=== PATIENT | female | born 1955 | race African-American/Black ===

== ENCOUNTER 2023-12-16 10:34 | Outpatient (AMB) | payer OTHER, MEDICAID, SELFPAY ==
--- NOTE | 2023-12-16 10:38 | MHC.OFFWIV ---
Intake Vital Signs 12/16/23 10:43 Height 5 ft 7 in Weight 237 lb BMI 37.1 BP 142/78 H Blood Pressure Location Rt brachial Position Sitting Pulse 82 Pulse Source Pulse Oximeter Pulse Oximetry (%) 98 Oxygen Delivery Method Room Air Intake Visit Reasons: [employer] BP is high, headaches, dizziness Intake Note: Patient here for fluctuating BP, headaches and dizziness that started Tuesday. Patient Tobacco Use Status: Never used Tobacco Allergies acetaminophen [From Vicodin] Adverse Reaction (Intermediate, Verified 12/16/23 10:42) Rash amoxicillin [From Augmentin] Adverse Reaction (Intermediate, Verified 12/16/23 10:42) Hallucinations clavulanic acid [From Augmentin] Adverse Reaction (Intermediate, Verified 12/16/23 10:42) Hallucinations cyclobenzaprine Adverse Reaction (Intermediate, Verified 12/16/23 10:42) Hallucinations hydrocodone [From Vicodin] Adverse Reaction (Intermediate, Verified 12/16/23 10:42) Rash metronidazole Adverse Reaction (Intermediate, Verified 12/16/23 10:42) hallucinations NSAIDS (Non-Steroidal Anti-Inflamma Adverse Reaction (Intermediate, Verified 12/16/23 10:42) rash vancomycin Adverse Reaction (Intermediate, Verified 12/16/23 10:42) Hallucinations spironolactone Adverse Reaction (Mild, Verified 12/16/23 10:42) headaches Do you need a note to return to daycare/school/sports/work: No HPI HPI Comments History of Present Illness Details Patient is a 68-year-old female complaining of headaches and dizziness and elevated blood pressures. She has with her a log today of her blood pressures, they are as follows; 12/13 169/95 HR85 12/14 154/92 HR83 12/14 166/85 HR73 12/15 165/88 HR74 She denies any nausea, vomiting, changes in her vision, heart palpitations, chest pain, shortness of breath or leg swelling. She tells me she sees a primary therapist at [facility] by the name of Dr. Maza and she called his office but she has not able to be seen by him until January. She called [facility] where she has a new patient appointment but it is not until February 19. She tells me she drinks lots of water and does not add salt to her diet. She does not know what her ejection fraction is but she knows she takes 40 mg of furosemide daily and 100 mg of losartan daily. [facility] Social History Patient Tobacco Use Status: Never used Tobacco Review of Systems Const All systems reviewed & are unremarkable except as noted in HPI and below Physical Exam Vital Signs: Last Vital Signs Pulse 82 12/16/23 10:43 BP 142/78 H 12/16/23 10:43 Pulse Ox 98 12/16/23 10:43 Oxygen Delivery Method Room Air 12/16/23 10:43 BMI result Body Mass Index 37.1 Const General: cooperative, healthy appearing, comfortable, no acute distress and well developed Orientation/consciousness: patient oriented x3 Limitations: no limitations HEENT Head: Yes normal to inspection Ears: hearing grossly normal bilaterally General nose exam: Normal external nose present Face and sinus: Yes normal facial exam Eyes General: appearance normal, both eyes and all related structures Neck Neck: Yes normal visual inspection and Yes full ROM Resp Effort & Inspection: normal respiratory effort and able to speak in complete sentences Auscultation: clear to auscultation bilaterally Cardio Rate: regular rate Rhythm: regular rhythm Heart sounds: normal S1 and S2 Skin General skin exam: no rashes or lesions noted Neuro General: patient oriented x3 Extrem Other: Patient has a walking boot on her right foot General: Yes full ROM and Yes edema (Trace nonpitting edema of bilateral lower extremities) Assessment & Plan Assessment & Plan (1) Elevated blood pressure reading with diagnosis of hypertension: Code(s): I10 - Essential (primary) hypertension Plan: Vital signs are stable, BP 142/78, patient well-appearing she has clear lung sounds and trace edema on her bilateral lower extremities. I question whether she is taking too much fluid in, I did discuss this with the patient. Recommended patient increase her furosemide to 60 mg daily for the next 2-3 days and monitor her blood pressures, recommended she limit her fluid intake as she does not know what her ejection fraction is. Recommended a low-salt diet. Educated patient that if her blood pressures do not stay below 140 systolic and she still has headaches and dizziness, she should go to the emergency room. Educated patient that she is at risk for a stroke with continued elevated blood pressures. Plan see above Coding Level of Care Code New Pt Level 4 (65297) Diagnoses Elevated blood pressure reading with diagnosis of hypertension I10
[2023-12-16 10:43] VITALS: BP 142/78; PULSE 82; O2SAT 98; BMI 37.1
== END 2023-12-16 11:44 | disposition home or self-care (01) ==
PROVIDERS: Visit Provider Physician Assistant
DX: I10 Essential (primary) hypertension (principal)

== ENCOUNTER → 2023-12-16 10:34 | Outpatient (BNVA) | payer OTHER, MEDICAID, SELFPAY | PROVIDERS: Visit Provider Physician Assistant | DX: I10 Essential (primary) hypertension (principal) | CPT/HCPCS: 99202 ==

== ENCOUNTER 2023-12-17 08:58 | Emergency (ER) | payer OTHER, MEDICAID, SELFPAY ==
--- NOTE | ~2023-12-17 | CT_ITS ---
EXAMINATION: CT HEAD WITHOUT CONTRAST CLINICAL INFORMATION: Frontal headache COMPARISON: None available. TECHNIQUE: Contiguous axial imaging was performed from the skull base to vertex without intravenous administration of contrast. This CT examination was performed using dose optimization techniques as appropriate, variously including the following: *Automated exposure control *Adjustment of mA and/or kV according to patient size (this includes techniques or standardized protocols for targeted exams where dose is matched to indication/reason for exam; i.e. extremities or head) *Use of iterative reconstruction technique DLP: 739 mGy-cm FINDINGS: There is no evidence of acute intracranial hemorrhage or territorial infarction. No abnormal mass effect or midline shift is appreciated. Hussein-white differentiation is well preserved. No extra-axial fluid collections. The ventricular system and cortical sulci are prominent, consistent with age-appropriate volume loss. There are areas of low density in the periventricular and subcortical white matter, most consistent with sequelae of microvascular ischemic change. Soft tissues and osseous structures are unremarkable. The visualized paranasal sinuses and mastoid air cells are well aerated. CT/CT head/brain wo IV con IMPRESSION: Chronic microvascular ischemic changes with no CT evidence of acute intracranial abnormality. Electronically signed by: Renny Barreto MD 12/17/2023 12:30 PM EDT
[2023-12-17 09:03] VITALS: BP 170/92; PULSE 80; RESP 16; TEMP 36.7; O2SAT 99; BMI 36.0
--- NOTE | 2023-12-17 09:08 | ECG_ITS ---
Test Reason : DIZZINESS Blood Pressure : / mmHG Vent. Rate : 080 BPM Atrial Rate : 080 BPM P-R Int : 160 ms QRS Dur : 088 ms QT Int : 380 ms P-R-T Axes : 006 -29 079 degrees QTc Int : 438 ms Normal sinus rhythm Moderate voltage criteria for LVH, may be normal variant ( R in aVL , Kuldeep product ) Septal infarct , age undetermined Abnormal ECG No previous ECGs available Referred By: Generic ED Physician Electronically Signed By:Desean Canas
--- NOTE | 2023-12-17 09:15 | ED_ITS ---
HPI - General Adult General Chief complaint: General Medical Stated complaint: high bp Time Seen by Provider: 12/17/23 09:15 Source: patient Mode of arrival: ambulatory Limitations: no limitations History of Present Illness ED Provider: Dr. Luke Ellison HPI narrative: 68-year-old female with a history of hypertension, atrial fibrillation status post ablation, who presents emergency department for evaluation of 3 days of headache and labile hypertension times months. Patient states over the past 3 days she has been having a constant, headache located in the temporal and frontal area of her head. She states the pain is a pressure pain which is 8/10 at its worst. She was associated dizziness. She has no visual change, nausea, vomiting numbness or weakness associated with her headache. Patient states it is unusual for her to have a headache that lasts this long and she rarely gets headaches. Patient states she gets occasional palpitations. The patient states that she was on metoprolol secondary to her paroxysmal atrial fibrillation but this was discontinued after she had her ablation. She states that since stopping the metoprolol she has been having labile blood pressure with mainly high readings. Patient denied fever, chills, rhinorrhea, chest pain, shortness of breath, dyspnea on exertion, nausea, vomiting or diarrhea. Patient was seen in the urgent care clinic yesterday and was felt to be fluid overloaded. She was advised to increase her Lasix from 40 mg to 60 mg for 3 days. Related Data Home Medications ?Medication ?Instructions ?Recorded ?Confirmed duloxetine 60 mg capsule,delayed 60 mg PO DAILY 12/16/23 release furosemide 40 mg tablet 40 mg PO DAILY 12/16/23 hydroxychloroquine 200 mg tablet 200 mg PO BID 12/16/23 losartan 100 mg tablet 100 mg PO DAILY 12/16/23 Previous Rx's ?Medication ?Instructions ?Recorded metoprolol succinate 25 mg 25 mg PO DAILY 90 days #90 tabs 12/17/23 tablet,extended release 24 hr Allergies Allergy/AdvReac Type Severity Reaction Status Date / Time acetaminophen [From Vicodin] AdvReac Intermediate Rash Verified 12/17/23 09:07 amoxicillin [From Augmentin] AdvReac Intermediate Hallucinati Verified 12/17/23 09:07 ons clavulanic acid AdvReac Intermediate Hallucinati Verified 12/17/23 09:07 [From Augmentin] ons cyclobenzaprine AdvReac Intermediate Hallucinati Verified 12/17/23 09:07 ons hydrocodone [From Vicodin] AdvReac Intermediate Rash Verified 12/17/23 09:07 metronidazole AdvReac Intermediate hallucinati Verified 12/17/23 09:07 ons NSAIDS (Non-Steroidal AdvReac Intermediate rash Verified 12/17/23 09:07 Anti-Inflamma vancomycin AdvReac Intermediate Hallucinati Verified 12/17/23 09:07 ons spironolactone AdvReac Mild headaches Verified 12/17/23 09:07 [facility] Past Medical History [facility] Narrative: Social history: She denies tobacco, alcohol and drug use. Social History Social History Patient Tobacco Use Status: Never used Tobacco Advance Directives: No Advance Directives Information Provided: Yes Physical Exam ED Vital Signs: Vital Signs - 24 hr 12/17/23 09:03 12/17/23 10:55 12/17/23 11:30 Temperature 98.1 F 97.5 F Pulse Rate 80 70 71 Respiratory Rate 16 16 16 Blood Pressure 170/92 H 156/81 H 172/90 H Pulse Oximetry 99 100 100 Oxygen Delivery Method Room Air Room Air Room Air BMI result Body Mass Index 36.0 Vital signs revealed an elevated blood pressure of 170/92 Exam: General: Awake, alert in no distress Head: Normocephalic, atraumatic, patient was tenderness palpation over her frontal area of her scalp as well as over her temporal artery regions bilaterally EENT: PERRL, Lids normal, sclera normal, conjunctiva normal, nose normal , ears normal, throat without erythema or exudates Neck: Supple, no adenopathy Lung: breath sounds symmetric, no wheezing, rales or rhonchi Chest: symmetric movement, nontender Heart: regular rate and rhythm, normal S1, S2 no murmurs or rubs Abdomen: soft, non-tender, nondistended, normal bowel sounds Back: no vertebral tenderness, no CVAT Extremities: no deformities, moves all extremities symmetrically Neuro: Awake, alert, oriented, normal speech, cranial nerves intact, moves all extremities symmetrically Psych: Pleasant, cooperative Medications Administered Discontinued Medications Generic Name Dose Route Start Last Admin Trade Name Freq PRN Reason Stop Dose Admin Acetaminophen 975 mg 12/17/23 11:06 12/17/23 11:31 Acetaminophen 325 Mg Tablet PO 12/17/23 11:07 975 mg ONCE ONE Administration Metoprolol Succinate 25 mg 12/17/23 11:06 12/17/23 11:30 Metoprolol Succinate Er 25 Mg Tab.Er.24h PO 12/17/23 11:07 25 mg ONCE ONE Administration Protocol Medical Decision Making Medical Decision Making [facility] Narrative: 68-year-old female with a history of hypertension, atrial fibrillation status post ablation, who presents emergency department for evaluation of 3 days of headache and labile hypertension times months. Patient's headache is located in the frontal and temporal areas of her scalp, has been constant for 3 days, 09/30 at its worse-unusual headache for this patient. Patient's blood pressure has been intermittently high over the last several months and she stopped her metoprolol. Review of systems was unremarkable. Physical examination did reveal elevated blood pressure. She also tenderness palpation over her frontal and temporal regions of her scalp. Differential diagnosis: ?Includes but is not limited to headache, migraine headache, temporal arteritis, tumor with mass effect, essential hypertension, renal failure, liver failure, electrolyte abnormalities, anemia, myocardial infarction, myocardial ischemia. Course: 11:20 My independent interpretation patient's laboratory evaluation: CBC was normal. CMP was normal. High sensitive troponin I was detectable but not elevated at 4.9. CRP and ESR pending. Twelve EKG was unremark[address]. CT scan of the brain pending. Patient was treated with Tylenol 975 mg orally. Patient states that her blood pressure was in better control while she was on metoprolol therefore she was restarted on metoprolol ER 25 mg daily. She was given her 1st dose here in the emergency department. 13:[address] scan of the head did not reveal any acute abnormalities, she does have chronic microvascular ischemic changes but I do not think this is the cause her headaches. Patient's ESR was 20 in her CRP was 0.78 but not high enough to support the diagnosis of giant cell arteritis. The patient will be started back on her metoprolol ER 25 mg q.day and advised to continue taking Tylenol for headaches. She was she was given printed and verbal instructions and discharged home. Admission/Observation Consideration of admission/observation: Escalation of care including admission/observation considered (Yes) Lab Data [facility] Lab Attestation statement: I reviewed the patient's lab results. 12/17/23 09:20 12/17/23 09:20 Labs: Lab Results 12/17/23 Range/Units 09:20 WBC 6.7 (4.8-10.8) X10*3/uL RBC 4.45 (4.20-5.50) X10*6/uL Hgb 11.3 L (12.0-16.0) g/dl Hct 36.0 L (37.0-47.0) % MCV 80.9 (80.0-98.0) fL MCH 25.4 L (27.0-33.0) pg MCHC 31.4 (31.0-35.0) g/dl RDW 16.8 H (11.0-16.0) % Plt Count 230 (160-400) X10*3/uL MPV 9.4 (9.4-12.3) fL Immature Gran % (Auto) 0.1 (0.0-0.4) % Neut % (Auto) 65.1 (45-73) % Lymph % (Auto) 27.6 (20-40) % [place] % (Auto) 6.1 (2-11) % Eos % (Auto) 0.7 (0-4) % Baso % (Auto) 0.4 (0-2) % Lymph # (Auto) 1.8 (1.2-4.9) X10*3/uL [place] # (Auto) 0.4 (0.1-1.2) X10*3/uL Eos # (Auto) 0.1 (0.0-0.4) X10*3/uL Baso # (Auto) 0.0 (0.0-0.2) X10*3/uL Abs Immat Gran (auto) 0.01 (0.00-0.03) X10*3/uL Absolute Neuts (auto) 4.3 (2.0-8.3) x10*3/uL Absolute Nucleated RBC 0.000 (0.0-0.012) X10*3/uL Nucleated RBC % (auto) 0.0 (0.0-0.2) /100WBC ESR 20 (0-20) MM/HR Sodium 142 (135-145) mmol/L Potassium 3.7 (3.3-5.1) mmol/L Chloride 107 (96-108) mmol/L Carbon Dioxide 27 (22-29) mmol/L Anion Gap 12 (12-20) BUN 12 (9-16) mg/dL Creatinine 0.86 (0.5-1.4) mg/dL Estim Creat Clear Calc 78.9 Estimated GFR > 60 Random Glucose 107 (60-115) mg/dL Calcium 9.4 (8.4-10.2) mg/dL Total Bilirubin 0.5 (0.0-1.0) mg/dL AST 24 (5-31) U/L ALT 13 (0-31) U/L Alkaline Phosphatase 76 (39-117) U/L Troponin I High Sens 4.9 (<3.5-17.0) ng/L C-Reactive Protein 0.78 H (< or = 0.50) mg/dL Total Protein 7.3 (6.5-8.0) g/dL Albumin 3.9 (3.5-5.0) g/dL Independent Interpretation I performed an independent interpretation of an: EKG Interpretation: My independent interpretation of the patient's 12 EKG done at 09:06 hours is as follows: Normal sinus rhythm with a rate of 80, normal VT interval, QRS duration QTC interval, no ST segment elevation, no ST segment depression, Q- waves in V1 and V2 2, no significant T-wave abnormalities Radiology Impression Discussion of test interpretation with radiology: I have reviewed the radiologist's reading. External Record Review External record reviewed: Office record (Urgent care note 12/16/2023) Discharge Plan Discharge Clinical Impression: Hypertension, Headache Patient Disposition: Home, Self-Care Additional Instructions: Your blood work was unremarkable which is reassuring. The CT scan of your brain did not reveal any abnormalities to explain your headaches. The changes seen on your brain are consistent with your age. Your headaches being be related to your elevated blood pressure therefore I am restarting your metoprolol ER 25 mg daily. Continue to take extra-strength Tylenol 500 mg pills, 2 pills every 6 hours as needed for headache. Follow-up with your doctor in 2 days. Please return to the emergency department if your symptoms get worse or if you develop any symptoms that are concerning to you. Prescriptions: New metoprolol succinate 25 mg tablet extended release 24 hr 25 mg PO DAILY 90 Days Qty: 90 0RF No Action furosemide 40 mg tablet 40 mg PO DAILY duloxetine 60 mg capsule,delayed release(DR/EC) 60 mg PO DAILY losartan 100 mg tablet 100 mg PO DAILY hydroxychloroquine 200 mg tablet 200 mg PO BID Print Language: Estonian
[2023-12-17 09:26] LABS: MANUAL DIFF FLAG NO
[2023-12-17 09:28] LABS: Basophils Percent Auto 0.4 % (0-2); Eosinophils Absolute Auto 0.1 X10*3/uL (0.0-0.4); Eosinophils Percent Auto 0.7 % (0-4); Hemoglobin 11.3 g/dl (12.0-16.0); Imm Gran Abs Auto 0.01 X10*3/uL (0.00-0.03); Imm Gran Pct Auto 0.1 % (0.0-0.4); Lymphocytes Absolute Auto 1.8 X10*3/uL (1.2-4.9); Lymphocytes Percent Auto 27.6 % (20-40); Mean Corpuscular HGB Conc 31.4 g/dl (31.0-35.0); Mean Corpuscular Hemoglobin 25.4 pg (27.0-33.0); Mean Corpuscular Volume 80.9 fL (80.0-98.0); Mean Platelet Volume 9.4 fL (9.4-12.3); Monocytes Absolute Auto 0.4 X10*3/uL (0.1-1.2); Monocytes Percent Auto 6.1 % (2-11); Neutrophils Absolute Auto 4.3 x10*3/uL (2.0-8.3); Neutrophils Percent Auto 65.1 % (45-73); Platelet Count 230 X10*3/uL (160-400); Red Blood Count 4.45 X10*6/uL (4.20-5.50); Red Cell Distribution Width 16.8 % (11.0-16.0); White Blood Count 6.7 X10*3/uL (4.8-10.8)
--- OUTSIDE RECORDS SUMMARY | 2023-12-17 09:31 | XMS_ITS | Continuity of Care Document ---
Author Organization [facility] ter Address [address] [place] [id number]- Care Team Providers Care Textile Knitter Name Role Phone Tarsha Saenz MD Primary Care Physician [phone] Encounter [facility] Date(s): 09/15/22 - 09/15/[address] [address] Discharge Disposition: A-D/C Home Attending Physician: Pavan Cintron MD Admitting Physician: Pavan Cintron MD Referring Physician: Pavan Cintron MD Allergies, Adverse Reactions, Alerts Substance Reaction Severity Status clarithromycin rash Active vancomycin itching UNKNOWN Mild Active nortriptyline rash Mild Active cyclobenzaprine tongue swelling,constipation Severe Active medtronidazole containing compounds rash Mild Active Augmentin diarrhea Mild Active Vicodin delusion rash Mild Active Darvocet A500 RASH Mild Active NSAIDs C/O: itching Rash Persistent Moderate Active Immunizations Given and Recorded Vaccine Date Status Refusal Reason pneumococcal 23-valent vaccine 05/04/21 Recorded pneumococcal 23-valent vaccine 1 09/01/10 Given SARS-CoV-2 (COVID-19) mRNA-1273 vaccine 12/19/20 R ecorded SARS-CoV-2 (COVID-19) mRNA-1273 vaccine 11/21/20 R ecorded SARS-CoV-2 (COVID-19) mRNA-1273 vaccine 06/10/20 R ecorded SARS-CoV-2 (COVID-19) mRNA-1273 vaccine 05/13/20 R ecorded influenza virus vaccine, inactivated 12/04/20 Saud rded influenza virus vaccine, inactivated 2 12/16/17 Gi martir influenza virus vaccine, inactivated 12/10/17 Saud rded influenza virus vaccine, inactivated 3 11/29/16 Gi martir influenza virus vaccine, inactivated 11/25/16 Saud rded influenza virus vaccine, inactivated 4 11/25/15 Gi martir influenza virus vaccine, inactivated 11/26/14 Saud rded influenza virus vaccine, inactivated 11/12/13 Saud rded influenza virus vaccine, inactivated 11/02/13 Saud rded influenza virus vaccine, inactivated 5 11/30/12 Gi martir influenza virus vaccine, inactivated 11/10/11 Saud rded influenza virus vaccine, inactivated 6 11/09/11 Gi martir influenza virus vaccine, inactivated 7 11/03/10 Gi martir influenza virus vaccine, inactivated 10/31/09 Give n influenza virus vaccine, inactivated 8 12/22/08 Gi martri Influenza Virus Vaccine (oldterm) 9 11/23/19 Recor ded Influenza Virus Vaccine (oldterm) 11/14/18 Recorde d tetanus/diphtheria/pertussis, acel(Tdap) 10 12/15/18 Given tetanus/diphtheria/pertussis, acel(Tdap) 06/24/09 Given zoster vaccine, inactivated 02/01/18 Recorded zoster vaccine, inactivated 01/31/18 Recorded zoster vaccine, inactivated 11/25/17 Recorded zoster vaccine, inactivated 11 11/25/17 Recorded influ virus vac, H1N1, inactive(oldterm) 12 12/22/08 Given Hepatitis A Vaccine (oldterm) 13 02/06/08 Given Hepatitis A Vaccine (oldterm) 14 08/02/07 Given 1Admin Note: info sheet given given w/o incident 2Result Comment: [12/16/2017] [facility] [id number] 3Result Comment: [11/29/2016] [facility] [phone] 4Result Comment: [11/25/2015] pt. tolerated inj. without complications...CO 5Result Comment: [11/30/2012] given w/o incident...AA 6Admin Note: FLULAVAL 7Admin Note: done @ work 8Admin Note: per pt 9Result Comment: Done at [facility] 10Result Comment: [id number] 11Result Comment: [12/16/2017] #1 12Admin Note: per pt 13Admin Note: hep A #2 14Admin Note: hep A #1 Medications Aerochamber See Instructions, # 1 pack/packet, Maintenance, 1 units, 01/06/22 10:43:00 EST, to use with MDI, Supply, 170, cm, 01/06/22 10:31:00 EST, Height, 101.5, kg, 06/11/21 12:07:00 EDT, Dry Weight Start Date: 01/06/22 Status: Ordered BiPAP Machine See Instructions, # 1 each, Maintenance, AutoBIPAP min EPAP 11 max IPAP 22 PS 6, use daily while sleeping, 04/05/22 19:49:00 EST, Supply Start Date: 04/05/22 Status: Ordered Centrum Silver By Mouth, Daily, 0 Refills, Maintenance, 01/13/21 11:03:00 EST, Partial fill upon patient request if the prescription is for a schedule II opioid drug. Start Date: 01/13/21 Status: Ordered CPAP Machine CPAP 12, Maintenance, 01/07/17 14:22:53 EST, Compound Start Date: 01/07/17 Status: Ordered duloxetine 60 mg oral enteric coated capsule 1 capsule, By Mouth, Daily, # 90 capsule, 3 Refills, Maintenance, 09/08/21 10:47:00 EDT, [facility]/pharmacy #[id number], 170, cm, 09/08/21 10:10:00 EDT, Height, 101.5, kg, 06/11/21 12:07:00 EDT, Dry Weight Start Date: 09/08/21 Status: Ordered Fish Oil By Mouth, 0 Refills, Maintenance, 01/13/21 11:03:00 EST, Partial fill upon patient request if the prescription is for a schedule II opioid drug. Start Date: 01/13/21 Status: Ordered Flax Seed Oil 0 Refills, Maintenance, 01/13/21 11:04:00 EST, Partial fill upon patient request if the prescription is for a schedule II opioid drug. Start Date: 01/13/21 Status: Ordered Knee High Compression Stockings 20-30mmHg Knee High Compression Stockings 20-30mmHg, See Instructions, # 1 pair, Refills 0, Tot. Refills 0, Maintenance, Dx: Volume overload icd 10 E 87.7, Peripheral edema R60.0, 09/02/17 14:25:07 EDT, Compound Start Date: 09/02/17 Status: Ordered Lasix 40 mg oral tablet 40 mg, 1, tablet, By Mouth, Daily, # 90 tablet, Refills 3, Tot. Refills 3, Maintenance, 03/30/22 13:32:00 EST, Route to Pharmacy Electronically, [id number], Partial fill upon patient request if the prescription is for a schedule II opioid drug... Start Date: 03/30/22 Status: Ordered lidocaine 5% topical film See Instructions, PRN Pain , Mild, apply patche Topically to painful area once a day, as needed . Leave on for up to 12h, then remove and leave off for 12h, # 30 patch, 0 Refills, Maintenance, 08/25/22 9:48:00 EDT, Film, [id number], Partial fi... Start Date: 08/25/22 Status: Ordered losartan 100 mg oral tablet 1 tablet = 100 mg, By Mouth, Daily, # 90 tablet, 3 Refills, Maintenance, 06/01/22 11:02:00 EDT, Tablet, [id number], Partial fill upon patient request if the prescription is for a schedule II opioid drug., 170, cm, 05/14/22 9:21:00 EDT, Height,... Start Date: 06/01/22 Stop Date: 05/27/23 Status: Ordered metoprolol 100 mg oral tablet, extended release 100 mg, 1, tablet, By Mouth, Daily, # 90 tablet, Refills 3, Tot. Refills 3, Maintenance, 05/18/22 12:35:00 EDT, Route to Pharmacy Electronically, [id number], Partial fill upon patient requestif the prescription is for a schedule II opioid antwon... Start Date: 05/18/22 Stop Date: 05/13/23 Status: Ordered Splint See Instructions, # 1 each, Maintenance, elbow counterforce brace for medial epicondylitis. Apply just distal to elbow daily prn pain, 08/25/22 9:52:00 EDT, Supply, 170.18, cm, 08/25/22 9:12:00 EDT, Height, 105.36, kg, 08/17/22 11:00:00 EDT, Dry Weight Start Date: 08/25/22 Status: Ordered Problem List Condition Confirmation Course Effective Dates Status H ealth Status Informant Lumbar facet arthropathy Confirmed Active Fibromyalgia Confirmed Active GERD - Gastro-esophageal reflux disease Confirmed Active Hypertension Confirmed Active Left ventricular diastolic dysfunction Confirmed Active Mastodynia, bilateral Confirmed 12/02/10 Active Mitral valve prolapse Confirmed Active Obesity Confirmed Active Obstructive sleep apnea Confirmed 09/20/12 Active OA (osteoarthritis) of knee Confirmed Active Positive PPD Confirmed Active RA - Rheumatoid arthritis Confirmed Active Severe obesity (BMI 35.0-39.9) with comorbidity Confirmed Active Comorbid sleep-related hypoventilation Confirmed Active Vital Signs Most recent to oldest [Reference Range]: 1 2 3 Height 170.18 cm (09/15/22 9:49 AM) 170.18 cm (09/13/22 3:28 PM) 170.18 cm (08/17/22 11:00 AM) Weight 110.6 kg (09/15/22 9:49 AM) 105.36 kg (08/17/22 11:00 AM) Oxygen Saturation [94-100 %] 100 % (09/15/22 11:15 AM) 99 % (09/15/22 11:00 AM) 97 % (09/15/22 10:45 AM) Pulse Rate [55-90 bpm] 114 bpm *H* (09/15/22 9:49 AM) Body Mass Index [18.5-24.99 kg/m2] 38.19 kg/m2 *>HHI* (09/15/22 9:49 AM) 36.38 kg/m2 *>HHI* (08/17/22 11:00 AM) Blood Pressure [90-138/55-84 mm Hg] 167/84mm Hg *H* (09/15/22 11:15 AM) 149/87mm Hg *H* (09/15/22 11:00 AM) 155/88mm Hg *H* (09/15/22 10:45 AM) Respiratory Rate [16-30 br/min] 16 br/min (09/15/22 11:15 AM) 15 br/min *L* (09/15/22 11:00 AM) 17 br/min (09/15/22 10:45 AM) Temperature [96.8-100.4 DegF] 97.5 DegF (09/15/22 10:45 AM) 97.8 DegF (09/15/22 9:49 AM) Liters per Minute 6 L/min (09/15/22 11:00 AM) 6 L/min (09/15/22 10:45 AM) Mode of Delivery (Oxygen) Room air (09/15/22 11:15 AM) Simple face mask (09/15/22 11:00 AM) Simple face mask (09/15/22 10:45 AM) Blood pressure sites Arm, left (09/15/22 10:45 AM) Arm, left (09/15/22 9:49 AM) Temperature Route Temporal (09/15/22 10:45 AM) Temporal (09/15/22 9:49 AM) Dry Weight 110.6 kg (09/15/22 9:49 AM) 106.4 kg (09/13/22 3:28 PM) 105.36 kg (08/17/22 11:00 AM) Weight Obtained Via Patient/family state d (08/17/22 11:00 AM) Dry Weight Obtained Via Patient/family s tated (09/13/22 3:28 PM) Patient/family stated (08/17/22 11:00 AM) Social History Social History Type Response Smoking Status Never smoker; Tobacc o user in household: No entered on: 01/07/14 Sex History and physical note * Event Display: History and Physical Hospital Authored Date: [id number] Note * Tuyet Vences RN: PERFORM Event Display: Discharge/Transfer Note Hospital Authored Date: [id number] Nursing Discharge Note Entered On: 09/15/2022 12:07 EDT Performed On: 09/15/2022 12:07 EDT by Tuyet Vences RN Nursing Discharge Note 2 Discharge Time : 09/15/2022 12:06 EDT Discharge Level of Care at Discharge : Home/Long Term/Foster Care Patient Left Unit Via : Wheelchair Patient Accompanied Off Unit with : Responsible adult DC Instructions Provided & Signed by Pt : Yes Patient Understands D/C Instructions : Yes Patient Instructions Discharge Signed : Yes Did Pt have Specialty Bed or Wound Vac : No Tuyet Vences RN - 09/15/2022 12:07 EDT * Tuyet Vences RN: PERFORM Event Display: Patient Education/Instruction Authored Date: [id number] Surgery [place] [address] Name: THO CHO : 1955?? Visit: 09/15/2022 08:37?? Current Date: 09/15/2022 11:41 ?? Account: [id number]?? Surgery Discharge Instructions We would like to thank you for allowing us to assist you with your healthcare needs. The following includes patient education materials and information regarding your injury/illness. Our entire staffstrives to provide an excellent experience for our patients and their families. PLEASE ENSURE YOU FOLLOW-UP PER THE INSTRUCTIONS BELOW! ?? YOUR OPINION IS IMPORTANT TO US! Please complete the survey you may receive by mail or email. Your feedback will be used to make improvements to the healthcare experiences of our patients and their families. Surveys are administered by [employer]. ?? If further treatment with your primary care physician or another doctor is recommended, it is important for you to keep the appointment. Call your primary care physician or return to the Emergency Department immediately if your condition worsens, fails to improve, or new symptoms develop. If you need to find a doctor, you can call [facility] for a referral at [phone] or toll free at [phone]) or log in to [email or web address].. ?? You can view and manage your care through the patient portal or by using a health care hannah of your choosing. [employer] is a website that allows you to securely view your medical information including your hospital discharge summary, office visit summaries, medications and follow-up visits. You can also request appointments, renew medications, and request access to your medical information using a health care hannah of your choosing, or just ask a question. You are entitled to know the individuals who participated in your treatment. This information is available within your medical record and will be provided upon your request. You can enroll at [email or web address] or register d uring your next office visit. You have been discharged from [facility], Patient Care Unit: [facility]??. If you have any questions regarding these instructions after you leave, please call us and we will be happy to assist you. [facility] Your Care Team Attending Physician Pavan Cintron MD?? Discharging Providers Pavan Cintron MD Reason for Admission URGENCY OF URINATION CYSTOSCOPY DS CS Primary Care Provider Dany CADET, Tarsha Parks? Advance Directive Health Care Proxy on File Yes - Health Care Proxy What to do next Instructions From Your Doctor ?? Orders? 09/15/22 10:43:00 EDT?? Instructions from your Care Team FOLLOW POSTOP INSTRUCTIONS Scheduled Follow-Up Appointments Tuesday 10:00 AM EDT ?? Where: [facility] Radiology [facility] [address], [address] [place] [address]- Status: Pending Tuesday 8:45 AM EDT ?? With: Susan MACARIO, Jania Torres Where: [facility] [address] [place] [address]- Status: Pending You Need to Schedule the Following Appointments Follow Up with??Pavan Cintron When:??Within 1 to 2 weeks Where: [address] [facility] [place] [address]- Business (1) Follow Up with??Tarsha Saenz When:??In 0 days Where: [address] [place] [address]- Business (1) Discharge Medications THO CHO :1955 Visit Date:09/15/2022 Medications: Please continue your medications until treatment is completed or stopped by your provider. You may resume your daily prescription medications. Discuss any questions related to medications with your provider. What How Much When Instructions Next Dose Unchanged Duloxetine (duloxetine 60 mg oral enteric coated capsule) 1 capsule Oral Daily Unchanged Durable Medical Equipment (Aerochamber) See instructions 1 units ?? Unchanged Durable Medical Equipment (BiPAP Machine) See instructions AutoBIPAP min EPAP 11 max IPAP 22 PS 6, use daily while sleeping ?? Unchanged Durable Medical Equipment (CPAP Machine) CPAP 12 Unchanged Durable Medical Equipment (Knee High Compression Stockings 20-30mmHg) See instructions Dx: Volume overload icd 10 E 87.7, Peripheral edema R60.0 ?? Unchanged Durable Medical Equipment (Splint) See instructions elbow counterforce brace for medial epicondylitis. Apply just distal to elbow daily prn pain ?? Unchanged Flax (Flax Seed Oil) Unchanged Furosemide (Lasix 40 mg oral tablet) 1 tab(s) Oral Daily Unchanged Lidocaine Topical (lidocaine 5% topical film) See instructions apply patche Topically to painful area once a day, as needed . Leave on for up to 12h, then remove and leave off for 12h, As needed for Pain , Mild ?? Unchanged Losartan (losartan 100 mg oral tablet) 1 tab(s) Oral Daily Duration: 90 Days Unchanged Metoprolol (metoprolol 100 mg oral tablet, extended release) 1 tab(s) Oral Daily Duration: 90 Days Unchanged Multivitamin With Minerals (Centrum Silver) Oral Daily Unchanged [place]-3 Polyunsaturated Fatty Acids (Fish Oil) Oral Allergies (NKA means No Known Allergies) cyclobenzaprine??(tongue swelling,constipation) Augmentin??(diarrhea) Darvocet A500??(RASH) Vicodin??(delusion, rash) medtronidazole containing compounds??(rash) nortriptyline??(rash) vancomycin??(itching, UNKNOWN) NSAIDs??(C/O: itching, Rash) clarithromycin??(rash) Education Materials Below is the list of Educational Leaflet Providered with your Discharge Instructions. Surgery Medical Daystay Surgical Overnight Discharge Instructions?? Valuables and Belongings I fully understand and agree that [facility] accepts no responsibility for all my personal property including clothing, toilet articles, radios, jewelry, dentures, hearing aids, rings, money, or any other property that is in my possession or is brought to me after admission. I understand certain valuables may be placed in a hospital safe for a short period of time. I understand that the hospital is not liable for loss or damage due to accident, fire, or other natural occurrence while said property is in the safe. I accept full responsibility for any personal property that I keep with me, and will not hold the hospital responsible in case of loss or disappearance. I acknowledge that i have been encouraged to send valuables and belongings home. ?? Review of Valuable and Belonging List: With patient Disposition of Belongings: Other: with patient under stretcher Date for Pt to Sign Valuables/Belongings: 09/15/22 09:49:00 ?? Valuables & Belongings ?? Clothes Electronic devices Jewelry Monetary Items Personal devices Miscellaneous Medications (Valuables) Valuables at Bedside Pants, Shirt, Shoes, Undergarments Cell phone ?? Purse, Wallet Dentures, partial plate, Glasses ? Valuables Sent Home ? Valuables Sent to Security ? Other Discharge Information ? Pulmonary Rehab Status?? Pulmonary Rehab Discharge Status?? Respiratory Rate: 16 br/min ? Common Emergency Awareness Tips IS IT A STROKE? Act FAST and Check for these signs: FACE Does the face look uneven? ARM Does one arm drift down? SPEECH Does their speech sound strange? TIME Call at any sign of stroke ?? Heart Attack Signs Chest discomfort: Most heart attacks involve discomfort in the center of the chest and lasts more than a few minutes, or goes away and comes back. It can feel like uncomfortable pressure, squeezing, fullness or pain. Discomfort in upper body: Symptoms can include pain or discomfort in one or both arms, back, neck, jaw or stomach. Shortness of breath: With or without discomfort. Other signs: Breaking out in a cold sweat, nausea, or lightheaded. Remember, MINUTES DO MATTER. If you experience any of these heart attack warning signs, call to get immediate medical attention! ?? Smoking can increase your chances of developing chronic health problems and can cause harmful effects to other family members in your house. If you smoke, you are strongly encouraged to quit. Please call [facility] [employer] Link at [phone] or [phone] ([phone]) or log in to [email or web address] for referrals to smoking cessation programs. ?? The National Suicide Prevention Hotline is available 13/09 if you or someone you know needs to find a reason to keep living. By calling 5-044-702-Syncbak (0827) you'll be connected to a skilled, trained counselor at a crisis center in your area. SURGERY DISCHARGE INSTRUCTIONS SIGNATURE THO FLORES Location:[facility] Registration Date and Time:09/15/2022 08:37 EDT Primary Care Physician: Dany CADET, Tarsha Parks, Attending Physician: Pavan Cintron MD, THO TANG, have received the above patient education materials/instructions and have verbalized understanding. If ambulance or transport services are being used I further acknowledge being given a choice of service. ?? If you need to contact me, please call me at this number: . Patient/Forex Trader Name: Patient/Forex Trader Signature: Relationship to Patient: Witness Name/Signature: Date: * Tuyet Vences RN: PERFORM, SIGN, VERIFY Event Display: Patient Education Handout Authored Date: [id number] * Tuyet Vences RN: PERFORM Event Display: Patient Education Leaflets Authored Date: [id number] Surgery Medical Daystay Surgical Overnight Discharge Instructions ?? 295 Medical Daystay/Surgical Overnight Discharge Instructions ? Since your coordination and judgment may be altered by medication and/or anesthesia, a responsible adult must drive you home from the hospital. ? If you have received medication for pain or sedation while under our care, you should not drive, operate machinery, drink alcohol, or sign any legal documents for 24 hours.?? You should have someone with you at home tonight. ? Remain at home the day of discharge.?? You may be up and about unless otherwise instructed by your physician. ? You may resume your daily prescription medication schedule.?? Any depressant medication should be avoided for 24 hours unless otherwise instructed by your surgeon or anesthesiologist. ? Call your physician for a follow-up appointment.? If you experience unusual or severe pain not relied by your pain medication, excessive bleedingor drainage, persistent nausea and vomiting, excessive swelling or redness, foul odor from incisionsite or fever over 100.6F, you need to call your physician. ? A follow-up phone call by a nurse will be made the day after your procedure.?? If you have stayed with us over night, you will not be receiving a follow-up phone call. ? Nausea and vomiting are a common side effect of prescription pain medication.?? We recommend that pills are not taken on an empty stomach.?? While taking any prescription pain medication you should not drive or drink alcohol. ? Patient Care team information Care Team Personnel Name: Niurka Mendosa RN Position: [facility] RN Member Role: Primary Care Nurse Name: Oswaldo Valadez RN Position: [facility] RN Member Role: Primary Care Nurse Name: Alva Gibbons RN Position: [facility] RN Member Role: Primary Care Nurse Name: Milka Mendosa RN Position: [facility] RN Member Role: Primary Care Nurse Name: Joseph CADET, Jl Best Position: [facility] Physician (General Medicine) Member Role: [employer] Consulting Physician Address: Address: [address] [place] [address] [address] [place] [address]- [place] Name: Dany CADET, Tarsha Parks Position: Reference Physician Member Role: PCP Address: Address: [address] [place] [address]- Care Team Related Persons Name: MARGARETTE LOPEZ Name: TAWNYA LOPEZ Address: [address] [address]
--- OUTSIDE RECORDS SUMMARY | 2023-12-17 09:31 | XMS_ITS | Continuity of Care Document ---
Author Organization [facility] Address [address] [place] [address]- Care Team Providers Care Fire Engine Pump Operator Name Role Phone Keyla Mata MD Primary Care Physician [phone] Encounter [facility] Date(s): 06/05/20 - 06/12/20 [facility] [address] [place] [address]- Encounter Diagnosis Fibromyalgia(Discharge Diagnosis) - 06/06/20 Left ventricular diastolic dysfunction(Discharge Diagnosis) - 06/06/20 OA (osteoarthritis) of knee(Discharge Diagnosis) - 06/06/20 Obstructive sleep apnea(Discharge Diagnosis) - 06/06/20 Depressive disorder(Discharge Diagnosis) - 06/06/20 Attending Physician: Keyla Mata MD Allergies, Adverse Reactions, Alerts Substance Reaction Severity Status clarithromycin Active vancomycin UNKNOWN Active nortriptyline Active cyclobenzaprine tongue swelling,constipation Active medtronidazole containing compounds Active Augmentin diarrhea Active Vicodin delusion rash Active Darvocet A500 RASH Active NSAIDs C/O: itching Rash Persistent Moderate Active Immunizations Given and Recorded Vaccine Date Status Refusal Reason Influenza Virus Vaccine (oldterm) 1 11/23/19 Recor ded Influenza Virus Vaccine (oldterm) 11/14/18 Recorde d tetanus/diphtheria/pertussis, acel(Tdap) 2 12/15/18 Given tetanus/diphtheria/pertussis, acel(Tdap) 06/24/09 Given zoster vaccine, inactivated 02/01/18 Recorded zoster vaccine, inactivated 11/25/17 Recorded zoster vaccine, inactivated 3 11/25/17 Recorded influenza virus vaccine, inactivated 4 12/16/17 Gi martir influenza virus vaccine, inactivated 5 11/29/16 Gi martir influenza virus vaccine, inactivated 6 11/25/15 Gi martir influenza virus vaccine, inactivated 11/26/14 Saud rded influenza virus vaccine, inactivated 11/12/13 Saud rded influenza virus vaccine, inactivated 7 11/30/12 Gi martir influenza virus vaccine, inactivated 8 11/09/11 Gi martir influenza virus vaccine, inactivated 9 11/03/10 Gi martir influenza virus vaccine, inactivated 10/31/09 Give n influenza virus vaccine, inactivated 10 12/22/08 G iven pneumococcal 23-valent vaccine 11 09/01/10 Given influ virus vac, H1N1, inactive(oldterm) 12 12/22/08 Given Hepatitis A Vaccine (oldterm) 13 02/06/08 Given Hepatitis A Vaccine (oldterm) 14 08/02/07 Given 1Result Comment: Done at [facility] 2Result Comment: [id number] 3Result Comment: [12/16/2017] #1 4Result Comment: [12/16/2017] [facility] [id number] 5Result Comment: [11/29/2016] [facility] [phone] 6Result Comment: [11/25/2015] pt. tolerated inj. without complications...CO 7Result Comment: [11/30/2012] given w/o incident...AA 8Admin Note: FLULAVAL 9Admin Note: done @ work 10Admin Note: per pt 11Admin Note: info sheet given given w/o incident 12Admin Note: per pt 13Admin Note: hep A #2 14Admin Note: hep A #1 Medications CPAP Machine CPAP 12, Maintenance, 01/07/17 14:22:53 EST, Compound Start Date: 01/07/17 Status: Ordered duloxetine 60 mg oral enteric coated capsule 1 capsule = 60 mg, By Mouth, Daily, # 90 capsule, 1 Refills, Maintenance, 03/24/20 10:21:00 EST, ECCapsule, [facility]/pharmacy #[id number], 171, cm, 02/04/20 7:16:00 EST, Height, 106, kg, 01/31/20 8:57:00 EST, Dry Weight Start Date: 03/24/20 Status: Ordered folic acid 1 mg oral tablet Refills 0, Maintenance, 04/03/20 14:49:00 EST, Partial fill upon patient request if the prescription is for a schedule II opioid drug. Start Date: 04/03/20 Status: Ordered ipratropium nasal 42 mcg/inh spray See Instructions, USE 2 SPRAYS IN EACH NOSTRIL 3 TIMES A DAY FOR 7 DAYS, # 15 sprays, 0 Refills, Acute, [facility] STORE [id number], 30, USE 2 SPRAYS IN EACH NOSTRIL 3 TIMES A DAY FOR 7 DAYS, 170, cm, 04/10/19 14:00:00 EST, Height, 104.5, kg, 09/15/18 9:05:00 EDT... Start Date: 05/04/19 Status: Ordered Knee High Compression Stockings 20-30mmHg Knee High Compression Stockings 20-30mmHg, See Instructions, # 1 pair, Refills 0, Tot. Refills 0, Maintenance, Dx: Volume overload icd 10 E 87.7, Peripheral edema R60.0, 09/02/17 14:25:07 EDT, Compound Start Date: 09/02/17 Status: Ordered Lasix 20 mg oral tablet 20 mg, 1, tablet, By Mouth, Daily, Refills 0, Maintenance, 05/19/18 10:29:08 EDT Start Date: 05/19/18 Status: Ordered losartan 100 mg oral tablet 1 tablet = 100 mg, By Mouth, Daily, # 30 tablet, 0 Refills, Maintenance, 08/08/17 13:56:20 EDT, Tablet Start Date: 08/08/17 Status: Ordered methotrexate 2.5 mg oral tablet 3 tablets, By Mouth, Every week, wednesdays, # 4 tablet, 0 Refills, Maintenance, 08/08/17 13:56:30 EDT, Tablet Start Date: 08/08/17 Status: Ordered metoprolol 25 mg oral tablet, extended release 25 mg, 1, tablet, By Mouth, Daily, in addition to 50 mg dose--> total of 75 mg daily, # 90 tablet, Refills 0, Tot. Refills 0, Maintenance, 04/14/20 15:22:00 EST, Route to Pharmacy Electronically, [facility]/pharmacy #[id number], Partial fill upon patient request,... Start Date: 04/14/20 Stop Date: 07/13/20 Status: Ordered Metoprolol Succinate ER 50 mg oral tablet, extended release 0 Refills, Maintenance, 04/03/20 14:48:00 EST, Partial fill upon patient request if the prescription is for a schedule II opioid drug. Start Date: 04/03/20 Status: Ordered Problem List Condition Effective Dates Status Health Status Inform ant Lumbar facet arthropathy(Confirmed) Active Fibromyalgia(Confirmed) Active GERD - Gastro-esophageal ref lux disease(Confirmed) Active Hypertension(Confirmed) Active Left ventricular diastolic dysfunction(Confirmed) Active Mastodynia, bilateral(Confirmed) 12/02/10 Active Mitral valve prolapse(Confirmed) Active Obesity(Confirmed) Active Obstructive sleep apnea(Confirmed) 09/20/12 Active OA (osteoarthritis) of knee(Confirmed) Active Positive PPD(Confirmed) Active RA - Rheumatoid arthritis(Confirmed) Active Diagnosis Diagnosis Type Effective Dates Health Status Clinical Service Informant Fibromyalgia Discharge Diagnosis 06/06/20 Left ventricular diastolic dysfunction Discharge Diagnosis 06/06/20 OA (osteoarthritis) of knee Discharge Diagnosis 06/06/20 Obstructive sleep apnea Discharge Diagnosis 06/06/20 Depressive disorder Discharge Diagnosis 06/06/20 Social History Social History Type Response Smoking Status Never smoker; Tobacc o user in household: No entered on: 01/07/14 Sex
--- OUTSIDE RECORDS SUMMARY | 2023-12-17 09:31 | XMS_ITS | Continuity of Care Document ---
Author Organization [facility] Address [address] [place] [address]- Care Team Providers Care Residential Sales Associate Name Role Phone Keyla Mata MD Primary Care Physician Encounter [facility] Date(s): 11/06/20 - 12/06/20 [facility] [address] [place], [place] [address] Allergies, Adverse Reactions, Alerts Substance Reaction Severity Status clarithromycin Active vancomycin UNKNOWN Active nortriptyline Active cyclobenzaprine tongue swelling,constipation Active medtronidazole containing compounds Active Augmentin diarrhea Active Vicodin delusion rash Active Darvocet A500 RASH Active NSAIDs C/O: itching Rash Persistent Moderate Active Immunizations Given and Recorded Vaccine Date Status Refusal Reason SARS-CoV-2 (COVID-19) mRNA-1273 vaccine 06/10/20 R ecorded SARS-CoV-2 (COVID-19) mRNA-1273 vaccine 05/13/20 R ecorded Influenza Virus Vaccine (oldterm) 1 11/23/19 Recor [...] 14 08/02/07 Given 1Result Comment: Done at [facility] 2Result Comment: [id number] 3Result Comment: [12/16/2017] #1 4Result Comment: [12/16/2017] [facility] [id number] 5Result Comment: [11/29/2016] [facility] [phone] 6Result Comment: [11/25/2015] pt. tolerated inj. without complications...[place] 7Result Comment: [11/30/2012] given w/o incident...AA 8Admin Note: FLULAVAL 9Admin Note: done @ work 10Admin Note: per pt 11Admin Note: info sheet given given w/o incident 12Admin Note: per pt 13Admin Note: hep A #2 14Admin Note: hep A #1 Medications aspirin 81 mg oral delayed release tablet 81 mg, 1, tablet, By Mouth, Daily, # 30 tablet, Refills 0, Maintenance, 11/10/20 16:07:00 EDT, Partial fill upon patient request if the prescription is for a schedule II opioid drug. Start Date: 11/10/20 Status: Ordered atorvastatin 20 mg oral tablet 0 Refills, Maintenance, 11/10/20 16:06:00 EDT, Partial fill upon patient request if the prescription is for a schedule II opioid drug. Start Date: 11/10/20 Status: Ordered CPAP Machine CPAP 12, Maintenance, 01/07/17 14:22:53 EST, Compound Start Date: 01/07/17 Status: Ordered duloxetine 60 mg oral enteric coated capsule 1 capsule, By Mouth, Daily, # 90 capsule, 1 Refills, Maintenance, 09/15/20 10:55:00 EDT, [facility]/pharmacy #[id number], 171, cm, 09/12/20 9:46:00 EDT, Height, 106, kg, 01/31/20 8:57:00 EST, Dry Weight Start Date: 09/15/20 Status: Ordered folic acid 1 mg oral tablet Refills 0, Maintenance, 04/03/20 14:49:00 EST, Partial fill upon patient request if the prescription is for a schedule II opioid drug. Start Date: 04/03/20 Status: Ordered ipratropium nasal 42 mcg/inh spray See Instructions, USE 2 SPRAYS IN EACH NOSTRIL 3 TIMES A DAY FOR 7 DAYS, # 15 sprays, 0 Refills, Acute, [id number], 30, USE 2 SPRAYS IN EACH NOSTRIL 3 TIMES A DAY FOR 7 DAYS, 170, cm, 04/10/19 14:00:00 EST, Height, 104.5, kg, 09/15/18 9:05:00 EDT... Start Date: 05/04/19 Status: Ordered ipratropium nasal 42 mcg/inh spray 2 sprays, Nares, Both, 3 times a day, # 1 each, 0 Refills, Maintenance, 07/02/20 16:11:00 EDT, [facility]/pharmacy #[id number], 2 sprays Nares, Both 3 times a day,x7 days, 171, cm, 04/03/20 13:54:00 EST, Height, 106, kg, 01/31/20 8:57:00 EST, Dry Weight Start Date: 07/02/20 Stop Date: 07/09/20 Status: Ordered Knee High Compression Stockings 20-30mmHg [...] 10:29:08 EDT Start Date: 05/19/18 Status: Ordered lidocaine 5% topical cream 1 application, Topically, 2 times a day, for 14 days, clean affected area before application, # 30 Gm, 0 Refills, Acute 12/17/20 12:35:00 EDT, 12/03/20 12:35:00 EDT, Cream, [facility]/pharmacy #[id number], Partial fill upon patient request if the prescription is f... Start Date: 12/03/20 Stop Date: 12/17/20 Status: Ordered losartan 100 mg oral tablet [...] 04/14/20 15:22:00 EST, Route to Pharmacy Electronically, [facility]/pharmacy #[id number], Partial fill upon patient request,... Start Date: [...] PPD(Confirmed) Active RA - Rheumatoid arthritis(Confirmed) Active Social History Social History Type Response Smoking Status Never smoker; Tobacc o user in household: No entered on: 01/07/14 Sex
--- OUTSIDE RECORDS SUMMARY | 2023-12-17 09:31 | XMS_ITS | Continuity of Care Document ---
Author Organization [facility] Address [address] [place] [address]- Care Team Providers Care Design Painter Name Role Phone Tarsha Saenz MD Primary Care Physician [place] [facility] [place] 09/24/22 - 10/24/22 [facility] [address] [place] [address] [place] Allergies, Adverse Reactions, Alerts Substance Reaction Severity Status clarithromycin rash Active vancomycin itching UNKNOWN Mild Active cyclobenzaprine tongue swelling,constipation Severe Active nortriptyline rash Mild Active medtronidazole containing compounds rash Mild Active [...] influenza virus vaccine, inactivated 8 12/22/08 Gi martir Influenza Virus Vaccine (oldterm) 9 11/23/19 Recor [...] given given w/o incident 2Result Comment: [12/16/2017] [facility] [id number] 3Result Comment: [11/29/2016] [facility] [phone] 4Result Comment: [11/25/2015] pt. tolerated inj. without complications...CO 5Result Comment: [11/30/2012] given w/o incident...AA 6Admin Note: FLULAVAL 7Admin Note: done @ work 8Admin Note: per pt 9Result Comment: Done at [facility] 10Result Comment: [id number] 11Result Comment: [12/16/2017] #1 12Admin Note: per [...] capsule, 3 Refills, Maintenance, 09/08/21 10:47:00 EDT, [facility]/pharmacy #[id number], 170, cm, 09/08/21 10:10:00 EDT, Height, [...] 03/30/22 13:32:00 EST, Route to Pharmacy Electronically, [facility]/pharmacy #[id number], Partial fill upon patient request if [...] 0 Refills, Maintenance, 08/25/22 9:48:00 EDT, Film, [facility]/pharmacy #[id number], Partial fi... Start Date: 08/25/22 Status: Ordered losartan 100 mg oral tablet 1 tablet = 100 mg, By Mouth, Daily, # 90 tablet, 3 Refills, Maintenance, 06/01/22 11:02:00 EDT, Tablet, [facility]/pharmacy #[id number], Partial fill upon patient request if the prescription is for a schedule II opioid drug., 170, cm, 05/14/22 9:21:00 EDT, Height,... Start Date: 06/01/22 Stop Date: 05/27/23 Status: Ordered metoprolol 100 mg oral tablet, extended release 100 mg, 1, tablet, By Mouth, Daily, # 90 tablet, Refills 3, Tot. Refills 3, Maintenance, 05/18/22 12:35:00 EDT, Route to Pharmacy Electronically, [facility]/pharmacy #[id number], Partial fill upon patient requestif the [...] Confirmed Active Comorbid sleep-related hypoventilation Confirmed Active Social History Social History Type Response Smoking Status Never smoker; Tobacc o user in household: No entered on: 01/07/14 Sex Patient Care team information Care Team Personnel Name: Niurka Mendosa RN Position: [facility] RN Member Role: Primary Care Nurse Name: Oswaldo Valadez RN Position: [facility] RN Member Role: Primary Care Nurse Name: Alva Gibbons RN Position: [facility] RN Member Role: Primary Care Nurse Name: Milka Mendosa RN Position: [facility] RN Member Role: Primary Care Nurse Name: Joseph CADET, Jl Best Position: [facility] Physician (General Medicine) Member Role: Lifetime Consulting Physician Address: Address: [address] [place] [address]- [place] Name: Dany CADET, Tarsha Parks Position: Reference Physician Member Role: PCP Address: Address: [address] [place] [address]- Care Team Related Persons Name: MARGARETTE LOPEZ Name: TAWNYA LOPEZ Address: [address] [address]
--- OUTSIDE RECORDS SUMMARY | 2023-12-17 09:31 | XMS_ITS | Continuity of Care Document ---
Author Organization [facility] Address [address] [place] [address]- Care Team Providers Care Qa Manager Name Role Phone Keyla Mata MD Primary Care Physician [place] [facility] Date(s): 08/27/19 - 09/03/19 [facility] [address] [place] [address]- [facility] Attending Physician: Kumar Price MD Referring Physician: Keyla Mata MD Allergies, Adverse Reactions, Alerts Substance Reaction Severity Status clarithromycin Active vancomycin UNKNOWN Active nortriptyline Active cyclobenzaprine tongue swelling,constipation Active medtronidazole containing compounds Active Augmentin diarrhea Active Vicodin delusion rash Active Darvocet A500 RASH Active NSAIDs C/O: itching Rash Persistent Moderate Active oxyCODONE nausea, dizziness, weakness, palpitations Active Immunizations Given and Recorded Vaccine Date Status Refusal Reason tetanus/diphtheria/pertussis, acel(Tdap) 1 12/15/18 Given tetanus/diphtheria/pertussis, acel(Tdap) 06/24/09 Given Influenza Virus Vaccine (oldterm) 11/14/18 Recorde d zoster vaccine, inactivated 02/01/18 Recorded zoster vaccine, inactivated 11/25/17 Recorded zoster vaccine, inactivated 2 11/25/17 Recorded influenza virus vaccine, inactivated 3 12/16/17 Gi martir influenza virus vaccine, inactivated 4 11/29/16 Gi martir influenza virus vaccine, inactivated 5 11/25/15 Gi martir influenza virus vaccine, inactivated 11/26/14 Saud rded influenza virus vaccine, inactivated 11/12/13 Saud rded influenza virus vaccine, inactivated 6 11/30/12 Gi martir influenza virus vaccine, inactivated 7 11/09/11 Gi martir influenza virus vaccine, inactivated 8 11/03/10 Gi martir influenza virus vaccine, inactivated 10/31/09 Give n influenza virus vaccine, inactivated 9 12/22/08 Gi martir pneumococcal 23-valent vaccine 10 09/01/10 Given influ virus vac, H1N1, inactive(oldterm) 11 12/22/08 Given Hepatitis A Vaccine (oldterm) 12 02/06/08 Given Hepatitis A Vaccine (oldterm) 13 08/02/07 Given 1Result Comment: [id number] 2Result Comment: [12/16/2017] #1 3Result Comment: [12/16/2017] [facility] [id number] 4Result Comment: [11/29/2016] [facility] [id number] 5Result Comment: [11/25/2015] pt. tolerated inj. without complications...CO 6Result Comment: [11/30/2012] given w/o incident...AA 7Admin Note: FLULAVAL 8Admin Note: done @ work 9Admin Note: per pt 10Admin Note: info sheet given given w/o incident 11Admin Note: per pt 12Admin Note: hep A #2 13Admin Note: hep A #1 Medications CPAP Machine AutoCPAP 10-14, Maintenance, 01/07/17 14:22:53, Compound Start Date: 01/07/17 Status: Ordered DULoxetine 40 mg oral delayed release capsule 1 capsule = 40 mg, By Mouth, Daily, do not crush or chew, # 30 capsule, 0 Refills, Maintenance, 03/09/19 11:17:00 EST, CR Capsule Start Date: 03/09/19 Status: Ordered Folic Acid Daily, 0 Refills, Maintenance, 10/05/16 13:05:44 Start Date: 10/05/16 Status: Ordered ipratropium nasal 42 mcg/inh spray See Instructions, USE 2 SPRAYS IN EACH NOSTRIL 3 TIMES A DAY FOR 7 DAYS, # 15 sprays, 0 Refills, Acute, [id number], 30, USE 2 SPRAYS IN EACH NOSTRIL [...] EDT, Tablet Start Date: 08/08/17 Status: Ordered magnesium oxide 400 mg oral tablet 1 tablet = 400 mg, By Mouth, Daily, for 30 days, # 30 tablet, 8 Refills, Acute 12/04/19 11:36:00 EDT, 03/09/19 11:36:00 EST, Tablet, [facility]/pharmacy #[id number], 170, cm, 03/09/19 11:14:00 EST, Height, 104.5,kg, 09/15/18 9:05:00 EDT, Dry Weight Start Date: 03/09/19 Stop Date: 12/04/19 Status: Ordered methotrexate 2.5 mg oral tablet 3 tablets, By Mouth, Every week, wednesdays, # 4 tablet, 0 Refills, Maintenance, 08/08/17 13:56:30 EDT, Tablet Start Date: 08/08/17 Status: Ordered metoprolol 50 mg oral tablet, extended release 50 mg, 1, tablet, By Mouth, Daily, Refills 0, Maintenance, 05/19/18 10:29:03 EDT Start Date: 05/19/18 Status: Ordered pantoprazole 20 mg oral delayed release tablet 1 tablet = 20 mg, By Mouth, Daily, # 30 tablet, 3 Refills, Maintenance, 12/19/18 16:24:41 EDT Start Date: 12/19/18 Stop Date: 04/18/19 Status: Ordered sertraline 100 mg oral tablet 1 tablet = 100 mg, By Mouth, Daily, 0 Refills, Maintenance, 12/15/18 9:25:18 EDT Start Date: 12/15/18 Status: Ordered topiramate 25 mg oral capsule 1 capsule = 25 mg, By Mouth, Daily at bedtime, # 30 capsule, 5 Refills, Maintenance, 06/04/19 14:15:00 EDT, [facility]/pharmacy #[id number], 170, cm, 04/10/19 14:00:00 EST, Height, 104.5, kg, 09/15/18 9:05:00 EDT, Dry Weight Start Date: 06/04/19 Stop Date: 12/01/19 Status: Ordered traZODone 100 mg oral tablet 0.5-1 tablet, By Mouth, 3 times a day, Refills 0, Maintenance, 12/15/18 9:25:12 EDT Start Date: 12/15/18 Status: Ordered Walker See Instructions, # 1 units, Maintenance, use as directed, 08/08/17 11:13:34 EDT, Compound Start Date: 08/08/17 Status: Ordered Problem List Condition Effective Dates Status Health Status Inform ant Lumbar facet arthropathy(Confirmed) Active Fibromyalgia(Confirmed) Active GERD - Gastro-esophageal ref lux disease(Confirmed) Active Hypertension(Confirmed) Active Left ventricular diastolic dysfunction(Confirmed) Active Mastodynia, bilateral(Confirmed) 12/02/10 Active Mitral valve prolapse(Confirmed) Active Obesity(Confirmed) Active Obstructive sleep apnea(Confirmed) 09/20/12 Active OA (osteoarthritis) of knee(Confirmed) Active Positive PPD(Confirmed) Active RA - Rheumatoid arthritis(Confirmed) Active Vital Signs Most recent to oldest [Reference Range]: 1 Height 170 cm (08/27/19 11:55 AM) Weight 106.8 kg (08/27/19 11:55 AM) Oxygen Saturation [94-100 %] 100 % (08/27/19 11:55 AM) Pulse Rate [55-90 bpm] 75 bpm (08/27/19 11:55 AM) Body Mass Index [18.5-24.99] 36.96 *>HHI* (08/27/19 11:55 AM) Blood Pressure [90-138/55-84 mm Hg] 137/ 84mm Hg (08/27/19 11:55 AM) Respiratory Rate [16-30 br/min] 18 br/mi n (08/27/19 11:55 AM) Temperature [96.8-100.4 DegF] 96.6 DegF *L* (08/27/19 11:55 AM) Mode of Delivery (Oxygen) Room air (08/27/19 11:55 AM) Blood pressure sites Arm, right (08/27/19 11:55 AM) Temperature Route Temporal (08/27/19 11:55 AM) Dry Weight 106.8 kg (08/27/19 11:55 AM) Weight Obtained Via Standing scale (08/27/19 11:55 AM) Dry Weight Obtained Via Standing scale (08/27/19 11:55 AM) Social History Social History Type Response Smoking Status Never smoker; Tobacc o user in household: No entered on: 01/07/14 Sex
--- OUTSIDE RECORDS SUMMARY | 2023-12-17 09:31 | XMS_ITS | Continuity of Care Document ---
Author Organization [facility] Address [address] [place] [address]- Care Team Providers Care Driver/Sales Workers Name Role Phone Dany CADET, Tarsha S Primary Care Physician Encounter [facility] Date(s): 04/01/23 - 05/01/23 [facility] [address] [place] [address]- Allergies, Adverse Reactions, Alerts Substance Reaction Severity Status cyclobenzaprine tongue swelling,constipation Severe Active clarithromycin rash Active vancomycin itching UNKNOWN Mild Active nortriptyline rash Mild Active medtronidazole containing compounds rash Mild Active Darvocet A500 RASH Mild Active Augmentin diarrhea Mild Active Vicodin delusion rash Mild Active NSAIDs C/O: itching Rash Persistent [...] 11/29/16 Gi martir influenza virus vaccine, inactivated 10/5/17 Saud rded influenza virus vaccine, inactivated 4 [...] given given w/o incident 2Result Comment: [12/16/2017] [facility] [id number] 3Result Comment: [11/29/2016] [facility] [id number] 4Result Comment: [11/25/2015] pt. tolerated inj. without complications...CO 5Result Comment: [11/30/2012] given w/o incident...AA 6Admin Note: FLULAVAL 7Admin Note: done @ work 8Admin Note: per pt 9Result Comment: [facility] at [facility] 10Result Comment: [id number] 11Result Comment: [12/16/2017] #1 12Admin Note: per pt 13Admin Note: hep A #2 14Admin Note: hep A #1 Medications Blood Pressure Monitor See Instructions, # 1 each, Maintenance, blood pressure cuff, 12/06/22 10:59:00 EDT, Supply, 170, cm, 11/28/22 12:16:00 EDT, Height, 110.6, kg, 11/27/22 3:48:00 EDT, Dry Weight Start Date: 12/06/22 Status: Ordered Centrum By Mouth, Daily, 0 Refills, Maintenance, 03/03/23 14:50:00 EST, Partial fill upon patient request if the prescription is for a schedule II opioid drug. Start Date: 03/03/23 Status: Ordered CPAP Machine CPAP 12, Maintenance, 01/07/17 14:22:53 EST, Compound Start Date: 01/07/17 Status: Ordered duloxetine 60 mg oral enteric coated capsule 1 capsule, By Mouth, Daily, # 90 capsule, 3 Refills, Maintenance, 09/08/21 10:47:00 EDT, [facility]/pharmacy #[id number], 170, cm, 09/08/21 10:10:00 EDT, Height, 101.5, kg, 06/11/21 12:07:00 EDT, Dry Weight Start Date: 09/08/21 Status: Ordered Fish Oil By Mouth, 0 Refills, Maintenance, 03/03/23 14:49:00 EST, Partial fill upon patient request if the prescription is for a schedule II opioid drug. Start Date: 03/03/23 Status: Ordered Flax Seed Oil oral capsule By Mouth, Daily, 0 Refills, Maintenance, 03/03/23 14:50:00 EST, Partial fill upon patient request if the prescription is for a schedule II opioid drug. Start Date: 03/03/23 Status: Ordered hydroxychloroquine 200 mg oral tablet 200 mg, 1, tablet, By Mouth, Daily, Refills 0, Maintenance, 11/27/22 3:54:00 EDT, Partial fill uponpatient request if the prescription is for a schedule II opioid drug. Start Date: 11/27/22 Status: Ordered Iron Iron, By Mouth, Daily, 0 Refills, Maintenance, 03/03/23 14:49:00 EST Start Date: 03/03/23 Status: Ordered Lasix 40 mg oral tablet 40 mg, 1, tablet, By Mouth, Daily, # 90 tablet, Refills 3, Tot. Refills 3, Maintenance, 03/30/22 13:32:00 EST, Route to Pharmacy Electronically, [facility]/pharmacy #[id number], Partial fill upon patient request if the prescription is for a schedule II opioid drug... Start Date: 03/30/22 Status: Ordered losartan 100 mg oral tablet 1 tablet = 100 mg, By Mouth, Daily at bedtime, # 90 tablet, 3 Refills, Maintenance, 06/01/22 11:02:00 EDT, Tablet, [facility]/pharmacy #[id number], Partial fill upon patient request if the prescription is for a schedule II opioid drug., 170, cm, 05/14/22 9:21:00 E... Start Date: 06/01/22 Stop Date: 05/27/23 Status: Ordered Magnesium Magnesium, By Mouth, Daily, 0 Refills, Maintenance, 03/03/23 14:48:00 EST Start Date: 03/03/23 Status: Ordered metoprolol 25 mg oral tablet 25 mg, By Mouth, 2 times a day, # 180 tablet, Refills 3, Tot. Refills 3, Maintenance, 12/27/22 12:00:00 EST, Route to Pharmacy Electronically, [facility]/pharmacy #[id number], Partial fill upon patient request ifthe prescription is for a schedule II opioid drug.,... Start Date: 12/27/22 Stop Date: 12/22/23 Status: Ordered NuLYTELY [place] oral powder for reconstitution See Instructions, use for colonoscopy prep per instructions, # 4,000 mL, 0 Refills, Maintenance, 03/18/23 14:26:00 EST, REC Powder, [facility]/pharmacy #[id number], Partial fill upon patient request if the prescription is for a schedule II opioid drug., 170, cm, 0... Start Date: 03/18/23 Status: Ordered spironolactone 25 mg oral tablet 25 mg, 1, tablet, By Mouth, Daily, # 30 tablet, Refills 5, Tot. Refills 5, Maintenance, 04/25/23 10:38:00 EST, Route to Pharmacy Electronically, [facility]/pharmacy #[id number], Partial fill upon patient request if the prescription is for a schedule II opioid drug... Start Date: 04/25/23 Status: Ordered Problem List Condition Confirmation Course Effective Dates Status H ealth Status Informant Lumbar facet arthropathy Confirmed Active Fibromyalgia Confirmed Active GERD - Gastro-esophageal reflux disease Confirmed Active Hypertension Confirmed Active Left ventricular diastolic dysfunction Confirmed Active Mastodynia, bilateral Confirmed 10/12/11 Active Mitral valve prolapse Confirmed Active Obesity Confirmed Active JESS (AHI 28.5, min SpO2 75%, possible hypoventilation) Confirmed 09/20/12 Active OA (osteoarthritis) of knee [...] Team Personnel Name: Niurka Mendosa RN Position: [facility] RN Member Role: Primary Care Nurse Name: Oswaldo Valadez RN Position: [facility] RN Member Role: Primary Care Nurse Name: Alva Gibbons RN Position: [facility] RN Member Role: Primary Care Nurse Name: Hilary Bell RN Position: [facility] RN Member Role: Primary Care Nurse Name: Tarsha Saenz MD Position: Reference Physician Member Role: PCP Address: Address: [address] [place] [id number]- Care Team Related Persons Name: MARGARETTE LOPEZ Name: TAWNYA LOPEZ Address: home [address] [place] [id number]
--- OUTSIDE RECORDS SUMMARY | 2023-12-17 09:32 | XMS_ITS | Continuity of Care Document ---
Author Organization [facility] ter Address [address] [place] [address]- Care Team Providers Care Brake [address] [employer] Name Role Phone Dany CADET, Tarsha Parks Primary Care Physician Encounter [facility] Date(s): 03/02/23 - 03/02/[address] [id number] Discharge Disposition: A-D/C Home Attending Physician: Pavan [...] given given w/o incident 2Result Comment: [12/16/2017] [facility] [id number] 3Result Comment: [11/29/2016] [facility] [id number] 4Result Comment: [11/25/2015] pt. tolerated inj. without complications...CO 5Result Comment: [11/30/2012] given w/o incident...AA 6Admin Note: FLULAVAL 7Admin Note: done @ work 8Admin Note: per pt 9Result Comment: [facility] 10Result Comment: [id number] 11Result Comment: [12/16/2017] #1 12Admin Note: per pt 13Admin Note: hep A #2 14Admin Note: hep A #1 Medications Blood Pressure Monitor See Instructions, # 1 each, Maintenance, blood pressure cuff, 12/06/22 10:59:00 EDT, Supply, 170, cm, 11/28/22 12:16:00 EDT, Height, 110.6, kg, 11/27/22 3:48:00 EDT, Dry Weight Start Date: 12/06/22 Status: Ordered CPAP Machine CPAP 12, Maintenance, 01/07/17 14:22:53 EST, Compound Start Date: 01/07/17 Status: Ordered duloxetine 60 mg oral enteric coated capsule 1 capsule, By Mouth, Daily, # 90 capsule, 3 Refills, Maintenance, 09/08/21 10:47:00 EDT, [facility]/pharmacy #[id number], 170, cm, 09/08/21 10:10:00 EDT, Height, 101.5, kg, 06/11/21 12:07:00 EDT, Dry Weight Start Date: 09/08/21 Status: Ordered hydroxychloroquine 200 mg oral tablet 200 mg, 1, tablet, By Mouth, Daily, Refills 0, Maintenance, 11/27/22 3:54:00 EDT, Partial fill uponpatient request if the prescription is for a schedule II opioid drug. Start Date: 11/27/22 Status: Ordered Lasix 40 mg oral tablet 40 mg, 1, tablet, By Mouth, Daily, # 90 tablet, Refills 3, Tot. Refills 3, Maintenance, 03/30/22 13:32:00 EST, Route to Pharmacy Electronically, [facility]/pharmacy #[id number], Partial fill upon patient request if the prescription is for a schedule II opioid drug... Start Date: 03/30/22 Status: Ordered losartan 100 mg oral tablet 1 tablet = 100 mg, By Mouth, Daily at bedtime, # 90 tablet, 3 Refills, Maintenance, 06/01/22 11:02:00 EDT, Tablet, [facility]/pharmacy #[id number], Partial fill upon patient request if the prescription is for a schedule II opioid drug., 170, cm, 05/14/22 9:21:00 E... Start Date: 06/01/22 Stop Date: 05/27/23 Status: Ordered metoprolol 25 mg oral tablet 25 mg, By Mouth, 2 times a day, # 180 tablet, Refills 3, Tot. Refills 3, Maintenance, 12/27/22 12:00:00 EST, Route to Pharmacy Electronically, [facility]/pharmacy #[id number], Partial fill upon patient request ifthe prescription is for a schedule II opioid drug.,... Start Date: 12/27/22 Stop Date: 12/22/23 Status: Ordered spironolactone 25 mg oral tablet 25 mg, 1, tablet, By Mouth, Daily, # 30 tablet, Refills 5, Tot. Refills 5, Maintenance, 11/15/22 11:40:00 EDT, Route to Pharmacy Electronically, [facility]/pharmacy #[id number], Partial fill upon patient request if the prescription is for a schedule II opioid drug... Start Date: 11/15/22 Status: Ordered Problem List Condition Confirmation Course [...] to oldest [Reference Range]: 1 2 3 Oxygen Saturation [94-100 %] 100 % (03/02/23 12:20 PM) 100 % (03/02/23 12:00 PM) 97 % (03/02/23 11:45 AM) Pulse Rate [55-90 bpm] 62 bpm (03/02/23 8:42 AM) Blood Pressure [90-138/55-84 mm Hg] 130/84mm Hg (03/02/23 11:45 AM) 109/65mm Hg (03/02/23 11:30 AM) 118/52mm Hg (03/02/23 8:42 AM) Respiratory Rate [16-30 br/min] 15 br/min *L* (03/02/23 12:20 PM) 15 br/min *L* (03/02/23 12:00 PM) 20 br/min (03/02/23 11:45 AM) Temperature [96.8-100.4 DegF] 97.6 DegF (03/02/23 11:30 AM) 97.1 DegF (03/02/23 8:42 AM) Liters per Minute 6 L/min (03/02/23 11:30 AM) Mode of Delivery (Oxygen) Room air (03/02/23 12:20 PM) Room air (03/02/23 11:45 AM) Simple face mask (03/02/23 11:30 AM) Blood pressure sites Arm, left (03/02/23 8:42 AM) Temperature Route Temporal (03/02/23 11:30 AM) Temporal (03/02/23 8:42 AM) Dry Weight 108.7 kg (03/02/23 8:42 AM) Dry Weight Obtained Via Standing scale (03/02/23 8:42 AM) Social History Social History Type Response Smoking Status Never smoker; Tobacc o user in household: No entered on: 01/07/14 Sex History and physical note * Event Display: History and Physical Hospital Authored Date: [id number] Note * Andrew Underwood RN: PERFORM Event Display: Discharge/Transfer Note Hospital Authored Date: [id number] Nursing Discharge Note Entered On: 03/02/2023 12:13 EST Performed On: 03/02/2023 12:13 EST by Andrew Underwood RN Nursing Discharge Note 2 Discharge Time : 03/02/2023 12:47 EST Andrew Underwood RN - 03/02/2023 12:47 EST Discharge Level of Care at Discharge : Home/[facility] Care Patient Left Unit Via : Wheelchair Patient Accompanied Off Unit with : Responsible adult DC Instructions Provided & Signed by Pt : Yes Patient Understands D/C Instructions : Yes Patient Instructions Discharge Signed : Yes Did Pt have Specialty Bed or Wound Vac : No Andrew Underwood RN - 03/02/2023 12:13 EST * Andrew Underwood RN: PERFORM Event Display: Patient Education/Instruction Authored Date: [id number] Surgery Adult Discharge Instructions [address] [id number] Name: THO TAMMIE : 1955?? Visit: 03/02/2023 08:27?? Current Date: 03/02/2023 12:14 ?? Account: [id number]?? Surgery Discharge Instructions We would like to [...] and their families. Surveys are administered by [employer] ?? If further treatment with your primary care physician or another doctor is recommended, it is important for you to keep the appointment. Call your primary care physician or return to the Emergency Department immediately if your condition worsens, fails to improve, or new symptoms develop. If you need to find a doctor, you can call [facility] [employer] for a referral at [phone] or toll free at [phone] ([phone]) or log in to [email or web address].. ?? [facility], in keeping with [facility] guidance, no longer requires face masks for staff, patientsor visitors in most situations. Similiar to time spent indoors at other locations, there is the chance that you were exposed to repiratory viruses during your time with us (such as flu or COVID-19). If you develop symptoms concerning for a viral respiratory infection, please seek testing (and treatment if indicated) from your medical provider or home test kit. ?? You can view and manage your care through the patient portal or by using a health care hannah of your choosing. [employer] is a website that allows you to [...] upon your request. You can enroll at [email or web address] or register d uring your next office visit. You have been discharged from [facility], Patient Care Unit: [facility]??. If you have any questions regarding these instructions after you leave, please call us and we will be happy to assist you. [facility] Your Care Team Attending Physician Pavan Cintron MD?? Discharging Providers Pavan Cintron MD Reason for Admission OVERACTIVE BLADDERDS CS Primary Care Provider Tarsha Saenz MD? Advance Directive Health Care Proxy on File Yes - Health Care Proxy What to do next Instructions From Your Doctor ?? Orders? 03/02/23 11:23:00 EST?? Please follow Pre-printed post-operative instructions. Surgical Discharge Instructions? A responsible adult must drive you home.?? We gave you medicine for pain and??to make you sleepy.?? This may make you feel dizzy or tired. ?? You should have someone at home with you tonight.??You will need help getting up from a chair or bed as well as walking for 24 hours. ?? Do not??drive, drink alcohol, operate machinery, or sign legal papers for 24 hours. Remain at home today. Be careful when walking. Your balance may be off.?? We encourage you get up and move around today. Follow your doctor???s instructions. ?? Resume your daily medication schedule. ?? Please start with a light diet. Avoid fatty, greasy and spicy foods today. ?? Call your doctor if you have?Pain not helped by your pain pills ?A lot of blood or fluid on bandage ?A lot of swelling,??redness, or pus??where you had surgery ?Pain, swelling and/or redness of the calf ?Poor color or tingling of the fingers or toes ?Fever over 101.5??F ?Vomiting that does not stop ?? Nausea and vomiting are a common side effect of pain pills.?We suggest you do not take on an empty stomach.?Do not drive or drink alcohol when taking pain pills. ?? We will call tomorrow or Anthony to see how you are doing.? Scheduled Follow-Up Appointments 2023 2:30 PM EST ?? With: Tony CADET, Luz Parks Where: [facility] [address] [place] [address]- Status: Pending Tuesday 1:15 PM EST ?? With: Kimmy CADET, Vishal Parker Where: [facility] [address] [place] [address]- Status: Pending 2023 10:00 AM EST ?? Where: [facility] Radiology [facility] [address], [address] [place] [address]- Status: Pending Tuesday 9:30 AM EDT ?? With: Maryellen CADET, Neel Ch Where: [facility] [address] [place] [address]- Status: Pending You Need to Schedule the Following Appointments Follow Up with??Pavan Cintron When:??Within 1-2 day: call to discuss follow up visit Where: [address] [facility] [place] [place] [address]- Business (1) Discharge Medications THO CHO :1955 Visit Date:03/02/2023 Medications: Please continue your medications until treatment is completed or stopped by your provider. You may resume your daily prescription medications. Discuss any questions related to medications with your provider. What How Much When Instructions Next Dose Unchanged Duloxetine (duloxetine 60 mg oral enteric coated capsule) 1 capsule Oral Daily Unchanged Durable Medical Equipment (Blood Pressure Monitor) See instructions blood pressure cuff ?? Unchanged Durable Medical Equipment (CPAP Machine) CPAP 12 Unchanged Furosemide (Lasix 40 mg oral tablet) 1 tab(s) Oral Daily Unchanged Hydroxychloroquine (hydroxychloroquine 200 mg oral tablet) 1 tab(s) Oral Daily Unchanged Losartan (losartan 100 mg oral tablet) 1 tab(s) Oral Daily at Bedtime Duration: 90 Days Unchanged Metoprolol (metoprolol 25 mg oral tablet) 25 Milligram Oral Twice a day Duration: 90 Days Unchanged Spironolactone (spironolactone 25 mg oral tablet) 1 tab(s) Oral Daily Common Emergency Awareness Tips IS IT A [...] are strongly encouraged to quit. Please call [facility] [employer] [facility] at [phone] or [phone] ([phone]) or log in to [email or web address] for referrals to smoking cessation programs. ?? The National Suicide Prevention Hotline is available 13/09 if you or someone you know needs to find a reason to keep living. By calling 1-204-857-[employer] (0393) you'll be connected to a skilled, trained counselor at a crisis center in your area. SURGERY DISCHARGE INSTRUCTIONS SIGNATURE PAGE TAMMIEMYAIVET Location:[facility] Registration Date and Time:03/02/2023 08:27 EST Primary Care Physician: Dany CADET, Tarsha Parks, Attending Physician: Abdulaziz CADET, Pavan Manzano, THO TANG, have received the above patient education materials/instructions and have verbalized understanding. If ambulance or transport services are being used I further acknowledge being given a choice of service. ?? If you need to contact me, please call me at this number: . Patient/Space And Storage Clerk Name: Patient/Space And Storage Clerk Signature: Relationship to Patient: Witness Name/Signature: Date: * Andrew Underwood RN M: PERFORM, SIGN, VERIFY Event Display: Patient Education Handout Authored Date: Patient Care team information Care Team Personnel Name: Niurka Mendosa RN Position: [facility] RN Member Role: Primary Care Nurse Name: Oswaldo Valadez RN Position: [facility] RN Member Role: Primary Care Nurse Name: Alva Gibbons RN Position: [facility] RN Member Role: Primary Care Nurse Name: Hilary Bell RN Position: [facility] RN Member Role: Primary Care Nurse Name: Jl Ruiz MD Position: [facility] Physician (General Medicine) Member Role: Lifetime Consulting Physician Address: Address: [address] [place] [address] [address] [place], [place] [address] Name: Saskia Houser RN Position: [facility] RN Member Role: Primary Care Nurse Name: Tarsha Saenz MD Position: Reference Physician Member Role: PCP Address: Address: [address] [place] [address] Care Team Related Persons Name: MARGARETTE LOPEZ Name: TAWNYA LOPEZ Address: [address] [address]
--- OUTSIDE RECORDS SUMMARY | 2023-12-17 09:32 | XMS_ITS | Continuity of Care Document ---
Author Organization [facility] Address [address] [place] [address]- Care Team Providers Care Decision Unit Rn Name Role Phone Keyla Mata MD Primary Care Physician [facility] Date[facility]): 05/22/21 - 06/21/21 [facility] [address] [place], [place] [address] Allergies, Adverse Reactions, Alerts Substance Reaction Severity Status clarithromycin rash Active medtronidazole containing compounds rash Active vancomycin UNKNOWN Active nortriptyline rash Active cyclobenzaprine tongue swelling,constipation Active Augmentin diarrhea Active Vicodin delusion rash [...] given given w/o incident 2Result Comment: [12/16/2017] [facility] 19130-111-03 3Result Comment: [11/29/2016] [facility] [id number] 4Result Comment: [11/25/2015] pt. tolerated inj. without complications...CO 5Result Comment: [11/30/2012] given w/o incident...AA 6Admin Note: FLULAVAL 7Admin Note: done @ work 8Admin Note: per pt 9Result Comment: Done at [facility] 10Result Comment: [id number] 11Result Comment: [12/16/2017] #1 12Admin Note: per pt 13Admin Note: hep A #2 14Admin Note: hep A #1 Medications aspirin 325 mg oral tablet 325 mg, 1, tablet, By Mouth, Daily, Refills 0, Maintenance, 06/11/21 12:33:00 EDT, Partial fill upon patient request if the prescription is for a schedule II opioid drug. Start Date: 06/11/21 Stop Date: 06/25/21 Status: Ordered Centrum Silver By Mouth, Daily, 0 Refills, Maintenance, 01/13/21 11:03:00 EST, Partial fill upon patient request if the prescription is for a schedule II opioid drug. Start Date: 01/13/21 Status: Ordered Colace sodium 100 mg oral capsule 100 mg, 1, capsule, By Mouth, 2 times a day, PRN, Refills 0, Maintenance, for constipation, 06/11/21 12:33:00 EDT, Partial fill upon patient request if the prescription is for a schedule II opioid drug. Start Date: 06/11/21 Status: Ordered CPAP Machine CPAP 12, Maintenance, 01/07/17 14:22:53 EST, Compound Start Date: 01/07/17 Status: Ordered duloxetine 60 mg oral enteric coated capsule 1 capsule, By Mouth, Daily, # 90 capsule, 1 Refills, Maintenance, 02/09/21 14:43:00 EST, [facility]/pharmacy #[id number], 170, cm, 01/29/21 13:01:00 EST, Height, 104.5, kg, 01/29/21 13:01:00 EST, Dry Weight Start Date: 02/09/21 Status: Ordered Fish Oil By Mouth, 0 Refills, Maintenance, 01/13/21 11:03:00 EST, Partial fill upon patient request if the prescription is for a schedule II opioid drug. Start Date: 01/13/21 Status: Ordered Flax Seed Oil 0 Refills, Maintenance, 01/13/21 11:04:00 EST, Partial fill upon patient request if the prescription is for a schedule II opioid drug. Start Date: 01/13/21 Status: Ordered folic acid 1 mg oral tablet Refills 0, Maintenance, 04/03/20 14:49:00 EST, Partial fill upon patient request if the prescription is for a schedule II opioid drug. Start Date: 04/03/20 Status: Ordered HYDROmorphone 2 mg oral tablet 1 tablet = 2 mg, By Mouth, Every 4 hours, PRN Pain , Moderate, 0 Refills, Maintenance, 06/11/21 12:33:00 EDT, Tablet, Partial fill upon patient request if the prescription is for a schedule II opioiddrug. Start Date: 06/11/21 Status: Ordered Iron Chews See Instructions, By Mouth Daily, 0 Refills, Maintenance, 06/08/21 11:27:00 EDT, Partial fill upon patient request if the prescription is for a schedule II opioid drug. Start Date: 06/08/21 Status: Ordered Knee High Compression Stockings 20-30mmHg [...] EDT, Tablet Start Date: 08/08/17 Status: Ordered Magnesium Carbonate = 54 mg, By Mouth, Daily, 0 Refills, Maintenance, 01/13/21 11:03:00 EST, Partial fill upon patient request if the prescription is for a schedule II opioid drug. Start Date: 01/13/21 Status: Ordered methotrexate 2.5 mg oral tablet 3 tablets, By Mouth, Every week, wednesdays, # 4 tablet, 0 Refills, Maintenance, 08/08/17 13:56:30 EDT, Tablet Start Date: 08/08/17 Status: Ordered metoprolol 100 mg oral tablet, extended release 100 mg, 1, tablet, By Mouth, Daily, # 30 tablet, Refills 0, Maintenance, 01/02/21 8:41:00 EST, Partial fill upon patient request if the prescription is for a schedule II opioid drug. Start Date: 01/02/21 Status: Ordered Tylenol Extra Strength 500 mg oral tablet 2 tablet = 1,000 mg, By Mouth, Every 8 hours, PRN Pain , Mild, 0 Refills, Maintenance, 06/11/21 12:32:00 EDT, Partial fill upon patient request if the prescription is for a schedule II opioid drug. Start Date: 06/11/21 Status: Ordered Problem List Condition Effective Dates Status Health Status Inform ant Lumbar facet arthropathy(Confirmed) Active Fibromyalgia(Confirmed) Active GERD - Gastro-esophageal ref lux disease(Confirmed) Active Hypertension(Confirmed) Active Left ventricular diastolic dysfunction(Confirmed) Active Mastodynia, bilateral(Confirmed) 12/02/10 Active Mitral valve prolapse(Confirmed) Active Obese class II(Confirmed) Active Obesity(Confirmed) Active Obstructive sleep apnea(Confirmed) 09/20/12 Active OA (osteoarthritis) of knee(Confirmed) Active Positive PPD(Confirmed) Active RA - Rheumatoid arthritis(Confirmed) Active Social History Social History Type Response Smoking Status Never smoker; Tobacc o user in household: No entered on: 01/07/14 Sex
--- OUTSIDE RECORDS SUMMARY | 2023-12-17 09:32 | XMS_ITS | Continuity of Care Document ---
Author Organization [facility] Address [address] [place] [address]- Care Team Providers Care Patient Partner Name Role Phone Dany CADET, Tarsha Parks Primary Care Physician [facility] Date(s): 05/18/22 - 06/17/22 [facility] [address] [place] [address]- [place] Allergies, Adverse Reactions, Alerts Substance Reaction Severity Status clarithromycin rash Active vancomycin UNKNOWN Active nortriptyline rash Active cyclobenzaprine tongue swelling,constipation Active medtronidazole containing compounds rash Active Augmentin diarrhea Active Vicodin delusion rash [...] Saud rded influenza virus vaccine, inactivated 5 10/10/13 Gi martir influenza virus vaccine, inactivated 11/10/11 [...] given given w/o incident 2Result Comment: [12/16/2017] [facility] 29157-951-40 3Result Comment: [11/29/2016] [facility] [id number] 4Result Comment: [11/25/2015] pt. tolerated inj. without complications...CO 5Result Comment: [11/30/2012] given w/o incident...AA 6Admin Note: FLULAVAL 7Admin Note: done @ work 8Admin Note: per pt 9Result Comment: [facility] 10Result Comment: [id number] 11Result Comment: [12/16/2017] #1 12Admin Note: per [...] capsule, 3 Refills, Maintenance, 09/08/21 10:47:00 EDT, [facility]/pharmacy #[id number], 170, cm, 09/08/21 10:10:00 EDT, Height, [...] opioid drug. Start Date: 04/03/20 Status: Ordered Knee High Compression Stockings 20-30mmHg [...] Date: 06/01/22 Stop Date: 05/27/23 Status: Ordered methotrexate 2.5 mg oral tablet 3 tablets, By Mouth, Every week, wednesdays, # 4 tablet, 0 Refills, Maintenance, 08/08/17 13:56:30 EDT, Tablet Start Date: 08/08/17 Status: Ordered metoprolol 100 mg oral tablet, extended release 100 mg, 1, tablet, By Mouth, Daily, # 90 tablet, Refills 3, Tot. Refills 3, Maintenance, 05/18/22 12:35:00 EDT, Route to Pharmacy Electronically, [facility]/pharmacy #[id number], Partial fill upon patient requestif the prescription is for a schedule II opioid antwon... Start Date: 05/18/22 Stop Date: 05/13/23 Status: Ordered Problem List Condition Confirmation Course [...] Team Personnel Name: Niurka Mendosa RN Position: [facility] RN Member Role: Primary Care Nurse Name: Oswaldo Valadez RN Position: [facility] RN Member Role: Primary Care Nurse Name: Alva Gibbons RN Position: [facility] RN Member Role: Primary Care Nurse Name: Milka Mendosa RN Position: [facility] RN Member Role: Primary Care Nurse Name: Jl Ruiz MD Position: [facility] Physician (General Medicine) Member Role: Lifetime Consulting Physician Address: Address: [address] [place], [place] [id number] [place] [address]- [place] Name: Tarsha Saenz MD Position: Reference Physician Member Role: PCP Address: Address: [address] [place] [address]- Care Team Related Persons Name: MARGARETTE LOPEZ Name: TAWNYA LOPEZ Address: [address] [address]
--- OUTSIDE RECORDS SUMMARY | 2023-12-17 09:32 | XMS_ITS | Continuity of Care Document ---
Author Organization [facility] Address [address] [place] [address]- Care Team Providers Care Box Spring Upholsterer Name Role Phone Dany CADET, Tarsha Parks Primary Care Phys[id number] Date[facility]s): 08[facility]25[facility]22 - 09/01/22 [facility] [address] [place] [address]- Encounter Diagnosis Medial epicondylitis(Discharge Diagnosis) - 08/25/22 Attending Physician: Jef CADET, Radha Mart Referring Physician: Dany CADET, Tarsha Parks Allergies, Adverse Reactions, Alerts Substance Reaction Severity [...] given given w/o incident 2Result Comment: [12/16/2017] [facility] [id number] 3Result Comment: [11/29/2016] [facility] [id number] 4Result Comment: [11/25/2015] pt. tolerated inj. without complications...CO 5Result Comment: [11/30/2012] given w/o incident...AA 6Admin Note: FLULAVAL 7Admin Note: done @ work 8Admin Note: per pt 9Result Comment: [facility] 10Result Comment: [id number] 11Result Comment: [12/16/2017] #1 12Admin Note: per [...] capsule, 3 Refills, Maintenance, 09/08/21 10:47:00 EDT, [facility]/pharmacy #[id number], 170, cm, 09/08/21 10:10:00 EDT, [...] 03/30/22 13:32:00 EST, Route to Pharmacy Electronically, [facility]/pharmacy #[id number], Partial fill upon patient request [...] 0 Refills, Maintenance, 08/25/22 9:48:00 EDT, Film, [facility]/pharmacy #[id number], Partial fi... Start Date: 08/25/22 Status: Ordered losartan 100 mg oral tablet 1 tablet = 100 mg, By Mouth, Daily, # 90 tablet, 3 Refills, Maintenance, 06/01/22 11:02:00 EDT, Tablet, [facility]/pharmacy #[id number], Partial fill upon patient request if the prescription is for a schedule II opioid drug., 170, cm, 05/14/22 9:21:00 EDT, Height,... Start Date: 06/01/22 Stop Date: 05/27/23 Status: Ordered metoprolol 100 mg oral tablet, extended release 100 mg, 1, tablet, By Mouth, Daily, # 90 tablet, Refills 3, Tot. Refills 3, Maintenance, 05/18/22 12:35:00 EDT, Route to Pharmacy Electronically, [facility]/pharmacy #[id number], Partial fill upon patient requestif [...] Confirmed Active Comorbid sleep-related hypoventilation Confirmed Active Diagnosis Diagnosis Type Effective Dates Health Status Clinical Service Informant Medial epicondylitis Discharge Diagnosis 08/25/22 Vital Signs Most recent to oldest [Reference Range]: 1 Height 170.18 cm (08/25/22 9:12 AM) Oxygen Saturation [94-100 %] 98 % (08/25/22 9:12 AM) Pulse Rate [55-90 bpm] 54 bpm *L* (08/25/22 9:12 AM) Blood Pressure [90-138/55-84 mm Hg] 152/ 77mm Hg *H* (08/25/22 9:12 AM) Respiratory Rate [16-30 br/min] 20 br/mi n (08/25/22 9:12 AM) Temperature [96.8-100.4 DegF] 98.2 DegF (08/25/22 9:12 AM) Mode of Delivery (Oxygen) Room air (08/25/22 9:12 AM) Blood pressure sites Arm, left (08/25/22 9:12 AM) Temperature Route Temporal (08/25/22 9:12 AM) Social History Social History Type Response Smoking Status Never smoker; Tobacc o user in household: No entered on: 01/07/14 Sex Note * Rissa Hollingsworth: PERFORM, SIGN, VERIFY Event Display: Patient Education/Instruction Authored Date: [id number] [facility] *[facility] Clinical Summary Name THO CHO Age 67 Years 1955 PCP Dany CADET, Tarsha Parks PCP Visit Date 08/25/2022 09:07:00 Additional Instructions: Scheduled Appointments?? Future Appointments ?[facility] ?[address]??[place],??[place],??[address] ?Phone:??[phone]?Fax:??-- ?Appt. Date:??09/02/2022?10:30 AM ?Scheduled Provider:??[facility] ?[facility] ?[address]??[place],??[place],??[address] ?Phone:??[phone]?Fax:??-- ?Appt. Date:??09/15/2022?10:15 AM ?Scheduled Provider:??[facility] ?*[facility] ?[address]??[place],??[place],??[address] ?Phone:??--?Fax:??-- ?Appt. Date:??10/11/2022?8:45 AM ?Scheduled Provider:??Jania Davis NP Follow-Up Instructions ?? Diagnosis Medial epicondylitis, unspecified elbow Medications: Please continue your medications until treatment is completed or stopped by your provider. Discuss any questions related to medications with your provider. New Medications [id number], [address] [place], [place] [phone], [phone] Durable Medical Equipment (Splint) elbow counterforce brace for medial epicondylitis. Apply just distal to elbow daily prn pain. Refills: 0. Next Dose: Lidocaine Topical (lidocaine 5% topical film) apply patche Topically to painful area once a day, asneeded . Leave on for up to 12h, then remove and leave off for 12h; as needed Pain , Mild. Refills:0. Next Dose: Medications to Continue with No Changes These medications were not printed or sent to your pharmacy Duloxetine (duloxetine 60 mg oral enteric coated capsule) 1 capsule Oral Daily. Refills: 3. Next Dose: Durable Medical Equipment (Aerochamber) 1 units. Refills: 0. Next Dose: Durable Medical Equipment (BiPAP Machine) AutoBIPAP min EPAP 11 max IPAP 22 PS 6, use daily while sleeping. Refills: 0. Next Dose: Durable Medical Equipment (CPAP Machine) CPAP 12. Next Dose: Durable Medical Equipment (Knee High Compression Stockings 20-30mmHg) Dx: Volume overload icd 10 E 87.7, Peripheral edema R60.0. Refills: 0. Next Dose: Flax (Flax Seed Oil) Next Dose: Furosemide (Lasix 40 mg oral tablet) 1 tab(s) Oral Daily. Refills: 3. Next Dose: Losartan (losartan 100 mg oral tablet) 1 tab(s) Oral Daily for 90 Days. Refills: 3. Next Dose: Metoprolol (metoprolol 100 mg oral tablet, extended release) 1 tab(s) Oral Daily for 90 Days. Refills: 3. Next Dose: Multivitamin With Minerals (Centrum Silver) Oral Daily. Next Dose: [place]-3 Polyunsaturated Fatty Acids (Fish Oil) Oral. Next Dose: Allergy Info:?? NSAIDs; Darvocet A500; Vicodin; Augmentin; medtronidazole containing compounds; cyclobenzaprine; nortriptyline; vancomycin; clarithromycin Medications Given This Visit Future Orders ?No future orders Vital Signs Height 170.18 cm Weight BMI Blood Pressure 152 mm Hg/77 mm Hg Temperature 98.2 DegF Pulse Rate 54 bpm Respiratory Rate 20 br/min 02 Sat Mode of Delivery 98 %/Room air You can now view a summary of your hospital visit from the comfort of your home through a free online portal called [employer]. [employer] is a website that allows you to securely view your medical information including discharge summary, medications and follow-up visits. ??You can alsosend a secure electronic message to your doctor???s office to request appointments, renew medications or just ask a question. You can enroll at [email or web address] or register during your next office visit. Disclaimer:?? The information provided is of a general nature and is intended to be used in conjunction with the recommendations and advice of your health care practitioner. ??Every effort has been made to ensure that the information provided is accurate and complete at the time it is provided to you however, as your needs change, or, as new ??information becomes available, different or additional instructions may be required. If you have questions, please consult with your primary care provider or pharmacist, as appropriate. ??This information is not intended to serve as substitution for assessment and evaluation by a qualified health care provider. If you do not have a primary care provider, you may find a [facility] provider by calling [facility] at [phone]. For information about the plan of care including goals and instructions for your diagnosis, please see the patient education orders section of this document. Patient Education Materials?? The content of this educational material or handout may have been modified, supplemented, or adapted from its original content and format to support your individualized medical care. Patient Care team information Care Team Personnel Name: Niurka Mendosa RN Position: [facility] RN Member Role: Primary Care Nurse Name: Oswaldo Valadez RN Position: [facility] RN Member Role: Primary Care Nurse Name: Alva Gibbons RN Position: [facility] RN Member Role: Primary Care Nurse Name: Milka Mendosa RN Position: [facility] RN Member Role: Primary Care Nurse Name: Jl Ruiz MD Position: [facility] Physician (General Medicine) Member Role: Lifetime Consulting Physician Address: Address: [address] [place], [place] [id number] [place] [address]- Name: Tarsha Saenz MD Position: Reference Physician Member Role: PCP Address: Address: [address] [place] [address]- Care Team Related Persons Name: MARGARETTE LOPEZ Name: TAWNYA LOPEZ Address: [address] [address]
--- OUTSIDE RECORDS SUMMARY | 2023-12-17 09:32 | XMS_ITS | Continuity of Care Document ---
Author Organization [facility] Address [address] [place] [address]- Care Team Providers Care Roller Helper Name Role Phone Dany CADET, Tarsha Parks Primary Care Physician [place] [facility] Date(s): 04/12/23 - 05/12/[address] [address] Allergies, Adverse Reactions, Alerts Substance Reaction Severity Status cyclobenzaprine tongue swelling,constipation Severe Active medtronidazole containing compounds rash Mild Active clarithromycin rash Active vancomycin itching UNKNOWN Mild Active nortriptyline rash Mild Active Augmentin diarrhea Mild Active [...] influenza virus vaccine, inactivated 5 11/30/12 Gi maritr influenza virus vaccine, inactivated 11/10/11 Saud rded [...] given given w/o incident 2Result Comment: [12/16/2017] [facility] [id number] 3Result Comment: [11/29/2016] [facility] [id number] 4Result Comment: [11/25/2015] pt. tolerated inj. without complications...CO 5Result Comment: [11/30/2012] given w/o incident...AA 6Admin Note: FLULAVAL 7Admin Note: done @ work 8Admin Note: per pt 9Result Comment: [facility] 10Result Comment: [id number] 11Result Comment: [12/16/2017] #1 12Admin Note: per [...] 3 Refills, Maintenance, 09/08/21 10:47:00 EDT, [facility]/pharmacy #[id number], 170, cm, 09/08/21 10:10:00 EDT, Height, [...] 13:32:00 EST, Route to Pharmacy Electronically, [facility]/pharmacy #[id number], Partial fill upon patient request if the prescription is for a schedule II opioid drug... Start Date: 03/30/22 Status: Ordered losartan 100 mg oral tablet 1 tablet = 100 mg, By Mouth, Daily at bedtime, # 90 tablet, 3 Refills, Maintenance, 06/01/22 11:02:00 EDT, Tablet, [facility]/pharmacy #[id number], Partial fill upon patient request if [...] 12/27/22 12:00:00 EST, Route to Pharmacy Electronically, [facility]/pharmacy #[id number], Partial fill upon patient request ifthe prescription is for a schedule II opioid drug.,... Start Date: 12/27/22 Stop Date: 12/22/23 Status: Ordered NuLYTELY Lemon [place] oral powder for reconstitution See Instructions, use for colonoscopy prep per instructions, # 4,000 mL, 0 Refills, Maintenance, 03/18/23 14:26:00 EST, REC Powder, [facility]/pharmacy #[id number], Partial fill upon patient request if the prescription is for a schedule II opioid drug., 170, cm, 0... Start Date: 03/18/23 Status: Ordered spironolactone 25 mg oral tablet 25 mg, 1, tablet, By Mouth, Daily, # 30 tablet, Refills 5, Tot. Refills 5, Maintenance, 04/25/23 10:38:00 EST, Route to Pharmacy Electronically, [facility]/pharmacy #[id number], Partial fill upon patient request if [...] Team Personnel Name: Niurka Mendosa RN Position: [facility] RN Member Role: Primary Care Nurse Name: Oswaldo Valadez RN Position: [facility] RN Member Role: Primary Care Nurse Name: Alva Gibbons RN Position: [facility] RN Member Role: Primary Care Nurse Name: Hilary Bell RN Position: [facility] RN Member Role: Primary Care Nurse Name: Tarsha Saenz MD Position: Reference Physician Member Role: PCP Address: Address: [address] [place] [address]- Care Team Related Persons Name: MARGARETTE LOPEZ Name: TAWNYA LOPEZ Address: [address] [place] [address]
--- OUTSIDE RECORDS SUMMARY | 2023-12-17 09:32 | XMS_ITS | Continuity of Care Document ---
Author Organization [facility] Address [address] [place] [address]- Care Team Providers Care Hair Machine Operator Name Role Phone Esperanza CADET, Keyla Parks Primary Care Physician [facility] Date[facility]): 09/21/19 - 10/21/19 [facility] [address] [place] [address]- [facility] Allergies, Adverse Reactions, Alerts Substance Reaction Severity Status clarithromycin Active vancomycin UNKNOWN Active nortriptyline Active cyclobenzaprine tongue swelling,constipation Active medtronidazole containing compounds Active Vicodin delusion rash Active Darvocet A500 RASH Active NSAIDs C/O: itching Rash Persistent Moderate Active oxyCODONE nausea, dizziness, weakness, palpitations Active Augmentin diarrhea Active Immunizations Given and Recorded Vaccine Date [...] Vaccine (oldterm) 13 08/02/07 Given 1Result Comment: [id number] 2Result Comment: [12/16/2017] #1 3Result Comment: [12/16/2017] [facility] [id number] 4Result Comment: [11/29/2016] [facility] [id number] 5Result Comment: [11/25/2015] pt. tolerated inj. without [...] DAYS, # 15 sprays, 0 Refills, Acute, [facility] STORE [id number], 30, USE 2 SPRAYS IN EACH NOSTRIL [...] 12/04/19 11:36:00 EDT, 03/09/19 11:36:00 EST, Tablet, [facility]/pharmacy #[id number], 170, cm, 03/09/19 11:14:00 EST, [...] capsule, 5 Refills, Maintenance, 06/04/19 14:15:00 EDT, [facility]/pharmacy #[id number], 170, cm, 04/10/19 14:00:00 EST, [...]
--- OUTSIDE RECORDS SUMMARY | 2023-12-17 09:32 | XMS_ITS | Continuity of Care Document ---
Author Organization [facility] Address [address] [place] [address]- Care Team Providers Care Brick Yard Hand Name Role Phone Esperanza CADET, Keyla Parks Primary Care Physician Encounter [facility] Date(s): 07/02/20 - 08/01/20 [facility] [address] [place], [place] [address] Allergies, Adverse Reactions, Alerts Substance Reaction [...] 11/09/11 Gi martir influenza virus vaccine, inactivated 11/03/10 Gi martir influenza virus vaccine, inactivated 10/31/09 Give n influenza virus vaccine, inactivated 10 12/22/08 G iven pneumococcal 23-valent vaccine 11 09/01/10 Given influ virus vac, H1N1, inactive(oldterm) 12 12/22/08 Given Hepatitis A Vaccine (oldterm) 13 02/06/08 Given Hepatitis A Vaccine (oldterm) 14 08/02/07 Given 1Result Comment: Done at [facility] 2Result Comment: [id number] 3Result Comment: [12/16/2017] #1 4Result Comment: [12/16/2017] [facility] [id number] 5Result Comment: [11/29/2016] [facility] [id number] 6Result Comment: [11/25/2015] pt. tolerated inj. without [...] 1 Refills, Maintenance, 03/24/20 10:21:00 EST, ECCapsule, [facility]/pharmacy #[id number], 171, cm, 02/04/20 7:16:00 EST, [...] DAYS, # 15 sprays, 0 Refills, Acute, [facility] STORE 64561, 30, USE 2 SPRAYS IN EACH NOSTRIL 3 TIMES A DAY FOR 7 DAYS, 170, cm, 04/10/19 14:00:00 EST, Height, 104.5, kg, 09/15/18 9:05:00 EDT... Start Date: 05/04/19 Status: Ordered ipratropium nasal 42 mcg/inh spray 2 sprays, Nares, Both, 3 times a day, # 1 each, 0 Refills, Maintenance, 07/02/20 16:11:00 EDT, [facility]/pharmacy #[id number], 2 sprays Nares, Both 3 times a [...] 04/14/20 15:22:00 EST, Route to Pharmacy Electronically, [facility]/pharmacy #[id number], Partial fill upon patient request,... Start Date: [...]
--- OUTSIDE RECORDS SUMMARY | 2023-12-17 09:32 | XMS_ITS | Continuity of Care Document ---
Author Organization [facility] Address [address] [place] [address]- Care Team Providers Care Freezing Room Worker Name Role Phone Keyla Mata MD Primary Care Physician Encounter [facility] [place] [place] Date(s): 06/05/20 - 07/05/20 [facility] [address] [place], [place] [address] Attending Physician: Matthieu Kasper Admitting Physician: AdmMatthieu bailey Referring Physician: Admtr, ArGemma Allergies, Adverse Reactions, Alerts Substance Reaction Severity [...] 14 08/02/07 Given 1Result Comment: Done at [facility] 2Result Comment: [id number] 3Result Comment: [12/16/2017] #1 4Result Comment: [12/16/2017] [facility] [id number] 5Result Comment: [11/29/2016] [facility] [id number] 6Result Comment: [11/25/2015] pt. tolerated inj. without [...] 1 Refills, Maintenance, 03/24/20 10:21:00 EST, ECCapsule, [facility]/pharmacy #[id number], 171, cm, 02/04/20 7:16:00 [...] DAYS, # 15 sprays, 0 Refills, Acute, [facility] STORE 48719, 30, USE 2 SPRAYS IN EACH NOSTRIL 3 TIMES A DAY FOR 7 DAYS, 170, cm, 04/10/19 14:00:00 EST, Height, 104.5, kg, 09/15/18 9:05:00 EDT... Start Date: 05/04/19 Status: Ordered ipratropium nasal 42 mcg/inh spray 2 sprays, Nares, Both, 3 times a day, # 1 each, 0 Refills, Maintenance, 07/02/20 16:11:00 EDT, [facility]/pharmacy #[id number], 2 sprays Nares, Both 3 [...] 04/14/20 15:22:00 EST, Route to Pharmacy Electronically, [facility]/pharmacy #[id number], Partial fill upon patient request,... [...] PPD(Confirmed) Active RA - Rheumatoid arthritis(Confirmed) Active Procedures Procedure Date Related Diagnosis Body Site Status Left first MTP fusion, 3rd F DL tenotomy, 4th hammertoe correction and removal of old hardware 08/03/10 Complete d Social History Social History Type Response Smoking Status Never smoker; Tobacc o user in household: No entered on: 01/07/14 Sex
--- OUTSIDE RECORDS SUMMARY | 2023-12-17 09:32 | XMS_ITS | Continuity of Care Document ---
Author Organization [facility] Address [address] [place] [address]- Care Team Providers Care Diabetes Nurse Name Role Phone Esperanza CADET, Keyla Parks Primary Care Physician Encounter [facility] Date(s): 04/03/21 - 04/10/21 [facility] [address] [place], [place] [address] Encounter Diagnosis Headache(Discharge Diagnosis) - 04/03/21 Right ankle pain(Discharge Diagnosis) - 04/03/21 Attending Physician: Susan IRONER OR PRESSER, Windy Allergies, Adverse Reactions, Alerts Substance Reaction Severity Status clarithromycin Active vancomycin UNKNOWN Active cyclobenzaprine tongue swelling,constipation Active medtronidazole containing compounds Active Augmentin diarrhea Active Darvocet A500 RASH Active NSAIDs C/O: itching Rash Persistent Moderate Active nortriptyline Active Vicodin delusion rash Active Immunizations Given and Recorded Vaccine Date Status Refusal Reason SARS-CoV-2 (COVID-19) mRNA-1273 vaccine 12/19/20 R ecorded SARS-CoV-2 (COVID-19) mRNA-1273 vaccine 06/10/20 R ecorded SARS-CoV-2 (COVID-19) mRNA-1273 vaccine 05/13/20 R ecorded influenza virus vaccine, inactivated 12/04/20 Saud rded influenza virus vaccine, inactivated 1 12/16/17 Gi martir influenza virus vaccine, inactivated 12/10/17 Saud rded influenza virus vaccine, inactivated 2 11/29/16 Gi martir influenza virus vaccine, inactivated 11/25/16 Saud rded influenza virus vaccine, inactivated 3 11/25/15 Gi martir influenza virus vaccine, inactivated 11/26/14 Saud rded influenza virus vaccine, inactivated 11/12/13 Saud rded influenza virus vaccine, inactivated 11/02/13 Saud rded influenza virus vaccine, inactivated 4 11/30/12 Gi martir influenza virus vaccine, inactivated 11/10/11 Saud rded influenza virus vaccine, inactivated 5 11/09/11 Gi martir influenza virus vaccine, inactivated 6 11/03/10 Gi martir influenza virus vaccine, inactivated 10/31/09 Give n influenza virus vaccine, inactivated 7 12/22/08 Gi martir Influenza Virus Vaccine (oldterm) 8 11/23/19 Recor ded Influenza Virus Vaccine (oldterm) 11/14/18 Recorde d tetanus/diphtheria/pertussis, acel(Tdap) 9 12/15/18 Given tetanus/diphtheria/pertussis, acel(Tdap) 06/24/09 Given zoster vaccine, inactivated 02/01/18 Recorded zoster vaccine, inactivated 01/31/18 Recorded zoster vaccine, inactivated 11/25/17 Recorded zoster vaccine, inactivated 10 11/25/17 Recorded pneumococcal 23-valent vaccine 11 09/01/10 Given influ virus vac, H1N1, inactive(oldterm) 12 12/22/08 Given Hepatitis A Vaccine (oldterm) 13 02/06/08 Given Hepatitis A Vaccine (oldterm) 14 08/02/07 Given 1Result Comment: [12/16/2017] [facility] [id number] 2Result Comment: [11/29/2016] [facility] [id number] 3Result Comment: [11/25/2015] pt. tolerated inj. without complications...CO 4Result Comment: [11/30/2012] given w/o incident...AA 5Admin Note: FLULAVAL 6Admin Note: done @ work 7Admin Note: per pt 8Result Comment: [facility] 9Result Comment: [id number] 10Result Comment: [12/16/2017] #1 11Admin Note: info sheet given given w/o [...] opioid drug. Start Date: 11/10/20 Status: Ordered betamethasone topical dipropionate 0.05% cream 1 application, Topically, 2 times a day, # 45 Gm, 1 Refills, Maintenance, 01/02/21 8:57:00 EST, Cream, [facility]/pharmacy #[id number], Partial fill upon patient request if the prescription is for a schedule II opioid drug., 1 application Topically 2 times a day,... Start Date: 01/02/21 Status: Ordered Centrum Silver By Mouth, Daily, [...] capsule, 1 Refills, Maintenance, 02/09/21 14:43:00 EST, [facility]/pharmacy #[id number], 170, cm, 01/29/21 13:01:00 EST, Height, [...] # 15 sprays, 0 Refills, Acute, [facility] STORE 93460, 30, USE 2 SPRAYS IN EACH NOSTRIL 3 TIMES A DAY FOR 7 DAYS, 170, cm, 04/10/19 14:00:00 EST, Height, 104.5, kg, 09/15/18 9:05:00 EDT... Start Date: 05/04/19 Status: Ordered ipratropium nasal 42 mcg/inh spray 2 sprays, Nares, Both, 3 times a day, # 1 each, 0 Refills, Maintenance, 07/02/20 16:11:00 EDT, [facility]/pharmacy #[id number], 2 sprays Nares, Both 3 times [...] opioid drug. Start Date: 01/02/21 Status: Ordered metoprolol 25 mg oral tablet, extended release 25 mg, 1, tablet, By Mouth, Daily, in addition to 50 mg dose--> total of 75 mg daily, # 90 tablet, Refills 0, Tot. Refills 0, Maintenance, 04/14/20 15:22:00 EST, Route to Pharmacy Electronically, [facility]/pharmacy #[id number], Partial fill upon patient request,... Start Date: 04/14/20 Stop Date: 07/13/20 Status: Ordered Metoprolol Succinate ER 50 mg oral tablet, extended release 0 Refills, Maintenance, 04/03/20 14:48:00 EST, Partial fill upon patient request if the prescription is for a schedule II opioid drug. Start Date: 04/03/20 Status: Ordered Myrbetriq By Mouth, Daily, 0 Refills, Maintenance, 01/13/21 11:02:00 EST, Partial fill upon patient request if the prescription is for a schedule II opioid drug. Start Date: 01/13/21 Status: Ordered NuLYTELY with Flavor Packs oral powder for reconstitution See Instructions, 4 liters By Mouth Once, # 4,000 mL, 0 Refills, Maintenance, 12/23/20 13:10:00 EDT, [facility]/pharmacy #[id number], Partial fill upon patient request if the prescription is for a schedule II opioid drug., 4 liters By Mouth Once, 171, cm, 12/23/20... Start Date: 12/23/20 Status: Ordered Readi-Cat 2 oral suspension 450 mL = 9 Gm, By Mouth, 2 times a day, Please dispense two 450 mL bottles for a total dose that equals 900 mLs. Drink first bottle [address] and then drink second bottle [address] scan,# 2 each, 0 Refills, Maintenance, 04/10/21 15:12:00... Start Date: 04/10/21 Status: Ordered tiZANidine 4 mg oral tablet 4 mg, 1, tablet, By Mouth, Every 8 hours, PRN, # 42 tablet, Refills 0, Tot. Refills 0, Maintenance,Spasm, 01/26/21 12:30:00 EST, Route to Pharmacy Electronically, [facility]/pharmacy #[id number], Partial fill upon patient request if the prescription is for a sche... Start Date: 01/26/21 Stop Date: 02/09/21 Status: Ordered Problem List Condition Effective Dates [...] Diagnosis Diagnosis Type Effective Dates Health Status Cl inical Service Informant Headache Discharge Diagnosis 04/03/21 Right ankle pain Discharge Diagnosis 04/03/21 Vital Signs Most recent to oldest [Reference Range]: 1 Height 170 cm (04/03/21 9:17 AM) Weight 102.7 kg (04/03/21 9:17 AM) Oxygen Saturation [94-100 %] 99 % (04/03/21 9:17 AM) Pulse Rate [55-90 bpm] 74 bpm (04/03/21 9:17 AM) Body Mass Index [18.5-24.99] 35.54 *>HHI* (04/03/21 9:17 AM) Blood Pressure [90-138/55-84 mm Hg] 134/ 82mm Hg (04/03/21 9:17 AM) Temperature [96.8-100.4 DegF] 97.5 DegF (04/03/21 9:17 AM) Mode of Delivery (Oxygen) Room air (04/03/21 9:17 AM) Blood pressure sites Arm, left (04/03/21 9:17 AM) Temperature Route Temporal (04/03/21 9:17 AM) Weight Obtained Via Standing scale (04/03/21 9:17 AM) Social History Social History Type Response Smoking Status Never smoker; Tobacc o user in household: No entered on: 01/07/14 Sex
--- OUTSIDE RECORDS SUMMARY | 2023-12-17 09:32 | XMS_ITS | Continuity of Care Document ---
Author Organization [facility] Address [address] [facility], [address], [address] [place] [address]- Care Team Providers Care Men'S Swim Coach Name Role Phone Esperanza CADET, Keyla Parks Primary Care Physician Encounter [facility] [place] Date(s): 07/24/19 - 08/23/19 [facility] [address], [address], [address] [place] [address]- [facility] Attending Physician: Matthieu Kasper Admitting Physician: AdmtrMatthieu Referring Physician: Admtr, Ar8 Allergies, Adverse Reactions, Alerts Substance Reaction Severity [...] Vaccine (oldterm) 13 08/02/07 Given 1Result Comment: [id number] 2Result Comment: [12/16/2017] #1 3Result Comment: [12/16/2017] [facility] [id number] 4Result Comment: [11/29/2016] [facility] [id number] 5Result Comment: [11/25/2015] pt. tolerated inj. without complications...CO 6Result Comment: [11/30/2012] given w/o incident...AA 7Admin Note: FLULAVAL 8Admin Note: done @ work 9Admin Note: per pt 10Admin Note: info sheet given given w/o incident 11Admin Note: per pt 12Admin Note: hep A #2 13Admin Note: hep A #1 Medications CPAP Machine AutoCPAP 12-04, Maintenance, 01/07/17 14:22:53, Compound Start Date: 01/07/17 [...] 15 sprays, 0 Refills, Acute, [facility], 30, USE 2 SPRAYS IN EACH NOSTRIL [...] 12/04/19 11:36:00 EDT, 03/09/19 11:36:00 EST, Tablet, [facility]/pharmacy #[id number], 170, cm, 03/09/19 11:14:00 EST, Height, [...] capsule, 5 Refills, Maintenance, 06/04/19 14:15:00 EDT, [facility]/pharmacy #[id number], 170, cm, 04/10/19 14:00:00 EST, Height, [...]
--- OUTSIDE RECORDS SUMMARY | 2023-12-17 09:32 | XMS_ITS | Continuity of Care Document ---
Author Organization [facility] Address [address] [place] [address]- Care Team Providers Care Inspector Receiving Name Role Phone Keyla Mata MD Primary Care Phys[id number] Date[facility] 05/11/19 - 05/18/19 [facility] [address] [place] [address]- [facility] Encounter Diagnosis Fibromyalgia(Discharge Diagnosis) - 05/11/19 GERD - Gastro-esophageal reflux disease(Discharge Diagnosis) - 05/11/19 Hypertension(Discharge Diagnosis) - 05/11/19 Obesity(Discharge Diagnosis) - 05/11/19 Migraine(Discharge Diagnosis) - 05/11/19 OA (osteoarthritis) of knee(Discharge Diagnosis) - 05/11/19 Neck pain(Discharge Diagnosis) - 05/13/19 Attending Physician: Keyla Mata MD Allergies, Adverse [...] Vaccine (oldterm) 13 08/02/07 Given 1Result Comment: [id number] 2Result Comment: [12/16/2017] #1 3Result Comment: [12/16/2017] [facility] [id number] 4Result Comment: [11/29/2016] [facility] [id number] 5Result Comment: [11/25/2015] pt. tolerated inj. without complications...CO 6Result Comment: [11/30/2012] given w/o incident...AA 7Admin Note: FLULAVAL 8Admin Note: done @ work 9Admin Note: per pt 10Admin Note: info sheet given given w/o incident 11Admin Note: per pt 12Admin Note: hep A #2 13Admin Note: hep A #1 Medications CPAP Machine AutoCPAP -, Maintenance, 01/07/17 14:22:53, Compound Start Date: 01/07/17 [...] DAYS, # 15 sprays, 0 Refills, Acute, [facility] STORE 79577, 30, USE 2 SPRAYS IN EACH NOSTRIL [...] 12/04/19 11:36:00 EDT, 03/09/19 11:36:00 EST, Tablet, [facility]/pharmacy #4471, 170, cm, 03/09/19 11:14:00 EST, [...] Mouth, Daily at bedtime, # 30 capsule, 0 Refills, Maintenance, 05/11/19 10:05:00 EDT, [facility]/pharmacy #[id number], 170, cm, 04/10/19 14:00:00 EST, Height, 104.5, kg, 09/15/18 9:05:00 EDT, Dry Weight Start Date: 05/11/19 Stop Date: 06/10/19 Status: Ordered traZODone 100 mg oral tablet [...] Status Clinical Service Informant Fibromyalgia Discharge Diagnosis 05/11/19 GERD - Gastro-esophageal reflux disease Discharge Diagnosis 05/11/19 Hypertension Discharge Diagnosis 05/11/19 Obesity Discharge Diagnosis 05/11/19 Migraine Discharge Diagnosis 05/11/19 OA (osteoarthritis) of knee Discharge Diagnosis 05/11/19 Neck pain Discharge Diagnosis 05/13/19 Social History Social History Type Response Smoking Status Never smoker; Tobacc o user in household: No entered on: 01/07/14 Sex
--- OUTSIDE RECORDS SUMMARY | 2023-12-17 09:32 | XMS_ITS | Continuity of Care Document ---
Author Organization [facility] Address [address] [place] [address]- Care Team Providers Care Food Assembler Commissary Kitchen Name Role Phone Dany CADET, Tarsha Parks Primary Care Physician Encounter [facility] [place] Date(s): 10/07/22 - 11/06/22 [facility] [address] [place] [address]- Attending Physician: Matthieu Kasper Admitting Physician: Matthieu Kasper Referring Physician: Admtr ArGemma Allergies, Adverse Reactions, Alerts Substance Reaction [...] Gi martir influenza virus vaccine, inactivated 11/26/14 Suad rded influenza virus vaccine, inactivated 11/12/13 Saud [...] given w/o incident 2Result Comment: [12/16/2017] [facility] [id number] 3Result Comment: [11/29/2016] [facility] [id number] 4Result Comment: [11/25/2015] pt. tolerated inj. without complications...CO 5Result Comment: [11/30/2012] given w/o incident...AA 6Admin Note: FLULAVAL 7Admin Note: done @ work 8Admin Note: per pt 9Result Comment: [facility] 10Result Comment: [id number] 11Result Comment: [12/16/2017] #1 12Admin Note: per [...] capsule, 3 Refills, Maintenance, 09/08/21 10:47:00 EDT, [facility]/pharmacy #[id number], 170, cm, 09/08/21 10:10:00 EDT, Height, [...] 05/18/22 12:35:00 EDT, Route to Pharmacy Electronically, [facility]/pharmacy #[id number], Partial fill upon patient requestif the [...] Team Personnel Name: Niurka Mendosa RN Position: [facility] RN Member Role: Primary Care Nurse Name: Oswaldo Valadez RN Position: [facility] RN Member Role: Primary Care Nurse Name: Alva Gibbons RN Position: [facility] RN Member Role: Primary Care Nurse Name: Milka Mendosa RN Position: [facility] RN Member Role: Primary Care Nurse Name: Jl Ruiz MD Position: [facility] Physician (General Medicine) Member Role: Lifetime Consulting Physician Address: Address: [address] [place] [address] [address] [place] [address]- Name: Tarsha Saenz MD Position: Reference Physician Member Role: PCP Address: Address: [address] [place] [address]- Care Team Related Persons Name: MARGARETTE LOPEZ Name: TAWNYA LOPEZ Address: home [address] [place] [address]
--- OUTSIDE RECORDS SUMMARY | 2023-12-17 09:32 | XMS_ITS | Continuity of Care Document ---
Author Organization [facility] Address [address] [place] [address]- Care Team Providers Care Mushroom Sorter Grader Name Role Phone Dany CADET, Tarsha Parks Primary Care Physician [phone] Encounter [facility] Date(s): 05/28/22 - 09/25/22 [facility] [address] [place] [address]- Attending Physician: Dora Allen NP Admitting Physician: Alejandro MACARIO, Dora Referring Physician: Not on Staff, Referring MD Allergies, Adverse Reactions, Alerts Substance Reaction Severity Status vancomycin itching UNKNOWN Mild Active nortriptyline rash Mild Active medtronidazole containing compounds rash Mild Active clarithromycin rash Active cyclobenzaprine tongue swelling,constipation Severe Active Darvocet A500 RASH Mild Active Augmentin [...] given given w/o incident 2Result Comment: [12/16/2017] [facility] [id number] 3Result Comment: [11/29/2016] [facility] 30429-415-20 4Result Comment: [11/25/2015] pt. tolerated inj. without complications...CO 5Result Comment: [11/30/2012] given w/o incident...AA 6Admin Note: FLULAVAL 7Admin Note: done @ work 8Admin Note: per pt 9Result Comment: [facility] 10Result Comment: [id number] 11Result Comment: [12/16/2017] #1 12Admin Note: per [...] capsule, 3 Refills, Maintenance, 09/08/21 10:47:00 EDT, [facility]/pharmacy #[id number], 170, cm, 09/08/21 10:10:00 [...] 03/30/22 13:32:00 EST, Route to Pharmacy Electronically, [facility]/pharmacy #[id number], Partial fill upon patient [...] 3 Refills, Maintenance, 06/01/22 11:02:00 EDT, Tablet, [facility]/pharmacy #[id number], Partial fill upon patient request if the prescription is for a schedule II opioid drug., 170, cm, 05/14/22 9:21:00 EDT, Height,... Start Date: 06/01/22 Stop Date: 05/27/23 Status: Ordered metoprolol 100 mg oral tablet, extended release 100 mg, 1, tablet, By Mouth, Daily, # 90 tablet, Refills 3, Tot. Refills 3, Maintenance, 05/18/22 12:35:00 EDT, Route to Pharmacy Electronically, [facility]/pharmacy #[id number], Partial fill upon patient [...] Team Personnel Name: Niurka Mendosa RN Position: [facility] RN Member Role: Primary Care Nurse Name: Oswaldo Valadez RN Position: [facility] RN Member Role: Primary Care Nurse Name: Alva Gibbons RN Position: [facility] RN Member Role: Primary Care Nurse Name: Milka Mendosa RN Position: [facility] RN Member Role: Primary Care Nurse Name: Jl Ruiz MD Position: [facility] Physician (General Medicine) Member Role: Lifetime Consulting Physician Address: Address: [address] [place] [address] [address] [place] [address]- Name: Tarsha Saenz MD Position: Reference Physician Member Role: PCP Address: Address: [address] [place] [address]- Care Team Related Persons Name: MARGARETTE LOPEZ Name: TAWNYA LOPEZ Address: [address] [place] [address]
--- OUTSIDE RECORDS SUMMARY | 2023-12-17 09:32 | XMS_ITS | Continuity of Care Document ---
Author Organization [facility] Address [address] [place] [address]- Care Team Providers Care Python Consultant Name Role Phone Keyla Mata MD Primary Care Physician Encounter 02/05/20 - 02/18/20 [facility] [address] [place] [address]- Discharge Disposition: CLIENT NO LONGER REQUIRES SKILLED CARE Allergies, Adverse Reactions, Alerts Substance Reaction Severity Status medtronidazole containing compounds Active Darvocet A500 RASH Active clarithromycin Active vancomycin UNKNOWN Active nortriptyline Active cyclobenzaprine tongue swelling,constipation Active Augmentin diarrhea Active Vicodin delusion rash Active NSAIDs C/O: itching Rash Persistent Moderate [...] 14 08/02/07 Given 1Result Comment: Done at [facility] 2Result Comment: [id number] 3Result Comment: [12/16/2017] #1 4Result Comment: [12/16/2017] [facility] [id number] 5Result Comment: [11/29/2016] [facility] 74803-546-11 6Result Comment: [11/25/2015] pt. tolerated inj. without complications...CO 7Result Comment: [11/30/2012] given w/o incident...AA 8Admin Note: FLULAVAL 9Admin Note: done @ work 10Admin Note: per pt 11Admin Note: info sheet given given w/o incident 12Admin Note: per pt 13Admin Note: hep A #2 14Admin Note: hep A #1 Medications acetaminophen 325 mg oral tablet 650 mg, By Mouth, Every 6 hours, May take OTC, not to exceed 4000 mg/day, Refills 0, Maintenance, 02/01/20 10:09:00 EST, Partial fill upon patient request if the prescription is for a schedule II opioid drug. Start Date: 02/01/20 Status: Ordered Aspirin Tablet 325 mg, By Mouth, 2 times a day, Refills 0, Maintenance, 02/01/20 10:09:00 EST, Partial fill upon patient request if the prescription is for a schedule II opioid drug. Start Date: 02/01/20 Status: Ordered baclofen 10 mg oral tablet 10 mg, 1, tablet, By Mouth, 3 times a day, # 42 tablet, Refills 0, Tot. Refills 0, Maintenance, 02/02/20 12:17:00 EST, Route to Pharmacy Electronically, [facility], Partial fill upon patient request if the prescription is for a schedule... Start Date: 02/02/20 Stop Date: 02/16/20 Status: Ordered Colace Capsule 100 mg, 1, capsule, By Mouth, 2 times a day, Hold for loose stools, Refills 0, Maintenance, 02/01/20 10:09:00 EST, Partial fill upon patient request if the prescription is for a schedule II opioid drug. Start Date: 02/01/20 Status: Ordered CPAP Machine CPAP 12, Maintenance, 01/07/17 14:22:53 EST, Compound Start Date: 01/07/17 Status: Ordered duloxetine 60 mg oral enteric coated capsule 1 capsule = 60 mg, By Mouth, Daily, # 90 capsule, 0 Refills, Maintenance, 12/31/19 10:42:00 EST, ECCapsule, [facility]/pharmacy #[id number], 170, cm, 12/31/19 9:54:00 EST, Height, 106.8, kg, 08/27/19 11:58:00 EDT, Dry Weight Start Date: 12/31/19 Status: Ordered gabapentin 100 mg oral capsule 100 mg, 1, capsule, By Mouth, 3 times a day, # 42 capsule, Refills 0, Tot. Refills 0, Maintenance, 02/02/20 12:17:00 EST, Route to Pharmacy Electronically, [facility], Partial fill uponpatient request if the prescription is for a schedu... Start Date: 02/02/20 Stop Date: 02/16/20 Status: Ordered ipratropium nasal 42 mcg/inh spray See Instructions, USE 2 SPRAYS IN EACH NOSTRIL 3 TIMES A DAY FOR 7 DAYS, # 15 sprays, 0 Refills, Acute, [id number], 30, USE 2 SPRAYS IN EACH NOSTRIL [...] EDT, Tablet Start Date: 08/08/17 Status: Ordered Maalox Plus Liquid 30 mL, By Mouth, Every 4 hours, PRN Other, Heartburn, 0 Refills, Maintenance, 02/04/20 8:28:00 EST,Suspension, Partial fill upon patient request if the prescription is for a schedule II opioid drug. Start Date: 02/04/20 Status: Ordered methotrexate 2.5 mg oral tablet 3 tablets, By Mouth, Every week, wednesdays, # 4 tablet, 0 Refills, Maintenance, 08/08/17 13:56:30 EDT, Tablet Start Date: 08/08/17 Status: Ordered metoprolol 25 mg oral tablet, extended release 25 mg, 1, tablet, By Mouth, Daily, in addition to 50 mg dose--> total of 75 mg daily, # 90 tablet, Refills 0, Tot. Refills 0, Maintenance, 01/15/20 15:22:00 EST, Route to Pharmacy Electronically, [facility]/pharmacy #[id number], Partial fill upon patient request,... Start Date: 01/15/20 Stop Date: 04/14/20 Status: Ordered Milk of Magnesia Liquid 30 mL, By Mouth, Daily, PRN Constipation, 0 Refills, Maintenance, 02/04/20 8:28:00 EST, Suspension,Partial fill upon patient request if the prescription is for a schedule II opioid drug. Start Date: 02/04/20 Status: Ordered MiraLax Powder 1 pack/packet = 17 Gm, By Mouth, Daily, May take OTC, hold for loose stools., 0 Refills, Maintenance, 02/01/20 10:10:00 EST, Powder, Partial fill upon patient request if the prescription is for a schedule II opioid drug. Start Date: 02/01/20 Status: Ordered pantoprazole 40 mg oral delayed release tablet = 40 mg, By Mouth, Daily in AM, 0 Refills, Maintenance, 02/01/20 10:10:00 EST, EC Tablet Start Date: 02/01/20 Status: Ordered senna 187 mg oral tablet 1 tablet = 8.6 mg, By Mouth, Daily at bedtime, May take OTC, hold for loose stools, 0 Refills, Maintenance, 02/01/20 10:10:00 EST, Tablet, Partial fill upon patient request if the prescription is fora schedule II opioid drug. Start Date: 02/01/20 Status: Ordered Walker See Instructions, # 1 [...]
--- OUTSIDE RECORDS SUMMARY | 2023-12-17 09:32 | XMS_ITS | Continuity of Care Document ---
Author Organization [facility] Address [address] [place] [address]- Care Team Providers Care Contour Grinder Name Role Phone Esperanza CADET, Keyla Parks Primary Care Physician Encounter [facility] Date(s): 02/08/21 - 03/10/21 [facility] [address] [place], [place] [address] Allergies, Adverse Reactions, Alerts Substance Reaction Severity Status clarithromycin Active vancomycin UNKNOWN Active nortriptyline Active cyclobenzaprine tongue swelling,constipation Active medtronidazole containing compounds Active Augmentin diarrhea Active Vicodin delusion rash Active Darvocet A500 RASH Active NSAIDs C/O: itching Rash Persistent Moderate Active Immunizations Given and Recorded Vaccine Date Status Refusal Reason influenza virus vaccine, inactivated 12/04/20 Saud rded influenza virus vaccine, inactivated 1 12/16/17 Gi martir influenza virus vaccine, inactivated 2 11/29/16 Gi martir influenza virus vaccine, inactivated 3 11/25/15 Gi martir influenza virus vaccine, inactivated 11/26/14 Saud rded influenza virus vaccine, inactivated 11/12/13 Saud rded influenza virus vaccine, inactivated 4 11/30/12 Gi martir influenza virus vaccine, inactivated 5 11/09/11 Gi martir influenza virus vaccine, inactivated 6 11/03/10 Gi martir influenza virus vaccine, inactivated 10/31/09 Give n influenza virus vaccine, inactivated 7 12/22/08 Gi martir SARS-CoV-2 (COVID-19) mRNA-1273 vaccine 06/10/20 R ecorded SARS-CoV-2 (COVID-19) mRNA-1273 vaccine 05/13/20 R ecorded Influenza Virus Vaccine (oldterm) 8 11/23/19 Recor [...] (oldterm) 14 08/02/07 Given 1Result Comment: [12/16/2017] [facility] [id number] 2Result Comment: [11/29/2016] [facility] [id number] 3Result Comment: [11/25/2015] pt. tolerated inj. without complications...CO 4Result Comment: [11/30/2012] given w/o incident...AA 5Admin Note: FLULAVAL 6Admin Note: done @ work 7Admin Note: per pt 8Result Comment: Done at [facility] 9Result Comment: [id number] 10Result Comment: [12/16/2017] #1 11Admin Note: info [...] 1 Refills, Maintenance, 01/02/21 8:57:00 EST, Cream, [facility]/pharmacy #[id number], Partial fill upon patient request if the [...] capsule, 1 Refills, Maintenance, 02/09/21 14:43:00 EST, [facility]/pharm[facility] #[id number], 170, cm, 01/29/21 13:01:00 EST, Height, [...] DAYS, # 15 sprays, 0 Refills, Acute, [facility], 30, USE 2 SPRAYS IN EACH NOSTRIL 3 TIMES A DAY FOR 7 DAYS, 170, cm, 04/10/19 14:00:00 EST, Height, 104.5, kg, 09/15/18 9:05:00 EDT... Start Date: 05/04/19 Status: Ordered ipratropium nasal 42 mcg/inh spray 2 sprays, Nares, Both, 3 times a day, # 1 each, 0 Refills, Maintenance, 07/02/20 16:11:00 EDT, [facility]/pharmacy #[id number], 2 sprays Nares, Both 3 times [...] 04/14/20 15:22:00 EST, Route to Pharmacy Electronically, [facility]/pharmacy #[id number], Partial fill upon patient request,... Start [...] mL, 0 Refills, Maintenance, 12/23/20 13:10:00 EDT, [facility]/pharmacy #[id number], Partial fill upon patient request if the prescription is for a schedule II opioid drug., 4 liters By Mouth Once, 171, cm, 12/23/20... Start Date: 12/23/20 Status: Ordered tiZANidine 4 mg oral tablet 4 mg, 1, tablet, By Mouth, Every 8 hours, PRN, # 42 tablet, Refills 0, Tot. Refills 0, Maintenance,Spasm, 01/26/21 12:30:00 EST, Route to Pharmacy Electronically, [facility]/pharmacy #[id number], Partial fill upon patient request if [...]
--- OUTSIDE RECORDS SUMMARY | 2023-12-17 09:32 | XMS_ITS | Continuity of Care Document ---
Author Organization [facility] Address [address] [place] [address]- Care Team Providers Care Final Inspector Motorcyles Name Role Phone Keyla Mata MD Primary Care Physician [phone] Encounter [facility] Date(s): 04/21/21 - 05/21/21 [facility] [address] [place] [address]- Attending Physician: Matthieu Kasper Admitting Physician: AdmMatthieu bailey Referring Physician: AdmtrMatthieu Allergies, Adverse Reactions, Alerts Substance Reaction Severity [...] given given w/o incident 2Result Comment: [12/16/2017] [facility] [id number] 3Result Comment: [11/29/2016] [facility] [id number] 4Result Comment: [11/25/2015] pt. tolerated inj. without complications...CO 5Result Comment: [11/30/2012] given w/o incident...AA 6Admin Note: FLULAVAL 7Admin Note: done @ work 8Admin Note: per pt 9Result Comment: Done at [facility] 10Result Comment: [id number] 11Result Comment: [12/16/2017] #1 12Admin Note: per [...] 1 Refills, Maintenance, 01/02/21 8:57:00 EST, Cream, [facility]/pharmacy #[id number], Partial fill upon patient request if [...] capsule, 1 Refills, Maintenance, 02/09/21 14:43:00 EST, [facility]/pharmacy #[id number], 170, cm, 01/29/21 13:01:00 EST, Height, [...] DAYS, # 15 sprays, 0 Refills, Acute, [id number], 30, USE 2 SPRAYS IN EACH NOSTRIL 3 TIMES A DAY FOR 7 DAYS, 170, cm, 04/10/19 14:00:00 EST, Height, 104.5, kg, 09/15/18 9:05:00 EDT... Start Date: 05/04/19 Status: Ordered ipratropium nasal 42 mcg/inh spray 2 sprays, Nares, Both, 3 times a day, # 1 each, 0 Refills, Maintenance, 07/02/20 16:11:00 EDT, [facility]/pharmacy #[id number], 2 sprays Nares, Both 3 times [...] 04/14/20 15:22:00 EST, Route to Pharmacy Electronically, [facility]/pharmacy #[id number], Partial fill upon patient request,... Start [...] mL, 0 Refills, Maintenance, 12/23/20 13:10:00 EDT, [facility]/pharmacy #[id number], Partial fill upon patient request if [...] 01/26/21 12:30:00 EST, Route to Pharmacy Electronically, [facility]/pharmacy #[id number], Partial fill upon patient request if the [...]
--- OUTSIDE RECORDS SUMMARY | 2023-12-17 09:33 | XMS_ITS | Continuity of Care Document ---
Author Organization [facility] ter Address [address] [place] [id number] Care Team Providers Care Housing Court Judge Name Role Phone Tarsha Saenz MD Primary Care Physician Encounter [facility] Date(s): 08/24/23 - 08/29/[address] [address] Discharge Disposition: A-Transfer SNF Attending Physician: Dora Garcia MD Admitting Physician: Dora Garcia MD Referring Physician: Dora Garcia MD Allergies, Adverse Reactions, Alerts Substance Reaction Severity Status clarithromycin rash Active vancomycin itching UNKNOWN Mild Active nortriptyline rash Mild Active spironolactone headache Active cyclobenzaprine tongue swelling,constipation Severe Active medtronidazole [...] given given w/o incident 2Result Comment: [12/16/2017] [facility] [id number] 3Result Comment: [11/29/2016] [facility] [id number] 4Result Comment: [11/25/2015] pt. tolerated inj. without complications...CO 5Result Comment: [11/30/2012] given w/o incident...AA 6Admin Note: FLULAVAL 7Admin Note: done @ work 8Admin Note: per pt 9Result Comment: Done at [facility] 10Result Comment: [id number] 11Result Comment: [12/16/2017] #1 12Admin Note: per pt 13Admin Note: hep A #2 14Admin Note: hep A #1 Medications acetaminophen 500 mg oral tablet 2 tablet = 1,000 mg, By Mouth, Every 8 hours, PRN for pain, for 15 days, # 90 tablet, 0 Refills, Acute 09/08/23 7:11:00 EDT, 08/24/23 7:11:00 EDT, Tablet, [facility]/pharmacy #[id number], Partial fill upon patient request if the prescription is for a schedule II o... Start Date: 08/24/23 Stop Date: 09/08/23 Status: Ordered bisacodyl 5 mg oral delayed release tablet = 10 mg, By Mouth, Daily, PRN Constipation, 0 Refills, Maintenance, 08/29/23 7:14:00 EDT, EC Tablet, Partial fill upon patient request if the prescription is for a schedule II opioid drug. Start Date: 08/29/23 Status: Ordered Docusate Sodium Capsule 100 mg, 1, capsule, By Mouth, 2 times a day, Refills 0, Maintenance, 08/29/23 7:14:00 EDT, Partial fill upon patient request if the prescription is for a schedule II opioid drug. Start Date: 08/29/23 Status: Ordered duloxetine 60 mg oral enteric coated capsule 1 capsule, By Mouth, Daily, # 90 capsule, 3 Refills, Maintenance, 09/08/21 10:47:00 EDT, [facility]/pharmacy #[id number], 170, cm, 09/08/21 10:10:00 EDT, Height, 101.5, kg, 06/11/21 12:07:00 EDT, Dry Weight Start Date: 09/08/21 Status: Ordered furosemide 40 mg oral tablet 1, tablet, By Mouth, Daily, # 90 tablet, Refills 0, Maintenance, 07/04/23 8:47:00 EDT, Route to Pharmacy Electronically, [facility] STORE [id number], 170, cm, 06/14/23 11:44:00 EDT, Height, 108.7, kg, 03/02/23 8:55:00 EST, Dry Weight Start Date: 07/04/23 Status: Ordered hydroxychloroquine 200 mg oral tablet 200 mg, 1, tablet, By Mouth, Daily in AM, Refills 0, Maintenance, 11/27/22 3:54:00 EDT, Partial fill upon patient request if the prescription is for a schedule II opioid drug. Start Date: 11/27/22 Status: Ordered losartan 100 mg oral tablet 1 tablet, By Mouth, Daily, # 90 tablet, 3 Refills, Maintenance, 05/19/23 8:02:00 EDT, [id number], 170, cm, 03/29/23 10:03:00 EST, Height, 108.7, kg, 03/02/23 8:55:00 EST, Dry Weight Start Date: 05/19/23 Status: Ordered ondansetron 4 mg oral tablet 1 tablet = 4 mg, By Mouth, Every 8 hours, PRN as needed for nausea/vomiting, for 7 days, # 21 tablet, 0 Refills, Acute 08/31/23 7:11:00 EDT, 08/24/23 7:11:00 EDT, Tablet, [facility]/pharmacy #[id number], Partial fill upon patient request if the prescription is for... Start Date: 08/24/23 Stop Date: 08/31/23 Status: Ordered oxyCODONE 5 mg oral tablet See Instructions, PRN, 1-2 tablets By Mouth Every 4 hours, # 84 tablet, Refills 0, Tot. Refills 0, Acute 09/05/23 7:13:00 EDT, Pain , Severe, 08/29/23 7:13:00 EDT, Instructions Replace Required Details, Print Requisition, Partial fill upon patient re... Start Date: 08/29/23 Stop Date: 09/05/23 Status: Ordered OxyCODONE IR Tablet 5 mg, Tablet, By Mouth, Every 4 hours, PRN for Pain , Mild, Routine, 08/24/23 11:49:00 EDT Start Date: 08/24/23 Stop Date: 08/29/23 Status: Discontinued senna 187 mg oral tablet 2 tablet = 17.2 mg, By Mouth, Daily at bedtime, 0 Refills, Maintenance, 08/29/23 7:14:00 EDT, Tablet, Partial fill upon patient request if the prescription is for a schedule II opioid drug. Start Date: 08/29/23 Status: Ordered spironolactone 25 mg oral tablet 25 mg, 1, tablet, By Mouth, Daily, # 30 tablet, Refills 5, Tot. Refills 5, Maintenance, 04/25/23 10:38:00 EST, Route to Pharmacy Electronically, [facility]/pharmacy #[id number], Partial fill upon patient request if the prescription is for a schedule II opioid drug... Start Date: 04/25/23 Status: Ordered Xarelto 10 mg oral tablet 1 tablet = 10 mg, By Mouth, Daily, # 30 tablet, 0 Refills, Maintenance, 08/24/23 7:12:00 EDT, Tablet, [facility]/pharmacy #[id number], Partial fill upon patient request if the prescription is for a schedule II opioid drug., 170, cm, 08/24/23 6:40:00 EDT, Height, 1... Start Date: 08/24/23 Stop Date: 09/23/23 Status: Ordered Problem List Condition Confirmation Course [...] oldest [Reference Range]: 1 2 3 Height 170 cm (08/29/23 9:28 AM) 170 cm (08/29/23 7:00 AM) 170 cm (08/29/23 4:16 AM) Weight 112.3 kg (08/24/23 2:43 PM) 112.3 kg (08/24/23 6:40 AM) 109 kg (08/17/23 4:05 PM) Oxygen Saturation [94-100 %] 100 % (08/29/23 9:28 AM) 100 % (08/29/23 7:00 AM) 97 % (08/29/23 4:16 AM) Pulse Rate [55-90 bpm] 71 bpm (08/29/23 9:28 AM) 77 bpm (08/29/23 7:00 AM) 86 bpm (08/29/23 4:16 AM) Body Mass Index [18.5-24.99 kg/m2] 38.86 kg/m2 *>HHI* (08/24/23 2:43 PM) 38.86 kg/m2 *>HHI* (08/24/23 6:40 AM) 37.72 kg/m2 *>HHI* (08/17/23 4:05 PM) Blood Pressure [90-138/55-84 mm Hg] 124/72mm Hg (08/29/23 9:28 AM) 121/54mm Hg (08/29/23 7:00 AM) 143/64mm Hg *H* (08/29/23 4:16 AM) Respiratory Rate [16-30 br/min] 20 br/min (08/29/23 11:39 AM) 18 br/min (08/29/23 9:28 AM) 18 br/min (08/29/23 8:09 AM) Temperature [96.8-100.4 DegF] 98.4 DegF (08/29/23 9:28 AM) 98.7 DegF (08/29/23 7:00 AM) 98.8 DegF (08/29/23 4:16 AM) Liters per Minute 6 L/min (08/24/23 11:35 AM) 6 L/min (08/24/23 11:20 AM) 4 L/min (08/24/23 7:15 AM) Mode of Delivery (Oxygen) Room air (08/29/23 9:28 AM) Room air (08/29/23 7:00 AM) Room air (08/29/23 4:16 AM) Blood pressure sites Arm, right (08/29/23 9:28 AM) Arm, left (08/29/23 7:00 AM) Arm, left (08/29/23 4:16 AM) Temperature Route Oral (08/29/23 9:28 AM) Oral (08/29/23 7:00 AM) Oral (08/29/23 4:16 AM) Dry Weight 112.3 kg (08/24/23 2:43 PM) 112.3 kg (08/24/23 6:40 AM) 109 kg (08/17/23 4:05 PM) Weight Obtained Via Standing scale (08/24/23 6:40 AM) Patient/family stated (08/17/23 4:05 PM) Dry Weight Obtained Via Standing scale (08/24/23 6:40 AM) Patient/family stated (08/17/23 4:05 PM) Social History Social History Type Response Smoking Status Never smoker; Tobacc o user in household: No entered on: 01/07/14 Sex Implantable Device List Procedure Provider Procedure Date Device Type Site Fusion Tarsometatarsal Dora Garcia MD 08/24/23 Unkn own Ankle Right Device Identifier Serial Number Lot or Batch Number Manufacturing Date Expiration Date Distinct Identification Code MRI Safety Implantable Status Assigning Authority Unknown [id number] Unknown Unknown 05/10/25 Unknown Unknown Active Unknown Procedure Provider Procedure Date Device Type Site Fusion Tarsometatarsal Dora Garcia MD 08/24/23 Unkn own Foot Right Device Identifier Serial Number Lot or Batch Number Manufacturing Date Expiration Date Distinct Identification Code MRI Safety Implantable Status Assigning Authority Unknown [id number] Unknown Unknown 12/02/24 Unknown Unknown Active Unknown History and physical note * Event Display: History and Physical Hospital Authored Date: * Event Display: History and Physical Hospital Authored Date: * Event Display: History and Physical Hospital Authored Date: Cardiology * Event Display: Cardiac Rhythm Strips Authored Date: Hospital Progress note * Jazz Parsons RN: PERFORM, SIGN, VERIFY, MODIFY, SIGN Event Display: Progress Note Hospital Authored Date: Patient: THO CHO Age: 68 years Sex: Female : 1955 Associated Diagnoses: None Author: Jazz Parsons RN Findings Problem Related to Alteration in Musculoskeletal : Alteration in Musculoskeletal Func/new 08/29/2023 6:39 EDT Alteration in Musculoskeletal Related to Orthopedic Procedure, Other: Right triple arthrodesis, tendo-Achilles lengthening, medial cuneiform Cotton osteotomy, surgeon-guided fluoroscopy and application of posterior splint 08/23 with [place] Goals & Outcomes, Musculoskeletal Affected extremity will maintain color/motion/sensation, Pt able to perform ADL's to best of ability, Pt demonstrates precautions/exercise/ transfers per protocol, Pt will ambulate safely with assistive device, Pt will be free from complications of immobility, Pt will demonstrate ability to participate in ADL's, Pt will report acceptable level of comfort/painrelief Interventions, Musculoskeletal Monitor patients ambulation status, monitor Color/Motion/Sensation, Assist with repositioning, Encourage deep breathing & coughing exercises, Notify MD immediately if tissue perfusion deteriorates, Obtain assistive devices as needed, Teach & Encourage use of Incentive spirometer, Teach Pt/caregiver on ADL's & adaptive equipment, Teach Pt/caregiver on exercises, Teach pt/caregiver on use of pain scale, Teach Pt/caregiver complications of immobility, Teach Pt/caregiver techniques to increase mobility, Teach Pt/caregiver on safety precautions, Incision care as ordered BH Goals/Interventions, Musculoskeletal Yes Musculoskeletal, Problem Start 08/24/2023 16:00 Reviewed Plan with, Musculoskeletal Patient Patient Progression, Musculoskeletal Pt progressing according to plan . Nursing Data Cardiac Data. : Cardiac Data. 08/29/2023 7:00 EDT Skin Temperature Upper Extremities Warm Skin Temperature Lower Extremities Warm Capillary Refill < 3 seconds nuclear monitoring technician No Cardiovascular WNL except . Gastrointestinal Data. : Gastrointestinal Data. 08/29/2023 7:00 EDT Abdomen Soft, Non-tender Bowel Sounds LUQ Present Bowel Sounds RUQ Present Bowel Sounds LLQ Present Bowel Sounds RLQ Present Last Bowel Movement 08/26/2023 GI WNL except . Integumentary Data. : Integumentary Data. 08/29/2023 7:00 EDT Skin Color Normal for ethnicity Skin Integrity Not intact Sensory Perception No impairment Activity Walks occasionally Mobility Slightly limited Integumentary WNL except 08/29/2023 6:51 EDT Skin Color Normal for ethnicity Skin Integrity Not intact Integumentary WNL except Ankle Right Skin Abnormality Type: Surgical incision Wound Assessment Activity: Reassessment Surgical Incision Detailed Assessment: Yes Incision Surgical Detail: Unable to visualize Wound Dressing: Elastic bandage wrap Wound Dressing Assessment: Clean, Dry, Intact Wound Dressing Activity: Intact Immobilization Device: Splint Capillary Refill Distal Incision, Wnd: Less than 2 seconds Sensation Distal to Injury Incision Wnd: Intact . Musculoskeletal Data. : Musculoskeletal Data. 08/29/2023 7:00 EDT Musculoskeletal Symptoms Joint tenderness Special Orthopedic Devices Splint(s) Musculoskeletal Comment NWB to RLE. 1 assist with walker Musculoskeletal WNL except . Neurological Data. : Neurological Data. 08/29/2023 7:00 EDT Level of Consciousness Full Consciousness Orientated to person, place, time Person, Place, Time, Event Facial Symmetry Intact Characteristics of Speech Clear and normal Swallowing Difficulty None Response Eye Opening Spontaneously Motor Response-Adult Obeys commands Verbal Response-Adult Oriented and converses Warren Coma Score 15 1 - 10 Pain Scale Score 3 Pain Interventions Cold, PRN medication, Repositioning, Rest Neuro WNL except Memory Intact Swallow - Neuro Normal . Respiratory/Pulmonary Data. : Respiratory/Pulmonary Data. 08/29/2023 7:00 EDT Respiratory Symptoms None Respiratory effort Unlabored Chest expansion Symmetrical Accessory Muscles use No Respiratory Assessment Comment CPAP at night Cough No cough Respiratory pattern Regular Left Upper Lobe Breath Sounds Clear Right Upper Lobe Breath Sounds Clear Right Middle Lobe Breath Sounds Clear Left Lower Lobe Breath Sounds Clear Right Lower Lobe Breath Sounds Clear Respiratory distress None Respiratory Treatment(s) Cough and deep breathe, Incentive spirometry Respiratory WNL except . Evaluation P: alteration in musculoskeletal/comfort I: interventions as listed in careplan E: R triple athrodesis endo-achilles lengthening, medial cuneform cotton osteotomy, surgeon guided fluoroscopy and application of posterior splint 08/23 with Radha. Pain rated 6/10, given 975 tylenol and 5mg oxycodone prn.. RLE in splint and kristina wrap CDI. toes are warm and perfused. RLE elevated on pillows. instructed on fall prevention protocol and call scott use. Pt getting OOB without assistance,reinforcing fall prevention protocol and call scott usage. VSS sats wnl on room air. uses CPAP at night, room air while awake. Voiding spontaneously, ambulates well to restroom.. LBM 7/5. tolerating PO intake. Scheduled docusate given this morning. denies nausea. abd snt +BSX4. NWB to RLE, ambulatessteady standby with walker. Lovenox given for DVT pphx. Bed in lowest locked position. [facility].. Discharge Information Case Management Discharge Plan : Case Management Discharge Plan Data 08/29/2023 6:33 EDT Discharge Level of Care at Discharge Not Done: not discharged (Not Done) 08/28/2023 8:45 EDT Discharge Level of Care at Discharge [facility] facility Discharge Nursing Homes/Rehab Facilities [facility] Name of Agency #1 [facility] Off Track Betting Manager #[phone] Service Comments #1 You are discharging to [facility] today for short term rehabilitation. Your daughter Tawnya will bring you around 3:00pm. Pulmonary Rehab Discharge : Pulmonary Rehab Discharge Status 08/28/2023 22:43 EDT CPAP/BiPAP Mask Type Full CPAP/BiPAP Mask Size Medium 08/28/2023 1:07 EDT CPAP/BiPAP Mask Type Full CPAP/BiPAP Mask Size Medium 08/27/2023 21:27 EDT CPAP/BiPAP Mask Type Full CPAP/BiPAP Mask Size Medium 08/27/2023 3:30 EDT CPAP/BiPAP Mask Type Full CPAP/BiPAP Mask Size Medium 08/27/2023 0:54 EDT CPAP/BiPAP Mask Type Full CPAP/BiPAP Mask Size Medium 08/26/2023 23:28 EDT CPAP/BiPAP Mask Type Full CPAP/BiPAP Mask Size Medium 08/26/2023 3:47 EDT CPAP/BiPAP Mask Type Full CPAP/BiPAP Mask Size Medium 08/26/2023 0:36 EDT CPAP/BiPAP Mask Type Full CPAP/BiPAP Mask Size Large 08/25/2023 23:12 EDT CPAP/BiPAP Mask Type Full CPAP/BiPAP Mask Size Medium Rehabilitation Discharge : Rehab Discharge Index 08/27/2023 12:40 EDT Walker: distance 20-50 08/27/2023 8:23 EDT Walker: distance 10-20 08/26/2023 8:36 EDT Walker: distance < 10 08/25/2023 8:07 EDT Comments on treatment indicated 68 F s/p right triple arthrodesis to R ankle. NWBRLE. PT for strength, endurance, ambulation, transfers, balance. Rec rehab Distance pt will ambulate 30 ft Full chart review completed Yes Hospital course see comment Other findings see comment Plan of care PT Gait training, Transfer training, Therapeutic exercise, Functional Activities, Balance training * Bobby Kaba NP: PERFORM, SIGN, VERIFY Event Display: Progress Note Hospital Authored Date: [id number] Patient: THO CHO Age: 68 years Sex: Female : 1955 Associated Diagnoses: None Author: Bobby Kaba NP Ortho POD 5 s/p s/p right triple arthrodesis, tendo-Achilles lengthening, medial cuneiform Cotton osteotomy, surgeon-guided fluoroscopy and application of posterior splint. S: Patient comfortable this morning. Denies any chest pain, shortness of breath, nausea or vomiting. Voiding well. Tolerating Oxycodone without issues. Pain is 5 out of 10 this morning. Patient was able to ambulate 20 feet with minimal assist x 1. PT is recommending rehab. Patient is cleared to go to rehab today. O: Vitals Temperature 98.8 (04:16) Systolic Blood Pressure 143 (04:16) Diastolic Blood Pressure 64 (04:16) Pulse 86 (04:16) SpO2 97 (04:16) Respiratory Rate 18 (04:16) No qualifying data available. General: alert, lucid, in NAD Heart: RRR, normal S1S2 Lungs: CTAb Abdomen: obese, soft NT Neurovascular: calves soft NT, Normal sensation to right toes. Able to wiggle toes. Dressing: RLE: splint clean/dry/intact, normal sensation exposed forefoot, now able to flex/extend toes, foot warm/well-perfused with brisk capillary refill, no pain with passive stretch of toes A/P: 68 year old female s/p right triple arthrodesis, tendo-Achilles lengthening, medial cuneiform Cotton osteotomy, surgeon-guided fluoroscopy and application of posterior splint. POD#5 s/p right triple arthrodesis 1) PT/OOB 2) NWB/elevate right foot 3) Lovenox for DVT prophylaxis while in-house, Xarelto 10mg daily x 30 days on discharge (prescription appears to have been sent to [facility]) 4) continue with oxycodone. 5) D/c plan -to rehab today. Case discussed with Dr. Garcia * Katie Govea RN: PERFORM, SIGN, VERIFY Event Display: Progress Note Hospital Authored Date: Patient: THO CHO Age: 68 years Sex: Female : 1955 Associated Diagnoses: None Author: Katie Govea RN Findings Problem Related to Alteration in Musculoskeletal : Alteration in Musculoskeletal Func/new 08/28/2023 21:00 EDT Alteration in Musculoskeletal Related to Orthopedic Procedure, Other: Right triple arthrodesis, tendo-Achilles lengthening, medial cuneiform Cotton osteotomy, surgeon-guided fluoroscopy and application of posterior splint 08/23 with Radha Goals & Outcomes, Musculoskeletal Affected extremity will maintain color/motion/sensation, Pt able to perform ADL's to best of ability, Pt demonstrates precautions/exercise/ transfers per protocol, Pt will ambulate safely with assistive device, Pt will be free from complications of immobility, Pt will demonstrate ability to participate in ADL's, Pt will report acceptable level of comfort/painrelief Interventions, Musculoskeletal Monitor patients ambulation status, monitor Color/Motion/Sensation, Assist with repositioning, Encourage deep breathing & coughing exercises, Teach & Encourage use of Incentive spirometer, Teach pt/caregiver on use of pain scale Goals/Interventions, Musculoskeletal Yes Musculoskeletal, Problem Start 08/24/2023 16:00 Reviewed Plan with, Musculoskeletal Patient Patient Progression, Musculoskeletal Pt progressing according to plan . Narrative/Incidental Pt is A&Ox4. Pt has had c/o RLE pain rating 6-7/10 that has had a + effect with scheduled/PRN medication rest and repositioning. Pt is not on Tele has denied c/o CP, palpitations, dizziness. LS clear all lobes bilat on RA no cough or SOB noted, uses CPAP HS. BS present x4 abdomen is soft round and non tender, good PO intake denies c/o N/V, last BM 08/25. Pt has been ambulating into the BR and ur inating w/o complications, please refer to Interactive Flowhsheets for accurate I&O measurements. Pt is sleeping in bed comfortably callbell is within reach and bed is in the lowest locked position for safety. Will report any changes PRN. . Evaluation P: Alteration in Musculoskeletal I: As stated above in POC E: s/p R triple arthodesis w/MD Garcia 08/23 POD 5. Pt is NWB to RLE is a 1A w/walker with a steady gait. RLE is splinted with a cast that is CDI +wiggle of toes +CMS good cap refill <3 secs, denies c/o numbness, burning, tingling. Pt is elevating RLE above heart level. Pt is on Lovenox for DVT Prophylaxis and has Pneumoboot to LLE. . Discharge Information Case Management Discharge Plan : Case Management Discharge Plan Data 08/28/2023 8:45 EDT Discharge Level of Care at Discharge [facility] facility Discharge Nursing Homes/Rehab Facilities [facility] Name of Agency #1 [facility] Agency Off Track Betting Manager #2 [phone] Service Comments #1 You are discharging to [facility] today for short term rehabilitation. Your daughter Tawnya will bring you around 3:00pm. Pulmonary Rehab Discharge : Pulmonary Rehab Discharge Status 08/28/2023 22:43 EDT CPAP/BiPAP Mask Type Full CPAP/BiPAP Mask Size Medium 08/28/2023 1:07 EDT CPAP/BiPAP Mask Type Full CPAP/BiPAP Mask Size Medium 08/27/2023 21:27 EDT CPAP/BiPAP Mask Type Full CPAP/BiPAP Mask Size Medium 08/27/2023 3:30 EDT CPAP/BiPAP Mask Type Full CPAP/BiPAP Mask Size Medium 08/27/2023 0:54 EDT CPAP/BiPAP Mask Type Full CPAP/BiPAP Mask Size Medium 08/26/2023 23:28 EDT CPAP/BiPAP Mask Type Full CPAP/BiPAP Mask Size Medium 08/26/2023 3:47 EDT CPAP/BiPAP Mask Type Full CPAP/BiPAP Mask Size Medium 08/26/2023 0:36 EDT CPAP/BiPAP Mask Type Full CPAP/BiPAP Mask Size Large 08/25/2023 23:12 EDT CPAP/BiPAP Mask Type Full CPAP/BiPAP Mask Size Medium Rehabilitation Discharge : Rehab Discharge Index 08/27/2023 12:40 EDT Walker: distance 20-50 08/27/2023 8:23 EDT Walker: distance 10-20 08/26/2023 8:36 EDT Walker: distance < 10 08/25/2023 8:07 EDT Comments on treatment indicated 68 F s/p right triple arthrodesis to R ankle. NWBRLE. PT for strength, endurance, ambulation, transfers, balance. Rec rehab Distance pt will ambulate 30 ft Full chart review completed Yes Hospital course see comment Other findings see comment Plan of care PT Gait training, Transfer training, Therapeutic exercise, Functional Activities, Balance training Note * Jay RN, Rachel Bermudez: PERFORM Event Display: Discharge/Transfer Note Hospital Authored Date: [id number] Nursing Discharge Note Entered On: 08/29/2023 11:01 EDT Performed On: 08/29/2023 10:59 EDT by Rachel Thompson RN Nursing Discharge Note 2 Discharge Time : 08/29/2023 11:49 EDT Rachel Thompson RN - 08/29/2023 12:39 EDT Discharge Level of Care at Discharge : [facility] facility Discharge Nursing Homes/Rehab Facilities : [facility] Patient Left Unit Via : Wheelchair Patient Accompanied Off Unit with : Responsible adult DC Instructions Provided & Signed by Pt : Yes Patient Understands D/C Instructions : Yes Verbalized Understanding of D/C Plan By : Patient Patient Instructions Discharge Signed : No Instructions for Discharge Comments : not required for rehab plaacement, patient aware of plan and agrees Discharge Comments : [facility] [facility] transported patient to rehab, all D/C paperwork in envelope with patient to give to rehab staff Did Pt have Specialty Bed or Wound Vac : No Rachel Thompson RN - 08/29/2023 10:59 EDT * Andie Monzon RN: VERIFY, PERFORM, SIGN Event Display: Case Management Discharge Plan Authored Date: [id number] Patient: THO CHO Age: 68 years Sex: Female : 1955 Associated Diagnoses: None Author: Andie Monzon RN Discharge Plan Case Management Discharge Plan : Case Management Discharge Plan Data 08/28/2023 8:45 EDT Discharge Level of Care at Discharge [facility] facility Discharge Nursing Homes/Rehab Facilities [facility] Name of Agency #1 [facility] Agency [employer] Track Betting Manager #1 [phone] Service Comments #1 You are discharging to [facility] today for short term rehabilitation. Your daughter Tawnya will bring you around 3:00pm. * Ruel TSANG, Bertha: PERFORM Rachel Thompson RN: MODIFY Event Display: Patient Education/Instruction Authored Date: [id number] Inpatient Adult Discharge Instructions. [address] [address] [phone] Name: THO CHO : 1955?? Visit: 08/24/2023 06:07?? Current Date: 08/28/2023 14:19 ?? Account: [id number]?? Inpatient Adult Discharge Instructions We would like to thank [...] and their families. Surveys are administered by [employer]. ?? If further treatment with your primary care physician or another doctor is recommended, it is important for you to keep the appointment. Call your primary care physician or return to the Emergency Department immediately if your condition worsens, fails to improve, or new symptoms develop. If you need to find a doctor, you can call [facility] Link for a referral at [phone] or toll free at [phone]) or log in to [email or web address].. ?? [facility], in keeping with [facility] guidance, no longer requires face masks [...] a health care hannah of your choosing. [employer] is a website that allows you to securely view your medical information including your hospital discharge summary, office visit summaries, medications and follow-up visits. You can also request appointments, renew medications, and request access to your medical information using a health care hannah of your choosing, or just ask a question. You can enroll at [email or web address] or register during your next office visit. You have been discharged from [facility], Patient Care Unit: SW7??. If you have any questions regarding these instructions, including results of studies pending, afteryou leave, please call us and we will be happy to assist you 13/09. [facility] Your Care Team Attending Physician Radha CADET, Dora Saunders?? Consulting Providers Dora Garcia MD?? Discharging Providers Dell CADET, Eduardo Bermudez Tests Performed Below is a partial list of the tests performed during your hospitalization. You may have had other tests and procedures not included in this list. Please discuss all test results with your provider. Potassium Level CBC?? Primary Care Provider Tarsha Saenz MD? Advance Directive Health Care Proxy on File Yes - Health Care Proxy Discharge Vitals Temperature: 98.6 DegF Height: 170 cm Pulse Rate: 81 bpm Weight: 112.3 kg Respiratory Rate: 18 br/min Body Mass Index:??38.86 kg/m2??Critical Systolic Blood Pressure: 129 mm Hg Body surface area: 2.3 Diastolic Blood Pressure:??51 mm Hg??Low ?? Oxygen Saturation: 100 % ?? Studies Pending All studies ordered during this hospital stay have been completed unless listed below. Please discuss all pending results with your provider listed above in these instructions. ?? CBC?? What to do next Instructions From Your Doctor ?? Orders?? Unit Discharge Criteria Met, ??08/29/23 7:16:00 EDT?? Prescriptions??, ??08/29/23 7:16:00 EDT?? Scheduled Follow-Up Appointments Tuesday 8:30 AM EDT ?? With: Maryellen CADET, Neel Ch Where: [facility] [address] [address]- Status: Pending You Need to Schedule the Following Appointments Follow Up with??[facility] When:??Within Within two weeks Discharge Medications THO CHO :1955 Visit Date:08/24/2023 Medications: Please continue your medications until treatment is completed or stopped by your provider. Medications not listed below should be discontinued. Discuss any questions related to medications with your provider. What How Much When Instructions Next Dose New Bisacodyl (bisacodyl 5 mg oral delayed release tablet) 10 Milligram Oral Daily as needed for Constipation as directed New Docusate (Docusate Sodium Capsule) 100 Milligram Oral Twice a day due 08/28 at?? 9pm New Senna (senna 187 mg oral tablet) 2 tab(s) Oral Daily at Bedtime due 08/28 at 9pm Changed Oxycodone (oxyCODONE 5 mg oral tablet) See instructions 1-2 tablets ??By Mouth Every 4 hours, As needed for Pain , Severe ?? Printed Prescription as directed, last dose 08/28 at 8am Unchanged Acetaminophen (acetaminophen 500 mg oral tablet) 2 tab(s) Oral Every 8 hours as needed for for pain Duration: 15 Days Pickup at [facility]/pharmacy #[id number] as directed Unchanged Duloxetine (duloxetine 60 mg oral enteric coated capsule) 1 capsule Oral Daily due 08/29 at?? 9am Unchanged Furosemide (furosemide 40 mg oral tablet) 1 tab(s) Oral Daily due 08/29 at 9am Unchanged Hydroxychloroquine (hydroxychloroquine 200 mg oral tablet) 1 tab(s) Oral Daily in the morning due 08/29 at 9am Unchanged Losartan (losartan 100 mg oral tablet) 1 tab(s) Oral Daily due 08/29 at 9am Unchanged Ondansetron (ondansetron 4 mg oral tablet) 1 tab(s) Oral Every 8 hours as needed for as needed for nausea/vomiting Duration: 7 Days Pickup at [facility]/pharmacy #[id number] as directed Unchanged rivaroxaban (Xarelto 10 mg oral tablet) 1 tab(s) Oral Daily Duration: 30 Days Pickup at [facility]/pharmacy #[id number] due 08/29 at 9am Unchanged Spironolactone (spironolactone 25 mg oral tablet) 1 tab(s) Oral Daily due 08/29 at 9am Pharmacy Information [facility]/pharmacy #[id number]: [address] [place] [phone] ?? What How Much When Comments Stop Taking Flax (Flax Seed Oil oral capsule) Oral Daily Stop Taking Miscellaneous Rx (Iron) Oral Daily Stop Taking Miscellaneous Rx (Magnesium) Oral Daily Stop Taking Multivitamin With Minerals (Centrum) 1 tab(s) Oral Daily Stop Taking [place]-3 Polyunsaturated Fatty Acids (Fish Oil) Oral Prescription Given During Visit Acetaminophen (acetaminophen 500 mg oral tablet) - 2 tablet = 1,000 mg, By Mouth, Every 8 hours, # 90 tablet, 0 Refills, [facility]/pharmacy #[id number], [address] [place] [phone]?? Ondansetron (ondansetron 4 mg oral tablet) - 1 tablet = 4 mg, By Mouth, Every 8 hours, # 21 tablet,0 Refills, [facility]/pharmacy #[id number], [address] [place] [phone]?? Oxycodone (oxyCODONE 5 mg oral tablet) - , # 84 tablet, 0 Refills, 1-2 tablets ??By Mouth Every 4 hours?? rivaroxaban (Xarelto 10 mg oral tablet) - 1 tablet = 10 mg, By Mouth, Daily, # 30 tablet, 0 Refills, [facility]/pharmacy #[id number], [address] [place] [phone]?? Laboratory Results Below is a partial list of the most recent Laboratory test results done prior to this discharge. You may have had other tests and procedures not included in this list. Please discuss all test resultswith your provider. Potassium Level (08/25/2023) ???Potassium - 3.8 mmol/L Allergies (NKA means No Known Allergies) cyclobenzaprine??(tongue swelling,constipation) Augmentin??(diarrhea) Darvocet A500??(RASH) Vicodin??(delusion, rash) medtronidazole containing compounds??(rash) nortriptyline??(rash) vancomycin??(itching, UNKNOWN) NSAIDs??(C/O: itching, Rash) clarithromycin??(rash) spironolactone??(headache) Problems Active Problems??(14) Comorbid sleep-related hypoventilation?? Fibromyalgia?? GERD - Gastro-esophageal reflux disease?? Hypertension?? Left ventricular diastolic dysfunction?? Lumbar facet arthropathy?? Mastodynia, bilateral?? Mitral valve prolapse?? OA (osteoarthritis) of knee?? Obesity?? JESS (AHI 28.5, min SpO2 75%, possible hypoventilation)?? Positive PPD?? RA - Rheumatoid arthritis?? Severe obesity (BMI 35.0-39.9) with comorbidity?? Education Materials Below is the list of Educational Leaflet Providered with your Discharge Instructions. Valuables and Belongings I fully understand and agree that [facility] accepts no responsibility for all my [...] of Valuable and Belonging List: With patient Date for Pt to Sign Valuables/Belongings: 08/24/23 14:42:00 ?? Other Discharge Information ? Case Management Discharge Plan?? Discharge Plan?? Discharge Agency Information?? Discharge Level of Care at Discharge: [facility] facility Name of Agency #1: [facility] Discharge Nursing Homes/Rehab Facilities: [facility] Agency Off Track Betting Manager #1: [phone] ?? Service Comments #1: You are discharging to [facility] today for short term rehabilitation. Yourdaughter Tawnya will bring you around 3:00pm. ?? Pulmonary Rehab Status?? Pulmonary Rehab Discharge Status?? CPAP/BiPAP Mask Type: Full CPAP/BiPAP Mask Size: Medium Respiratory Rate: 18 br/min ? Common Emergency Awareness Tips IS [...] are strongly encouraged to quit. Please call [facility] [employer] [facility] Link at [phone] or [phone] ([phone]) or log in to [email or web address] for referrals to smoking cessation programs. ?? 687 Suicide & Crisis Lifeline is available 13/09 if you or someone you know needs to find a reason to keep living. By calling 754 you'll be connected to a skilled, trained counselor at a crisis center in your area. INPATIENT DISCHARGE INSTRUCTIONS SIGNATURE KYLE MARIA L CHOBrittny Location:[facility] Registration Date and Time:08/24/2023 06:07 EDT Primary Care Physician: Dany CADET, Tarsha Parks, Attending Physician: Dora Garcia MD, I THO CHO, have received the above patient education materials/instructions and have verbalized understanding. If ambulance or transport services are being used I further acknowledge being given a choice of service. ?? If you need to contact me, please call me at this number: . Patient/Commercial Pest Control Representative Name: Patient/Commercial Pest Control Representative Signature: Relationship to Patient: Witness Name/Signature: Date: * Sesar SECURITY COORDINATOR, Zulfiya: MODIFY Sesar SECURITY COORDINATOR, Zulfiya: MODIFY, SIGN Sesar SECURITY COORDINATOR, Zulfiya: SIGN, MODIFY [place] SECURITY COORDINATOR, Zulfiya: MODIFY, SIGN [place] SECURITY COORDINATOR, Pawanulfiya: SIGN Heather MACARIO, Kody Best: VERIFY, PERFORM Heather MACARIO, Kody Best: PERFORM, SIGN Heather SECURITY COORDINATOR, Kody Best: SIGN Event Display: Discharge/Transfer Note Hospital Authored Date: [id number] Patient: THO CHO Age: 68 years Sex: Female : 1955 Associated Diagnoses: None Author: Kody Romero NP Discharge Summary Admission Date: 08/24/2023 Discharge Date: 08/29/2023 Admitting Diagnosis: 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 Procedure: Right triple arthrodesis, tendo-Achilles lengthening, medial cuneiform Cotton osteotomy,surgeon-guided fluoroscopy and application of posterior splint. Surgeon: Dr. Dora Garcia Past Medical History: Comorbid sleep-related hypoventilation, Fibromyalgia, GERD, Hypertension, Left ventricular diastolic dysfunction, Lumbar facet arthropathy, Mastodynia, bilateral Mitral valve prolapse, OA (osteoarthritis) of knee, Obesity, JESS, Positive PPD, RA - Rheumatoid arthritis, Severe obesity (BMI 35.0-39.9)with comorbidity. Orthopedics: The patient is status post right triple arthrodesis, tendo-Achilles lengthening, medial cuneiform Cotton osteotomy, surgeon-guided fluoroscopy and application of posterior splint. It is anticipated that she will be discharged to rehab today pending PT, OT clearance. The patient is doing well from a surgical standpoint. Neurovascular status is intact. Calves are supple and nontender. Moving toes with normal sensation after block wore off. Making good progress with Physical Therapy and Occupational therapy. Pain is well controlled on his current regimen, Acetaminophen 650 mg every 6 hours and Oxycodone 5-10 mg every 4 hours as needed. Patient is tolerating this well. She will be sent home with a prescription for this medication. Prescription: Oxycodone IR 5mg tablet. Take 1-2 tablets every 4 hours as needed for pain x 7 days. # 84 tablet (printed for rehab) Hospital course: Relatively uneventful medically. No nausea or vomiting. Pain is controlled now. Patient is voiding spontaneously. + bowel sounds. No other issues. No calf tenderness. Current Medication List: Acetaminophen (acetaminophen 500 mg oral tablet) 2 tab(s) 1,000 Milligram By Mouth Every 8 hours asneeded for pain for 15 Days Bisacodyl (bisacodyl 5 mg oral delayed release tablet) 10 Milligram By Mouth Daily as needed Constipation Docusate (Docusate Sodium Capsule) 100 Milligram 1 capsule By Mouth 2 times a day Duloxetine (duloxetine 60 mg oral enteric coated capsule) 1 capsule By Mouth Daily Furosemide (furosemide 40 mg oral tablet) 1 tablet By Mouth Daily Hydroxychloroquine (hydroxychloroquine 200 mg oral tablet) 200 Milligram 1 tablet By Mouth Daily Mayur Losartan (losartan 100 mg oral tablet) 1 tab(s) By Mouth Daily Ondansetron (ondansetron 4 mg oral tablet) 1 tab(s) 4 Milligram By Mouth Every 8 hours as needed asneeded for nausea/vomiting for 7 Days Oxycodone (oxyCODONE 5 mg oral tablet) See Instructions as needed 1-2 tablets By Mouth Every 4 hours Pain , Severe rivaroxaban (Xarelto 10 mg oral tablet) 1 tab(s) 10 Milligram By Mouth Daily for 30 Days Senna (senna 187 mg oral tablet) 2 tab(s) 17.2 Milligram By Mouth Daily at bedtime Spironolactone (spironolactone 25 mg oral tablet) 25 Milligram 1 tablet By Mouth Daily Allergies (Active and Proposed Allergies Only) spironolactone (Severity: Unknown severity, Onset: Unknown) Reactions: headache Vicodin (Severity: Mild, Onset: Unknown) Reactions: rash, delusion vancomycin (Severity: Mild, Onset: Unknown) Reactions: UNKNOWN, itching nortriptyline (Severity: Mild, Onset: Unknown) Reactions: rash medtronidazole containing compounds (Severity: Mild, Onset: Unknown) Reactions: rash Darvocet A500 (Severity: Mild, Onset: Unknown) Reactions: RASH cyclobenzaprine (Severity: Severe, Onset: Unknown) Reactions: tongue swelling,constipation clarithromycin (Severity: Unknown severity, Onset: Unknown) Reactions: rash Augmentin (Severity: Mild, Onset: Unknown) Reactions: diarrhea NSAIDs (Severity: Persistent Moderate, Onset: Unknown) Reactions: Rash, C/O: itching DVT prophylaxis Xarelto 10mg daily x 30 days on discharge (prescription appears to have been sent to [facility]) Disposition: Anticipates being discharged today to rehab. Follow up at [facility] as scheduled. ABSOLUTELY NO WEIGHT BEARING. Keep operative side elevated as much as possible for the first two tothree days. DO NOT REMOVE SPLINT. ABSOLUTELY DO NOT GET THE DRESSING WET! Once patient is comfortable and mobile, she may bathe. She may use a protective waterproof cover available at several pharmacies, or wrap a towel around your leg above the dressing securing with tape. Apply a new plastic bag over the dressing and tape it to the towel sealing off any opening in the bag. CALL THE OFFICE IF YOU DO ACCIDENTLY GET THE DRESSING WET. Stay at rehab is anticipated to be less than 30 days. Discharge Information Admission Date: 08/24/2023 Principal Discharge Diagnosis * Debbie Bruner: PERFORM Event Display: Patient Education/Instruction Authored Date: [id number] Dora Garcia M.D. POST OPERATIVE INSTRUCTIONS FOLLOWING FOOT AND ANKLE SURGERY ACTIVITY: 1. Weightbearing on operative side: __X___ ABSOLUTELY NO WEIGHT BEARING Minimal weight bearing (touch down only) on heel for transferring or to maintain balance while using a mobility assistive device (crutches, walker, etc.) You may bear weight as tolerated 2. Walk and stand using crutches, walker, Roll-A-Bout, etc. as needed for support and pain relief. 3. When elevating keep operative side above the level of your heart. This requires reclining rather than sitting straight up. DRESSING / SPLINT / SURGICAL SHOE OR BOOT: Do not remove the dressing for any reason unless you have specifically been instructed to do so! __X___ You have been placed in a splint ??? DO NOT REMOVE Use shoe or boot whenever out of bed ??? may remove for sleeping and bathing Keep shoe or boot on 24 hours a day ??? DO NOT REMOVE You may remove the dressing in two days and cover the sutures with a Band-Aid DO NOT REMOVE YOUR DRESSING. ABSOLUTELY DO NOT GET THE DRESSING WET! Once you are comfortable and mobile, you may bathe. You mayuse a protective waterproof cover available at several pharmacies, or you can wrap a towel around your leg above the dressing securing with tape. Apply a new plastic bag over the dressing and tape itto the towel sealing off any opening in the bag. CALL THE OFFICE IF YOU DO ACCIDENTLY GET THE DRESSING WET. MEDICATIONS: 1. Read all medication labels and take according to instructions. 2. Do not take pain medications on an empty stomach (taking with food decreases nausea) and never take any medication with alcohol. Do not drive while taking pain medication. 3. Pain medication may cause constipation. If needed, please use any laxative of choice such as milk of magnesia or magnesium citrate. These are available over the counter at you pharmacy. 4. Zofran (ondansetron) is prescribed for nausea, but it will also enhance the effect of pain medicine and should help you sleep. SPECIAL INSTRUCTIONS: 1. Keep operative side elevated as much as possible for the first two to three days. Beyond that elevate as needed for swelling or soreness. 2. Notify the office for fever greater than 101.5?? F, excessive redness or swelling in your foot, calf pain that feels like a muscle cramp, or if your pain medication is not effective. POST-OP APPOINTMENT: as scheduled @ [facility] Patient Care team information Care Team Personnel Name: Navya TSANG, Niurka Position: [facility] RN Member Role: Primary Care Nurse Name: Oswaldo Valadez RN Position: [facility] RN Member Role: Primary Care Nurse Name: Yoselyn Peters RN Position: [facility] RN Member Role: Primary Care Nurse Name: Alva Gibbons RN Position: [facility] RN Member Role: Primary Care Nurse Name: Hilary Bell RN Position: [facility] RN Member Role: Primary Care Nurse Name: Katie Govea RN Position: [facility] RN Member Role: Primary Care Nurse Name: Tarsha Saenz MD Position: Reference Physician Member Role: PCP Address: Address: [address] [place] [address]- Care Team Related Persons Name: MARGARETTE LOPEZ Name: TAWNYA LOPEZ Address: [address] [address]
--- OUTSIDE RECORDS SUMMARY | 2023-12-17 09:33 | XMS_ITS | Continuity of Care Document ---
Author Organization [facility] Address [address] [place] [address]- Care Team Providers Care Energy Efficiency Specialist Name Role Phone Keyla Mata MD Primary Care Physician Encounter [facility] Date(s): 10/28/20 - 11/27/20 [facility] [address] [place], [place] [address] Allergies, Adverse Reactions, Alerts Substance [...] 14 08/02/07 Given 1Result Comment: Done at [facility] 2Result Comment: [id number] 3Result Comment: [12/16/2017] #1 4Result Comment: [12/16/2017] [facility] [place] [id number] 5Result Comment: [11/29/2016] [facility] [place] [phone] 6Result Comment: [11/25/2015] pt. tolerated inj. without [...] capsule, 1 Refills, Maintenance, 09/15/20 10:55:00 EDT, [facility]/pharmacy #[id number], 171, cm, 09/12/20 9:46:00 EDT, Height, [...] DAYS, # 15 sprays, 0 Refills, Acute, [id number], 30, USE 2 SPRAYS IN EACH NOSTRIL 3 TIMES A DAY FOR 7 DAYS, 170, cm, 04/10/19 14:00:00 EST, Height, 104.5, kg, 09/15/18 9:05:00 EDT... Start Date: 05/04/19 Status: Ordered ipratropium nasal 42 mcg/inh spray 2 sprays, Nares, Both, 3 times a day, # 1 each, 0 Refills, Maintenance, 07/02/20 16:11:00 EDT, [facility]/pharmacy #[id number], 2 sprays Nares, Both 3 [...] 04/14/20 15:22:00 EST, Route to Pharmacy Electronically, [facility]/pharmacy #[id number], Partial fill upon patient request,... Start Date: [...]
--- OUTSIDE RECORDS SUMMARY | 2023-12-17 09:33 | XMS_ITS | Continuity of Care Document ---
Author Organization [facility] Address [address] [place] [address]- Care Team Providers Care Toll Lineman Name Role Phone Esperanza CADET, Keyla Parks Primary Care Physician [phone] Encounter [facility] Date(s): 04/10/19 - 04/20/19 [facility] [address] [place] [address]- [facility] Attending Physician: Matthieu Kasper Admitting Physician: Matthieu Kasper Referring Physician: AdmtrMatthieu Allergies, Adverse Reactions, Alerts [...] Vaccine (oldterm) 13 08/02/07 Given 1Result Comment: [id number] 2Result Comment: [12/16/2017] #1 3Result Comment: [12/16/2017] [facility] [id number] 4Result Comment: [11/29/2016] [facility] [phone] 5Result Comment: [11/25/2015] pt. tolerated inj. without [...] 10/05/16 13:05:44 Start Date: 10/05/16 Status: Ordered Knee High Compression Stockings 20-30mmHg [...] 11:36:00 EDT, 03/09/19 11:36:00 EST, Tablet, [facility]/pharmacy #[id number], 170, cm, 03/09/19 11:14:00 EST, Height, 104.5,kg, 09/15/18 9:05:00 EDT, Dry Weight Start Date: 03/09/19 Stop Date: 12/04/19 Status: Ordered Medrol Dosepak 4 mg oral tablet 1 pack/packet, By Mouth, Once, as directed on package labeling, # 21 tablet, 0 Refills, Soft Stop, 04/16/19 12:55:00 EST, Tablet, [facility]/pharmacy #[id number], 170, cm, 04/10/19 14:00:00 EST, Height, 104.5, kg, 09/15/18 9:05:00 EDT, Dry Weight Start Date: 04/16/19 Status: Ordered methotrexate 2.5 mg oral tablet [...] 9:25:18 EDT Start Date: 12/15/18 Status: Ordered tiZANidine 4 mg oral tablet 4 mg, 1, tablet, By Mouth, Every 8 hours, # 42 tablet, Refills 0, Tot. Refills 0, Maintenance, 04/10/19 15:00:00 EST, Route to Pharmacy Electronically, [facility]/pharmacy #[id number], 170, cm, 04/10/19 14:00:00 EST, Height, 104.5, kg, 09/15/18 9:05:00 EDT, Dry We... Start Date: 04/10/19 Stop Date: 04/24/19 Status: Ordered traZODone 100 mg oral tablet [...]
--- OUTSIDE RECORDS SUMMARY | 2023-12-17 09:33 | XMS_ITS | Continuity of Care Document ---
Author Organization [facility] Address [address] [place] [address]- Care Team Providers Care Monologist Name Role Phone Tarsha Saenz MD Primary Care Physician Encounter [facility] Date(s): 01/25/22 - 02/24/22 [facility] [address] [place] [address] Attending Physician: Matthieu Kasper Admitting Physician: AdmtrMatthieu [...] given given w/o incident 2Result Comment: [12/16/2017] [facility] [id number] 3Result Comment: [11/29/2016] [facility] [id number] 4Result Comment: [11/25/2015] pt. tolerated inj. without complications...CO 5Result Comment: [11/30/2012] given w/o incident...AA 6Admin Note: FLULAVAL 7Admin Note: done @ work 8Admin Note: per pt 9Result Comment: [facility] 10Result Comment: [id number] 11Result Comment: [12/16/2017] #1 12Admin Note: per pt 13Admin Note: hep A #2 14Admin Note: hep A #1 Medications Aerochamber See Instructions, # 1 pack/packet, Maintenance, 1 units, 01/06/22 10:43:00 EST, to use with MDI, Supply, 170, cm, 01/06/22 10:31:00 EST, Height, 101.5, kg, 06/11/21 12:07:00 EDT, Dry Weight Start Date: 01/06/22 Status: Ordered Albuterol (Eqv-ProAir HFA) 90 mcg/inh inhalation aerosol See Instructions, 2 puffs Inhalation Every 6 hours, # 18 Gm, 0 Refills, Maintenance, 01/06/22 10:43:00 EST, [facility]/pharmacy #[id number], Partial fill upon patient request if the prescription is for a scheduleII opioid drug., 2 puffs Inhalation Every 6 hours,... Start Date: 01/06/22 Status: Ordered Centrum Silver By Mouth, Daily, [...] capsule, 3 Refills, Maintenance, 09/08/21 10:47:00 EDT, [id number], 170, cm, 09/08/21 10:10:00 EDT, Height, [...] opioid drug. Start Date: 04/03/20 Status: Ordered Iron Chews See Instructions, By [...] Status: Ordered losartan 100 mg oral tablet 0 Refills, Maintenance, 09/08/21 10:46:00 EDT, Partial fill upon patient request if the prescription is for a schedule II opioid drug. Start Date: 09/08/21 Status: Ordered Magnesium Carbonate = 54 mg, [...] opioid drug. Start Date: 01/02/21 Status: Ordered Problem List Condition Confirmation Course Effective Dates Status Health St atus Informant Lumbar facet arthropathy Confirmed Active Fibromyalgia Confirmed Active GERD - Gastro-esophageal reflux disease Confirmed Active Hypertension Confirmed Active Left ventricular diastolic dysfunction Confirmed Active Mastodynia, bilateral Confirmed 12/02/10 Active Mitral valve prolapse Confirmed Active Obese class II Confirmed Active Obesity Confirmed Active Obstructive sleep apnea Confirmed 09/20/12 Active OA (osteoarthritis) of knee Confirmed Active Positive PPD Confirmed Active RA - Rheumatoid arthritis Confirmed Active Social History Social History Type Response Smoking Status Never smoker; Tobacc o user in household: No entered on: 01/07/14 Sex Patient Care team information Care Team Personnel Name: Niurka Mendosa RN Position: [facility] RN Member Role: Primary Care Nurse Name: Oswaldo Valadez RN Position: [facility] RN Member Role: Primary Care Nurse Name: Alva Gibbons RN Position: [facility] RN Member Role: Primary Care Nurse Name: Milka Mendosa RN Position: [facility] RN Member Role: Primary Care Nurse Name: Joseph CADET, Jl Best Position: [facility] Physician (General Medicine) Member Role: Lifetime Consulting Physician Address: Address: [address] [place] [address] [address] [place] [address]- Name: Dany CADET, Tarsha Parks Position: Reference Physician Member Role: PCP Address: Address: [address] [place] [address]- Care Team Related Persons Name: MARGARETTE LOPEZ Name: TAWNYA LOPEZ Address: [address] [address]
--- OUTSIDE RECORDS SUMMARY | 2023-12-17 09:33 | XMS_ITS | Continuity of Care Document ---
Author Organization [facility] Address [address] [place] [address]- Care Team Providers Care Pipe Manufacture Supervisor Name Role Phone Keyla Mata MD Primary Care Physician Encounter [facility] Date(s): 09/08/21 - 09/15/21 [facility] [address] [place], [place] [address] Attending Physician: Keyla Mata MD Allergies, Adverse [...] given w/o incident 2Result Comment: [12/16/2017] [facility] [id number] 3Result Comment: [11/29/2016] [facility] [id number] 4Result Comment: [11/25/2015] pt. tolerated inj. without complications...CO 5Result Comment: [11/30/2012] given w/o incident...AA 6Admin Note: FLULAVAL 7Admin Note: done @ work 8Admin Note: per pt 9Result Comment: Done at [facility] 10Result Comment: [id number] 11Result Comment: [12/16/2017] #1 12Admin Note: per pt 13Admin Note: hep A #2 14Admin Note: hep A #1 Medications Centrum Silver By Mouth, Daily, 0 Refills, [...] capsule, 3 Refills, Maintenance, 09/08/21 10:47:00 EDT, [facility]/pharmacy #[id number], 170, cm, 09/08/21 10:10:00 EDT, [...] Date: 01/02/21 Status: Ordered Problem List Condition Effective Dates [...] Procedure Date Related Diagnosis Body Site Status 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 Vital Signs Most recent to oldest [Reference Range]: 1 2 Height 170 cm (09/08/21 10:10 AM) 170 cm (09/08/21 10:04 AM) Weight 103.3 kg (09/08/21 10:04 AM) Oxygen Saturation [94-100 %] 98 % (09/08/21 10:04 AM) Pulse Rate [55-90 bpm] 73 bpm (09/08/21 10:04 AM) Body Mass Index [18.5-24.99] 35.74 *>HHI* (09/08/21 10:04 AM) Blood Pressure [90-138/55-84 mm Hg] 150/ 80mm Hg *H* (09/08/21 10:10 AM) 158/80mm Hg *H* (09/08/21 10:04 AM) Mode of Delivery (Oxygen) Room air (09/08/21 10:04 AM) Blood pressure sites Arm, left (09/08/21 10:10 AM) Arm, left (09/08/21 10:04 AM) Weight Obtained Via Standing scale (09/08/21 10:04 AM) Social History Social History Type Response Smoking Status Never smoker; Tobacc o user in household: No entered on: 01/07/14 Sex
--- OUTSIDE RECORDS SUMMARY | 2023-12-17 09:33 | XMS_ITS | Continuity of Care Document ---
Author Organization [facility] Address [address] [place] [address]- Care Team Providers Care Manager Site Name Role Phone Tarsha Saenz MD Primary Care Physician [phone] Encounter [facility] [place] Date(s): 12/06/22 - 01/05/23 [facility] [address] [place] [address]- [place] Allergies, Adverse Reactions, Alerts Substance Reaction [...] given given w/o incident 2Result Comment: [12/16/2017] [facility] [id number] 3Result Comment: [11/29/2016] [facility] [phone] 4Result Comment: [11/25/2015] pt. tolerated inj. without complications...CO 5Result Comment: [11/30/2012] given w/o incident...AA 6Admin Note: FLULAVAL 7Admin Note: done @ work 8Admin Note: per pt 9Result Comment: [facility] 10Result Comment: [id number] 11Result Comment: [12/16/2017] #1 12Admin Note: per [...] capsule, 3 Refills, Maintenance, 09/08/21 10:47:00 EDT, [facility]/pharmacy #[id number], 170, cm, 09/08/21 10:10:00 EDT, Height, [...] 03/30/22 13:32:00 EST, Route to Pharmacy Electronically, [facility]/pharmacy #[id number], Partial fill upon patient request if [...] 12/27/22 12:00:00 EST, Route to Pharmacy Electronically, [facility]/pharmacy #[id number], Partial fill upon patient request ifthe prescription is for a schedule II opioid drug.,... Start Date: 12/27/22 Stop Date: 12/22/23 Status: Ordered spironolactone 25 mg oral tablet 25 mg, 1, tablet, By Mouth, Daily, # 30 tablet, Refills 5, Tot. Refills 5, Maintenance, 11/15/22 11:40:00 EDT, Route to Pharmacy Electronically, [facility]/pharmacy #[id number], Partial fill upon patient request if the [...] Team Personnel Name: Niurka Mendosa RN Position: [facility] RN Member Role: Primary Care Nurse Name: Oswaldo Valadez RN Position: [facility] RN Member Role: Primary Care Nurse Name: Alva Gibbons RN Position: [facility] RN Member Role: Primary Care Nurse Name: Milka Mendosa RN Position: [facility] RN Member Role: Primary Care Nurse Name: Hilary Bell RN Position: [facility] RN Member Role: Primary Care Nurse Name: Jl Ruiz MD Position: [facility] Physician (General Medicine) Member Role: Lifetime Consulting Physician Address: Address: [address] [place] [address] [address] [place] [address]- Name: Saskia Houser RN Position: [facility] RN Member Role: Primary Care Nurse Name: Tarsha Saenz MD Position: Reference Physician Member Role: PCP Address: Address: [address] [place] [address]- Care Team Related Persons Name: LOPEZMARGARETTE TYSON Name: TAWNYA LOPEZ Address: [address] [address]
--- OUTSIDE RECORDS SUMMARY | 2023-12-17 09:33 | XMS_ITS | Continuity of Care Document ---
Author Organization [facility] Address [address] [place] [address]- Care Team Providers Care Show Girl Name Role Phone Keyla Mata MD Primary Care Physician Encounter [facility] [place] Date(s): 01/17/21 - 05/13/21 [facility] [address] [place] [address]- Attending Physician: Shane Dumont MD Admitting Physician: Shane Dumont MD Allergies, Adverse Reactions, Alerts Substance Reaction [...] (oldterm) 14 08/02/07 Given 1Result Comment: [12/16/2017] [facility] 60972-941-04 2Result Comment: [11/29/2016] [facility] 36480-470-24 3Result Comment: [11/25/2015] pt. tolerated inj. without complications...CO 4Result Comment: [11/30/2012] given w/o incident...AA 5Admin Note: FLULAVAL 6Admin Note: done @ work 7Admin Note: per pt 8Result Comment: Done at [facility] 9Result Comment: [id number] 10Result Comment: [12/16/2017] #1 11Admin Note: info [...] 1 Refills, Maintenance, 01/02/21 8:57:00 EST, Cream, [facility]/pharmacy #[id number], Partial fill upon patient request [...] capsule, 1 Refills, Maintenance, 02/09/21 14:43:00 EST, [facility]/pharmacy #[id number], 170, cm, 01/29/21 13:01:00 EST, [...] DAYS, # 15 sprays, 0 Refills, Acute, [facility] ST[facility] 87398, 30, USE 2 SPRAYS IN EACH NOSTRIL 3 TIMES A DAY FOR 7 DAYS, 170, cm, 04/10/19 14:00:00 EST, Height, 104.5, kg, 09/15/18 9:05:00 EDT... Start Date: 05/04/19 Status: Ordered ipratropium nasal 42 mcg/inh spray 2 sprays, Nares, Both, 3 times a day, # 1 each, 0 Refills, Maintenance, 07/02/20 16:11:00 EDT, [facility]/pharmacy #[id number], 2 sprays Nares, Both 3 [...] 04/14/20 15:22:00 EST, Route to Pharmacy Electronically, [facility]/pharmacy #[id number], Partial fill upon patient request,... [...] mL, 0 Refills, Maintenance, 12/23/20 13:10:00 EDT, [facility]/pharmacy #[id number], Partial fill upon patient request [...] 01/26/21 12:30:00 EST, Route to Pharmacy Electronically, [facility]/pharmacy #[id number], Partial fill upon patient request if the [...]
--- OUTSIDE RECORDS SUMMARY | 2023-12-17 09:33 | XMS_ITS | Continuity of Care Document ---
Author Organization [facility] Address [address] [place] [address]- Care Team Providers Care Lead Cargoman Name Role Phone Dany CADET, Tarhsa Parks Primary Care Physician Encounter [facility] Date(s): 10/22/22 - 11/21/[address] [address]- Allergies, Adverse Reactions, Alerts Substance Reaction Severity [...] Saud rded influenza virus vaccine, inactivated 4 10/4/16 Gi mratir influenza virus vaccine, inactivated 11/26/14 Saud rded [...] given w/o incident 2Result Comment: [12/16/2017] [facility] [id number] 3Result Comment: [11/29/2016] [facility] 75107-009-01 4Result Comment: [11/25/2015] pt. tolerated inj. without complications...CO 5Result Comment: [11/30/2012] given w/o incident...AA 6Admin Note: FLULAVAL 7Admin Note: done @ work 8Admin Note: per pt 9Result Comment: [facility] 10Result Comment: [id number] 11Result Comment: [12/16/2017] #1 12Admin Note: per [...] capsule, 3 Refills, Maintenance, 09/08/21 10:47:00 EDT, [facility]/pharmacy #[id number], 170, cm, 09/08/21 10:10:00 EDT, Height, [...] 03/30/22 13:32:00 EST, Route to Pharmacy Electronically, [facility]/pharmacy #[id number], Partial fill upon patient request if [...] 0 Refills, Maintenance, 08/25/22 9:48:00 EDT, Film, [facility]/pharmacy #[id number], Partial fi... Start Date: 08/25/22 Status: Ordered losartan 100 mg oral tablet 1 tablet = 100 mg, By Mouth, Daily, # 90 tablet, 3 Refills, Maintenance, 06/01/22 11:02:00 EDT, Tablet, [facility]/pharmacy #[id number], Partial fill upon patient request if the prescription is for a schedule II opioid drug., 170, cm, 05/14/22 9:21:00 EDT, Height,... Start Date: 06/01/22 Stop Date: 05/27/23 Status: Ordered metoprolol 25 mg oral tablet, extended release 25 mg, 1, tablet, By Mouth, Daily, # 30 tablet, Refills 5, Tot. Refills 5, Maintenance, 11/15/22 11:40:00 EDT, Route to Pharmacy Electronically, [facility]/pharmacy #[id number], Partial fill upon patient request if the prescription is for a schedule II opioid drug... Start Date: 11/15/22 Status: Ordered spironolactone 25 mg oral tablet 25 mg, 1, tablet, By Mouth, Daily, # 30 tablet, Refills 5, Tot. Refills 5, Maintenance, 11/15/22 11:40:00 EDT, [facility], [id number], Partial fill upon patient request if the prescription is for a schedule II opioid drug... Start Date: 11/15/22 Status: Ordered Splint See Instructions, # 1 [...] Team Personnel Name: Niurka Mendosa RN Position: [facility] RN Member Role: Primary Care Nurse Name: Oswaldo Valadez RN Position: [facility] RN Member Role: Primary Care Nurse Name: Alva Gibbons RN Position: [facility] RN Member Role: Primary Care Nurse Name: Milka Mendosa RN Position: [facility] RN Member Role: Primary Care Nurse Name: Jl Ruiz MD Position: [facility] Physician (General Medicine) Member Role: Lifetime Consulting Physician Address: Address: [address] [place] [address]- Name: Tarsha Saenz MD Position: Reference Physician Member Role: PCP Address: Address: [address] [place] [address]- Care Team Related Persons Name: MARGARETTE LOPEZ Name: TAWNYA LOPEZ Address: [address] [address]
--- OUTSIDE RECORDS SUMMARY | 2023-12-17 09:33 | XMS_ITS | Continuity of Care Document ---
Author Organization [facility] Address [address] [place] [address]- Care Team Providers Care Esol Teacher Assistant Name Role Phone Esperanza CADET, Keyla Parks Primary Care Physician Encounter [facility] Date(s): 12/25/20 - 01/01/21 [facility] [address] [place], [place] [address] Attending Physician: Keyla Mata MD Allergies, Adverse Reactions, Alerts Substance Reaction Severity Status cyclobenzaprine tongue swelling,constipation Active Darvocet A500 RASH Active clarithromycin Active vancomycin UNKNOWN Active nortriptyline Active medtronidazole containing compounds Active Augmentin diarrhea [...] (oldterm) 14 08/02/07 Given 1Result Comment: [12/16/2017] [facility] 47240-095-27 2Result Comment: [11/29/2016] [facility] 32260-274-25 3Result Comment: [11/25/2015] pt. tolerated inj. without complications...CO 4Result Comment: [11/30/2012] given w/o incident...AA 5Admin Note: FLULAVAL 6Admin Note: done @ work 7Admin Note: per pt 8Result Comment: Done at [facility] 9Result Comment: [id number] 10Result Comment: [12/16/2017] #1 11Admin Note: info [...] capsule, 1 Refills, Maintenance, 09/15/20 10:55:00 EDT, [facility]/pharmacy #[id number], 171, cm, 09/12/20 9:46:00 EDT, Height, [...] # 15 sprays, 0 Refills, Acute, [facility] 96[facility], 30, USE 2 SPRAYS IN EACH NOSTRIL 3 TIMES A DAY FOR 7 DAYS, 170, cm, 04/10/19 14:00:00 EST, Height, 104.5, kg, 09/15/18 9:05:00 EDT... Start Date: 05/04/19 Status: Ordered ipratropium nasal 42 mcg/inh spray 2 sprays, Nares, Both, 3 times a day, # 1 each, 0 Refills, Maintenance, 07/02/20 16:11:00 EDT, [facility]/pharmacy #[id number], 2 sprays Nares, Both 3 times [...] 15:22:00 EST, Route to Pharmacy Electronically, [facility]/pharmacy #[id number], Partial fill upon patient request,... Start Date: 04/14/20 Stop Date: 07/13/20 Status: Ordered Metoprolol Succinate ER 50 mg oral tablet, extended release 0 Refills, Maintenance, 04/03/20 14:48:00 EST, Partial fill upon patient request if the prescription is for a schedule II opioid drug. Start Date: 04/03/20 Status: Ordered NuLYTELY with Flavor Packs oral powder for reconstitution See Instructions, 4 liters By Mouth Once, # 4,000 mL, 0 Refills, Maintenance, 12/23/20 13:10:00 EDT, [facility]/pharmacy #[id number], Partial fill upon patient request if the prescription is for a schedule II opioid drug., 4 liters By Mouth Once, 171, cm, 12/23/20... Start Date: 12/23/20 Status: Ordered Problem List Condition Effective Dates [...] recent to oldest [Reference Range]: 1 Height 171 cm (12/25/20 9:09 AM) Weight 103.8 kg (12/25/20 9:09 AM) Oxygen Saturation [94-100 %] 98 % (12/25/20 9:09 AM) Pulse Rate [55-90 bpm] 67 bpm (12/25/20 9:09 AM) Body Mass Index [18.5-24.99] 35.5 *>HHI* (12/25/20 9:09 AM) Blood Pressure [90-138/55-84 mm Hg] 126/ 74mm Hg (12/25/20 9:09 AM) Temperature [96.8-100.4 DegF] 97.5 DegF (12/25/20 9:09 AM) Blood pressure sites Arm, left (12/25/20 9:09 AM) Temperature Route Temporal (12/25/20 9:09 AM) Weight Obtained Via Standing scale (12/25/20 9:09 AM) Social History Social History Type Response Smoking Status Never smoker; Tobacc o user in household: No entered on: 01/07/14 Sex
--- OUTSIDE RECORDS SUMMARY | 2023-12-17 09:33 | XMS_ITS | Continuity of Care Document ---
Author Organization [facility] Address [address] [place] [address]- Care Team Providers Care Commercial Real Estate Assistant Name Role Phone Keyla Mata MD Primary Care Physician [phone] Encounter [facility] Date(s): 05/23/21 - 06/22/21 [facility] [address] [place], [place] [address] Allergies, Adverse Reactions, Alerts Substance [...] given given w/o incident 2Result Comment: [12/16/2017] [facility] [id number] 3Result Comment: [11/29/2016] [facility] 69763-530-90 4Result Comment: [11/25/2015] pt. tolerated inj. without complications...CO 5Result Comment: [11/30/2012] given w/o incident...AA 6Admin Note: FLULAVAL 7Admin Note: done @ work 8Admin Note: per pt 9Result Comment: Done at [facility] 10Result Comment: [id number] 11Result Comment: [12/16/2017] #1 12Admin Note: per [...] capsule, 1 Refills, Maintenance, 02/09/21 14:43:00 EST, [facility]/pharmacy #[id number], 170, cm, 01/29/21 13:01:00 EST, Height, [...]
--- OUTSIDE RECORDS SUMMARY | 2023-12-17 09:33 | XMS_ITS | Continuity of Care Document ---
Author Organization [facility] Address [address] [place] [address]- Care Team Providers Care Manager Game Name Role Phone Keyla Mata MD Primary Care Physician Encounter [facility] [place] Date(s): 09/22/20 - 09/29/20 [facility] [address] [place], [place] [address] Attending Physician: Keyla Mata MD Allergies, Adverse Reactions, Alerts Substance Reaction Severity Status cyclobenzaprine tongue swelling,constipation Active medtronidazole containing compounds Active Darvocet A500 RASH Active clarithromycin Active vancomycin UNKNOWN Active nortriptyline Active Augmentin diarrhea Active Vicodin delusion rash [...] 08/02/07 Given 1Result Comment: Done at [facility] 2Result Comment: [id number] 3Result Comment: [12/16/2017] #1 4Result Comment: [12/16/2017] [facility] [phone] 5Result Comment: [11/29/2016] [facility] [phone] 6Result Comment: [11/25/2015] pt. tolerated inj. without [...] 1 Refills, Maintenance, 09/15/20 10:55:00 EDT, [facility]/pharmacy #[id number], 171, cm, 09/12/20 9:46:00 EDT, Height, [...] # 15 sprays, 0 Refills, Acute, [facility], 30, USE 2 SPRAYS IN EACH NOSTRIL 3 TIMES A DAY FOR 7 DAYS, 170, cm, 04/10/19 14:00:00 EST, Height, 104.5, kg, 09/15/18 9:05:00 EDT... Start Date: 05/04/19 Status: Ordered ipratropium nasal 42 mcg/inh spray 2 sprays, Nares, Both, 3 times a day, # 1 each, 0 Refills, Maintenance, 07/02/20 16:11:00 EDT, [facility]/pharmacy #[id number], 2 sprays Nares, Both 3 times [...] 15:22:00 EST, Route to Pharmacy Electronically, [facility]/pharmacy #[id number], Partial fill upon patient request,... Start Date: [...] oldest [Reference Range]: 1 Height 171 cm (09/22/20 3:44 PM) Weight 106.4 kg (09/22/20 3:44 PM) Oxygen Saturation [94-100 %] 96 % (09/22/20 3:44 PM) Pulse Rate [55-90 bpm] 68 bpm (09/22/20 3:44 PM) Body Mass Index [18.5-24.99] 36.39 *>HHI* (09/22/20 3:44 PM) Blood Pressure [90-138/55-84 mm Hg] 134/ 76mm Hg (09/22/20 3:44 PM) Temperature [96.8-100.4 DegF] 97.9 DegF (09/22/20 3:44 PM) Mode of Delivery (Oxygen) Room air (09/22/20 3:44 PM) Blood pressure sites Arm, left (09/22/20 3:44 PM) Temperature Route Temporal (09/22/20 3:44 PM) Weight Obtained Via Standing scale (09/22/20 3:44 PM) Social History Social History Type Response Smoking Status Never smoker; Tobacc o user in household: No entered on: 01/07/14 Sex
--- OUTSIDE RECORDS SUMMARY | 2023-12-17 09:33 | XMS_ITS | Continuity of Care Document ---
Author Organization [facility] Address [address] [place] [address]- Care Team Providers Care Certified Rehabilitation Counselor Name Role Phone Tarsha Saenz MD Primary Care Physician [phone] Encounter [facility] Date(s): 01/06/22 - 01/13/22 [facility] [address] [place] [address]- Encounter Diagnosis Acute bronchitis(Discharge Diagnosis) - 01/06/22 Attending Physician: Samy Horan DO Referring Physician: Not on Staff, Referring MD [...] given given w/o incident 2Result Comment: [12/16/2017] [facility] [phone] 3Result Comment: [11/29/2016] [facility] [phone] 4Result Comment: [11/25/2015] pt. tolerated inj. without complications...CO 5Result Comment: [11/30/2012] given w/o incident...AA 6Admin Note: FLULAVAL 7Admin Note: done @ work 8Admin Note: per pt 9Result Comment: [facility] 10Result Comment: [id number] 11Result Comment: [12/16/2017] #1 12Admin Note: per [...] Gm, 0 Refills, Maintenance, 01/06/22 10:43:00 EST, [facility]/pharmacy #[id number], Partial fill upon patient [...] capsule, 3 Refills, Maintenance, 09/08/21 10:47:00 EDT, [facility]/pharmacy #[id number], 170, cm, 09/08/21 10:10:00 [...] Active RA - Rheumatoid arthritis Confirmed Active Diagnosis Diagnosis Type Effective Dates Health Status Clinical Service Informant Acute bronchitis Discharge Diagnosis 01/06/22 Vital Signs Most recent to oldest [Reference Range]: 1 Height 170 cm (01/06/22 10:31 AM) Oxygen Saturation [94-100 %] 100 % (01/06/22 10:31 AM) Pulse Rate [55-90 bpm] 65 bpm (01/06/22 10:31 AM) Blood Pressure [90-138/55-84 mm Hg] 180/ 71mm Hg *H* (01/06/22 10:31 AM) Temperature [96.8-100.4 DegF] 97.6 DegF (01/06/22 10:31 AM) Mode of Delivery (Oxygen) Room air (01/06/22 10:31 AM) Blood pressure sites Arm, right (01/06/22 10:31 AM) Temperature Route Temporal (01/06/22 10:31 AM) Social History Social History Type Response Smoking Status Never smoker; Tobacc o user in household: No entered on: 01/07/14 Sex Note * Bela Garcia: PERFORM, SIGN, VERIFY Event Display: Patient Education/Instruction Authored Date: [id number] [facility] *[facility] Clinical Summary Name THO CHO Age 66 Years 1955 PCP Dany CADET, Tarsha Parks PCP Visit Date 01/06/2022 09:41:00 Additional Instructions: Scheduled Appointments?? Future Appointments ?*[facility] ?[address]??[place],??[place],??[address] ?Phone:??--?Fax:??-- ?Appt. Date:??01/11/2022?10:10 AM ?Scheduled Provider:??Esperanza CADET , Keyla S ?*[facility] ?[address] ?[place] ?[place],??[place],??[address] ?Phone:??--?Fax:??-- ?Appt. Date:??01/25/2022?2:30 PM ?Scheduled Provider:??Mariana Mora ?[facility] ?[address]??[place],??[place],??[address] ?Phone:??[phone]?Fax:??-- ?Appt. Date:??02/25/2022?10:00 AM ?[facility] Follow-Up Instructions ?? Diagnosis Acute bronchitis, unspecified Medications: Please continue your medications until treatment is completed or stopped by your provider. Discuss any questions related to medications with your provider. New Medications [id number], [id number] [place] [id number], [phone] Albuterol (Albuterol (Eqv-ProAir HFA) 90 mcg/inh inhalation aerosol) 2 puffs Inhalation Every 6 hours. Refills: 0. Next Dose: Doxycycline (doxycycline hyclate 100 mg oral tablet) 1 tab(s) Oral every 12 hours for 7 Days. Refills: 0. Next Dose: Durable Medical Equipment (Aerochamber) 1 units. Refills: 0. Next Dose: PredniSONE (predniSONE 50 mg oral tablet) 1 tab(s) Oral Daily for 5 Days. Take in the morning with a full breakfast. Refills: 0. Next Dose: Medications to Continue with No Changes These medications were not printed or sent to your pharmacy Carbonyl Iron (Iron Chews) By Mouth Daily. Next Dose: Duloxetine (duloxetine 60 mg oral enteric coated capsule) 1 capsule Oral Daily. Refills: 3. Next Dose: Durable Medical Equipment (CPAP Machine) CPAP 12. Next Dose: Durable Medical Equipment (Knee High Compression Stockings 20-30mmHg) Dx: Volume overload icd 10 E 87.7, Peripheral edema R60.0. Refills: 0. Next Dose: Flax (Flax Seed Oil) Next Dose: Folic Acid (folic acid 1 mg oral tablet) Next Dose: Furosemide (Lasix 20 mg oral tablet) 1 tab(s) Oral Daily. Next Dose: Losartan (losartan 100 mg oral tablet) Next Dose: Magnesium Carbonate 54 Milligram Oral Daily. Next Dose: Methotrexate (methotrexate 2.5 mg oral tablet) 3 tablets Oral every week. wednesdays. Next Dose: Metoprolol (metoprolol 100 mg oral tablet, extended release) 1 tab(s) Oral Daily. Next Dose: Multivitamin With Minerals (Centrum Silver) Oral Daily. Next Dose: [place]-3 Polyunsaturated Fatty Acids (Fish Oil) Oral. Next Dose: Allergy Info:?? NSAIDs; Darvocet A500; Vicodin; Augmentin; medtronidazole containing compounds; cyclobenzaprine; nortriptyline; vancomycin; clarithromycin Medications Given This Visit Future Orders ?No future orders Vital Signs Height 170 cm Weight BMI Blood Pressure 180 mm Hg/71 mm Hg Temperature 97.6 DegF Pulse Rate 65 bpm Respiratory Rate 02 Sat Mode of Delivery 100 %/Room air You can now view a summary of your hospital visit from the comfort of your home through a free online portal called [facility]. [facility] is a website that allows you to securely view your medical information including discharge summary, medications and follow-up visits. ??You can alsosend a secure electronic message to your doctor???s office to request appointments, renew medications or just ask a question. You can enroll at [email or web address] or register during your next office visit. [...] primary care provider, you may find a [facility] provider by calling [employer] at [phone]. For information about the plan of care including goals and instructions for your diagnosis, please see the patient education orders section of this document. Patient Education Materials?? The content of this educational material or handout may have been modified, supplemented, or adapted from its original content and format to support your individualized medical care. Bronchitis with Wheezing (Viral or Bacterial: Adult) Bronchitis is an infection of the air passages. It often occurs during the common cold and is usually caused by a virus. Symptoms include cough with mucus (phlegm) and low-grade fever. This illness is contagious during the first few days and is spread through the air by coughing and sneezing, or bydirect contact (touching the sick person and then touching your own eyes, nose, or mouth). If there is a lot of inflammation, air flow is restricted. The air passages may also go into spasm,especially if you have asthma. This causes wheezing and difficulty breathing even in people who do not have asthma. Bronchitis usually lasts 7 to 14 days. The wheezing should improve with treatment during the first week. An inhaler is often prescribed to relax the air passages and stop wheezing. Antibiotics will be prescribed if your doctor thinks there is also a secondary bacterial infection. Home care ??? If symptoms are severe, rest at home for the first 2 to 3 days. When you go back to your usual activities, don't let yourself get too tired. ??? Do not smoke. Also avoid being exposed to secondhand smoke. ??? You may use qkza-agi-ninkncd medicine to control fever or pain, unless another medicine was prescribed. Note: If you have chronic liver or kidney disease or have ever had a stomach ulcer or gastrointestinal bleeding, talk with your healthcare provider before using these medicines. Also talk to your provider if you are taking medicine to prevent blood clots.) Aspirin should never be given to anyone younger than 18 years of age who is ill with a viral infection or fever. It may cause severe liver or brain damage. ??? Your appetite may be poor, so a light diet is fine. Avoid dehydration by drinking 6 to 8 glasses of fluids per day (such as water, soft drinks, sports drinks, juices, tea, or soup). Extra fluids will help loosen secretions in the nose and lungs. ??? Uxnh-flb-legclnt cough, cold, and sore-throat medicines will not shorten the length of the illness, but they may be helpful to reduce symptoms. (Note: Do not use decongestants if you have high blood pressure.) ??? If you were given an inhaler, use it exactly as directed. If you need to use it more often thanprescribed, your condition may be worsening. If this happens, contact your healthcare provider. ??? If prescribed, finish all antibiotic medicine, even if you are feeling better after only a few days. Follow-up care Follow up with your healthcare provider, or as advised. If you had an X-ray or ECG (electrocardiogram), a specialist will review it. You will be notified of any new findings that may affect your care. Note: If you are age 65 or older, or if you have a chronic lung disease or condition that affects your immune system, or you smoke, talk to your healthcare provider about having a pneumococcal vaccinations and a yearly influenza vaccination (flu shot). When to seek medical advice Call your healthcare provider right away if any of these occur: ??? Fever of 100.4??F (38??C) or higher ??? Coughing up increasing amounts of colored sputum ??? Weakness, drowsiness, headache, facial pain, ear pain, or a stiff neck Call 911, or get immediate medical care Contact emergency services right away if any of these occur. ??? Coughing up blood ??? Worsening weakness, drowsiness, headache, or stiff neck ??? Increased wheezing not helped with medication, shortness of breath, or pain with breathing ?? [id number] [employer]. [address] [place] [address], [place] [address]. All rights reserved. This information is not intended as a substitute for professional medical care. Always follow your healthcare professional's instructions. * Bela Garcia: PERFORM, SIGN, VERIFY Event Display: Patient Education/Instruction Authored Date: [id number] [facility] Clinical Summary Name THO CHO Age 66 Years 1955 PCP Dany CADET, Tarsha Parks PCP Visit Date 01/06/2022 09:41:00 Additional Instructions: Scheduled Appointments?? Future Appointments ?*[facility] ?[address],??[place],??[address] ?Phone:??--?Fax:??-- ?Appt. Date:??01/11/2022?10:10 AM ?Scheduled Provider:??Esperanza CADET , Keyla Parks ?*[facility] ?[address] ?[facility] ?[place],??[place],??[address] ?Phone:??--?Fax:??-- ?Appt. Date:??01/25/2022?2:30 PM ?Scheduled Provider:??Mariana Mora ?[facility] ?[address]??[place],??[place],??[address] ?Phone:??[phone]?Fax:??-- ?Appt. Date:??02/25/2022?10:00 AM ?Scheduled Provider:??[facility] 3 Follow-Up Instructions ?? Diagnosis Acute bronchitis, unspecified Medications: Please continue your medications until treatment is completed or stopped by your provider. Discuss any questions related to medications with your provider. New Medications [facility]/pharmacy #[id number], [address] [place] [id number], [phone] Albuterol (Albuterol (Eqv-ProAir HFA) 90 mcg/inh inhalation aerosol) 2 puffs Inhalation Every 6 hours. Refills: 0. Next Dose: Doxycycline (doxycycline hyclate 100 mg oral tablet) 1 tab(s) Oral every 12 hours for 7 Days. Refills: 0. Next Dose: Durable Medical Equipment (Aerochamber) 1 units. Refills: 0. Next Dose: PredniSONE (predniSONE 50 mg oral tablet) 1 tab(s) Oral Daily for 5 Days. Take in the morning with a full breakfast. Refills: 0. Next Dose: Medications to Continue with No Changes These medications were not printed or sent to your pharmacy Carbonyl Iron (Iron Chews) By Mouth Daily. Next Dose: Duloxetine (duloxetine 60 mg oral enteric coated capsule) 1 capsule Oral Daily. Refills: 3. Next Dose: Durable Medical Equipment (CPAP Machine) CPAP 12. Next Dose: Durable Medical Equipment (Knee High Compression Stockings 20-30mmHg) Dx: Volume overload icd 10 E 87.7, Peripheral edema R60.0. Refills: 0. Next Dose: Flax (Flax Seed Oil) Next Dose: Folic Acid (folic acid 1 mg oral tablet) Next Dose: Furosemide (Lasix 20 mg oral tablet) 1 tab(s) Oral Daily. Next Dose: Losartan (losartan 100 mg oral tablet) Next Dose: Magnesium Carbonate 54 Milligram Oral Daily. Next Dose: Methotrexate (methotrexate 2.5 mg oral tablet) 3 tablets Oral every week. wednesdays. Next Dose: Metoprolol (metoprolol 100 mg oral tablet, extended release) 1 tab(s) Oral Daily. Next Dose: Multivitamin With Minerals (Centrum Silver) Oral Daily. Next Dose: [place]-3 Polyunsaturated Fatty Acids (Fish Oil) Oral. Next Dose: Allergy Info:?? NSAIDs; Darvocet A500; Vicodin; Augmentin; medtronidazole containing compounds; cyclobenzaprine; nortriptyline; vancomycin; clarithromycin Medications Given This Visit Future Orders ?No future orders Vital Signs Height 170 cm Weight BMI Blood Pressure 180 mm Hg/71 mm Hg Temperature 97.6 DegF Pulse Rate 65 bpm Respiratory Rate 02 Sat Mode of Delivery 100 %/Room air You can now view a summary of your hospital visit from the comfort of your home through a free online portal called [facility]. Samp[facility] is a website that allows you to securely view your medical information including discharge summary, medications and follow-up visits. ??You can alsosend a secure electronic message to your doctor???s office to request appointments, renew medications or just ask a question. You can enroll at [email or web address] or register during your next office [...] primary care provider, you may find a [facility] provider by calling [facility] [employer] at [phone]. For information about the plan of care including goals and instructions for your diagnosis, please see the patient education orders section of this document. Patient Education Materials?? The content of this educational material or handout may have been modified, supplemented, or adapted from its original content and format to support your individualized medical care. Bronchitis with Wheezing (Viral or Bacterial: Adult) Bronchitis is an infection of the air passages. It often occurs during the common cold and is usually caused by a virus. Symptoms include cough with mucus (phlegm) and low-grade fever. This illness is contagious during the first few days and is spread through the air by coughing and sneezing, or bydirect contact (touching the sick person and then touching your own eyes, nose, or mouth). If there is a lot of inflammation, air flow is restricted. The air passages may also go into spasm,especially if you have asthma. This causes wheezing and difficulty breathing even in people who do not have asthma. Bronchitis usually lasts 7 to 14 days. The wheezing should improve with treatment during the first week. An inhaler is often prescribed to relax the air passages and stop wheezing. Antibiotics will be prescribed if your doctor thinks there is also a secondary bacterial infection. Home care ??? If symptoms are severe, rest at home for the first 2 to 3 days. When you go back to your usual activities, don't let yourself get too tired. ??? Do not smoke. Also avoid being exposed to secondhand smoke. ??? You may use vino-mmd-jakotjy medicine to control fever or pain, unless another medicine was prescribed. Note: If you have chronic liver or kidney disease or have ever had a stomach ulcer or gastrointestinal bleeding, talk with your healthcare provider before using these medicines. Also talk to your provider if you are taking medicine to prevent blood clots.) Aspirin should never be given to anyone younger than 18 years of age who is ill with a viral infection or fever. It may cause severe liver or brain damage. ??? Your appetite may be poor, so a light diet is fine. Avoid dehydration by drinking 6 to 8 glasses of fluids per day (such as water, soft drinks, sports drinks, juices, tea, or soup). Extra fluids will help loosen secretions in the nose and lungs. ??? Vfgy-pfo-ojgsrpl cough, cold, and sore-throat medicines will not shorten the length of the illness, but they may be helpful to reduce symptoms. (Note: Do not use decongestants if you have high blood pressure.) ??? If you were given an inhaler, use it exactly as directed. If you need to use it more often thanprescribed, your condition may be worsening. If this happens, contact your healthcare provider. ??? If prescribed, finish all antibiotic medicine, even if you are feeling better after only a few days. Follow-up care Follow up with your healthcare provider, or as advised. If you had an X-ray or ECG (electrocardiogram), a specialist will review it. You will be notified of any new findings that may affect your care. Note: If you are age 65 or older, or if you have a chronic lung disease or condition that affects your immune system, or you smoke, talk to your healthcare provider about having a pneumococcal vaccinations and a yearly influenza vaccination (flu shot). When to seek medical advice Call your healthcare provider right away if any of these occur: ??? Fever of 100.4??F (38??C) or higher ??? Coughing up increasing amounts of colored sputum ??? Weakness, drowsiness, headache, facial pain, ear pain, or a stiff neck Call 911, or get immediate medical care Contact emergency services right away if any of these occur. ??? Coughing up blood ??? Worsening weakness, drowsiness, headache, or stiff neck ??? Increased wheezing not helped with medication, shortness of breath, or pain with breathing ?? [id number] [employer]. [address] [place] [address]. All rights reserved. This information is not intended as a substitute for professional medical care. Always follow your healthcare professional's instructions. * Meghana MACARIO, Nadia: PERFORM, SIGN, VERIFY Event Display: Patient Education/Instruction Authored Date: [id number] [facility] Clinical Summary Name THO CHO Age 66 Years 1955 PCP Dany CADET, Tarsha Parks PCP Visit Date 01/06/2022 09:41:00 Additional Instructions: Scheduled Appointments?? Future Appointments ?*[facility] ?[address],??[place],[address] ?Phone:??--?Fax:??-- ?Appt. Date:??01/11/2022?10:10 AM ?Scheduled Provider:??Esperanza CADET , Keyla Parks ?*[facility] ?[address] ?[place] ?[place],??[place],??[address] ?Phone:??--?Fax:??-- ?Appt. Date:??01/25/2022?2:30 PM ?Scheduled Provider:??Mariana Mora ?[facility] ?[address],??[place],??[address] ?Phone:??[phone]?Fax:??-- ?Appt. Date:??02/25/2022?10:00 AM ?Scheduled Provider:??[facility] Follow-Up Instructions ?? Diagnosis Acute bronchitis, unspecified Medications: Please continue your medications until treatment is completed or stopped by your provider. Discuss any questions related to medications with your provider. New Medications [id number], [address] [place] [id number], [phone] Albuterol (Albuterol (Eqv-ProAir HFA) 90 mcg/inh inhalation aerosol) 2 puffs Inhalation Every 6 hours. Refills: 0. Next Dose: Doxycycline (doxycycline hyclate 100 mg oral tablet) 1 tab(s) Oral every 12 hours for 7 Days. Refills: 0. Next Dose: Durable Medical Equipment (Aerochamber) 1 units. Refills: 0. Next Dose: PredniSONE (predniSONE 50 mg oral tablet) 1 tab(s) Oral Daily for 5 Days. Take in the morning with a full breakfast. Refills: 0. Next Dose: Medications to Continue with No Changes These medications were not printed or sent to your pharmacy Carbonyl Iron (Iron Chews) By Mouth Daily. Next Dose: Duloxetine (duloxetine 60 mg oral enteric coated capsule) 1 capsule Oral Daily. Refills: 3. Next Dose: Durable Medical Equipment (CPAP Machine) CPAP 12. Next Dose: Durable Medical Equipment (Knee High Compression Stockings 20-30mmHg) Dx: Volume overload icd 10 E 87.7, Peripheral edema R60.0. Refills: 0. Next Dose: Flax (Flax Seed Oil) Next Dose: Folic Acid (folic acid 1 mg oral tablet) Next Dose: Furosemide (Lasix 20 mg oral tablet) 1 tab(s) Oral Daily. Next Dose: Losartan (losartan 100 mg oral tablet) Next Dose: Magnesium Carbonate 54 Milligram Oral Daily. Next Dose: Methotrexate (methotrexate 2.5 mg oral tablet) 3 tablets Oral every week. wednesdays. Next Dose: Metoprolol (metoprolol 100 mg oral tablet, extended release) 1 tab(s) Oral Daily. Next Dose: Multivitamin With Minerals (Centrum Silver) Oral Daily. Next Dose: [place]-3 Polyunsaturated Fatty Acids (Fish Oil) Oral. Next Dose: Allergy Info:?? NSAIDs; Darvocet A500; Vicodin; Augmentin; medtronidazole containing compounds; cyclobenzaprine; nortriptyline; vancomycin; clarithromycin Medications Given This Visit Future Orders ?No future orders Vital Signs Height 170 cm Weight BMI Blood Pressure 180 mm Hg/71 mm Hg Temperature 97.6 DegF Pulse Rate 65 bpm Respiratory Rate 02 Sat Mode of Delivery 100 %/Room air You can now view a summary of your hospital visit from the comfort of your home through a free online portal called [facility]. [facility] is a website that allows you to securely view your medical information including discharge summary, medications and follow-up visits. ??You can alsosend a secure electronic message to your doctor???s office to request appointments, renew medications or just ask a question. You can enroll at [email or web address] or register during your next office [...] primary care provider, you may find a [facility] provider by calling [facility] [employer] at [phone]. For information about the plan of care including goals and instructions for your diagnosis, please see the patient education orders section of this document. Patient Education Materials?? The content of this educational material or handout may have been modified, supplemented, or adapted from its original content and format to support your individualized medical care. Bronchitis with Wheezing (Viral or Bacterial: Adult) Bronchitis is an infection of the air passages. It often occurs during the common cold and is usually caused by a virus. Symptoms include cough with mucus (phlegm) and low-grade fever. This illness is contagious during the first few days and is spread through the air by coughing and sneezing, or bydirect contact (touching the sick person and then touching your own eyes, nose, or mouth). If there is a lot of inflammation, air flow is restricted. The air passages may also go into spasm,especially if you have asthma. This causes wheezing and difficulty breathing even in people who do not have asthma. Bronchitis usually lasts 7 to 14 days. The wheezing should improve with treatment during the first week. An inhaler is often prescribed to relax the air passages and stop wheezing. Antibiotics will be prescribed if your doctor thinks there is also a secondary bacterial infection. Home care ??? If symptoms are severe, rest at home for the first 2 to 3 days. When you go back to your usual activities, don't let yourself get too tired. ??? Do not smoke. Also avoid being exposed to secondhand smoke. ??? You may use khcq-qar-blgwoqz medicine to control fever or pain, unless another medicine was prescribed. Note: If you have chronic liver or kidney disease or have ever had a stomach ulcer or gastrointestinal bleeding, talk with your healthcare provider before using these medicines. Also talk to your provider if you are taking medicine to prevent blood clots.) Aspirin should never be given to anyone younger than 18 years of age who is ill with a viral infection or fever. It may cause severe liver or brain damage. ??? Your appetite may be poor, so a light diet is fine. Avoid dehydration by drinking 6 to 8 glasses of fluids per day (such as water, soft drinks, sports drinks, juices, tea, or soup). Extra fluids will help loosen secretions in the nose and lungs. ??? Okcp-uxm-ngjkfcq cough, cold, and sore-throat medicines will not shorten the length of the illness, but they may be helpful to reduce symptoms. (Note: Do not use decongestants if you have high blood pressure.) ??? If you were given an inhaler, use it exactly as directed. If you need to use it more often thanprescribed, your condition may be worsening. If this happens, contact your healthcare provider. ??? If prescribed, finish all antibiotic medicine, even if you are feeling better after only a few days. Follow-up care Follow up with your healthcare provider, or as advised. If you had an X-ray or ECG (electrocardiogram), a specialist will review it. You will be notified of any new findings that may affect your care. Note: If you are age 65 or older, or if you have a chronic lung disease or condition that affects your immune system, or you smoke, talk to your healthcare provider about having a pneumococcal vaccinations and a yearly influenza vaccination (flu shot). When to seek medical advice Call your healthcare provider right away if any of these occur: ??? Fever of 100.4??F (38??C) or higher ??? Coughing up increasing amounts of colored sputum ??? Weakness, drowsiness, headache, facial pain, ear pain, or a stiff neck Call 911, or get immediate medical care Contact emergency services right away if any of these occur. ??? Coughing up blood ??? Worsening weakness, drowsiness, headache, or stiff neck ??? Increased wheezing not helped with medication, shortness of breath, or pain with breathing ?? [id number] [employer]. [address] [place] [address]. All rights reserved. This information is not intended as a substitute for professional medical care. Always follow your healthcare professional's instructions. Patient Care team information Care Team Personnel Name: Niurka Mendosa RN Position: [facility] RN Member Role: Primary Care Nurse Name: Oswaldo Valadez RN Position: S RN Member Role: Primary Care Nurse Name: Alva Gibbons RN Position: S RN Member Role: Primary Care Nurse Name: Milka Mendosa RN Position: S RN Member Role: Primary Care Nurse Name: Jl Ruiz MD Position: [facility] Physician (General Medicine) Member Role: Lifetime Consulting Physician Address: Address: [address] [place] [address]- [place] Name: Dany CADET, Tarsha Parks Position: Reference Physician Member Role: PCP Address: Address: [address] [place] [address]- Care Team Related Persons Name: MARGARETTE LOPEZ Name: TAWNYA LOPEZ Address: [address] [address]
--- OUTSIDE RECORDS SUMMARY | 2023-12-17 09:33 | XMS_ITS | Continuity of Care Document ---
Author Organization [facility] Address [address] [place] [address]- Care Team Providers Care Statistical Machine Mechanic Name Role Phone Esperanza CADET, Keyla Parks Primary Care Physician [place] [facility] [place] - 01/19/21 [facility] [address] [place] [address]- Attending Physician: Kumar Price MD Referring Physician: [...] (oldterm) 14 08/02/07 Given 1Result Comment: [12/16/2017] [facility] [id number] 2Result Comment: [11/29/2016] [facility] [id number] 3Result Comment: [11/25/2015] pt. tolerated inj. without complications...CO 4Result Comment: [11/30/2012] given w/o incident...AA 5Admin Note: FLULAVAL 6Admin Note: done @ work 7Admin Note: per pt 8Result Comment: Done at [facility] 9Result Comment: [id number] 10Result Comment: [12/16/2017] #1 11Admin Note: info [...] 1 Refills, Maintenance, 01/02/21 8:57:00 EST, Cream, [facility]/pharmacy #[id number], Partial fill upon patient request [...] capsule, 1 Refills, Maintenance, 09/15/20 10:55:00 EDT, [facility]/pharmacy #0693, 171, cm, 09/12/20 9:46:00 EDT, Height, 106, kg, 01/31/20 8:57:00 EST, Dry Weight Start Date: 09/15/20 Status: Ordered Fish Oil By Mouth, 0 [...] DAYS, # 15 sprays, 0 Refills, Acute, [facility] STORE 63377, 30, USE 2 SPRAYS IN EACH NOSTRIL 3 TIMES A DAY FOR 7 DAYS, 170, cm, 04/10/19 14:00:00 EST, Height, 104.5, kg, 09/15/18 9:05:00 EDT... Start Date: 05/04/19 Status: Ordered ipratropium nasal 42 mcg/inh spray 2 sprays, Nares, Both, 3 times a day, # 1 each, 0 Refills, Maintenance, 07/02/20 16:11:00 EDT, [facility]/pharmacy #0693, 2 sprays Nares, Both 3 [...] 04/14/20 15:22:00 EST, Route to Pharmacy Electronically, [facility]/pharmacy #[id number], Partial fill upon patient request,... [...] mL, 0 Refills, Maintenance, 12/23/20 13:10:00 EDT, [facility]/pharmacy #0693, Partial fill upon patient request [...] oldest [Reference Range]: 1 Height 171 cm (01/12/21 11:50 AM) Oxygen Saturation [94-100 %] 100 % (01/12/21 11:50 AM) Pulse Rate [55-90 bpm] 55 bpm (01/12/21 11:50 AM) Blood Pressure [90-138/55-84 mm Hg] 163/ 75mm Hg *H* (01/12/21 11:50 AM) Respiratory Rate [16-30 br/min] 16 br/mi n (01/12/21 11:50 AM) Temperature [96.8-100.4 DegF] 98.3 DegF (01/12/21 11:50 AM) Mode of Delivery (Oxygen) Room air (01/12/21 11:50 AM) Blood pressure sites Arm, left (01/12/21 11:50 AM) Temperature Route Temporal (01/12/21 11:50 AM) Social History Social History Type Response Smoking Status Never smoker; Tobacc o user in household: No entered on: 01/07/14 Sex
--- OUTSIDE RECORDS SUMMARY | 2023-12-17 09:33 | XMS_ITS | Continuity of Care Document ---
Author Organization [facility] ter Address [address] [place] [address]- Care Team Providers Care Machine Woodworking Sander Name Role Phone Keyla Mata MD Primary Care Physician [phone] Encounter [facility] Date(s): 01/31/20 - 03/01/[address] [address]- Attending Physician: Not on Staff, Attending MD Admitting Physician: Not on Staff, Admitting MD Referring Physician: Not on Staff, Referring MD [...] 14 08/02/07 Given 1Result Comment: Done at [facility] 2Result Comment: [id number] 3Result Comment: [12/16/2017] #1 4Result Comment: [12/16/2017] [facility] [id number] 5Result Comment: [11/29/2016] [facility] 23541-215-08 6Result Comment: [11/25/2015] pt. tolerated inj. without [...] 02/02/20 12:17:00 EST, Route to Pharmacy Electronically, [facility], Partial fill upon patient [...] 0 Refills, Maintenance, 12/31/19 10:42:00 EST, ECCapsule, [facility]/pharmacy #0693, 170, cm, 12/31/19 9:54:00 EST, Height, 106.8, kg, 08/27/19 11:58:00 EDT, Dry Weight Start Date: 12/31/19 Status: Ordered gabapentin 100 mg oral capsule 100 mg, 1, capsule, By Mouth, 3 times a day, # 42 capsule, Refills 0, Tot. Refills 0, Maintenance, 02/02/20 12:17:00 EST, Route to Pharmacy Electronically, [facility], Partial fill uponpatient request if the prescription is for a schedu... Start Date: 02/02/20 Stop Date: 02/16/20 Status: Ordered ipratropium nasal 42 mcg/inh spray See Instructions, USE 2 SPRAYS IN EACH NOSTRIL 3 TIMES A DAY FOR 7 DAYS, # 15 sprays, 0 Refills, Acute, [facility] STORE 60538, 30, USE 2 SPRAYS IN EACH NOSTRIL [...] 01/15/20 15:22:00 EST, Route to Pharmacy Electronically, [facility]/pharmacy #[id number], Partial fill upon patient request,... Start Date: [...]
--- OUTSIDE RECORDS SUMMARY | 2023-12-17 09:33 | XMS_ITS | Continuity of Care Document ---
Author Organization [facility] ter Address [address] [place] [address]- Care Team Providers Care Outside Energy Sales Representatives Name Role Phone Dany CADET, Tarsha Parks Primary Care Physician [phone] [place] [facility] [place](s): 04/05/23 - 10/05/[address] [address] Attending Physician: Dora Allen NP Admitting Physician: Dora Allen NP Referring Physician: Dora Allen NP Allergies, Adverse Reactions, Alerts Substance Reaction Severity [...] given w/o incident 2Result Comment: [12/16/2017] [facility] 24432-397-87 3Result Comment: [11/29/2016] [facility] 74226-945-61 4Result Comment: [11/25/2015] pt. tolerated inj. without complications...CO 5Result Comment: [11/30/2012] given w/o incident...AA 6Admin Note: FLULAVAL 7Admin Note: done @ work 8Admin Note: per pt 9Result Comment: [facility] 10Result Comment: [id number] 11Result Comment: [12/16/2017] #1 12Admin Note: per pt 13Admin Note: hep A #2 14Admin Note: hep A #1 Medications bisacodyl 5 mg oral delayed release tablet [...] capsule, 3 Refills, Maintenance, 09/08/21 10:47:00 EDT, [facility]/pharmacy #0693, 170, cm, 09/08/21 10:10:00 EDT, Height, 101.5, kg, 06/11/21 12:07:00 EDT, Dry Weight Start Date: 09/08/21 Status: Ordered furosemide 40 mg oral tablet 1, tablet, By Mouth, Daily, # 90 tablet, Refills 0, Maintenance, 09/19/23 7:40:00 EDT, Route to Pharmacy Electronically, [facility], 170, cm, 08/29/23 9:28:00 EDT, Height, 112.3, kg, 08/24/23 15:42:00 EDT, Dry Weight Start Date: 09/19/23 Status: Ordered hydroxychloroquine 200 mg oral tablet 200 mg, 1, tablet, By Mouth, Daily in AM, Refills 0, Maintenance, 11/27/22 3:54:00 EDT, Partial fill upon patient request if the prescription is for a schedule II opioid drug. Start Date: 11/27/22 Status: Ordered losartan 100 mg oral tablet 1 tablet, By Mouth, Daily, # 90 tablet, 3 Refills, Maintenance, 05/19/23 8:02:00 EDT, [facility], 170, cm, 03/29/23 10:03:00 EST, Height, 108.7, kg, 03/02/23 8:55:00 EST, Dry Weight Start Date: 05/19/23 Status: Ordered senna 187 mg oral tablet 2 tablet [...] 04/25/23 10:38:00 EST, Route to Pharmacy Electronically, [facility]/pharmacy #0693, Partial fill upon patient request if the prescription is for a schedule II opioid drug... Start Date: 04/25/23 Status: Ordered Xarelto 10 mg oral tablet 1 tablet = 10 mg, By Mouth, Daily, # 30 tablet, 0 Refills, Maintenance, 08/24/23 7:12:00 EDT, Tablet, [facility]/pharmacy #0693, Partial fill upon patient request [...] MRI Safety Implantable Status Assigning Authority Unknown [id number] Unknown Unknown 05/10/25 Unknown Unknown Active Unknown Procedure Provider Procedure Date Device Type Site Fusion DianaometatarsDora Vazquez MD 08/24/23 Unkn own Foot Right Device Identifier Serial Number Lot or Batch Number Manufacturing Date Expiration Date Distinct Identification Code MRI Safety Implantable Status Assigning Authority Unknown [id number] Unknown Unknown 12/02/24 Unknown Unknown Active Unknown Patient Care team information Care Team Personnel Name: Niurka Mendosa RN Position: [facility] RN Member Role: Primary Care Nurse Name: Oswaldo Valadez RN Position: [facility] RN Member Role: Primary Care Nurse Name: Yoselyn Peters RN Position: [facility] RN Member Role: Primary Care Nurse Name: Alva Gibbnos RN Position: [facility] SN RN Member Role: Primary Care Nurse Name: Hilary Bell RN Position: [facility] RN Member Role: Primary Care Nurse Name: Katie Govea RN Position: [facility] RN Member Role: Primary Care Nurse Name: Tarsha Saenz MD Position: Reference Physician Member Role: PCP Address: Address: [address] [place] [address]- Care Team Related Persons Name: MARGARETTE LOPEZ Name: TAWNYA LOPEZ Address: [address] [address]
--- OUTSIDE RECORDS SUMMARY | 2023-12-17 09:34 | XMS_ITS | Continuity of Care Document ---
Author Organization [facility] Address [address] [place] [address]- Care Team Providers Care Bell Neck Hammerer Name Role Phone Dany CADET, Tarsha Parks Primary Care Physician [phone] Encounter [facility] [place] Date(s): 07/12/23 - 08/11/23 [facility] [address] [place] [address]- Attending Physician: Matthieu Kasper Admitting Physician: AdmMatthieu bailey Referring Physician: Admtr ArGemma Allergies, Adverse Reactions, [...] given w/o incident 2Result Comment: [12/16/2017] [facility] 93925-151-86 3Result Comment: [11/29/2016] [facility] 86015-311-21 4Result Comment: [11/25/2015] pt. tolerated inj. without complications...CO 5Result Comment: [11/30/2012] given w/o incident...AA 6Admin Note: FLULAVAL 7Admin Note: done @ work 8Admin Note: per pt 9Result Comment: [facility] 10Result Comment: [id number] 11Result Comment: [12/16/2017] #1 12Admin Note: per pt 13Admin Note: hep A #2 14Admin Note: hep A #1 Medications Centrum By Mouth, Daily, 0 Refills, Maintenance, 03/03/23 14:50:00 EST, Partial fill upon patient request if the prescription is for a schedule II opioid drug. Start Date: 03/03/23 Status: Ordered duloxetine 60 mg oral enteric coated capsule 1 capsule, By Mouth, Daily, # 90 capsule, 3 Refills, Maintenance, 09/08/21 10:47:00 EDT, [facility]/pharmacy #0693, 170, cm, 09/08/21 10:10:00 EDT, [...] opioid drug. Start Date: 03/03/23 Status: Ordered furosemide 40 mg oral tablet 1, tablet, By Mouth, Daily, # 90 tablet, Refills 0, Maintenance, 07/04/23 8:47:00 EDT, Route to Pharmacy Electronically, [facility], 170, cm, 06/14/23 11:44:00 EDT, Height, 108.7, [...] 14:49:00 EST Start Date: 03/03/23 Status: Ordered losartan 100 mg oral tablet 1 tablet, By Mouth, Daily, # 90 tablet, 3 Refills, Maintenance, 05/19/23 8:02:00 EDT, [facility] STORE 48928, 170, cm, 03/29/23 10:03:00 EST, Height, 108.7, kg, 03/02/23 8:55:00 EST, Dry Weight Start Date: 05/19/23 Status: Ordered Magnesium Magnesium, By Mouth, Daily, 0 Refills, Maintenance, 03/03/23 14:48:00 EST Start Date: 03/03/23 Status: Ordered spironolactone 25 mg oral tablet 25 mg, 1, tablet, By Mouth, Daily, # 30 tablet, Refills 5, Tot. Refills 5, Maintenance, 04/25/23 10:38:00 EST, Route to Pharmacy Electronically, [facility]/pharmacy #0685, Partial fill upon patient request if the [...] in household: No entered on: 01/07/14 Sex Cardiology * Event Display: EKG Non Authored Date: * Event Display: Non Cardiovascular Results Authored Date: * Event Display: Non Cardiovascular Results Authored Date: Laboratory * Event Display: Non Lab Results Authored Date: Radiology * Event Display: [place] Nuclear Medicine, Non- Authored Date: Patient Care team information Care Team Personnel Name: Niurka Mendosa RN Position: S RN Member Role: Primary Care Nurse Name: Oswaldo Valadez RN Position: S RN Member Role: Primary Care Nurse Name: Alva Gibbons RN Position: [facility] RN Member Role: Primary Care Nurse Name: Hilary Bell RN Position: S RN Member Role: Primary Care Nurse Name: Tarsha Saenz MD Position: Reference Physician Member Role: PCP Address: Address: [address] [place] [address]- Care Team Related Persons Name: MARGARETTE LOPEZ Name: TAWNYA LOPEZ Address: [address] [address]
--- OUTSIDE RECORDS SUMMARY | 2023-12-17 09:34 | XMS_ITS | Continuity of Care Document ---
Author Organization [facility] Address [address] [place] [address]- Care Team Providers Care Plastic Manager Name Role Phone Esperanza CADET, Keyla Parks Primary Care Physician [phone] Encounter [facility] Date(s): 01/13/21 - 02/12/21 [facility] [address] [place], [place] [address] Allergies, Adverse Reactions, Alerts Substance [...] (oldterm) 14 08/02/07 Given 1Result Comment: [12/16/2017] [facility] 84664-924-22 2Result Comment: [11/29/2016] [facility] [id number] 3Result Comment: [11/25/2015] pt. tolerated inj. without complications...CO 4Result Comment: [11/30/2012] given w/o incident...AA 5Admin Note: FLULAVAL 6Admin Note: done @ work 7Admin Note: per pt 8Result Comment: Done at [facility] 9Result Comment: [id number] 10Result Comment: [12/16/2017] #1 11Admin Note: info [...] 1 Refills, Maintenance, 01/02/21 8:57:00 EST, Cream, [facility]/pharmacy #3043, Partial fill upon patient request if the [...] 1 Refills, Maintenance, 02/09/21 14:43:00 EST, [facility]/pharmacy #0693, 170, cm, 01/29/21 13:01:00 EST, [...] DAYS, # 15 sprays, 0 Refills, Acute, [facility] STORE 37743, 30, USE 2 SPRAYS IN EACH NOSTRIL 3 TIMES A DAY FOR 7 DAYS, 170, cm, 04/10/19 14:00:00 EST, Height, 104.5, kg, 09/15/18 9:05:00 EDT... Start Date: 05/04/19 Status: Ordered ipratropium nasal 42 mcg/inh spray 2 sprays, Nares, Both, 3 times a day, # 1 each, 0 Refills, Maintenance, 07/02/20 16:11:00 EDT, [facility]/pharmacy #0693, 2 sprays Nares, Both [...] 04/14/20 15:22:00 EST, Route to Pharmacy Electronically, [facility]/pharmacy #0693, Partial fill upon patient [...] mL, 0 Refills, Maintenance, 12/23/20 13:10:00 EDT, [facility]/pharmacy #0693, Partial fill upon patient request if the prescription is for a schedule II opioid drug., 4 liters By Mouth Once, 171, cm, 12/23/20... Start Date: 12/23/20 Status: Ordered tiZANidine 4 mg oral tablet 4 mg, 1, tablet, By Mouth, Every 8 hours, PRN, # 42 tablet, Refills 0, Tot. Refills 0, Maintenance,Spasm, 01/26/21 12:30:00 EST, Route to Pharmacy Electronically, [facility]/pharmacy #0693, Partial fill upon patient [...]
--- OUTSIDE RECORDS SUMMARY | 2023-12-17 09:34 | XMS_ITS | Continuity of Care Document ---
Author Organization [facility] Address [address] [address]- Care Team Providers Care Hot Mill Observer Name Role Phone Dany CADET, Tarsha Parks Primary Care Physician Encounter [facility] [place] Date(s): 08/16/23 - 09/15/23 [facility] [address] [address] Attending Physician: Matthieu Kasper Admitting Physician: Matthieu Kasper Referring Physician: Matthieu Kasper Allergies, Adverse Reactions, Alerts Substance Reaction Severity Status vancomycin itching UNKNOWN Mild Active cyclobenzaprine tongue swelling,constipation Severe Active clarithromycin rash Active nortriptyline rash Mild Active spironolactone headache Active medtronidazole containing compounds rash Mild Active [...] given given w/o incident 2Result Comment: [12/16/2017] [facility] 29385-214-75 3Result Comment: [11/29/2016] [facility] 14395-845-85 4Result Comment: [11/25/2015] pt. tolerated inj. without complications...CO 5Result Comment: [11/30/2012] given w/o incident...AA 6Admin Note: FLULAVAL 7Admin Note: done @ work 8Admin Note: per pt 9Result Comment: [facility] 10Result Comment: [id number] 11Result Comment: [12/16/2017] #1 12Admin Note: per [...] capsule, 3 Refills, Maintenance, 09/08/21 10:47:00 EDT, [facility]/pharmacy #0693, 170, cm, 09/08/21 10:10:00 EDT, Height, 101.5, kg, 06/11/21 12:07:00 EDT, Dry Weight Start Date: 09/08/21 Status: Ordered furosemide 40 mg oral tablet 1, tablet, By Mouth, Daily, # 90 tablet, Refills 0, Maintenance, 07/04/23 8:47:00 EDT, Route to Pharmacy Electronically, [facility] ST[facility] 60077, 170, cm, 06/14/23 11:44:00 EDT, Height, 108.7, [...] Refills, Maintenance, 05/19/23 8:02:00 EDT, [facility], 170, cm, 03/29/23 10:03:00 EST, Height, 108.7, [...] 04/25/23 10:38:00 EST, Route to Pharmacy Electronically, [facility]/pharmacy #0693, Partial fill upon patient request if the prescription is for a schedule II opioid drug... Start Date: 04/25/23 Status: Ordered Xarelto 10 mg oral tablet 1 tablet = 10 mg, By Mouth, Daily, # 30 tablet, 0 Refills, Maintenance, 08/24/23 7:12:00 EDT, Tablet, [facility], Partial fill upon [...] MRI Safety Implantable Status Assigning Authority Unknown [id number] Unknown Unknown 05/10/25 Unknown Unknown Active Unknown Procedure Provider Procedure Date Device Type Site Fusion Tarsometatarsal Dora Garcia MD 08/24/23 Unkn own Foot Right Device Identifier Serial Number Lot or Batch Number Manufacturing Date Expiration Date Distinct Identification Code MRI Safety Implantable Status Assigning Authority Unknown [id number] Unknown Unknown 12/02/24 Unknown Unknown Active Unknown Patient Care team information Care Team Personnel Name: Niurka Mendosa RN Position: [facility] RN Member Role: Primary Care Nurse Name: Oswaldo Valadez RN Position: [facility] RN Member Role: Primary Care Nurse Name: Yoselyn Peters RN Position: [facility] RN Member Role: Primary Care Nurse Name: Alva Gibbons RN Position: [facility] RN Member Role: Primary Care Nurse Name: Hilary Bell RN Position: [facility] RN Member Role: Primary Care Nurse Name: Katie Govea RN Position: [facility] RN Member Role: Primary Care Nurse Name: Tarsha Saenz MD Position: Reference Physician Member Role: PCP Address: Address: [address] [place] [address]- Care Team Related Persons Name: MARGARETTE LOPEZ Name: TAWNYA LOPEZ Address: [address] [place] [address]
--- OUTSIDE RECORDS SUMMARY | 2023-12-17 09:34 | XMS_ITS | Continuity of Care Document ---
Author Organization [facility] [employer] Address [address] [place] [address]- Care Team Providers Care Mechanical Inspector Name Role Phone Keyla Mata MD Primary Care Physician [place] [facility] [place] 09/11/21 [facility] [employer] [facility] [address] [place], [place] [address] Attending Physician: Admlynn, Matthieu Admitting Physician: AdmtrMatthieu Referring Physician: Admtr, Ar8 [...] given w/o incident 2Result Comment: [12/16/2017] [facility] 05840-988-52 3Result Comment: [11/29/2016] [facility] 33627-406-29 4Result Comment: [11/25/2015] pt. tolerated inj. without complications...CO 5Result Comment: [11/30/2012] given w/o incident...AA 6Admin Note: FLULAVAL 7Admin Note: done @ work 8Admin Note: per pt 9Result Comment: [facility] 10Result Comment: [id number] 11Result Comment: [12/16/2017] #1 12Admin Note: per [...] capsule, 3 Refills, Maintenance, 09/08/21 10:47:00 EDT, [facility]/pharmacy #0693, 170, cm, 09/08/21 [...]
--- OUTSIDE RECORDS SUMMARY | 2023-12-17 09:34 | XMS_ITS | Continuity of Care Document ---
Author Organization [facility] Address [address] [place] [address]- Care Team Providers Care Hair Worker Name Role Phone Tarsha Saenz MD Primary Care Physician Encounter [facility] Date(s): 12/01/22 - 12/31/22 [facility] [address] [place] [address]- Attending Physician: Matthieu Kasper Admitting Physician: AdmMatthieu bailey Referring Physician: Admtr, Ar8 Allergies, Adverse Reactions, Alerts Substance Reaction Severity Status nortriptyline rash Mild Active cyclobenzaprine tongue swelling,constipation Severe Active clarithromycin rash Active vancomycin itching UNKNOWN Mild Active medtronidazole containing compounds rash Mild Active Vicodin delusion rash Mild Active NSAIDs C/O: itching Rash Persistent Moderate Active Augmentin diarrhea Mild Active Darvocet A500 RASH Mild Active Immunizations Given and Recorded Vaccine Date [...] given w/o incident 2Result Comment: [12/16/2017] [facility] 60351-041-54 3Result Comment: [11/29/2016] [facility] [id number] 4Result Comment: [11/25/2015] pt. tolerated inj. without complications...CO 5Result Comment: [11/30/2012] given w/o incident...AA 6Admin Note: FLULAVAL 7Admin Note: done @ work 8Admin Note: per pt [facility]Result Comment[facility] 10Result Comment: [id number] 11Result Comment: [12/16/2017] #1 12Admin Note: per [...] capsule, 3 Refills, Maintenance, 09/08/21 10:47:00 EDT, [facility]/pharmacy #[id number], 170, cm, 09/08/21 10:10:00 EDT, [...] 03/30/22 13:32:00 EST, Route to Pharmacy Electronically, [facility]/pharmacy #[id number], Partial fill upon patient request if the prescription is for a schedule II opioid drug... Start Date: 03/30/22 Status: Ordered losartan 100 mg oral tablet 1 tablet = 100 mg, By Mouth, Daily at bedtime, # 90 tablet, 3 Refills, Maintenance, 06/01/22 11:02:00 EDT, Tablet, [facility]/pharmacy #[id number], Partial fill upon patient request if the prescription is for a schedule II opioid drug., 170, cm, 05/14/22 9:21:00 E... Start Date: 06/01/22 Stop Date: 05/27/23 Status: Ordered metoprolol 25 mg oral tablet 25 mg, By Mouth, 2 times a day, # 180 tablet, Refills 3, Tot. Refills 3, Maintenance, 12/27/22 12:00:00 EST, Route to Pharmacy Electronically, [facility]/pharmacy #[id number], Partial fill upon patient request ifthe prescription is for a schedule II opioid drug.,... Start Date: 12/27/22 Stop Date: 12/22/23 Status: Ordered spironolactone 25 mg oral tablet 25 mg, 1, tablet, By Mouth, Daily, # 30 tablet, Refills 5, Tot. Refills 5, Maintenance, 11/15/22 11:40:00 EDT, Route to Pharmacy Electronically, [facility]/pharmacy #[id number], Partial fill upon patient request if the [...] Team Personnel Name: Niurka Mendosa RN Position: [facility] RN Member Role: Primary Care Nurse Name: Oswaldo Valadez RN Position: [facility] RN Member Role: Primary Care Nurse Name: Alva Gibbons RN Position: [facility] RN Member Role: Primary Care Nurse Name: Milka Mendosa RN Position: [facility] RN Member Role: Primary Care Nurse Name: Hilary Bell RN Position: [facility] RN Member Role: Primary Care Nurse Name: Jl Ruiz MD Position: [facility] Physician (General Medicine) Member Role: Lifetime Consulting Physician Address: Address: [address] [place] [address] [address] [place] [address]- [place] Name: Saskia Houser RN Position: [facility] RN Member Role: Primary Care Nurse Name: Tarsha Saenz MD Position: Reference Physician Member Role: PCP Address: Address: [address] [place] [address]- Care Team Related Persons Name: MARGARETTE LOPEZ Name: TAWNYA LOPEZ Address: home [address] [place] [address]
--- OUTSIDE RECORDS SUMMARY | 2023-12-17 09:34 | XMS_ITS | Continuity of Care Document ---
Author Organization [facility] Address [address] [place] [address]- Care Team Providers Care Dynamite Cartridge Crimper Name Role Phone Tarsha Saenz MD Primary Care Physician [phone] Encounter [facility] Date(s): 01/06/22 - 02/05/22 [facility] [address] [place], [place] [address] Attending Physician: Matthieu Kasper Admitting Physician: Admtr, Matthieu Referring Physician: Admtr, Ar8 Allergies, Adverse Reactions, Alerts Substance Reaction Severity Status clarithromycin rash Active cyclobenzaprine tongue swelling,constipation Active vancomycin UNKNOWN Active nortriptyline rash Active medtronidazole containing compounds rash Active Augmentin [...] given w/o incident 2Result Comment: [12/16/2017] [facility] [id number] 3Result Comment: [11/29/2016] [facility] [id number] 4Result Comment: [11/25/2015] pt. tolerated inj. without complications...CO 5Result Comment: [11/30/2012] given w/o incident...AA 6Admin Note: FLULAVAL 7Admin Note: done @ work 8Admin Note: per pt [facility] Comment[facility] 10Result Comment: [id number] 11Result Comment: [12/16/2017] #1 12Admin Note: per [...] Gm, 0 Refills, Maintenance, 01/06/22 10:43:00 EST, [facility]/pharmacy #[id number], Partial fill upon [...] in household: No entered on: 01/07/14 Sex EKG study * Event Display: EKG Authored Date: * Event Display: EKG Authored Date: Patient Care team information Care Team Personnel Name: Niurka Mendosa RN Position: [facility] RN Member Role: Primary Care Nurse Name: Oswaldo Valadez RN Position: [facility] RN Member Role: Primary Care Nurse Name: Alva Gibbons RN Position: [facility] RN Member Role: Primary Care Nurse Name: Milka Mendosa RN Position: [facility] RN Member Role: Primary Care Nurse Name: Joseph CADET, Jl Best Position: [facility] Physician (General Medicine) Member Role: Lifetime Consulting Physician Address: Address: [address] [place], [place] [id number] [place] [address]- Name: Dany CADET, Tarsha Parks Position: Reference Physician Member Role: PCP Address: Address: [address] [place] [address]- Care Team Related Persons Name: MARGARETTE LOPEZ Name: TAWNYA LOPEZ Address: [address] [place] [address]
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
--- OUTSIDE RECORDS SUMMARY | 2023-12-17 09:34 | XMS_ITS | Continuity of Care Document ---
Author Organization [facility] Address [address] [place] [address]- Care Team Providers Care Casino Change Attendant Name Role Phone Keyla Mata MD Primary Care Physician Encounter [facility] Date(s): 06/17/20 - 10/15/20 [facility] [address] [place] [address]- Attending Physician: Cora Clifford MD Admitting Physician: Cora Clifford MD Referring Physician: Keyla Mata MD Allergies, Adverse Reactions, Alerts Substance Reaction Severity Status clarithromycin Active Augmentin diarrhea Active Darvocet A500 RASH Active vancomycin UNKNOWN Active nortriptyline Active cyclobenzaprine tongue swelling,constipation Active medtronidazole containing compounds Active Vicodin delusion rash Active NSAIDs C/O: [...] 14 08/02/07 Given 1Result Comment: Done at [facility] 2Result Comment: [id number] 3Result Comment: [12/16/2017] #1 4Result Comment: [12/16/2017] [facility] [id number] 5Result Comment: [11/29/2016] [facility] [phone] 6Result Comment: [11/25/2015] pt. tolerated inj. without [...] capsule, 1 Refills, Maintenance, 09/15/20 10:55:00 EDT, [facility]/pharmacy #[id number], 171, cm, 09/12/20 9:46:00 EDT, [...] DAYS, # 15 sprays, 0 Refills, Acute, [facility] STORE 03358, 30, USE 2 SPRAYS IN EACH NOSTRIL 3 TIMES A DAY FOR 7 DAYS, 170, cm, 04/10/19 14:00:00 EST, Height, 104.5, kg, 09/15/18 9:05:00 EDT... Start Date: 05/04/19 Status: Ordered ipratropium nasal 42 mcg/inh spray 2 sprays, Nares, Both, 3 times a day, # 1 each, 0 Refills, Maintenance, 07/02/20 16:11:00 EDT, [facility]/pharmacy #[id number], 2 sprays Nares, Both [...] 04/14/20 15:22:00 EST, Route to Pharmacy Electronically, [facility]/pharmacy #[id number], Partial fill upon patient request,... Start Date: [...]
--- OUTSIDE RECORDS SUMMARY | 2023-12-17 09:34 | XMS_ITS | Continuity of Care Document ---
Author Organization [facility] Address [address] [place] [address]- Care Team Providers Care Tungsten Tender Name Role Phone Keyla Mata MD Primary Care Physician [phone] Encounter [facility] Date(s): 04/27/21 - 05/27/21 [facility] [address] [place] [address]- [place] Allergies, Adverse Reactions, Alerts Substance Reaction [...] incident 2Result Comment: [12/16/2017] [facility] [id number] 3Result Comment: [11/29/2016] [facility] [id number] 4Result Comment: [11/25/2015] pt. tolerated inj. without complications...CO 5Result Comment: [11/30/2012] given w/o incident...AA 6Admin Note: FLULAVAL 7Admin Note: done @ work 8Admin Note: per pt 9Result Comment: Done at [facility] 10Result Comment: [id number] 11Result Comment: [12/16/2017] #1 12Admin Note: per [...] Refills, Maintenance, 01/02/21 8:57:00 EST, Cream, [facility]/pharmacy #[id number], Partial fill upon patient request if [...] 1 Refills, Maintenance, 02/09/21 14:43:00 EST, [facility]/pharmacy #[id number], 170, cm, 01/29/21 13:01:00 EST, Height, [...] 15 sprays, 0 Refills, Acute, [facility] STORE 65085, 30, USE 2 SPRAYS IN EACH NOSTRIL 3 TIMES A DAY FOR 7 DAYS, 170, cm, 04/10/19 14:00:00 EST, Height, 104.5, kg, 09/15/18 9:05:00 EDT... Start Date: 05/04/19 Status: Ordered ipratropium nasal 42 mcg/inh spray 2 sprays, Nares, Both, 3 times a day, # 1 each, 0 Refills, Maintenance, 07/02/20 16:11:00 EDT, [facility]/pharmacy #[id number], 2 sprays Nares, Both 3 times [...] EST, Route to Pharmacy Electronically, [facility]/pharmacy #[id number], Partial fill upon patient request,... Start [...] 0 Refills, Maintenance, 12/23/20 13:10:00 EDT, [facility]/pharmacy #[id number], Partial fill upon patient request if [...] 12:30:00 EST, Route to Pharmacy Electronically, [facility]/pharmacy #[id number], Partial fill upon patient request if the [...]
--- OUTSIDE RECORDS SUMMARY | 2023-12-17 09:34 | XMS_ITS | Continuity of Care Document ---
Author Organization [facility] Address [address] [place] [address]- Care Team Providers Care Community Relations Coordinator Name Role Phone Dany CADET, Tarsha Parks Primary Care Physician [phone] [id number] Date(s): 03/01/23 - 06/29/[address] [address]- Attending Physician: Maryellen CADET, Neel hC Admitting Physician: Maryellen CADET, Neel Ch Referring Physician: Tarsha Saenz MD Allergies, Adverse Reactions, Alerts Substance Reaction [...] 2Result Comment: [12/16/2017] [facility] 17703-969-15 3Result Comment: [11/29/2016] [facility] [id number] 4Result Comment: [11/25/2015] pt. tolerated inj. without complications...CO 5Result Comment: [11/30/2012] given w/o incident...AA 6Admin Note: FLULAVAL 7Admin Note: done @ work 8Admin Note: per pt 9[facility] Comment[facility] 10Result Comment: [id number] 11Result Comment: [12/16/2017] #1 12Admin Note: per [...] capsule, 3 Refills, Maintenance, 09/08/21 10:47:00 EDT, [facility]/pharmacy #[id number], 170, cm, 09/08/21 10:10:00 EDT, [...] Tot. Refills 3, Maintenance, 03/30/22 13:32:00 EST, Print Requisition, Partial fill upon patient request if the prescription is for a schedule II opioid drug., 170, cm, 03/30/22 12:31:00 EST,... Start Date: 03/30/22 Status: Ordered losartan 100 mg oral tablet 1 tablet, By Mouth, Daily, # 90 tablet, 3 Refills, Maintenance, 05/19/23 8:02:00 EDT, [facility] STORE 33057, 170, cm, 03/29/23 10:03:00 EST, Height, 108.7, kg, 03/02/23 8:55:00 EST, Dry Weight Start Date: 05/19/23 Status: Ordered Magnesium Magnesium, By Mouth, Daily, 0 Refills, Maintenance, 03/03/23 14:48:00 EST Start Date: 03/03/23 Status: Ordered spironolactone 25 mg oral tablet 25 mg, 1, tablet, By Mouth, Daily, # 30 tablet, Refills 5, Tot. Refills 5, Maintenance, 04/25/23 10:38:00 EST, [facility] Pharmacy Electronically, [facility] [...] Care Nurse Name: Alva Gibbons RN Position: [facility] RN Member Role: Primary Care Nurse Name: Hilary Bell RN Position: S RN Member Role: Primary Care Nurse Name: Tarsha Saenz MD Position: Reference Physician Member Role: PCP Address: Address: [address] [place] [address]- Care Team Related Persons Name: MARGARETTE LOPEZ Name: TAWNYA LOPEZ Address: [place] [address]
--- OUTSIDE RECORDS SUMMARY | 2023-12-17 09:34 | XMS_ITS | Continuity of Care Document ---
Author Organization [facility] Address [address] [place] [address]- Care Team Providers Care In Home Sales Representative Name Role Phone Dany CADET, Tarsha Parks Primary Care Physician [phone] Encounter [facility] Date(s): 01/17/23 - 02/16/[address] [address]- Allergies, Adverse Reactions, Alerts Substance Reaction Severity Status clarithromycin rash Active nortriptyline rash Mild Active cyclobenzaprine tongue swelling,constipation Severe Active Augmentin diarrhea Mild Active vancomycin itching UNKNOWN Mild Active medtronidazole containing compounds rash Mild Active Darvocet A500 RASH Mild Active Vicodin delusion rash Mild Active [...] influenza virus vaccine, inactivated 4 10/4/16 Gi martir influenza virus vaccine, inactivated 11/26/14 [...] given given w/o incident 2Result Comment: [12/16/2017] [facility] [id number] 3Result Comment: [11/29/2016] [facility] 98029-186-20 4Result Comment: [11/25/2015] pt. tolerated inj. without complications...CO 5Result Comment: [11/30/2012] given w/o incident...AA 6Admin Note: FLULAVAL 7Admin Note: done @ work 8Admin Note: per pt 9Result Comment[facility] 10Result Comment: [id number] 11Result Comment: [12/16/2017] #1 12Admin Note: per [...] capsule, 3 Refills, Maintenance, 09/08/21 10:47:00 EDT, [facility]/pharmacy #[id number], 170, cm, 09/08/21 10:10:00 EDT, Height, [...] 12/27/22 12:00:00 EST, Route to Pharmacy Electronically, [facility]/pharmacy #[id number], Partial fill upon patient request ifthe prescription is for a schedule II opioid drug.,... Start Date: 12/27/22 Stop Date: 12/22/23 Status: Ordered spironolactone 25 mg oral tablet 25 mg, 1, tablet, By Mouth, Daily, # 30 tablet, Refills 5, Tot. Refills 5, Maintenance, 11/15/22 11:40:00 EDT, Route to Pharmacy Electronically, [facility]/pharmacy #[id number], Partial fill upon patient request if the [...] Niurka Mendosa RN Position: [facility] RN Member Role: Primary Care Nurse Name: Oswaldo Valadez RN Position: [facility] RN Member Role: Primary Care Nurse Name: Alva Gibbons RN Position: [facility] RN Member Role: Primary Care Nurse Name: Milka Mendosa RN Position: [facility] RN Member Role: Primary Care Nurse Name: Hilary Bell RN Position: [facility] RN Member Role: Primary Care Nurse Name: Jl Ruiz MD Position: [facility] Physician (General Medicine) Member Role: Lifetime Consulting Physician Address: Address: [address] [place] [address] [address] [place] [address]- Name: Saskia Houser RN Position: [facility] RN Member Role: Primary Care Nurse Name: Tarsha Saenz MD Position: Reference Physician Member Role: PCP Address: Address: [address] [place] [address]- Care Team Related Persons Name: MARGARETTE LOPEZ Name: TAWNYA LOPEZ Address: [address] [place] [address]
--- OUTSIDE RECORDS SUMMARY | 2023-12-17 09:34 | XMS_ITS | Continuity of Care Document ---
Author Organization [facility] Address [address] [place] [address]- Care Team Providers Care Food Processing Plant Manager Name Role Phone Dany CADET, Tarsha Parks Primary Care Physician [facility] [place](s): 12/01/22 - 03/31/23 [facility] [address] [place] [address]- Attending Physician: Isai Maza MD Admitting Physician: Isai Maza MD Allergies, Adverse Reactions, Alerts Substance Reaction [...] given given w/o incident 2Result Comment: [12/16/2017] [facility] 46006-498-71 3Result Comment: [11/29/2016] [facility] 46280-981-82 4Result Comment: [11/25/2015] pt. tolerated inj. without complications...CO 5Result Comment: [11/30/2012] given w/o incident...AA 6Admin Note: FLULAVAL 7Admin Note: done @ work 8Admin Note: per pt 9Result Comment[facility] 10Result Comment: [id number] 11Result Comment: [12/16/2017] #1 12Admin Note: per [...] capsule, 3 Refills, Maintenance, 09/08/21 10:47:00 EDT, [facility]/pharmacy #[id number], 170, cm, 09/08/21 10:10:00 [...] 03/30/22 13:32:00 EST, Route to Pharmacy Electronically, [facility]/pharmacy #[id number], Partial fill upon patient request if the prescription is for a schedule II opioid drug... Start Date: 03/30/22 Status: Ordered losartan 100 mg oral tablet 1 tablet = 100 mg, By Mouth, Daily at bedtime, # 90 tablet, 3 Refills, Maintenance, 06/01/22 11:02:00 EDT, Tablet, [facility]/pharmacy #[id number], Partial fill [...] 12/27/22 12:00:00 EST, Route to Pharmacy Electronically, [facility]/pharmacy #[id number], Partial fill upon patient request ifthe prescription is for a schedule II opioid drug.,... Start Date: 12/27/22 Stop Date: 12/22/23 Status: Ordered NuLYTELY Lemon Hoopa oral powder for reconstitution See Instructions, use for colonoscopy prep per instructions, # 4,000 mL, 0 Refills, Maintenance, 03/18/23 14:26:00 EST, REC Powder, [facility]/pharmacy #[id number], Partial fill upon patient request if the prescription is for a schedule II opioid drug., 170, cm, 0... Start Date: 03/18/23 Status: Ordered spironolactone 25 mg oral tablet 25 mg, 1, tablet, By Mouth, Daily, # 30 tablet, Refills 5, Tot. Refills 5, Maintenance, 11/15/22 11:40:00 EDT, Route to Pharmacy Electronically, [facility] [...] Team Personnel Name: Niurka Mendosa RN Position: [facility] RN Member Role: Primary Care Nurse Name: Oswaldo Valadez RN Position: [facility] RN Member Role: Primary Care Nurse Name: Alva Gibbons RN Position: [facility] RN Member Role: Primary Care Nurse Name: Hilary Bell RN Position: [facility] RN Member Role: Primary Care Nurse Name: Tarsha Saenz MD Position: Reference Physician Member Role: PCP Address: Address: [address] [place] [address]- Care Team Related Persons Name: MARGARETTE LOPEZ Name: TAWNYA LOPEZ Address: [address] [place] [address]
--- OUTSIDE RECORDS SUMMARY | 2023-12-17 09:34 | XMS_ITS | Continuity of Care Document ---
Author Organization [facility] Address [address] [place] [address]- Care Team Providers Care Cold Strip Feeder Name Role Phone Esperanza CADET, Keyla Parks Primary Care Physician [facility] Date(s): 01/14/21 - 02/13/21 [facility] [address] [place], [place] [address] Allergies, Adverse Reactions, Alerts Substance Reaction Severity [...] (oldterm) 14 08/02/07 Given 1Result Comment: [12/16/2017] [facility] [id number] 2Result Comment: [11/29/2016] [facility] 62646-818-40 3Result Comment: [11/25/2015] pt. tolerated inj. without complications...CO 4Result Comment: [11/30/2012] given w/o incident...AA 5Admin Note: FLULAVAL 6Admin Note: done @ work 7Admin Note: per pt 8Result Comment: Done at [facility] 9Result Comment: [id number] 10Result Comment: [12/16/2017] #1 11Admin Note: info [...] 1 Refills, Maintenance, 01/02/21 8:57:00 EST, Cream, [facility]/pharmacy #[id number], Partial fill upon patient request if the [...] capsule, 1 Refills, Maintenance, 02/09/21 14:43:00 EST, [facility]/pharmacy #[id number], 170, cm, 01/29/21 13:01:00 EST, [...] DAYS, # 15 sprays, 0 Refills, Acute, [facility], 30, USE 2 SPRAYS IN EACH NOSTRIL 3 TIMES A DAY FOR 7 DAYS, 170, cm, 04/10/19 14:00:00 EST, Height, 104.5, kg, 09/15/18 9:05:00 EDT... Start Date: 05/04/19 Status: Ordered ipratropium nasal 42 mcg/inh spray 2 sprays, Nares, Both, 3 times a day, # 1 each, 0 Refills, Maintenance, 07/02/20 16:11:00 EDT, [facility]/pharmacy #[id number], 2 sprays Nares, Both 3 [...] 04/14/20 15:22:00 EST, Route to Pharmacy Electronically, [facility]/pharmacy #[id number], Partial fill upon patient request,... [...] mL, 0 Refills, Maintenance, 12/23/20 13:10:00 EDT, [facility]/pharmacy #[id number], Partial fill upon patient request if the prescription is for a schedule II opioid drug., 4 liters By Mouth Once, 171, cm, 12/23/20... Start Date: 12/23/20 Status: Ordered tiZANidine 4 mg oral tablet 4 mg, 1, tablet, By Mouth, Every 8 hours, PRN, # 42 tablet, Refills 0, Tot. Refills 0, Maintenance,Spasm, 01/26/21 12:30:00 EST, Route to Pharmacy Electronically, [facility]/pharmacy #[id number], Partial fill upon patient request [...]
--- OUTSIDE RECORDS SUMMARY | 2023-12-17 09:35 | XMS_ITS | Continuity of Care Document ---
Author Organization [facility] Address [address] [place] [address]- Care Team Providers Care Market Risk Manager Name Role Phone Esperanza CADET, Keyla Parks Primary Care Physician [facility] Date[facility]s): 01/26/21 - 02/25/21 [facility] [address] [place], [place] [address] Attending Physician: Matthieu Kasper Admitting Physician: Matthieu [...] (oldterm) 14 08/02/07 Given 1Result Comment: [12/16/2017] [facility] [id number] 2Result Comment: [11/29/2016] [facility] 58694-795-65 3Result Comment: [11/25/2015] pt. tolerated inj. without complications...CO 4Result Comment: [11/30/2012] given w/o incident...AA 5Admin Note: FLULAVAL 6Admin Note: done @ work 7Admin Note: per pt 8Result Comment: Done at [facility] 9Result Comment: [id number] 10Result Comment: [12/16/2017] #1 11Admin Note: info [...] 1 Refills, Maintenance, 01/02/21 8:57:00 EST, Cream, [facility]/pharmacy #[id number], Partial fill upon patient request if [...] capsule, 1 Refills, Maintenance, 02/09/21 14:43:00 EST, [facility]/pharmacy #[id number], 170, cm, 01/29/21 13:01:00 EST, Height, [...] sprays, 0 Refills, Acute, [facility]24, 30, USE 2 SPRAYS IN EACH NOSTRIL 3 TIMES A DAY FOR 7 DAYS, 170, cm, 04/10/19 14:00:00 EST, Height, 104.5, kg, 09/15/18 9:05:00 EDT... Start Date: 05/04/19 Status: Ordered ipratropium nasal 42 mcg/inh spray 2 sprays, Nares, Both, 3 times a day, # 1 each, 0 Refills, Maintenance, 07/02/20 16:11:00 EDT, [facility]/pharmacy #0693, 2 sprays Nares, Both 3 times [...] Route to Pharmacy Electronically, [facility]/pharmacy #[id number], Partial fill upon patient request,... Start [...] mL, 0 Refills, Maintenance, 12/23/20 13:10:00 EDT, [facility]/pharmacy #[id number], Partial fill upon patient request if the prescription is for a schedule II opioid drug., 4 liters By Mouth Once, 171, cm, 12/23/20... Start Date: 12/23/20 Status: Ordered tiZANidine 4 mg oral tablet 4 mg, 1, tablet, By Mouth, Every 8 hours, PRN, # 42 tablet, Refills 0, Tot. Refills 0, Maintenance,Spasm, 01/26/21 12:30:00 EST, Route to Pharmacy Electronically, [facility]/pharmacy #[id number], Partial fill upon patient request if [...]
--- OUTSIDE RECORDS SUMMARY | 2023-12-17 09:35 | XMS_ITS | Continuity of Care Document ---
Author Organization [facility] Address [address] [place] [address]- Care Team Providers Care Certified Composites Technician Name Role Phone Keyla Mata MD Primary Care Physician [phone] [facility]counter [facility] Date[facility]s): 10/30/20 - 11/29/20 [facility] [address] [place], [place] [address] Attending Physician: Matthieu Kasper Admitting Physician: AdmtrMatthieu Referring Physician: Admtr, ArGemma Allergies, Adverse Reactions, Alerts Substance Reaction Severity Status clarithromycin Active vancomycin UNKNOWN Active nortriptyline Active cyclobenzaprine tongue swelling,constipation Active medtronidazole containing compounds Active Vicodin delusion rash Active NSAIDs C/O: itching Rash Persistent Moderate Active Augmentin diarrhea Active Darvocet A500 RASH Active Immunizations Given and Recorded Vaccine Date [...] 14 08/02/07 Given 1Result Comment: Done at [facility] 2Result Comment: [id number] 3Result Comment: [12/16/2017] #1 4Result Comment: [12/16/2017] [facility] 48607-263-14 5Result Comment: [11/29/2016] [facility] 35118-159-11 6Result Comment: [11/25/2015] pt. tolerated inj. without [...] capsule, 1 Refills, Maintenance, 09/15/20 10:55:00 EDT, [facility]/pharmacy #[id number], 171, cm, 09/12/20 9:46:00 EDT, [...] DAYS, # 15 sprays, 0 Refills, Acute, [facility] 77[facility], 30, USE 2 SPRAYS IN EACH NOSTRIL 3 TIMES A DAY FOR 7 DAYS, 170, cm, 04/10/19 14:00:00 EST, Height, 104.5, kg, 09/15/18 9:05:00 EDT... Start Date: 05/04/19 Status: Ordered ipratropium nasal 42 mcg/inh spray 2 sprays, Nares, Both, 3 times a day, # 1 each, 0 Refills, Maintenance, 07/02/20 16:11:00 EDT, [facility]/pharmacy #[id number], 2 sprays Nares, Both 3 [...] 04/14/20 15:22:00 EST, Route to Pharmacy Electronically, [facility]/pharmacy #[id number], Partial fill upon patient request,... Start Date: [...]
--- OUTSIDE RECORDS SUMMARY | 2023-12-17 09:35 | XMS_ITS | Continuity of Care Document ---
Author Organization [facility] Address [address] [place] [address]- Care Team Providers Care Jewel Bearing Maker Name Role Phone Tarsha Saenz MD Primary Care Physician Encounter [facility] [place] [place] Date(s): 08/26/22 - 10/01/22 [facility] [address], [place] [address] Attending Physician: Pavan Cintron MD Admitting Physician: Pavan Cintron MD Referring Physician: Pavan Cintron MD Allergies, Adverse Reactions, Alerts Substance Reaction Severity Status nortriptyline rash Mild Active medtronidazole containing compounds rash Mild Active clarithromycin rash Active vancomycin itching UNKNOWN Mild Active cyclobenzaprine tongue swelling,constipation Severe Active Augmentin diarrhea Mild Active Vicodin delusion [...] Comment: [12/16/2017] [facility] [id number] 3Result Comment: [11/29/2016] [facility] [id number] 4Result Comment: [11/25/2015] pt. tolerated inj. without complications...CO 5Result Comment: [11/30/2012] given w/o incident...AA 6Admin Note: FLULAVAL 7Admin Note: done @ work 8Admin Note: per pt 9Result Comment: Done at [facility] 10Result Comment: [id number] 11Result Comment: [12/16/2017] #1 12Admin Note: per [...] capsule, 3 Refills, Maintenance, 09/08/21 10:47:00 EDT, [facility]/pharmacy #[id number], 170, cm, 09/08/21 10:10:00 EDT, Height, [...] 05/18/22 12:35:00 EDT, Route to Pharmacy Electronically, [facility]/pharmacy #[id number], Partial fill upon patient requestif the [...] RN Position: [facility] RN Member Role: Primary Care Nurse Name: Oswaldo Valadez RN Position: [facility] RN Member Role: Primary Care Nurse Name: Alva Gibbons RN Position: [facility] RN Member Role: Primary Care Nurse Name: Milka Mendosa RN Position: [facility] RN Member Role: Primary Care Nurse Name: Jl Ruiz MD Position: [facility] Physician (General Medicine) Member Role: Lifetime Consulting Physician Address: Address: [address] [place] [address] [address] [place] [address]- Name: Tarsha Saenz MD Position: Reference Physician Member Role: PCP Address: Address: [address] [place] [address]- Care Team Related Persons Name: MARGARETTE LOPEZ Name: TAWNYA LOPEZ Address: home [address] [place] [address]
--- OUTSIDE RECORDS SUMMARY | 2023-12-17 09:35 | XMS_ITS | Continuity of Care Document ---
Author Organization [facility] Address [address] [place] [address]- Care Team Providers Care Preparer Name Role Phone Keyla Mata MD Primary Care Physician Encounter [facility] Date(s): 12/27/20 - 06/21/21 [facility] [address] [place], [place] [address] Attending Physician: Keyla Mata MD Allergies, Adverse Reactions, Alerts Substance Reaction Severity Status clarithromycin rash Active medtronidazole containing compounds rash Active Augmentin diarrhea Active Darvocet A500 RASH Active vancomycin UNKNOWN Active nortriptyline rash Active cyclobenzaprine tongue swelling,constipation Active Vicodin delusion rash Active NSAIDs C/O: [...] Comment: [12/16/2017] [facility] 73544-591-80 3Result Comment: [11/29/2016] [facility] 94136-189-69 4Result Comment: [11/25/2015] pt. tolerated inj. without complications...CO 5Result Comment: [11/30/2012] given w/o incident...AA 6Admin Note: FLULAVAL 7Admin Note: done @ work 8Admin Note: per pt 9Result Comment: Done at [facility] 10Result Comment: [id number] 11Result Comment: [12/16/2017] #1 12Admin Note: per [...] capsule, 1 Refills, Maintenance, 02/09/21 14:43:00 EST, [facility]/pharmacy #[id number], 170, cm, 01/29/21 13:01:00 EST, [...]
--- OUTSIDE RECORDS SUMMARY | 2023-12-17 09:35 | XMS_ITS | Continuity of Care Document ---
Author Organization [facility] Address [address] [place] [address]- Care Team Providers Care Banquet Manager Name Role Phone Dany CADET, Tarsha Parks Primary Care Physician [phone] Encounter [facility] Date(s): 10/11/23 - 11/10/23 [facility] [address] [address] Attending Physician: Matthieu Kasper Admitting [...] given given w/o incident 2Result Comment: [12/16/2017] [facility] 13712-757-48 3Result Comment: [11/29/2016] [facility] [id number] 4Result Comment: [11/25/2015] pt. tolerated inj. without complications...CO 5Result Comment: [11/30/2012] given w/o incident...AA 6Admin Note: FLULAVAL 7Admin Note: done @ work 8Admin Note: per pt 9Result Comment: [facility] 10Result Comment: [id number] 11Result Comment: [12/16/2017] #1 12Admin Note: per pt 13Admin Note: hep A #2 14Admin Note: hep A #1 Medications Docusate Sodium Capsule 100 mg, 1, capsule, By Mouth, 2 times a day, Refills 0, Maintenance, 08/29/23 7:14:00 EDT, Partial fill upon patient request if the prescription is for a schedule II opioid drug. Start Date: 08/29/23 Status: Ordered duloxetine 60 mg oral enteric coated capsule 1 capsule, By Mouth, Daily, # 90 capsule, 3 Refills, Maintenance, 09/08/21 10:47:00 EDT, [facility]/pharmacy #[id number], 170, cm, 09/08/21 10:10:00 EDT, Height, 101.5, kg, 06/11/21 12:07:00 EDT, Dry Weight Start Date: 09/08/21 Status: Ordered furosemide 40 mg oral tablet 1, tablet, By Mouth, Daily, # 90 tablet, Refills 0, Maintenance, 09/19/23 7:40:00 EDT, Route to Pharmacy Electronically, [facility], 170, cm, 08/29/23 9:28:00 EDT, Height, 112.3, [...] Refills, Maintenance, 05/19/23 8:02:00 EDT, [facility], 170, cm, 03/29/23 10:03:00 EST, Height, 108.7, kg, 03/02/23 8:55:00 EST, Dry Weight Start Date: 05/19/23 Status: Ordered Xarelto 10 mg oral tablet [...] MRI Safety Implantable Status Assigning Authority Unknown [id number] Unknown Unknown 05/10/25 Unknown Unknown Active Unknown Procedure Provider Procedure Date Device Type Site Fusion Tarsometatarsal Dora Garcia MD 08/24/23 Unkn own Foot Right Device Identifier Serial Number Lot or Batch Number Manufacturing Date Expiration Date Distinct Identification Code MRI Safety Implantable Status Assigning Authority Unknown [id number] Unknown Unknown 12/02/24 Unknown Unknown Active Unknown Patient Care team information Care Team Personnel Name: Rocío Almonte RN Position: [facility] RN Member Role: Primary Care Nurse Name: Niurka Mendosa RN Position: [facility] RN Member Role: Primary Care Nurse Name: Oswaldo Valadez RN Position: [facility] RN Member Role: Primary Care Nurse Name: Yoselyn Peters RN Position: [facility] RN Member Role: Primary Care Nurse Name: Alva Gibbons RN Position: [facility] SN RN Member Role: Primary Care Nurse Name: Hilary Bell RN Position: [facility] RN Member Role: Primary Care Nurse Name: Katie Govea RN Position: S RN Member Role: Primary Care Nurse Name: Nika Toledo RN Position: S RN Member Role: Primary Care Nurse Name: Carolina Saenz MDdur S Position: Reference Physician Member Role: PCP Address: Address: [address] [place] [address]- Care Team Related Persons Name: MARGARETTE LOPEZ Name: TAWNYA LOPEZ Address: [address] [address]
--- OUTSIDE RECORDS SUMMARY | 2023-12-17 09:35 | XMS_ITS | Continuity of Care Document ---
Author Organization [facility] Address [address] [place] [address]- Care Team Providers Care Youth Career Specialist Name Role Phone Keyla Mata MD Primary Care Physician [facility]counter [facility] Date(s): 01/31/20 - 02/04/[address] [address]- Discharge Disposition: A-Transfer VNA/Home Health Attending Physician: Tiago Wiseman MD Admitting Physician: Tiago Wiseman MD Referring Physician: Tiago Wiseman MD Allergies, Adverse Reactions, Alerts Substance Reaction [...] 14 08/02/07 Given 1Result Comment: Done at [facility] 2Result Comment: [id number] 3Result Comment: [12/16/2017] #1 4Result Comment: [12/16/2017] [facility] [id number] 5Result Comment: [11/29/2016] [facility] [id number] 6Result Comment: [11/25/2015] pt. tolerated inj. without [...] opioid drug. Start Date: 02/01/20 Status: Ordered Acetaminophen Tablet 650 mg, Tablet, By Mouth, 02/04/20 4:00:00 EST Start Date: 02/04/20 Stop Date: 02/04/20 Status: Completed Aspirin Tablet 325 mg, By Mouth, 2 [...] 02/02/20 12:17:00 EST, Route to Pharmacy Electronically, [facility], Partial fill upon patient request [...] 0 Refills, Maintenance, 12/31/19 10:42:00 EST, ECCapsule, [facility]/pharmacy #[id number], 170, cm, 12/31/19 9:54:00 EST, Height, 106.8, kg, 08/27/19 11:58:00 EDT, Dry Weight Start Date: 12/31/19 Status: Ordered gabapentin 100 mg oral capsule 100 mg, 1, capsule, By Mouth, 3 times a day, # 42 capsule, Refills 0, Tot. Refills 0, Maintenance, 02/02/20 12:17:00 EST, Route to Pharmacy Electronically, [facility], Partial fill uponpatient request if the prescription is for a schedu... Start Date: 02/02/20 Stop Date: 02/16/20 Status: Ordered gabapentin 100 mg oral capsule 100 mg, Capsule, By Mouth, 02/04/20 9:00:00 EST Start Date: 02/04/20 Stop Date: 02/04/20 Status: Completed ipratropium nasal 42 mcg/inh spray See Instructions, USE 2 SPRAYS IN EACH NOSTRIL 3 TIMES A DAY FOR 7 DAYS, # 15 sprays, 0 Refills, Acute, [facility] 87[facility], 30, USE 2 SPRAYS IN EACH NOSTRIL [...] EDT, Tablet Start Date: 08/08/17 Status: Ordered losartan 50 mg oral tablet 100 mg, Tablet, By Mouth, Hold for: SBP less than 130, 02/04/20 9:00:00 EST Start Date: 02/04/20 Stop Date: 02/04/20 Status: Completed Maalox Plus Liquid 30 mL, By Mouth, Every 4 hours, PRN Other, Heartburn, 0 Refills, Maintenance, 02/04/20 8:28:00 EST,Suspension, Partial fill upon patient request if the prescription is for a schedule II opioid drug. Start Date: 02/04/20 Status: Ordered meclizine 12.5 mg oral tablet 1 tablet = 12.5 mg, By Mouth, 3 times a day, PRN Dizziness, for 7 days, # 21 tablet, 0 Refills, Acute 02/11/20 8:28:00 EST, 02/04/20 8:28:00 EST, Tablet, [facility], Partial fill upon patient request if the prescription is for a schedule... Start Date: 02/04/20 Stop Date: 02/11/20 Status: Ordered methotrexate 2.5 mg oral tablet [...] 01/15/20 15:22:00 EST, Route to Pharmacy Electronically, [facility]/pharmacy #[id number], Partial fill upon patient request,... Start Date: 01/15/20 Stop Date: 04/14/20 Status: Ordered metoprolol 50 mg oral tablet, extended release 75 mg, XL Tablet, By Mouth, 02/04/20 9:00:00 EST Start Date: 02/04/20 Stop Date: 02/04/20 Status: Completed Milk of Magnesia Liquid 30 mL, By [...] opioid drug. Start Date: 02/01/20 Status: Ordered morphine 30 mg oral tablet, immediate release See Instructions, PRN Pain , Severe, Take 0.5-1 tablet By Mouth Every 4 hours as needed for pain, #42 tablet, 0 Refills, Acute 02/09/20 12:30:00 EST, 02/02/20 12:30:00 EST, Tablet, [facility], Partial fill upon patient request if the pr... Start Date: 02/02/20 Stop Date: 02/09/20 Status: Ordered MorPHINE Immediate Release Tablet 15 mg, Tablet, By Mouth, Every 4 hours, PRN for Pain , Moderate, Routine, 02/01/20 16:53:00 EST Start Date: 02/01/20 Stop Date: 02/04/20 Status: Discontinued pantoprazole 40 mg oral delayed release tablet [...] Exam Date Time Procedure Performing Provider Status 01/31/20 9:56 PM Knee 1 or 2 Views Left Rocky Rivas; Shannon (Verified) Notes: (Knee 1 or 2 Views Left) Reason For Exam: Postop RESULT: Knee 1 or 2 Views Left Knee 1 or 2 Views Left 1 view INDICATION/CLINICAL QUESTION: Reason: Postop; Clinical Question(s): Other:; Implant Position; Special Instructions: Do today at 2200, No flexed knee in the lateral position. Keep leg straight; 2 Views COMPARISON: None. FINDINGS: Total knee arthroplasty with intact hardware and normal alignment. No fracture. IMPRESSION: No apparent complication. WSN: [id number] Ordering Physician: Tiago Wiseman Dictated By: Sarbjit Elizabeth MD Dictated Date/Time: 01/31/20 10:15 p Reviewed By: Sarbjit Elizabeth MD Signed By: Sarbjit Elizabeth MD Signed Date/Time: 01/31/20 10:15 pm Transcribed By: CHRISTA Transcribed Date/Time: 01/31/20 10:15 pm Vital Signs Most recent to oldest [Reference Range]: 1 2 3 Height 171 cm (02/04/20 7:16 AM) 171 cm (02/04/20 7:05 AM) 171 cm (02/04/20 5:09 AM) Weight 106 kg (01/31/20 1:03 PM) 106 kg (01/31/20 8:57 AM) Oxygen Saturation [94-100 %] 99 % (02/04/20 7:05 AM) 99 % (02/04/20 5:09 AM) 93 % *L* (02/03/20 11:41 PM) Pulse Rate [55-90 bpm] 72 bpm (02/04/20 7:48 AM) 72 bpm (02/04/20 7:05 AM) 86 bpm (02/04/20 5:09 AM) Body Mass Index [18.5-24.99] 36.25 *>HHI* (01/31/20 1:03 PM) 36.25 *>HHI* (01/31/20 8:57 AM) Blood Pressure [90-138/55-84 mm Hg] 142/80mm Hg *H* (02/04/20 7:48 AM) 142/80mm Hg *H* (02/04/20 7:48 AM) 142/80mm Hg *H* (02/04/20 7:05 AM) Respiratory Rate [16-30 br/min] 18 br/min (02/04/20 9:01 AM) 18 br/min (02/04/20 9:00 AM) 18 br/min (02/04/20 9:00 AM) Temperature [96.8-100.4 DegF] 97.7 DegF (02/04/20 7:16 AM) 98.0 DegF (02/04/20 5:09 AM) 97.9 DegF (02/03/20 11:41 PM) Liters per Minute 6 L/min (01/31/20 4:00 PM) Mode of Delivery (Oxygen) Room air (02/04/20 7:05 AM) Room air (02/04/20 5:09 AM) Room air (02/03/20 11:41 PM) Blood pressure sites Arm, right (02/04/20 7:05 AM) Arm, right (02/04/20 5:09 AM) Arm, right (02/03/20 11:41 PM) Temperature Route Oral (02/04/20 7:16 AM) Oral (02/04/20 5:09 AM) Oral (02/03/20 11:41 PM) Dry Weight 106 kg (01/31/20 8:57 AM) Social History Social History Type Response Smoking Status Never smoker; Tobacc o user in household: No entered on: 01/07/14 Sex
--- OUTSIDE RECORDS SUMMARY | 2023-12-17 09:35 | XMS_ITS | Continuity of Care Document ---
Author Organization [facility] Address [address] [place] [address]- Care Team Providers Care Oil Deliverer Name Role Phone Esperanza CADET, Keyla Parks Primary Care Physician [facility]): 09[facility]17[facility]21 - 10/17/21 [facility] [address] [place], [place] [address] Allergies, Adverse Reactions, Alerts Substance Reaction Severity Status vancomycin UNKNOWN Active cyclobenzaprine tongue swelling,constipation Active medtronidazole containing compounds rash Active Augmentin diarrhea Active Darvocet A500 RASH Active clarithromycin rash Active nortriptyline rash Active Vicodin delusion rash Active NSAIDs C/O: [...] Saud rded influenza virus vaccine, inactivated 11/02/13 Suad rded influenza virus vaccine, inactivated 5 11/30/12 [...] Comment: [12/16/2017] [facility] [id number] 3Result Comment: [11/29/2016] [facility] [id number] 4Result Comment: [11/25/2015] pt. tolerated inj. without complications...CO 5Result Comment: [11/30/2012] given w/o incident...AA 6Admin Note: FLULAVAL 7Admin Note: done @ work 8Admin Note: per pt 9Result Comment: Done at [facility] 10Result Comment: [id number] 11Result Comment: [12/16/2017] #1 12Admin Note: per [...] capsule, 3 Refills, Maintenance, 09/08/21 10:47:00 EDT, [facility]/pharmacy #[id number], 170, cm, 09/08/21 10:10:00 EDT, [...] in household: No entered on: 01/07/14 Sex Care Team Personnel Name: Esperanza CADET, Keyla Parks Address: [address] [place] [address] Adult & Pediatric [address]
--- OUTSIDE RECORDS SUMMARY | 2023-12-17 09:35 | XMS_ITS | Continuity of Care Document ---
Author Organization [facility] Address [address] [place] [address]- Care Team Providers Care Business Process Specialist Name Role Phone Keyla Mata MD Primary Care Physician [facility] Date(s): 10/14/19 - 11/13/19 [facility] [address] [place] [address]- [facility] Allergies, Adverse Reactions, Alerts Substance Reaction Severity Status nortriptyline Active medtronidazole containing compounds Active clarithromycin Active vancomycin UNKNOWN Active cyclobenzaprine tongue swelling,constipation Active Augmentin diarrhea [...] Vaccine (oldterm) 13 08/02/07 Given 1Result Comment: [id number] 2Result Comment: [12/16/2017] #1 3Result Comment: [12/16/2017] [facility] [phone] 4Result Comment: [11/29/2016] [facility] [phone] 5Result Comment: [11/25/2015] pt. tolerated inj. without [...] 15 sprays, 0 Refills, Acute, [facility], 30, USE 2 SPRAYS IN EACH NOSTRIL [...] 12/04/19 11:36:00 EDT, 03/09/19 11:36:00 EST, Tablet, [facility]/pharmacy #[id number], 170, cm, 03/09/19 11:14:00 EST, Height, [...] capsule, 5 Refills, Maintenance, 06/04/19 14:15:00 EDT, [facility]/pharmacy #4471, 170, cm, 04/10/19 14:00:00 EST, Height, [...]
--- OUTSIDE RECORDS SUMMARY | 2023-12-17 09:35 | XMS_ITS | Continuity of Care Document ---
Author Organization [facility] Address [address] [place] [address]- Care Team Providers Care Customer Business Manager Name Role Phone Keyla Mata MD Primary Care Physician Encounter [facility] Date(s): 01/29/21 - 01/29/[address] [address] Discharge Disposition: A-D/C Home Attending Physician: Jacoby Retana MD Admitting Physician: Jacoby Retana MD Referring Physician: Jacoby Retana MD Allergies, Adverse Reactions, Alerts Substance Reaction [...] (oldterm) 14 08/02/07 Given 1Result Comment: [12/16/2017] [facility] [id number] 2Result Comment: [11/29/2016] [facility] [id number] 3Result Comment: [11/25/2015] pt. tolerated inj. without complications...CO 4Result Comment: [11/30/2012] given w/o incident...AA 5Admin Note: FLULAVAL 6Admin Note: done @ work 7Admin Note: per pt 8Result Comment: Done at [facility] 9Result Comment: [id number] 10Result Comment: [12/16/2017] #1 11Admin Note: info [...] 1 Refills, Maintenance, 01/02/21 8:57:00 EST, Cream, [facility]/pharmacy #0693, Partial fill upon patient request if [...] capsule, 1 Refills, Maintenance, 09/15/20 10:55:00 EDT, [facility]/pharmacy #0693, 171, cm, 09/12/20 9:46:00 EDT, Height, [...] DAYS, # 15 sprays, 0 Refills, Acute, [facility], 30, USE 2 SPRAYS IN EACH NOSTRIL 3 TIMES A DAY FOR 7 DAYS, 170, cm, 04/10/19 14:00:00 EST, Height, 104.5, kg, 09/15/18 9:05:00 EDT... Start Date: 05/04/19 Status: Ordered ipratropium nasal 42 mcg/inh spray 2 sprays, Nares, Both, 3 times a day, # 1 each, 0 Refills, Maintenance, 07/02/20 16:11:00 EDT, [facility]/pharmacy #0693, 2 sprays Nares, Both 3 times [...] 04/14/20 15:22:00 EST, Route to Pharmacy Electronically, [facility]/pharmacy #[id number], Partial fill upon patient request,... Start [...] mL, 0 Refills, Maintenance, 12/23/20 13:10:00 EDT, [facility]/pharmacy #0693, Partial fill upon patient request if the prescription is for a schedule II opioid drug., 4 liters By Mouth Once, 171, cm, 12/23/20... Start Date: 12/23/20 Status: Ordered oxyCODONE 5 mg oral tablet 5 mg, 1, tablet, By Mouth, 3 times a day, PRN, for 7 days, # 21 tablet, Refills 0, Tot. Refills 0, Acute 02/03/21 11:54:00 EST, Pain , Severe, 01/27/21 11:54:00 EST, Route to Pharmacy Electronically,[facility]/pharm[facility] #0693, Partial fill upon patient reque... Start Date: 01/27/21 Stop Date: 02/03/21 Status: Ordered tiZANidine 4 mg oral tablet 4 mg, 1, tablet, By Mouth, Every 8 hours, PRN, # 42 tablet, Refills 0, Tot. Refills 0, Maintenance,Spasm, 01/26/21 12:30:00 EST, Route to Pharmacy Electronically, [facility]/pharmacy #[id number], Partial fill upon patient request if [...] Procedure Date Related Diagnosis Body Site Status Colonoscopy, flexible; with removal of tumor(s), polyp(s), or other lesion(s) by snare technique 01/29/21 Completed Vital Signs Most recent to oldest [Reference Range]: 1 2 3 Height 170 cm (01/29/21 1:01 PM) Weight 104.5 kg (01/29/21 1:01 PM) Oxygen Saturation [94-100 %] 100 % (01/29/21 2:40 PM) 96 % (01/29/21 2:25 PM) 100 % (01/29/21 1:01 PM) Pulse Rate [55-90 bpm] 58 bpm (01/29/21 1:01 PM) Body Mass Index [18.5-24.99] 36.16 *>HHI* (01/29/21 1:01 PM) Blood Pressure [90-138/55-84 mm Hg] 127/71mm Hg (01/29/21 2:40 PM) 126/70mm Hg (01/29/21 2:25 PM) 155/73mm Hg *H* (01/29/21 1:01 PM) Respiratory Rate [16-30 br/min] 16 br/min (01/29/21 2:40 PM) 16 br/min (01/29/21 2:25 PM) 15 br/min *L* (01/29/21 1:01 PM) Temperature [96.8-100.4 DegF] 97.6 DegF (01/29/21 1:01 PM) Mode of Delivery (Oxygen) Room air (01/29/21 2:40 PM) Room air (01/29/21 2:25 PM) Room air (01/29/21 1:01 PM) Blood pressure sites Arm, left (01/29/21 2:40 PM) Arm, left (01/29/21 2:25 PM) Arm, right (01/29/21 1:01 PM) Temperature Route Temporal (01/29/21 1:01 PM) Dry Weight 104.5 kg (01/29/21 1:01 PM) Social History Social History Type Response Smoking Status Never smoker; Tobacc o user in household: No entered on: 01/07/14 Sex
--- OUTSIDE RECORDS SUMMARY | 2023-12-17 09:35 | XMS_ITS | Continuity of Care Document ---
Author Organization [facility] Address [address] [place] [address]- Care Team Providers Care Supervisor Electronic Coils Name Role Phone Tarsha Saenz MD Primary Care Physician Encounter [facility] Date(s): 08/20/22 - 09/19/22 [facility] [address] [place] [address]- [place] Allergies, Adverse Reactions, Alerts Substance Reaction Severity Status medtronidazole containing compounds rash Mild Active clarithromycin rash Active vancomycin itching UNKNOWN Mild Active nortriptyline rash Mild Active cyclobenzaprine tongue swelling,constipation Severe Active Darvocet A500 RASH Mild Active NSAIDs C/O: itching Rash Persistent Moderate Active Augmentin diarrhea Mild Active Vicodin delusion rash Mild Active Immunizations Given and Recorded Vaccine [...] given w/o incident 2Result Comment: [12/16/2017] [facility] [id number] 3Result Comment: [11/29/2016] [facility] 31913-423-46 4Result Comment: [11/25/2015] pt. tolerated inj. without complications...CO 5Result Comment: [11/30/2012] given w/o incident...AA 6Admin Note: FLULAVAL 7Admin Note: done @ work 8Admin Note: per pt [facility] 10Result Comment: [id number] 11Result Comment: [12/16/2017] #1 12Admin Note: per [...] capsule, 3 Refills, Maintenance, 09/08/21 10:47:00 EDT, [facility]/pharmacy #[id number], 170, cm, 09/08/21 10:10:00 EDT, Height, [...] 03/30/22 13:32:00 EST, Route to Pharmacy Electronically, [facility]/pharmacy #[id number], Partial fill upon patient request if [...] 0 Refills, Maintenance, 08/25/22 9:48:00 EDT, Film, [facility]/pharmacy #0693, Partial fi... Start Date: 08/25/22 Status: Ordered losartan 100 mg oral tablet 1 tablet = 100 mg, By Mouth, Daily, # 90 tablet, 3 Refills, Maintenance, 06/01/22 11:02:00 EDT, Tablet, [facility]/pharmacy #[id number], Partial fill upon patient request if the prescription is for a schedule II opioid drug., 170, cm, 05/14/22 9:21:00 EDT, Height,... Start Date: 06/01/22 Stop Date: 05/27/23 Status: Ordered metoprolol 100 mg oral tablet, extended release 100 mg, 1, tablet, By Mouth, Daily, # 90 tablet, Refills 3, Tot. Refills 3, Maintenance, 05/18/22 12:35:00 EDT, Route to Pharmacy Electronically, [facility]/pharmacy #[id number], Partial fill upon patient requestif the [...] Team Personnel Name: Niurka Mendosa RN Position: [facility] RN Member Role: Primary Care Nurse Name: Oswaldo Valadez RN Position: [facility] RN Member Role: Primary Care Nurse Name: Alva Gibbons RN Position: [facility] RN Member Role: Primary Care Nurse Name: Milka Mendosa RN Position: [facility] RN Member Role: Primary Care Nurse Name: Joseph CADET, Jl Best Position: [facility] Physician (General Medicine) Member Role: Lifetime Consulting Physician Address: Address: [address] [place] [address]- [place] Name: Dany CADET, Tarsha Parks Position: Reference Physician Member Role: PCP Address: Address: [address] [place] [address]- Care Team Related Persons Name: MARGARETTE LOPEZ Name: TAWNYA LOPEZ Address: [address] [address]
--- OUTSIDE RECORDS SUMMARY | 2023-12-17 09:35 | XMS_ITS | Continuity of Care Document ---
Author Organization [facility] Address [address] [place] [address]- Care Team Providers Care Traveling Freight Agent Name Role Phone Keyla Mata MD Primary Care Physician [facility] Date(s): 03/06/21 - 04/05/21 [facility] [address] [place] [address]- [place] Allergies, Adverse Reactions, Alerts Substance Reaction [...] (oldterm) 14 08/02/07 Given 1Result Comment: [12/16/2017] [facility] 59940-767-08 2Result Comment: [11/29/2016] [facility] 58441-300-56 3Result Comment: [11/25/2015] pt. tolerated inj. without complications...CO 4Result Comment: [11/30/2012] given w/o incident...AA 5Admin Note: FLULAVAL 6Admin Note: done @ work 7Admin Note: per pt 8Result Comment: Done at [facility] 9Result Comment: [id number] 10Result Comment: [12/16/2017] #1 11Admin Note: info [...] 1 Refills, Maintenance, 01/02/21 8:57:00 EST, [facility], [facility], Partial fill upon patient request [...] capsule, 1 Refills, Maintenance, 02/09/21 14:43:00 EST, [id number], 170, cm, 01/29/21 13:01:00 EST, Height, 104.5, kg, 01/29/21 13:01:00 EST, Dry Weight Start Date: 02/09/21 Status: Ordered Excedrin Migraine oral tablet 2 tablet, By Mouth, Every 6 hours, PRN for headache, # 50 tablet, 0 Refills, Acute 04/07/21 9:48:00EST, 04/03/21 9:47:00 EST, [facility], [id number], Partial fill upon patient request if the prescription is for a schedule II opioid drug., 2 table... Start Date: 04/03/21 Stop Date: 04/07/21 Status: Ordered Fish Oil By Mouth, 0 [...] DAYS, # 15 sprays, 0 Refills, Acute, [facility], 30, USE 2 SPRAYS IN EACH NOSTRIL 3 TIMES A DAY FOR 7 DAYS, 170, cm, 04/10/19 14:00:00 EST, Height, 104.5, kg, 09/15/18 9:05:00 EDT... Start Date: 05/04/19 Status: Ordered ipratropium nasal 42 mcg/inh spray 2 sprays, Nares, Both, 3 times a day, # 1 each, 0 Refills, Maintenance, 07/02/20 16:11:00 EDT, [facility]/pharmacy #[id number], 2 sprays Nares, Both 3 [...] 04/14/20 15:22:00 EST, Route to Pharmacy Electronically, [facility]/pharmacy #[id number], Partial fill upon patient request,... [...] mL, 0 Refills, Maintenance, 12/23/20 13:10:00 EDT, [facility]/pharmacy #0693, Partial fill upon patient request if the prescription is for a schedule II opioid drug., 4 liters By Mouth Once, 171, cm, 12/23/20... Start Date: 12/23/20 Status: Ordered tiZANidine 4 mg oral tablet 4 mg, 1, tablet, By Mouth, Every 8 hours, PRN, # 42 tablet, Refills 0, Tot. Refills 0, Maintenance,Spasm, 01/26/21 12:30:00 EST, Route to Pharmacy Electronically, [facility]/pharmacy #0679, Partial fill upon patient request if the [...]
--- OUTSIDE RECORDS SUMMARY | 2023-12-17 09:35 | XMS_ITS | Continuity of Care Document ---
Author Organization [facility] Address [address] [place] [address]- Care Team Providers Care Bias Cutting Machine Operator Name Role Phone Tarsha Saenz MD Primary Care Physician [phone] Encounter [facility] Date(s): 07/14/22 - 08/13/22 [facility] [address] [place] [address] Attending Physician: Matthieu Kasper Admitting Physician: Matthieu [...] given given w/o incident 2Result Comment: [12/16/2017] [facility] [phone] 3Result Comment: [11/29/2016] [facility] 61440-241-17 4Result Comment: [11/25/2015] pt. tolerated inj. without complications...CO 5Result Comment: [11/30/2012] given w/o incident...AA 6Admin Note: FLULAVAL 7Admin Note: done @ work 8Admin Note: per pt [facility] 10Result Comment: [id number] 11Result Comment: [12/16/2017] #1 12Admin Note: per [...] 05/18/22 12:35:00 EDT, Route to Pharmacy Electronically, [facility]/pharmacy #[id number], Partial fill upon patient requestif [...] Team Personnel Name: Niurka Mendosa RN Position: [facility] RN Member Role: Primary Care Nurse Name: Oswaldo Valadez RN Position: [facility] RN Member Role: Primary Care Nurse Name: Alva Gibbons RN Position: [facility] RN Member Role: Primary Care Nurse Name: Milka Mendosa RN Position: [facility] RN Member Role: Primary Care Nurse Name: Joseph CADET, Jl Best Position: [facility] Physician (General Medicine) Member Role: Lifetime Consulting Physician Address: Address: [address] [place] [address] [address] [place] [address]- [place] Name: Tarsha Saenz MD Position: Reference Physician Member Role: PCP Address: Address: [address] [place] [address]- Care Team Related Persons Name: MARGARETTE LOPEZ Name: TAWNYA LOPEZ Address: [address] [address]
--- OUTSIDE RECORDS SUMMARY | 2023-12-17 09:35 | XMS_ITS | Continuity of Care Document ---
Author Organization [facility] Address [address] [place] [address]- Care Team Providers Care Field Services Director Name Role Phone Tarsha Saenz MD Primary Care Physician [facility] Date(s): 02/26/22 - 03/28/22 [facility] [address] [place] [address]- Allergies, Adverse Reactions, Alerts Substance Reaction Severity [...] w/o incident 2Result Comment: [12/16/2017] [facility] 42125-607-65 3Result Comment: [11/29/2016] [facility] 04279-186-53 4Result Comment: [11/25/2015] pt. tolerated inj. without complications...CO 5Result Comment: [11/30/2012] given w/o incident...AA 6Admin Note: FLULAVAL 7Admin Note: done @ work 8Admin Note: per pt 9[facility] 10Result Comment: [id number] 11Result Comment: [12/16/2017] #1 12Admin Note: per [...] Gm, 0 Refills, Maintenance, 01/06/22 10:43:00 EST, [facility]/pharmacy #[id number], Partial fill upon patient request [...] capsule, 3 Refills, Maintenance, 09/08/21 10:47:00 EDT, [facility]/pharmacy #0693, 170, cm, 09/08/21 10:10:00 EDT, [...] Team Personnel Name: Niurka Mendosa RN Position: [facility] RN Member Role: Primary Care Nurse Name: Oswaldo Valadez RN Position: [facility] RN Member Role: Primary Care Nurse Name: Alva Gibbons RN Position: [facility] RN Member Role: Primary Care Nurse Name: Milka Mendosa RN Position: [facility] RN Member Role: Primary Care Nurse Name: Jl Ruiz MD Position: [facility] Physician (General Medicine) Member Role: Lifetime Consulting Physician Address: Address: [address] [place] [address] [address] [place] [address]- Name: Tarsha Saenz MD Position: Reference Physician Member Role: PCP Address: Address: [address] [place] [address]- Care Team Related Persons Name: MARGARETTE LOPEZ Name: TAWNYA LOPEZ Address: [address] [address]
--- OUTSIDE RECORDS SUMMARY | 2023-12-17 09:35 | XMS_ITS | Continuity of Care Document ---
Author Organization [facility] Address [address] [facility], [address] Floor, [address] [place] [address]- Care Team Providers Care Personalized Living Assistant Name Role Phone Keyla Mata MD Primary Care Physician En[facility] Date(s): 04/25/19 - 08/23/19 [facility] [address], [address], [address] [place] [address]- [facility] Attending Physician: Not on Staff, Attending MD Allergies, Adverse Reactions, Alerts Substance Reaction [...] Vaccine (oldterm) 13 08/02/07 Given 1Result Comment: [id number] 2Result Comment: [12/16/2017] #1 3Result Comment: [12/16/2017] [facility] [id number] 4Result Comment: [11/29/2016] [facility] [phone] 5Result Comment: [11/25/2015] pt. tolerated inj. without [...] 15 sprays, 0 Refills, Acute, [facility], 30, USE 2 SPRAYS IN EACH NOSTRIL [...]
--- OUTSIDE RECORDS SUMMARY | 2023-12-17 09:36 | XMS_ITS | Continuity of Care Document ---
Author Organization [facility] Address [address] [place] [address]- Care Team Providers Care Panel Builder Name Role Phone Tarsha Saenz MD Primary Care Physician [phone] Encounter [facility] Date(s): 08/09/22 - 09/08/22 [facility] [address] [place] [address]- [place] Allergies, Adverse Reactions, Alerts Substance Reaction [...] given w/o incident 2Result Comment: [12/16/2017] [facility] 45074-716-86 3Result Comment: [11/29/2016] [facility] 39489-335-45 4Result Comment: [11/25/2015] pt. tolerated inj. without complications...CO 5Result Comment: [11/30/2012] given w/o incident...AA 6Admin Note: FLULAVAL 7Admin Note: done @ work 8Admin Note: per pt 9[facility] 10Result Comment: [id number] 11Result Comment: [12/16/2017] #1 12Admin Note: per [...] 3 Refills, Maintenance, 09/08/21 10:47:00 EDT, [facility]/pharmacy #[id number], 170, cm, 09/08/21 10:10:00 EDT, [...] 13:32:00 EST, Route to Pharmacy Electronically, [facility]/pharmacy #[id number], Partial fill upon patient request [...] Refills, Maintenance, 08/25/22 9:48:00 EDT, Film, [facility]/pharmacy #[id number], Partial fi... Start Date: 08/25/22 Status: Ordered losartan 100 mg oral tablet 1 tablet = 100 mg, By Mouth, Daily, # 90 tablet, 3 Refills, Maintenance, 06/01/22 11:02:00 EDT, Tablet, [facility]/pharmacy #[id number], Partial fill upon patient request if the prescription is for a schedule II opioid drug., 170, cm, 05/14/22 9:21:00 EDT, Height,... Start Date: 06/01/22 Stop Date: 05/27/23 Status: Ordered metoprolol 100 mg oral tablet, extended release 100 mg, 1, tablet, By Mouth, Daily, # 90 tablet, Refills 3, Tot. Refills 3, Maintenance, 05/18/22 12:35:00 EDT, Route to Pharmacy Electronically, [facility]/pharmacy #[id number], Partial fill upon patient requestif [...] Team Personnel Name: Niurka Mendosa RN Position: [facility] RN Member Role: Primary Care Nurse Name: Oswaldo Valadez RN Position: [facility] RN Member Role: Primary Care Nurse Name: Alva Gibbons RN Position: [facility] RN Member Role: Primary Care Nurse Name: Milka Mendosa RN Position: [facility] RN Member Role: Primary Care Nurse Name: Joseph CADET, Jl Best Position: [facility] Physician (General Medicine) Member Role: Lifetime Consulting Physician Address: Address: [address] [place] [address]- Name: Dany CADET, Tarsha Parks Position: Reference Physician Member Role: PCP Address: Address: [address] [place] [address]- Care Team Related Persons Name: MARGARETTE LOPEZ Name: TAWNYA LOPEZ Address: [address] [address]
--- OUTSIDE RECORDS SUMMARY | 2023-12-17 09:36 | XMS_ITS | Continuity of Care Document ---
Author Organization [facility] Address [address] [place] [address]- Care Team Providers Care Class A Regional Truck Driver Name Role Phone Keyla Mata MD Primary Care Physician [facility] Date(s): 01/26/21 - 02/02/[address] [facility] [address] [place], [place] [address] Attending Physician: Keyla Mata MD Allergies, [...] [12/16/2017] [facility] [place] [id number] 2Result Comment: [11/29/2016] [facility] [place] 61332-957-71 3Result Comment: [11/25/2015] pt. tolerated inj. without complications...CO 4Result Comment: [11/30/2012] given w/o incident...AA 5Admin Note: FLULAVAL 6Admin Note: done @ work 7Admin Note: per pt 8Result Comment: Done at [facility] 9Result Comment: [id number] 10Result Comment: [12/16/2017] #1 11Admin Note: info [...] 1 Refills, Maintenance, 01/02/21 8:57:00 EST, Cream, [facility]/pharmacy #0779, Partial fill upon patient request if the [...] capsule, 1 Refills, Maintenance, 09/15/20 10:55:00 EDT, [facility]/pharmacy #0693, 171, cm, 09/12/20 9:46:00 [...] DAYS, # 15 sprays, 0 Refills, Acute, [facility] ST[facility] 89861, 30, USE 2 SPRAYS IN EACH NOSTRIL 3 TIMES A DAY FOR 7 DAYS, 170, cm, 04/10/19 14:00:00 EST, Height, 104.5, kg, 09/15/18 9:05:00 EDT... Start Date: 05/04/19 Status: Ordered ipratropium nasal 42 mcg/inh spray 2 sprays, Nares, Both, 3 times a day, # 1 each, 0 Refills, Maintenance, 07/02/20 16:11:00 EDT, [facility]/pharmacy #0693, 2 sprays Nares, Both [...] 04/14/20 15:22:00 EST, Route to Pharmacy Electronically, [facility]/pharmacy #0693, Partial fill upon patient [...] mL, 0 Refills, Maintenance, 12/23/20 13:10:00 EDT, [facility]/pharmacy #0693, Partial fill upon patient [...] Severe, 01/27/21 11:54:00 EST, Route to Pharmacy Electronically,[facility]/pharmacy #0693, Partial fill upon patient reque... Start Date: 01/27/21 Stop Date: 02/03/21 Status: Ordered tiZANidine 4 mg oral tablet 4 mg, 1, tablet, By Mouth, Every 8 hours, PRN, # 42 tablet, Refills 0, Tot. Refills 0, Maintenance,Spasm, 01/26/21 12:30:00 EST, Route to Pharmacy Electronically, [facility]/pharmacy #0693, Partial fill upon patient [...] oldest [Reference Range]: 1 Height 171 cm (01/26/21 12:02 PM) Weight 104.3 kg (01/26/21 12:02 PM) Oxygen Saturation [94-100 %] 99 % (01/26/21 12:02 PM) Pulse Rate [55-90 bpm] 85 bpm (01/26/21 12:02 PM) Body Mass Index [18.5-24.99] 35.67 *>HHI* (01/26/21 12:02 PM) Blood Pressure [90-138/55-84 mm Hg] 130/ 80mm Hg (01/26/21 12:02 PM) Blood pressure sites Arm, left (01/26/21 12:02 PM) Social History Social History Type Response Smoking Status Never smoker; Tobacc o user in household: No entered on: 01/07/14 Sex
--- OUTSIDE RECORDS SUMMARY | 2023-12-17 09:36 | XMS_ITS | Continuity of Care Document ---
Author Organization [facility] Address [address] [place] [address]- Care Team Providers Care Carriage Feeder Name Role Phone Esperanza CADET, Keyla Parks Primary Care Physician [phone] [facility] Date[facility]): 12/08/20 - 01/07/21 [facility] [address] [place], [place] [address] Allergies, Adverse Reactions, Alerts Substance Reaction [...] (oldterm) 14 08/02/07 Given 1Result Comment: [12/16/2017] [facility] [phone] 2Result Comment: [11/29/2016] [facility] [phone] 3Result Comment: [11/25/2015] pt. tolerated inj. without complications...CO 4Result Comment: [11/30/2012] given w/o incident...AA 5Admin Note: FLULAVAL 6Admin Note: done @ work 7Admin Note: per pt 8Result Comment: Done at [facility] 9Result Comment: [id number] 10Result Comment: [12/16/2017] #1 11Admin Note: info [...] 1 Refills, Maintenance, 01/02/21 8:57:00 EST, Cream, [facility]/pharmacy #4162, Partial fill upon patient request if the prescription is for a schedule II opioid drug., 1 application Topically 2 times a day,... Start Date: 01/02/21 Status: Ordered CPAP Machine CPAP 12, Maintenance, 01/07/17 14:22:53 EST, Compound Start Date: 01/07/17 Status: Ordered duloxetine 60 mg oral enteric coated capsule 1 capsule, By Mouth, Daily, # 90 capsule, 1 Refills, Maintenance, 09/15/20 10:55:00 EDT, [facility]/pharmacy #0693, 171, cm, 09/12/20 9:46:00 EDT, [...] DAYS, # 15 sprays, 0 Refills, Acute, [facility] STORE 39661, 30, USE 2 SPRAYS IN EACH NOSTRIL 3 TIMES A DAY FOR 7 DAYS, 170, cm, 04/10/19 14:00:00 EST, Height, 104.5, kg, 09/15/18 9:05:00 EDT... Start Date: 05/04/19 Status: Ordered ipratropium nasal 42 mcg/inh spray 2 sprays, Nares, Both, 3 times a day, # 1 each, 0 Refills, Maintenance, 07/02/20 16:11:00 EDT, [facility]/pharmacy #0693, 2 sprays Nares, Both 3 [...] 04/14/20 15:22:00 EST, Route to Pharmacy Electronically, [facility]/pharmacy #0693, Partial fill upon patient request,... [...] mL, 0 Refills, Maintenance, 12/23/20 13:10:00 EDT, [facility]/pharmacy #0693, Partial fill upon patient request [...]
--- OUTSIDE RECORDS SUMMARY | 2023-12-17 09:36 | XMS_ITS | Continuity of Care Document ---
Author Organization [facility] Address [address] [place] [address]- Care Team Providers Care Damaged Freight Inspector Name Role Phone Keyla Mata MD Primary Care Physician [facility] Date[facility]s): 08[facility]/19 - 09/26/19 [facility] [address] [place] [address]- [facility] Attending Physician: Matthieu Kasper Admitting Physician: AdmtrMatthieu [...] Vaccine (oldterm) 13 08/02/07 Given 1Result Comment: [id number] 2Result Comment: [12/16/2017] #1 3Result Comment: [12/16/2017] [facility] [phone] 4Result Comment: [11/29/2016] [facility] 32258-757-10 5Result Comment: [11/25/2015] pt. tolerated inj. without [...] 15 sprays, 0 Refills, Acute, [facility] STORE 35462, 30, USE 2 SPRAYS IN EACH NOSTRIL [...] EDT, 03/09/19 11:36:00 EST, Tablet, [facility]/pharmacy #4471, 170, cm, 03/09/19 11:14:00 EST, [...] 5 Refills, Maintenance, 06/04/19 14:15:00 EDT, [facility]/pharmacy #4471, 170, cm, 04/10/19 14:00:00 EST, [...]
--- OUTSIDE RECORDS SUMMARY | 2023-12-17 09:36 | XMS_ITS | Continuity of Care Document ---
Author Organization [facility] Address [address] [place] [address]- Care Team Providers Care Toll Line Inspector Name Role Phone Keyla Mata MD Primary Care Physician [phone] Encounter [facility] Date(s): 04/16/21 - 05/16/21 [facility] [address] [place] [address] [place] Allergies, Adverse Reactions, Alerts Substance Reaction [...] (oldterm) 14 08/02/07 Given 1Result Comment: [12/16/2017] [facility][note 3] [id number] 2Result Comment: [11/29/2016] [facility][note 3] 26845-986-79 3Result Comment: [11/25/2015] pt. tolerated inj. without complications...CO 4Result Comment: [11/30/2012] given w/o incident...AA 5Admin Note: FLULAVAL 6Admin Note: done @ work 7Admin Note: per pt 8Result Comment: Done at [facility] 9Result Comment: [id number] 10Result Comment: [12/16/2017] #1 11Admin Note: info [...] capsule, 1 Refills, Maintenance, 02/09/21 14:43:00 EST, [facility]/pharmacy #0693, 170, cm, 01/29/21 13:01:00 EST, [...] DAYS, # 15 sprays, 0 Refills, Acute, [facility] STORE [address]20, 30, USE 2 SPRAYS IN EACH NOSTRIL 3 TIMES A DAY FOR 7 DAYS, 170, cm, 04/10/19 14:00:00 EST, Height, 104.5, kg, 09/15/18 9:05:00 EDT... Start Date: 05/04/19 Status: Ordered ipratropium nasal 42 mcg/inh spray 2 sprays, Nares, Both, 3 times a day, # 1 each, 0 Refills, Maintenance, 07/02/20 16:11:00 EDT, [facility]/pharmacy #0693, 2 sprays Nares, Both 3 [...] 04/14/20 15:22:00 EST, Route to Pharmacy Electronically, [facility]/pharmacy #0693, Partial fill upon patient request,... [...] mL, 0 Refills, Maintenance, 12/23/20 13:10:00 EDT, [facility]/pharmacy #0693, Partial fill upon patient request [...] 01/26/21 12:30:00 EST, Route to Pharmacy Electronically, [facility]/pharmacy #0693, Partial fill upon patient request [...]
--- OUTSIDE RECORDS SUMMARY | 2023-12-17 09:36 | XMS_ITS | Continuity of Care Document ---
Author Organization [facility] Address [address] [place] [address]- Care Team Providers Care Network Operations Project Manager Name Role Phone Esperanza CADET, Keyla Parks Primary Care Physician [phone] [facility] Date(s): 10/23/20 - 02/20/21 [facility] [address] [place], [place] [address] Attending Physician: Keyla Mata MD Allergies, Adverse Reactions, Alerts Substance Reaction Severity Status nortriptyline Active medtronidazole containing compounds Active Vicodin delusion rash Active clarithromycin Active vancomycin UNKNOWN Active cyclobenzaprine tongue swelling,constipation Active Augmentin diarrhea Active Darvocet A500 RASH [...] Given 1Result Comment: [12/16/2017] [facility] [phone] 2Result Comment: [11/29/2016] [facility] 64137-206-04 3Result Comment: [11/25/2015] pt. tolerated inj. without complications...CO 4Result Comment: [11/30/2012] given w/o incident...AA 5Admin Note: FLULAVAL 6Admin Note: done @ work 7Admin Note: per pt 8Result Comment: Done at [facility] 9Result Comment: [id number] 10Result Comment: [12/16/2017] #1 11Admin Note: info [...] Refills, Maintenance, 01/02/21 8:57:00 EST, Cream, [facility]/pharmacy #2605, Partial fill upon patient request if the [...] 1 Refills, Maintenance, 02/09/21 14:43:00 EST, [facility]/pharmacy #0693, 170, cm, 01/29/21 13:01:00 EST, Height, [...] # 15 sprays, 0 Refills, Acute, [facility] STORE [address]5731, 30, USE 2 SPRAYS IN EACH NOSTRIL 3 TIMES A DAY FOR 7 DAYS, 170, cm, 04/10/19 14:00:00 EST, Height, 104.5, kg, 09/15/18 9:05:00 EDT... Start Date: 05/04/19 Status: Ordered ipratropium nasal 42 mcg/inh spray 2 sprays, Nares, Both, 3 times a day, # 1 each, 0 Refills, Maintenance, 07/02/20 16:11:00 EDT, [facility]/pharmacy #0693, 2 sprays Nares, Both 3 times [...] 15:22:00 EST, Route to Pharmacy Electronically, [facility]/pharmacy #0693, Partial fill upon patient request,... Start [...] 0 Refills, Maintenance, 12/23/20 13:10:00 EDT, [facility]/pharmacy #0693, Partial fill upon patient request if the prescription is for a schedule II opioid drug., 4 liters By Mouth Once, 171, cm, 12/23/20... Start Date: 12/23/20 Status: Ordered tiZANidine 4 mg oral tablet 4 mg, 1, tablet, By Mouth, Every 8 hours, PRN, # 42 tablet, Refills 0, Tot. Refills 0, Maintenance,Spasm, 01/26/21 12:30:00 EST, Route to Pharmacy Electronically, [facility]/pharmacy #0693, Partial fill upon patient request if [...]
--- OUTSIDE RECORDS SUMMARY | 2023-12-17 09:36 | XMS_ITS | Continuity of Care Document ---
Author Organization [facility] Address [address] [place] [address]- Care Team Providers Care Battery Charger Name Role Phone Esperanza CADET, Keyla Parks Primary Care Physician [phone] [facility]counter [facility] Date(s): 02/08/21 - 03/10/21 [facility] [address] [place], [place] [address] Allergies, Adverse Reactions, Alerts Substance Reaction Severity Status cyclobenzaprine tongue swelling,constipation Active clarithromycin Active vancomycin UNKNOWN Active nortriptyline [...] (oldterm) 14 08/02/07 Given 1Result Comment: [12/16/2017] [facility] [phone] 2Result Comment: [11/29/2016] [facility] 61544-070-36 3Result Comment: [11/25/2015] pt. tolerated inj. without complications...CO 4Result Comment: [11/30/2012] given w/o incident...AA 5Admin Note: FLULAVAL 6Admin Note: done @ work 7Admin Note: per pt 8Result Comment: Done at [facility] 9Result Comment: [id number] 10Result Comment: [12/16/2017] #1 11Admin Note: info [...] 1 Refills, Maintenance, 01/02/21 8:57:00 EST, Cream, [facility]/pharmacy #9388, Partial fill upon patient request if the [...] capsule, 1 Refills, Maintenance, 02/09/21 14:43:00 EST, [facility]/pharmacy #0693, 170, cm, 01/29/21 13:01:00 EST, Height, [...] DAYS, # 15 sprays, 0 Refills, Acute, [facility] STORE 32148, 30, USE 2 SPRAYS IN EACH NOSTRIL 3 TIMES A DAY FOR 7 DAYS, 170, cm, 04/10/19 14:00:00 EST, Height, 104.5, kg, 09/15/18 9:05:00 EDT... Start Date: 05/04/19 Status: Ordered ipratropium nasal 42 mcg/inh spray 2 sprays, Nares, Both, 3 times a day, # 1 each, 0 Refills, Maintenance, 07/02/20 16:11:00 EDT, [facility]/pharmacy #0693, 2 sprays Nares, Both 3 times [...] 04/14/20 15:22:00 EST, Route to Pharmacy Electronically, [facility]/pharmacy #0693, Partial fill upon patient request,... Start [...] mL, 0 Refills, Maintenance, 12/23/20 13:10:00 EDT, [facility]/pharmacy #0693, Partial fill upon patient request if the prescription is for a schedule II opioid drug., 4 liters By Mouth Once, 171, cm, 12/23/20... Start Date: 12/23/20 Status: Ordered tiZANidine 4 mg oral tablet 4 mg, 1, tablet, By Mouth, Every 8 hours, PRN, # 42 tablet, Refills 0, Tot. Refills 0, Maintenance,Spasm, 01/26/21 12:30:00 EST, Route to Pharmacy Electronically, [facility]/pharmacy #0693, Partial fill upon patient request if [...]
--- OUTSIDE RECORDS SUMMARY | 2023-12-17 09:36 | XMS_ITS | Continuity of Care Document ---
Author Organization [facility] Address [address] [place] [address]- Care Team Providers Care Ghost Writer Name Role Phone Dany CADET, Tarsha Parks Primary Care Physician [facility] Date(s): 06/23/23 - 07/23/23 [facility] [address] [place] [address]- [place] Allergies, Adverse Reactions, Alerts Substance Reaction Severity Status clarithromycin rash Active Augmentin diarrhea Mild Active vancomycin itching UNKNOWN Mild Active nortriptyline [...] influenza virus vaccine, inactivated 4 11/25/15 Gi amrtir influenza virus vaccine, inactivated 11/26/14 Saud rded [...] given w/o incident 2Result Comment: [12/16/2017] [facility] 24786-364-12 3Result Comment: [11/29/2016] [facility] [phone] 4Result Comment: [11/25/2015] pt. tolerated inj. without complications...CO 5Result Comment: [11/30/2012] given w/o incident...AA 6Admin Note: FLULAVAL 7Admin Note: done @ work 8Admin Note: per pt 9Result Comment: Done at [facility] 10Result Comment: [id number] 11Result Comment: [12/16/2017] #1 12Admin Note: per [...] capsule, 3 Refills, Maintenance, 09/08/21 10:47:00 EDT, [facility]/pharmacy #0693, 170, cm, 09/08/21 10:10:00 EDT, Height, [...] 07/04/23 8:47:00 EDT, Route to Pharmacy Electronically, [facility] STORE 69095, 170, cm, 06/14/23 11:44:00 EDT, Height, 108.7, [...] tablet, 3 Refills, Maintenance, 05/19/23 8:02:00 EDT, [facility] STORE 48323, 170, cm, 03/29/23 10:03:00 EST, Height, 108.7, kg, 03/02/23 8:55:00 EST, Dry Weight Start Date: 05/19/23 Status: Ordered Magnesium Magnesium, By Mouth, Daily, 0 Refills, Maintenance, 03/03/23 14:48:00 EST Start Date: 03/03/23 Status: Ordered spironolactone 25 mg oral tablet 25 mg, 1, tablet, By Mouth, Daily, # 30 tablet, Refills 5, Tot. Refills 5, Maintenance, 04/25/23 10:38:00 EST, Route to Pharmacy Electronically, [facility]/pharmacy #0673, Partial fill upon patient request if the [...] Team Personnel Name: Niurka Mendosa RN Position: [facility] RN Member Role: Primary Care Nurse Name: Oswaldo Valadez RN Position: S RN Member Role: Primary Care Nurse Name: Alva Gibbons RN Position: [facility] RN Member Role: Primary Care Nurse Name: Hilary Bell RN Position: S RN Member Role: Primary Care Nurse Name: Tarsha Saenz MD Position: Reference Physician Member Role: PCP Address: Address: [address] [place] [address]- Care Team Related Persons Name: MARGARETTE LOPEZ Name: TAWNYA LOPEZ Address: home [address] [place] [address]
--- OUTSIDE RECORDS SUMMARY | 2023-12-17 09:36 | XMS_ITS | Continuity of Care Document ---
Author Organization [facility] Address [address] [place] [address]- Care Team Providers Care Road Conductor Name Role Phone Keyla Mata MD Primary Care Physician [phone] [facility] Date(s): 01/06/20 - 02/05/20 [facility] [address] [place] [address]- Allergies, Adverse Reactions, Alerts Substance Reaction Severity [...] 08/02/07 Given 1Result Comment: Done at [facility] 2Result Comment: [id number] 3Result Comment: [12/16/2017] #1 4Result Comment: [12/16/2017] [facility] [phone] 5Result Comment: [11/29/2016] [facility] [phone] 6Result Comment: [11/25/2015] pt. tolerated inj. without [...] 02/02/20 12:17:00 EST, Route to Pharmacy Electronically, [facility], Partial fill upon patient [...] 0 Refills, Maintenance, 12/31/19 10:42:00 EST, ECCapsule, [facility]/pharmacy #0693, 170, cm, 12/31/19 9:54:00 EST, Height, 106.8, kg, 08/27/19 11:58:00 EDT, Dry Weight Start Date: 12/31/19 Status: Ordered gabapentin 100 mg oral capsule 100 mg, 1, capsule, By Mouth, 3 times a day, # 42 capsule, Refills 0, Tot. Refills 0, Maintenance, 02/02/20 12:17:00 EST, Route to Pharmacy Electronically, [facility], Partial fill uponpatient request if the prescription is for a schedu... Start Date: 02/02/20 Stop Date: 02/16/20 Status: Ordered ipratropium nasal 42 mcg/inh spray See Instructions, USE 2 SPRAYS IN EACH NOSTRIL 3 TIMES A DAY FOR 7 DAYS, # 15 sprays, 0 Refills, Acute, [facility] ST[facility] 98602, 30, USE 2 SPRAYS IN EACH NOSTRIL [...] 02/11/20 8:28:00 EST, 02/04/20 8:28:00 EST, Tablet, [facility], Partial fill upon patient request if [...] 01/15/20 15:22:00 EST, Route to Pharmacy Electronically, [facility]/pharmacy #1773, Partial fill upon patient request,... Start Date: [...] 02/09/20 12:30:00 EST, 02/02/20 12:30:00 EST, Tablet, [facility], Partial fill upon patient request if the pr... Start Date: 02/02/20 Stop Date: 02/09/20 Status: Ordered pantoprazole 40 mg oral delayed [...]
--- OUTSIDE RECORDS SUMMARY | 2023-12-17 09:36 | XMS_ITS | Continuity of Care Document ---
Author Organization [facility] Address [address] [place] [address]- Care Team Providers Care Field Horticultural Specialty Grower Name Role Phone Keyla Mata MD Primary Care Physician [phone] Encounter [facility] Date(s): 11/10/20 - 11/17/20 [facility] [address] [place] [address]- Attending Physician: Shane Dumont MD Admitting Physician: Shane Dumont MD Referring Physician: Keyla Mata MD Allergies, [...] 08/02/07 Given 1Result Comment: Done at [facility] 2Result Comment: [id number] 3Result Comment: [12/16/2017] #1 4Result Comment: [12/16/2017] [facility] [phone] 5Result Comment: [11/29/2016] [facility] [phone] 6Result Comment: [11/25/2015] pt. tolerated inj. without [...] 1 Refills, Maintenance, 09/15/20 10:55:00 EDT, [facility]/pharmacy #0693, 171, cm, 09/12/20 9:46:00 EDT, [...] # 15 sprays, 0 Refills, Acute, [facility] STORE 09670, 30, USE 2 SPRAYS IN EACH NOSTRIL 3 TIMES A DAY FOR 7 DAYS, 170, cm, 04/10/19 14:00:00 EST, Height, 104.5, kg, 09/15/18 9:05:00 EDT... Start Date: 05/04/19 Status: Ordered ipratropium nasal 42 mcg/inh spray 2 sprays, Nares, Both, 3 times a day, # 1 each, 0 Refills, Maintenance, 07/02/20 16:11:00 EDT, [facility]/pharmacy #0693, 2 sprays Nares, Both 3 [...] 15:22:00 EST, Route to Pharmacy Electronically, [facility]/pharmacy #[id number], Partial fill upon patient request,... Start Date: [...] oldest [Reference Range]: 1 Height 171 cm (11/10/20 4:04 PM) Weight 105.7 kg (11/10/20 4:04 PM) Oxygen Saturation [94-100 %] 97 % (11/10/20 4:04 PM) Pulse Rate [55-90 bpm] 60 bpm (11/10/20 4:04 PM) Body Mass Index [18.5-24.99] 36.15 *>HHI* (11/10/20 4:04 PM) Blood Pressure [90-138/55-84 mm Hg] 130/ 80mm Hg (11/10/20 4:04 PM) Mode of Delivery (Oxygen) Room air (11/10/20 4:04 PM) Blood pressure sites Arm, left (11/10/20 4:04 PM) Weight Obtained Via Patient/family state d (11/10/20 4:04 PM) Social History Social History Type Response Smoking Status Never smoker; Tobacc o user in household: No entered on: 01/07/14 Sex
--- OUTSIDE RECORDS SUMMARY | 2023-12-17 09:36 | XMS_ITS | Continuity of Care Document ---
Author Organization [facility] Address [address] [place] [address]- Care Team Providers Care In Shop Service Technician Name Role Phone Keyla Mata MD Primary Care Physician Encounter [facility] Date(s): 01/30/20 - 05/22/20 [facility] [address] [address]- Attending Physician: Mariana Mora Admitting Physician: Mariana Mora Referring Physician: Keyla Mata MD Allergies, Adverse [...] 14 08/02/07 Given 1Result Comment: Done at [facility] 2Result Comment: [id number] 3Result Comment: [12/16/2017] #1 4Result Comment: [12/16/2017] [facility] [phone] 5Result Comment: [11/29/2016] [facility] [phone] 6Result Comment: [11/25/2015] pt. tolerated inj. without [...] 1 Refills, Maintenance, 03/24/20 10:21:00 EST, ECCapsule, [facility]/pharmacy #0693, 171, cm, 02/04/20 7:16:00 EST, Height, [...] DAYS, # 15 sprays, 0 Refills, Acute, [facility] STORE 67953, 30, USE 2 SPRAYS IN EACH NOSTRIL [...] 04/14/20 15:22:00 EST, Route to Pharmacy Electronically, [facility]/pharmacy #2580, Partial fill upon patient request,... Start Date: [...]
--- OUTSIDE RECORDS SUMMARY | 2023-12-17 09:36 | XMS_ITS | Continuity of Care Document ---
Author Organization [facility] Address [address] [place] [address]- Care Team Providers Care Pattern Scratcher Name Role Phone Tarsha Saenz MD Primary Care Physician [phone] [facility] Date[facility]s): 02/26/22 - 03/28/22 [facility] [address] [place] [address]- Allergies, Adverse Reactions, Alerts Substance Reaction Severity [...] given given w/o incident 2Result Comment: [12/16/2017] [facility] [phone] 3Result Comment: [11/29/2016] [facility] [phone] 4Result Comment: [11/25/2015] pt. tolerated inj. without complications...CO 5Result Comment: [11/30/2012] given w/o incident...AA 6Admin Note: FLULAVAL 7Admin Note: done @ work 8Admin Note: per pt 9Result Comment: Done at [facility] 10Result Comment: [id number] 11Result Comment: [12/16/2017] #1 12Admin Note: per [...] Gm, 0 Refills, Maintenance, 01/06/22 10:43:00 EST, [facility]/pharmacy #0693, Partial [...] Team Personnel Name: Niurka Mendosa RN Position: [facility] [...] Member Role: Lifetime Consulting Physician Address: Address: [address] [place] [address] [address] [place] [address]- Name: Tarsha Saenz MD Position: Reference Physician Member Role: PCP Address: Address: [address] [place] [address]- Care Team Related Persons Name: MARGARETTE LOPEZ Name: TAWNYA LOPEZ Address: [address] [address]
--- OUTSIDE RECORDS SUMMARY | 2023-12-17 09:36 | XMS_ITS | Continuity of Care Document ---
Author Organization [facility] Address [address] [place] [address]- Care Team Providers Care Seed Specialist Name Role Phone Keyla Mata MD Primary Care Physician [phone] [facility] Date(s): 01/24/20 - 02/23/20 [facility] [address] [place] [address]- Allergies, Adverse Reactions, Alerts Substance Reaction Severity [...] 14 08/02/07 Given 1Result Comment: Done at [facility] 2Result Comment: [id number] 3Result Comment: [12/16/2017] #1 4Result Comment: [12/16/2017] [facility] [phone] 5Result Comment: [11/29/2016] [facility] [phone] 6Result Comment: [11/25/2015] pt. tolerated inj. without [...] 02/02/20 12:17:00 EST, Route to Pharmacy Electronically, [facility], Partial fill upon patient [...] 0 Refills, Maintenance, 12/31/19 10:42:00 EST, ECCapsule, [facility]/pharmacy #0693, 170, cm, 12/31/19 9:54:00 EST, Height, 106.8, kg, 08/27/19 11:58:00 EDT, Dry Weight Start Date: 12/31/19 Status: Ordered gabapentin 100 mg oral capsule 100 mg, 1, capsule, By Mouth, 3 times a day, # 42 capsule, Refills 0, Tot. Refills 0, Maintenance, 02/02/20 12:17:00 EST, Route to Pharmacy Electronically, [facility], Partial fill uponpatient request if the prescription is for a schedu... Start Date: 02/02/20 Stop Date: 02/16/20 Status: Ordered ipratropium nasal 42 mcg/inh spray See Instructions, USE 2 SPRAYS IN EACH NOSTRIL 3 TIMES A DAY FOR 7 DAYS, # 15 sprays, 0 Refills, Acute, [facility] STORE 71187, 30, USE 2 SPRAYS IN EACH NOSTRIL [...] 01/15/20 15:22:00 EST, Route to Pharmacy Electronically, [facility]/pharmacy #[id number], Partial fill upon patient request,... Start Date: [...]
--- OUTSIDE RECORDS SUMMARY | 2023-12-17 09:36 | XMS_ITS | Continuity of Care Document ---
Author Organization [facility] Address [address] [place] [address]- Care Team Providers Care Shell Machine Operator Name Role Phone Keyla Mata MD Primary Care Physician [phone] [facility] Date[facility]s): 09/22/20 - 10/22/20 [facility] [address] [place] [address]- Allergies, Adverse Reactions, Alerts Substance Reaction Severity [...] influenza virus vaccine, inactivated 9 11/03/10 Gi mratir influenza virus vaccine, inactivated 10/31/09 Give n influenza virus vaccine, inactivated 10 12/22/08 G iven pneumococcal 23-valent vaccine 11 09/01/10 Given influ virus vac, H1N1, inactive(oldterm) 12 12/22/08 Given Hepatitis A Vaccine (oldterm) 13 02/06/08 Given Hepatitis A Vaccine (oldterm) 14 08/02/07 Given 1Result Comment: Done at [facility] 2Result Comment: [id number] 3Result Comment: [12/16/2017] #1 4Result Comment: [12/16/2017] [facility] [place] [id number] 5Result Comment: [11/29/2016] [facility] [place] 16816-344-25 6Result Comment: [11/25/2015] pt. tolerated inj. without [...] capsule, 1 Refills, Maintenance, 09/15/20 10:55:00 EDT, [facility]/pharmacy #[id number], 171, cm, 09/12/20 9:46:00 EDT, [...] # 15 sprays, 0 Refills, Acute, [facility] STORE 49684, 30, USE 2 SPRAYS IN EACH NOSTRIL 3 TIMES A DAY FOR 7 DAYS, 170, cm, 04/10/19 14:00:00 EST, Height, 104.5, kg, 09/15/18 9:05:00 EDT... Start Date: 05/04/19 Status: Ordered ipratropium nasal 42 mcg/inh spray 2 sprays, Nares, Both, 3 times a day, # 1 each, 0 Refills, Maintenance, 07/02/20 16:11:00 EDT, [facility]/pharmacy #[id number], 2 sprays Nares, Both 3 [...] 15:22:00 EST, Route to Pharmacy Electronically, [facility]/pharmacy #[id number], Partial fill upon patient request,... Start Date: [...]
--- OUTSIDE RECORDS SUMMARY | 2023-12-17 09:36 | XMS_ITS | Continuity of Care Document ---
Author Organization [facility] Address [address] [place] [address]- Care Team Providers Care Front End Software Developer Name Role Phone Dany CADET, Tarsha Parks Primary Care Physician [facility] Date(s): 09/27/22 - 10/27/22 [facility] [address] [place] [address]- Allergies, Adverse Reactions, Alerts Substance Reaction Severity Status clarithromycin rash Active vancomycin itching UNKNOWN Mild Active nortriptyline rash Mild Active cyclobenzaprine tongue swelling,constipation Severe Active medtronidazole containing compounds rash Mild Active NSAIDs C/O: itching Rash [...] 2Result Comment: [12/16/2017] [facility] [id number] 3Result Comment: [11/29/2016] [facility] [id number] 4Result Comment: [11/25/2015] pt. tolerated inj. without complications...CO 5Result Comment: [11/30/2012] given w/o incident...AA 6Admin Note: FLULAVAL 7Admin Note: done @ work 8Admin Note: per pt 9Result Comment: [facility] 10Result Comment: [id number] 11Result Comment: [12/16/2017] #1 12Admin Note: per [...] capsule, 3 Refills, Maintenance, 09/08/21 10:47:00 EDT, [facility]/pharmacy #[id number], 170, cm, 09/08/21 10:10:00 EDT, [...] 03/30/22 13:32:00 EST, Route to Pharmacy Electronically, [facility]/pharmacy #[id number], Partial fill upon patient request [...] 0 Refills, Maintenance, 08/25/22 9:48:00 EDT, Film, [facility]/pharmacy #0693, Partial fi... Start Date: 08/25/22 Status: Ordered losartan 100 mg oral tablet 1 tablet = 100 mg, By Mouth, Daily, # 90 tablet, 3 Refills, Maintenance, 06/01/22 11:02:00 EDT, Tablet, [facility]/pharmacy #[id number], Partial fill upon patient request if the prescription is for a schedule II opioid drug., 170, cm, 05/14/22 9:21:00 EDT, Height,... Start Date: 06/01/22 Stop Date: 05/27/23 Status: Ordered metoprolol 100 mg oral tablet, extended release 100 mg, 1, tablet, By Mouth, Daily, # 90 tablet, Refills 3, Tot. Refills 3, Maintenance, 05/18/22 12:35:00 EDT, Route to Pharmacy Electronically, [facility]/pharmacy #[id number], Partial fill upon patient requestif the [...] Member Role: Lifetime Consulting Physician Address: Address: [address] [place] [address]- [place] Name: Tarsha Saenz MD Position: Reference Physician Member Role: PCP Address: Address: [address] [place] [address]- Care Team Related Persons Name: MARGARETTE LOPEZ Name: TAWNYA LOPEZ Address: [address] [address]
--- OUTSIDE RECORDS SUMMARY | 2023-12-17 09:36 | XMS_ITS | Continuity of Care Document ---
Author Organization [facility] Address [address] [place] [address]- Care Team Providers Care Master Esthetician Name Role Phone Esperanza CADET, Keyla Parks Primary Care Physician Encounter [facility] Date(s): 04/10/19 - 04/17/19 [facility] [address] [place] [address] Encounter Diagnosis Headache(Discharge Diagnosis) - 04/10/19 Cervicalgia(Discharge Diagnosis) - 04/10/19 Allergic rhinitis(Discharge Diagnosis) - 04/10/19 Obstructive sleep apnea(Discharge Diagnosis) - 04/10/19 Attending Physician: Keyla Mata MD Allergies, Adverse [...] Vaccine (oldterm) 13 08/02/07 Given 1Result Comment: [id number] 2Result Comment: [12/16/2017] #1 3Result Comment: [12/16/2017] [facility] [id number] 4Result Comment: [11/29/2016] [facility] [phone] 5Result Comment: [11/25/2015] pt. tolerated inj. without [...] 11:36:00 EDT, 03/09/19 11:36:00 EST, Tablet, [facility]/pharmacy #[id number], 170, cm, 03/09/19 11:14:00 EST, Height, 104.5,kg, 09/15/18 9:05:00 EDT, Dry Weight Start Date: 03/09/19 Stop Date: 12/04/19 Status: Ordered Medrol Dosepak 4 mg oral tablet 1 pack/packet, By Mouth, Once, as directed on package labeling, # 21 tablet, 0 Refills, Soft Stop, 04/16/19 12:55:00 EST, Tablet, [facility]/pharmacy #[id number], 170, cm, 04/10/19 14:00:00 EST, Height, [...] 04/10/19 15:00:00 EST, Route to Pharmacy Electronically, [facility]/pharmacy #[id number], 170, cm, 04/10/19 14:00:00 EST, Height, [...] Effective Dates Health Status Clinical Service Informant Headache Discharge Diagnosis 04/10/19 Cervicalgia Discharge Diagnosis 04/10/19 Allergic rhinitis Discharge Diagnosis 04/10/19 Obstructive sleep apnea Discharge Diagnosis 04/10/19 Vital Signs Most recent to oldest [Reference Range]: 1 Height 170 cm (04/10/19 2:00 PM) Weight 108 kg (04/10/19 2:00 PM) Oxygen Saturation [94-100 %] 96 % (04/10/19 2:00 PM) Pulse Rate [55-90 bpm] 73 bpm (04/10/19 2:00 PM) Body Mass Index [18.5-24.99] 37.37 *>HHI* (04/10/19 2:00 PM) Blood Pressure [90-138/55-84 mm Hg] 132/ 80mm Hg (04/10/19 2:00 PM) Blood pressure sites Arm, left (04/10/19 2:00 PM) Social History Social History Type Response Smoking Status Never smoker; Tobacc o user in household: No entered on: 01/07/14 Sex
--- OUTSIDE RECORDS SUMMARY | 2023-12-17 09:36 | XMS_ITS | Continuity of Care Document ---
Author Organization [facility] Address [address] [place] [address]- Care Team Providers Care Cupola Charger Insulation Name Role Phone Keyla Mata MD Primary Care Physician [phone] [place] [facility] Date(s): 04/03/20 - 04/10/20 [facility] [address] [place], [place] [address] Attending Physician: Keyla Mata MD Referring Physician: Mario Dill MD Allergies, Adverse Reactions, Alerts Substance Reaction [...] 14 08/02/07 Given 1Result Comment: Done at [facility] 2Result Comment: [id number] 3Result Comment: [12/16/2017] #1 4Result Comment: [12/16/2017] [facility] [phone] 5Result Comment: [11/29/2016] [facility] 12475-728-46 6Result Comment: [11/25/2015] pt. tolerated inj. without [...] 1 Refills, Maintenance, 03/24/20 10:21:00 EST, ECCapsule, [facility]/pharmacy #[id number], 171, cm, 02/04/20 7:16:00 [...] DAYS, # 15 sprays, 0 Refills, Acute, [facility] STORE 32923, 30, USE 2 SPRAYS IN EACH NOSTRIL [...] 04/14/20 15:22:00 EST, Route to Pharmacy Electronically, [facility]/pharmacy #[id number], Partial fill upon patient request,... Start Date: [...] to oldest [Reference Range]: 1 2 Height 171 cm (04/03/20 1:54 PM) 171 cm (04/03/20 1:49 PM) Weight 101.6 kg (04/03/20 1:49 PM) Oxygen Saturation [94-100 %] 96 % (04/03/20 1:49 PM) Pulse Rate [55-90 bpm] 72 bpm (04/03/20 1:49 PM) Body Mass Index [18.5-24.99] 34.75 *>HHI* (04/03/20 1:49 PM) Blood Pressure [90-138/55-84 mm Hg] 137/ 71mm Hg (04/03/20 1:54 PM) 150/70mm Hg *H* (04/03/20 1:49 PM) Temperature [96.8-100.4 DegF] 98.6 DegF (04/03/20 1:49 PM) Mode of Delivery (Oxygen) Room air (04/03/20 1:49 PM) Blood pressure sites Leg, right (04/03/20 1:54 PM) Arm, left (04/03/20 1:49 PM) Temperature Route Temporal (04/03/20 1:49 PM) Weight Obtained Via Standing scale (04/03/20 1:49 PM) Social History Social History Type Response Smoking Status Never smoker; Tobacc o user in household: No entered on: 01/07/14 Sex
--- OUTSIDE RECORDS SUMMARY | 2023-12-17 09:36 | XMS_ITS | Continuity of Care Document ---
Author Organization [facility] Address [address] [place] [address]- Care Team Providers Care Rn Neurology Name Role Phone Keyla Mata MD Primary Care Physician [place] [facility] [place] 04/13/21 - 05/13/21 [facility] [address] [place], [place] [address] Attending Physician: Matthieu Kasper Admitting Physician: [...] (oldterm) 14 08/02/07 Given 1Result Comment: [12/16/2017] [facility] [phone] 2Result Comment: [11/29/2016] [facility] 67877-830-84 3Result Comment: [11/25/2015] pt. tolerated inj. without complications...CO 4Result Comment: [11/30/2012] given w/o incident...AA 5Admin Note: FLULAVAL 6Admin Note: done @ work 7Admin Note: per pt 8Result Comment: Done at [facility] 9Result Comment: [id number] 10Result Comment: [12/16/2017] #1 11Admin Note: info [...] 1 Refills, Maintenance, 01/02/21 8:57:00 EST, Cream, [facility]/pharmacy #[id number], Partial fill upon patient request [...] capsule, 1 Refills, Maintenance, 02/09/21 14:43:00 EST, [facility]/pharmacy #0693, 170, cm, 01/29/21 13:01:00 EST, [...] DAYS, # 15 sprays, 0 Refills, Acute, [facility] STORE 15310, 30, USE 2 SPRAYS IN EACH NOSTRIL 3 TIMES A DAY FOR 7 DAYS, 170, cm, 04/10/19 14:00:00 EST, Height, 104.5, kg, 09/15/18 9:05:00 EDT... Start Date: 05/04/19 Status: Ordered ipratropium nasal 42 mcg/inh spray 2 sprays, Nares, Both, 3 times a day, # 1 each, 0 Refills, Maintenance, 07/02/20 16:11:00 EDT, [facility]/pharmacy #0693, 2 sprays Nares, Both 3 [...] 04/14/20 15:22:00 EST, Route to Pharmacy Electronically, [facility]/pharmacy #[id number], Partial fill upon patient request,... [...] mL, 0 Refills, Maintenance, 12/23/20 13:10:00 EDT, [facility]/pharmacy #0693, Partial fill upon patient request [...] 01/26/21 12:30:00 EST, Route to Pharmacy Electronically, [facility]/pharmacy #[id number], Partial fill upon patient request if the [...]
--- OUTSIDE RECORDS SUMMARY | 2023-12-17 09:37 | XMS_ITS | Continuity of Care Document ---
Author Organization [facility] Address [address] [place] [address]- Care Team Providers Care Software Database Architect Name Role Phone Keyla Mata MD Primary Care Physician Encounter [facility] Date(s): 12/23/20 - 01/22/21 [facility] [address] [place] [address]- Attending Physician: Admtr, Ar8 Allergies, Adverse Reactions, Alerts [...] 11/23/19 Recor ded Influenza Virus Vaccine (oldterm) 9/24/19 Recorde d tetanus/diphtheria/pertussis, acel(Tdap) 9 12/15/18 Given tetanus/diphtheria/pertussis, acel(Tdap) 06/24/09 Given zoster vaccine, inactivated 02/01/18 Recorded zoster vaccine, inactivated 11/25/17 Recorded zoster vaccine, inactivated 10 11/25/17 Recorded pneumococcal 23-valent vaccine 11 09/01/10 Given influ virus vac, H1N1, inactive(oldterm) 12 12/22/08 Given Hepatitis A Vaccine (oldterm) 13 02/06/08 Given Hepatitis A Vaccine (oldterm) 14 08/02/07 Given 1Result Comment: [12/16/2017] [facility] 85646-293-73 2Result Comment: [11/29/2016] [facility] 43053-894-34 3Result Comment: [11/25/2015] pt. tolerated inj. without complications...CO 4Result Comment: [11/30/2012] given w/o incident...AA 5Admin Note: FLULAVAL 6Admin Note: done @ work 7Admin Note: per pt 8Result Comment: Done at [facility] 9Result Comment: [id number] 10Result Comment: [12/16/2017] #1 11Admin Note: info [...] 1 Refills, Maintenance, 01/02/21 8:57:00 EST, Cream, [facility]/pharmacy #[id number], Partial fill upon patient request if the [...] Refills, Acute, [facility] STORE 78017, 30, USE 2 SPRAYS IN EACH NOSTRIL [...] [facility], Partial fill upon patient request,... [...] mL, 0 Refills, Maintenance, 12/23/20 13:10:00 EDT, [facility]/pharmacy #0693, Partial fill [...]
--- OUTSIDE RECORDS SUMMARY | 2023-12-17 09:37 | XMS_ITS | Continuity of Care Document ---
Author Organization [facility] ter Address [address] [place] [address]- Care Team Providers Care Emergency Department Director Name Role Phone Keyla Mata MD Primary Care Physician [facility]counter [facility] Date(s): 01/15/20 - 02/14/[address] [address] Attending Physician: Matthieu Kasper Admitting Physician: AdmtrMatthieu Referring Physician: Admtr, Ar8 Allergies, Adverse Reactions, Alerts Substance Reaction Severity Status vancomycin UNKNOWN Active cyclobenzaprine tongue swelling,constipation Active clarithromycin Active nortriptyline Active medtronidazole containing compounds Active [...] 08/02/07 Given 1Result Comment: Done at [facility] 2Result Comment: [id number] 3Result Comment: [12/16/2017] #1 4Result Comment: [12/16/2017] [facility] [place] [id number] 5Result Comment: [11/29/2016] [facility] [place] 54602-095-17 6Result Comment: [11/25/2015] pt. tolerated inj. without [...] 02/02/20 12:17:00 EST, Route to Pharmacy Electronically, [facility], Partial fill upon patient [...] 0 Refills, Maintenance, 12/31/19 10:42:00 EST, ECCapsule, [facility]/pharmacy #0693, 170, cm, 12/31/19 9:54:00 EST, Height, 106.8, kg, 08/27/19 11:58:00 EDT, Dry Weight Start Date: 12/31/19 Status: Ordered gabapentin 100 mg oral capsule 100 mg, 1, capsule, By Mouth, 3 times a day, # 42 capsule, Refills 0, Tot. Refills 0, Maintenance, 02/02/20 12:17:00 EST, Route to Pharmacy Electronically, [facility], Partial fill uponpatient request if the prescription is for a schedu... Start Date: 02/02/20 Stop Date: 02/16/20 Status: Ordered ipratropium nasal 42 mcg/inh spray See Instructions, USE 2 SPRAYS IN EACH NOSTRIL 3 TIMES A DAY FOR 7 DAYS, # 15 sprays, 0 Refills, Acute, [facility] STORE 50701, 30, USE 2 SPRAYS IN EACH NOSTRIL [...] 01/15/20 15:22:00 EST, Route to Pharmacy Electronically, [facility]/pharmacy #[id number], Partial fill upon patient request,... Start Date: [...]
--- OUTSIDE RECORDS SUMMARY | 2023-12-17 09:37 | XMS_ITS | Continuity of Care Document ---
Author Organization [facility] Address [address] [place] [address]- Care Team Providers Care Smoking Pipes Cleaner Name Role Phone Keyla Mata MD Primary Care Physician [phone] Encounter [facility] Date(s): 12/03/20 - 12/10/20 [facility] [address] [place], [place] [address] Attending Physician: Keyla Mata MD [...] (oldterm) 14 08/02/07 Given 1Result Comment: [12/16/2017] [facility] 78018-735-79 2Result Comment: [11/29/2016] [facility] 90521-028-21 3Result Comment: [11/25/2015] pt. tolerated inj. without complications...CO 4Result Comment: [11/30/2012] given w/o incident...AA 5Admin Note: FLULAVAL 6Admin Note: done @ work 7Admin Note: per pt 8Result Comment: Done at [facility] 9Result Comment: [id number] 10Result Comment: [12/16/2017] #1 11Admin Note: info [...] capsule, 1 Refills, Maintenance, 09/15/20 10:55:00 EDT, [facility]/pharmacy #0693, 171, cm, 09/12/20 9:46:00 [...] DAYS, # 15 sprays, 0 Refills, Acute, [facility] STORE 99394, 30, USE 2 SPRAYS IN EACH NOSTRIL 3 TIMES A DAY FOR 7 DAYS, 170, cm, 04/10/19 14:00:00 EST, Height, 104.5, kg, 09/15/18 9:05:00 EDT... Start Date: 05/04/19 Status: Ordered ipratropium nasal 42 mcg/inh spray 2 sprays, Nares, Both, 3 times a day, # 1 each, 0 Refills, Maintenance, 07/02/20 16:11:00 EDT, [facility]/pharmacy #0693, 2 sprays Nares, Both [...] application, # 30 Gm, 0 Refills, Acute 12/24/20 10:57:00 EDT, 12/10/20 10:57:00 EDT, Cream, [facility]/pharmacy #0629, Partial fill upon patient request if the prescription is f... Start Date: 12/10/20 Stop Date: 12/24/20 Status: Ordered losartan 100 mg oral tablet [...] 04/14/20 15:22:00 EST, Route to Pharmacy Electronically, [facility]/pharmacy #[id number], Partial fill upon patient [...] [Reference Range]: 1 2 Height 171 cm (12/03/20 11:57 AM) 171 cm (12/03/20 11:54 AM) Weight 104.7 kg (12/03/20 11:54 AM) Oxygen Saturation [94-100 %] 99 % (12/03/20 11:54 AM) Pulse Rate [55-90 bpm] 56 bpm (12/03/20 11:54 AM) Body Mass Index [18.5-24.99] 35.81 *>HHI* (12/03/20 11:54 AM) Blood Pressure [90-138/55-84 mm Hg] 140/ 72mm Hg *H* (12/03/20 11:57 AM) 140/80mm Hg *H* (12/03/20 11:54 AM) Temperature [96.8-100.4 DegF] 97.9 DegF (12/03/20 11:54 AM) Mode of Delivery (Oxygen) Room air (12/03/20 11:54 AM) Blood pressure sites Arm, left (12/03/20 11:57 AM) Arm, left (12/03/20 11:54 AM) Temperature Route Temporal (12/03/20 11:54 AM) Weight Obtained Via Standing scale (12/03/20 11:54 AM) Social History Social History Type Response Smoking Status Never smoker; Tobacc o user in household: No entered on: 01/07/14 Sex
--- OUTSIDE RECORDS SUMMARY | 2023-12-17 09:37 | XMS_ITS | Continuity of Care Document ---
Author Organization [facility] Address [address] [place] [address]- Care Team Providers Care Retail Stocker Name Role Phone Dany CADET, Tarsha Parks Primary Care Physician [facility] Date(s): 09/02/22 - 10/02/22 [facility] [address] [place], [place] [address] Attending Physician: Matthieu Kasper Admitting Physician: AdmMatthieu bailey Referring Physician: Admtr, Ar8 Allergies, Adverse Reactions, Alerts Substance Reaction Severity Status vancomycin itching UNKNOWN Mild Active nortriptyline rash Mild Active cyclobenzaprine tongue swelling,constipation Severe Active medtronidazole containing compounds rash Mild Active Augmentin diarrhea Mild Active Vicodin delusion rash Mild Active NSAIDs C/O: itching Rash Persistent Moderate Active clarithromycin rash Active Darvocet A500 RASH Mild Active Immunizations [...] incident 2Result Comment: [12/16/2017] [facility] [id number] 3Result Comment: [11/29/2016] [facility] [id number] 4Result Comment: [11/25/2015] pt. tolerated inj. without complications...CO 5Result Comment: [11/30/2012] given w/o incident...AA 6Admin Note: FLULAVAL 7Admin Note: done @ work 8Admin Note: per pt 9Result Comment: [facility] at [facility] 10Result Comment: [id number] 11Result Comment: [12/16/2017] #1 12Admin Note: per [...] capsule, 3 Refills, Maintenance, 09/08/21 10:47:00 EDT, [facility]/pharmacy #0693, 170, cm, 09/08/21 10:10:00 [...] 03/30/22 13:32:00 EST, Route to Pharmacy Electronically, [facility]/pharmacy #0693, Partial fill upon patient [...] 3 Refills, Maintenance, 06/01/22 11:02:00 EDT, Tablet, [facility]/pharmacy #0693, Partial fill upon patient request if the prescription is for a schedule II opioid drug., 170, cm, 05/14/22 9:21:00 EDT, Height,... Start Date: 06/01/22 Stop Date: 05/27/23 Status: Ordered metoprolol 100 mg oral tablet, extended release 100 mg, 1, tablet, By Mouth, Daily, # 90 tablet, Refills 3, Tot. Refills 3, Maintenance, 05/18/22 12:35:00 EDT, Route to Pharmacy Electronically, [facility]/pharmacy #0693, Partial fill upon patient [...] Team Personnel Name: Niurka Mendosa RN Position: [facility] RN Member Role: Primary Care Nurse Name: Oswaldo Valadez RN Position: [facility] RN Member Role: Primary Care Nurse Name: Alva Gibbons RN Position: [facility] RN Member Role: Primary Care Nurse Name: Milka Mendosa RN Position: [facility] RN Member Role: Primary Care Nurse Name: Jl Ruiz MD Position: [facility] Physician (General Medicine) Member Role: Lifetime Consulting Physician Address: Address: [address] [place] [address] [address] [place] [address]- Name: Tarsha Saenz MD Position: Reference Physician Member Role: PCP Address: Address: [address] [place] [address]- Care Team Related Persons Name: MARGARETTE LOPEZ Name: TAWNYA LOPEZ Address: [address] [place] [address]
--- OUTSIDE RECORDS SUMMARY | 2023-12-17 09:37 | XMS_ITS | Continuity of Care Document ---
Author Organization [facility] Address [address] [place] [address]- Care Team Providers Care Professional Golf Tournament Player Name Role Phone Keyla Mata MD Primary Care Physician [phone] [facility]counter [facility] Date(s): 11/26/20 - 12/26/20 [facility] [address] [place], [place] [address] Allergies, Adverse Reactions, Alerts Substance Reaction Severity [...] (oldterm) 14 08/02/07 Given 1Result Comment: [12/16/2017] [facility] [id number] 2Result Comment: [11/29/2016] [facility] [phone] 3Result Comment: [11/25/2015] pt. tolerated inj. without complications...CO 4Result Comment: [11/30/2012] given w/o incident...AA 5Admin Note: FLULAVAL 6Admin Note: done @ work 7Admin Note: per pt 8Result Comment: Done at [facility] 9Result Comment: [id number] 10Result Comment: [12/16/2017] #1 11Admin Note: info [...] capsule, 1 Refills, Maintenance, 09/15/20 10:55:00 EDT, [facility]/pharmacy #1719, 171, cm, 09/12/20 9:46:00 EDT, Height, 106, [...] DAYS, # 15 sprays, 0 Refills, Acute, [facility] STORE 62773, 30, USE 2 SPRAYS IN EACH NOSTRIL 3 TIMES A DAY FOR 7 DAYS, 170, cm, 04/10/19 14:00:00 EST, Height, 104.5, kg, 09/15/18 9:05:00 EDT... Start Date: 05/04/19 Status: Ordered ipratropium nasal 42 mcg/inh spray 2 sprays, Nares, Both, 3 times a day, # 1 each, 0 Refills, Maintenance, 07/02/20 16:11:00 EDT, [facility]/pharmacy #0693, 2 sprays Nares, Both 3 [...] 04/14/20 15:22:00 EST, Route to Pharmacy Electronically, [facility]/pharmacy #0693, Partial fill upon patient request,... [...] mL, 0 Refills, Maintenance, 12/23/20 13:10:00 EDT, [facility]/pharmacy #0693, Partial fill upon patient request [...]
--- OUTSIDE RECORDS SUMMARY | 2023-12-17 09:37 | XMS_ITS | Continuity of Care Document ---
Author Organization [facility] Address [address] [place] [address]- Care Team Providers Care Green Ware Caster Name Role Phone Dany CADET, Tarsha Parks Primary Care Physician [id number] Date(s): 06/07/23 - 10/05/23 [facility] [address] [place] [address]- Attending Physician: Cora Clifford MD Admitting Physician: Cora Clifford MD Referring Physician: Tarsha Saenz MD Allergies, Adverse [...] given given w/o incident 2Result Comment: [12/16/2017] [facility] [id number] 3Result Comment: [11/29/2016] [facility] [id number] 4Result Comment: [11/25/2015] pt. tolerated inj. without complications...CO 5Result Comment: [11/30/2012] given w/o incident...AA 6Admin Note: FLULAVAL 7Admin Note: done @ work 8Admin Note: per pt [facility]Result Comment[facility] 10Result Comment: [id number] 11Result Comment: [12/16/2017] #1 12Admin Note: per [...] capsule, 3 Refills, Maintenance, 09/08/21 10:47:00 EDT, [facility]/pharmacy #[id number], 170, cm, 09/08/21 10:10:00 EDT, Height, 101.5, kg, 06/11/21 12:07:00 EDT, Dry Weight Start Date: 09/08/21 Status: Ordered furosemide 40 mg oral tablet 1, tablet, By Mouth, Daily, # 90 tablet, Refills 0, Maintenance, 09/19/23 7:40:00 EDT, [id number], 170, cm, 08/29/23 9:28:00 EDT, Height, 112.3, [...] Refills, Maintenance, 05/19/23 8:02:00 EDT, [id number], 170, cm, 03/29/23 10:03:00 EST, Height, 108.7, [...] 04/25/23 10:38:00 EST, Route to Pharmacy Electronically, [facility]/pharmacy #[id number], Partial fill upon [...] MRI Safety Implantable Status Assigning Authority Unknown [id number] Unknown Unknown 05/10/25 Unknown Unknown Active Unknown Procedure Provider Procedure Date Device Type Site Fusion Tarsometatarsal Dora Garcia MD 08/24/23 Unkn own Foot Right Device Identifier Serial Number Lot or Batch Number Manufacturing Date Expiration Date Distinct Identification Code MRI Safety Implantable Status Assigning Authority Unknown [id number] Unknown Unknown 12/02/24 Unknown Unknown Active Unknown Patient Care team information Care Team Personnel Name: Niurka Mendosa RN Position: [facility] RN Member Role: Primary Care Nurse Name: Oswaldo Valadez RN Position: [facility] RN Member Role: Primary Care Nurse Name: Yoselyn Peters RN Position: [facility] RN Member Role: Primary Care Nurse Name: Alva Gibbons RN Position: [facility] RN Member Role: Primary Care Nurse Name: Hilary Bell RN Position: [facility] RN Member Role: Primary Care Nurse Name: Katie Govea RN Position: [facility] RN Member Role: Primary Care Nurse Name: Tarsha Saenz MD Position: Reference Physician Member Role: PCP Address: Address: [address] [place] [address]- Care Team Related Persons Name: MARGARETTE LOPEZ Name: TAWNYA LOPEZ Address: home [address] [place] [address]
--- OUTSIDE RECORDS SUMMARY | 2023-12-17 09:37 | XMS_ITS | Continuity of Care Document ---
Author Organization [facility] Address [address] [place] [address]- Care Team Providers Care Putty Remover Name Role Phone Keyla Mata MD Primary Care Physician Encounter [facility] Date(s): 10/13/20 - 11/12/20 [facility] [address] [place] [address]- Attending Physician: Matthieu Kasper Admitting Physician: Matthieu Kasper Referring Physician: AdmtrMatthieu Allergies, Adverse Reactions, Alerts Substance Reaction Severity Status Vicodin delusion rash Active NSAIDs C/O: itching Rash Persistent Moderate Active clarithromycin Active vancomycin UNKNOWN Active nortriptyline [...] [facility] 2Result Comment: [id number] 3Result Comment: [12/16/2017] #1 4Result Comment: [12/16/2017] [facility] [id number] 5Result Comment: [11/29/2016] [facility] [phone] 6Result Comment: [11/25/2015] pt. tolerated inj. without [...] Acute, [id number], 30, USE 2 SPRAYS IN EACH NOSTRIL [...] Pharmacy Electronically, [facility]/pharmacy #[id number], Partial fill upon patient request,... Start Date: [...]
--- OUTSIDE RECORDS SUMMARY | 2023-12-17 09:37 | XMS_ITS | Continuity of Care Document ---
Author Organization [facility] Address [address] [place] [address]- Care Team Providers Care Senior Windows Systems Administrator Name Role Phone Tarsha Saenz MD Primary Care Physician [phone] Encounter [facility] Date(s): 12/15/22 - 01/14/23 [facility] [address] [place] [address]- [place] Allergies, Adverse Reactions, Alerts Substance Reaction [...] given w/o incident 2Result Comment: [12/16/2017] [facility] [id number] 3Result Comment: [11/29/2016] [facility] [phone] 4Result Comment: [11/25/2015] pt. tolerated inj. without complications...CO 5Result Comment: [11/30/2012] given w/o incident...AA 6Admin Note: FLULAVAL 7Admin Note: done @ work 8Admin Note: per pt 9Result Comment[facility] 10Result Comment: [id number] 11Result Comment: [12/16/2017] #1 12Admin Note: per [...] capsule, 3 Refills, Maintenance, 09/08/21 10:47:00 EDT, [facility]/pharmacy #[id number], 170, cm, 09/08/21 10:10:00 EDT, [...] 03/30/22 13:32:00 EST, Route to Pharmacy Electronically, [facility]/pharmacy #[id number], Partial fill upon patient request [...] 12/27/22 12:00:00 EST, Route to Pharmacy Electronically, [facility]/pharmacy #[id number], Partial fill upon patient request ifthe prescription is for a schedule II opioid drug.,... Start Date: 12/27/22 Stop Date: 12/22/23 Status: Ordered spironolactone 25 mg oral tablet 25 mg, 1, tablet, By Mouth, Daily, # 30 tablet, Refills 5, Tot. Refills 5, Maintenance, 11/15/22 11:40:00 EDT, Route to Pharmacy Electronically, [facility]/pharmacy #[id number], Partial fill upon patient request if the [...] Team Personnel Name: Niurka Mendosa RN Position: [facility] RN Member Role: Primary Care Nurse Name: Oswaldo Valadez RN Position: [facility] RN Member Role: Primary Care Nurse Name: Alva Gibbons RN Position: [facility] RN Member Role: Primary Care Nurse Name: Milka Mendosa RN Position: [facility] RN Member Role: Primary Care Nurse Name: Hilary Bell RN Position: [facility] RN Member Role: Primary Care Nurse Name: Jl Ruiz MD Position: [facility] Physician (General Medicine) Member Role: Lifetime Consulting Physician Address: Address: [address] [place] [address] [address] [place] [address]- Name: Saskia Houser RN Position: [facility] RN Member Role: Primary Care Nurse Name: Tarsha Saenz MD Position: Reference Physician Member Role: PCP Address: Address: [address] [place] [address]- Care Team Related Persons Name: LOPEZMARGARETTE TYSON Name: TAWNYA LOPEZ Address: [address] [address]
--- OUTSIDE RECORDS SUMMARY | 2023-12-17 09:37 | XMS_ITS | Continuity of Care Document ---
Author Organization [facility] Address [address] [place] [address]- Care Team Providers Care Station Detective Name Role Phone Dany CADET, Tarsha Parks Primary Care Physician [place] [facility] [place]): 04/14/23 - 05/14/23 [facility] [address] [place] [address]- [place] Allergies, Adverse Reactions, Alerts Substance Reaction [...] given given w/o incident 2Result Comment: [12/16/2017] [facility] [id number] 3Result Comment: [11/29/2016] [facility] [phone] 4Result Comment: [11/25/2015] pt. tolerated inj. without complications...CO 5Result Comment: [11/30/2012] given w/o incident...AA 6Admin Note: FLULAVAL 7Admin Note: done @ work 8Admin Note: per pt 9[facility] 10Result Comment: [id number] 11Result Comment: [12/16/2017] #1 12Admin Note: per [...] 3 Refills, Maintenance, 09/08/21 10:47:00 EDT, [facility]/pharmacy #[id number], 170, cm, 09/08/21 10:10:00 EDT, [...] 13:32:00 EST, Route to Pharmacy Electronically, [facility]/pharmacy #[id number], Partial fill upon patient request [...] 12:00:00 EST, Route to Pharmacy Electronically, [facility]/pharmacy #[id number], Partial fill upon patient request ifthe prescription is for a schedule II opioid drug.,... Start Date: 12/27/22 Stop Date: 12/22/23 Status: Ordered NuLYTELY Lemon Qu[place] oral powder for reconstitution See Instructions, use for colonoscopy prep per instructions, # 4,000 mL, 0 Refills, Maintenance, 03/18/23 14:26:00 EST, REC Powder, [id number], Partial fill upon patient request if the prescription is for a schedule II opioid drug., 170, cm, 0... Start Date: 03/18/23 Status: Ordered spironolactone 25 mg oral tablet 25 mg, 1, tablet, By Mouth, Daily, # 30 tablet, Refills 5, Tot. Refills 5, Maintenance, 04/25/23 10:38:00 EST, Route to Pharmacy Electronically, [facility]/pharmacy #[id number], Partial fill upon patient request [...] 28.5, min SpO2 75%, possible hypoventilation) Confirmed 7/31/13 Active OA (osteoarthritis) of knee Confirmed Active Positive PPD Confirmed Active RA - Rheumatoid arthritis Confirmed Active Severe obesity (BMI 35.0-39.9) with comorbidity Confirmed Active Comorbid sleep-related hypoventilation Confirmed Active Social History Social History Type Response Smoking Status Never smoker; Tobacc o user in household: No entered on: 01/07/14 Sex Patient Care team information Care Team Personnel Name: Niurka Mendosa RN Position: [facility] RN Member Role: Primary Care Nurse Name: Oswaldo Valadez RN Position: [facility] RN Member Role: Primary Care Nurse Name: Alva Gibbons RN Position: [facility] RN Member Role: Primary Care Nurse Name: Hilary Bell RN Position: [facility] RN Member Role: Primary Care Nurse Name: Tarsha Saenz MD Position: Reference Physician Member Role: PCP Address: Address: [address] [place] [address]- Care Team Related Persons Name: MARGARETTE LOPEZ Name: TAWNYA LOPEZ Address: [address] [address]
--- OUTSIDE RECORDS SUMMARY | 2023-12-17 09:37 | XMS_ITS | Continuity of Care Document ---
Author Organization [facility] Address [address] [place] [address]- Care Team Providers Care Sales Lead Generator Name Role Phone Tarsha Saenz MD Primary Care Physician [place] [facility] Date(s): 10/13/21 - 02/10/22 [facility] [address] [place], [place] [address] Attending Physician: Keyla Mata MD Allergies, Adverse Reactions, Alerts Substance Reaction Severity Status medtronidazole containing compounds rash Active clarithromycin rash Active vancomycin UNKNOWN Active nortriptyline [...] given w/o incident 2Result Comment: [12/16/2017] [facility] [id number] 3Result Comment: [11/29/2016] [facility] [id number] 4Result Comment: [11/25/2015] pt. tolerated inj. without complications...CO 5Result Comment: [11/30/2012] given w/o incident...AA 6Admin Note: FLULAVAL 7Admin Note: done @ work 8Admin Note: per pt 9[facility] 10Result Comment: [id number] 11Result Comment: [12/16/2017] #1 12Admin Note: per [...] Gm, 0 Refills, Maintenance, 01/06/22 10:43:00 EST, [facility]/pharmacy #[id number], Partial fill upon patient [...] capsule, 3 Refills, Maintenance, 09/08/21 10:47:00 EDT, [facility]/pharmacy #[id number], 170, cm, 09/08/21 10:10:00 [...] Member Role: Lifetime Consulting Physician Address: Address: [address] [facility] [address] [place] [address]- Name: Dany CADET, Tarsha Parks Position: Reference Physician Member Role: PCP Address: Address: [address] [place] [address]- Care Team Related Persons Name: MARGARETTE LOPEZ Name: TAWNYA LOPEZ Address: [address] [address]
--- OUTSIDE RECORDS SUMMARY | 2023-12-17 09:37 | XMS_ITS | Continuity of Care Document ---
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 Name Role Phone Dany CADET, Tarsha Parks Primary Care Physician Encounter [facility] [place] Date(s): 10/21/23 - 10/22/[address] [address]- Encounter Diagnosis Chest pain(Final) - 10/21/23 Discharge Disposition: A-D/C Home Attending Physician: Lucrecia Ruby MD Admitting Physician: Luis Alberto Peter DO Referring Physician: Not on Staff, Referring MD Allergies, Adverse Reactions, Alerts Substance Reaction Severity Status clarithromycin rash Active nortriptyline rash Mild Active Augmentin diarrhea Mild Active vancomycin itching UNKNOWN Mild Active spironolactone headache Active cyclobenzaprine tongue swelling,constipation Severe Active medtronidazole containing compounds rash Mild Active Darvocet A500 RASH Mild Active NSAIDs C/O: itching Rash Persistent Moderate Active Vicodin delusion rash Mild Active Immunizations [...] incident 2Result Comment: [12/16/2017] [facility] [id number] 3Result Comment: [11/29/2016] [facility] [id number] 4Result Comment: [11/25/2015] pt. tolerated inj. without complications...CO 5Result Comment: [11/30/2012] given w/o incident...AA 6Admin Note: FLULAVAL 7Admin Note: done @ work 8Admin Note: per pt 9Result Comment: Done at [facility] 10Result Comment: [id number] 11Result Comment: [12/16/2017] #1 12Admin Note: per pt 13Admin Note: hep A #2 14Admin Note: hep A #1 Medications Acetaminophen Tablet 650 mg, Tablet, By Mouth, Every 4 hours, PRN for Pain , Mild, Temperature Greater than 100.5, Routine, 10/21/23 19:11:00 EDT Start Date: 10/21/23 Stop Date: 10/23/23 Status: Discontinued Docusate Sodium Capsule 100 mg, 1, capsule, By Mouth, 2 times a day, Refills 0, Maintenance, 08/29/23 7:14:00 EDT, Partial fill upon patient request if the prescription is for a schedule II opioid drug. Start Date: 08/29/23 Status: Ordered duloxetine 60 mg oral enteric coated capsule 1 capsule, By Mouth, Daily, # 90 capsule, 3 Refills, Maintenance, 09/08/21 10:47:00 EDT, [facility]/pharmacy #[id number], 170, cm, 09/08/21 10:10:00 EDT, Height, 101.5, kg, 06/11/21 12:07:00 EDT, Dry Weight Start Date: 09/08/21 Status: Ordered furosemide 40 mg oral tablet 1, tablet, By Mouth, Daily, # 90 tablet, Refills 0, Maintenance, 09/19/23 7:40:00 EDT, Route to Pharmacy Electronically, [id number], 170, cm, 08/29/23 9:28:00 EDT, Height, 112.3, [...] Refills, Maintenance, 05/19/23 8:02:00 EDT, [id number], 170, cm, 03/29/23 10:03:00 EST, Height, 108.7, kg, 03/02/23 8:55:00 EST, Dry Weight Start Date: 05/19/23 Status: Ordered losartan 50 mg oral tablet 100 mg, Tablet, By Mouth, 10/22/23 9:00:00 EDT Start Date: 10/22/23 Stop Date: 10/22/23 Status: Completed Xarelto 10 mg oral tablet 1 tablet = 10 mg, By Mouth, Daily, # 30 tablet, 0 Refills, Maintenance, 08/24/23 7:12:00 EDT, Tablet, [id number], Partial fill upon patient request if the [...] Confirmed Active Comorbid sleep-related hypoventilation Confirmed Active Results Radiology Reports * Exam Date Time Procedure Performing Provider Status 10/21/23 3:12 PM Chest 2 Views Frontal and Lat Niurka Joshi; Shannon (Verified) Notes: (Chest 2 Views Frontal and Lat) Reason For Exam: Chest Pain;Other: RESULT: Chest 2 Views Frontal and Lat Chest 2 Views Frontal and Lat HX OF PRESENT ILLNESS: From home, has been having L sided CP since 0800 this morning, getting worse. Non radiating. Pt reports it is worse with exertion. Was given SL nitro by EMS and CP went from an8 10 to a 4 10. Has h o mitral valve disease, recent R foot surgery in august; Reason: Other:; Chest Pain; Clinical Question(s): Other: / Other: COMPARISON: 11/26/2022 FINDINGS: LINES AND TUBES: None. LUNGS AND PLEURA: Clear lungs. Normal pulmonary vascularity. No pleural effusion. No pneumothorax. HEART, MEDIASTINUM AND MER: Heart is normal in size. Normal mediastinal and hilar contour. BONES AND SOFT TISSUES: No acute abnormality. Status post right reverse total shoulder arthroplasty. Unchanged short left distal clavicle, likely due to prior distal clavicular excision. IMPRESSION: No evidence of acute abnormality. WSN: [id number] Ordering Physician: Rosi Santiago Dictated By: Thomas Be MD Dictated Date/Time: 10/21/23 3:15 pm Reviewed By: Thomas Be MD Signed By: Thomas Be MD Signed Date/Time: 10/21/23 3:15 pm Transcribed By: CHRISTA Transcribed Date/Time: 10/21/23 3:15 pm Vital Signs Most recent to oldest [Reference Range]: 1 2 3 Height 170 cm (10/22/23 12:16 PM) 170 cm (10/22/23 7:37 AM) 170 cm (10/22/23 5:21 AM) Weight 106.4 kg (10/22/23 3:36 AM) 106.4 kg (10/22/23 3:00 AM) Oxygen Saturation [94-100 %] 100 % (10/22/23 12:16 PM) 100 % (10/22/23 7:37 AM) 100 % (10/22/23 3:36 AM) Pulse Rate [55-90 bpm] 69 bpm (10/22/23 12:16 PM) 66 bpm (10/22/23 7:37 AM) 70 bpm (10/22/23 3:36 AM) Body Mass Index [18.5-24.99 kg/m2] 36.82 kg/m2 *>HHI* (10/22/23 3:36 AM) Blood Pressure [90-138/55-84 mm Hg] 132/66mm Hg (10/22/23 12:16 PM) 140/81mm Hg *H* (10/22/23 9:31 AM) 144/69mm Hg *H* (10/22/23 7:37 AM) Respiratory Rate [16-30 br/min] 16 br/min (10/22/23 5:10 PM) 18 br/min (10/22/23 12:16 PM) 18 br/min (10/22/23 7:37 AM) Temperature [96.8-100.4 DegF] 98.1 DegF (10/22/23 12:16 PM) 97.8 DegF (10/22/23 7:37 AM) 98.1 DegF (10/22/23 3:36 AM) Mode of Delivery (Oxygen) Room air (10/22/23 12:16 PM) Room air (10/22/23 7:37 AM) Room air (10/22/23 3:36 AM) Blood pressure sites Arm, left (10/22/23 12:16 PM) Arm, left (10/22/23 7:37 AM) Arm, right (10/22/23 3:36 AM) Temperature Route Oral (10/22/23 12:16 PM) Oral (10/22/23 7:37 AM) Oral (10/22/23 3:36 AM) Dry Weight 106.4 kg (10/22/23 3:36 AM) Weight Obtained Via Bed scale (10/22/23 3:36 AM) Dry Weight Obtained Via Bed scale (10/22/23 3:36 AM) Social History Social History Type Response Smoking Status Never smoker; Tobacc o user in household: No entered on: 01/07/14 Sex Implantable Device List Procedure Provider Procedure Date Device Type Site Fusion Tarsometatarsal Dora Garcia MD 08/24/23 Unkn own Ankle Right Device Identifier Serial Number Lot or Batch Number Manufacturing Date Expiration Date Distinct Identification Code MRI Safety Implantable Status Assigning Authority Unknown [id number] Unknown Unknown 05/10/25 Unknown Unknown Active Unknown Procedure Provider Procedure Date Device Type Site Fusion Tarsometatarsal Dora Garcia MD 08/24/23 Unkn own Foot Right Device Identifier Serial Number Lot or Batch Number Manufacturing Date Expiration Date Distinct Identification Code MRI Safety Implantable Status Assigning Authority Unknown [id number] Unknown Unknown 12/02/24 Unknown Unknown Active Unknown Admission evaluation note * Melisa CADET, Mawra: PERFORM Event Display: Admission Note Authored Date: [id number] Patient: ??THO CHO ? Age:??68 Years?Sex:??Female?:??1955?? Chief Complaint/Reason for Consultation Chest pain History of Present Illness 68-year-old with past medical history of?? GERD, IBS, fibromyalgia, chronic migraines, RA, OA, HTN,paroxysmal SVT s/p SVT ablation 06/14, pulmonary hypertension, moderate to severe JESS on BiPAP presented to the emergency department with chest pain.?? Patient reported that she was having left-sided c hest pain at 8:00 this morning while she was eating breakfast.?? Describes the pain as 8/10, heavy pressure accompanied with sweating and shortness of breath.?? EMS was called, they administered aspirin and nitroglycerin with improvement in chest pain.?? When she arrived to the ED her pain was resolved and she was just experiencing some mild shortness of breath which the patient reported has beengoing on for 5 days.?? She had a right foot surgery in August and is nonweightbearing on the right side. ?? In the emergency department her blood pressure was 152/92, lab work was notable for hemoglobin 10.2, HCT 32.8, D-dimer 0.77, potassium 3.4, high- sensitivity troponin 12, 10, COVID-19 negative.?? Chest x-ray showed no acute abnormality.?? EKG showed no ischemic changes.? Review of Systems Full review of system was obtained and is negative except as mentioned above Objective Vital Signs?? Temperature: 98.1 DegF (10/22/23 03:36:00) Temperature Route: Oral (10/22/23 03:36:00) Pulse Rate: 70 bpm (10/22/23 03:36:00) Respiratory Rate: 20 br/min (10/22/23 03:36:00) Systolic Blood Pressure:??170 mm Hg??High (10/22/23 03:36:00) Diastolic Blood Pressure: 72 mm Hg (10/22/23 03:36:00) Blood pressure sites: Arm, right (10/22/23 03:36:00) Mean Arterial Pressure: 105 mm Hg (10/22/23 03:36:00) Pulse Pressure: 98 mm Hg (10/22/23 03:36:00) Oxygen Saturation: 100 % (10/22/23 03:36:00) Mode of Delivery (Oxygen): Room air (10/22/23 03:36:00) Early Warning Score: 0 (10/22/23 03:47:02) ?? Physical Exam Constitutional: Alert, comfortable, no acute distress Head EENT: Extraocular muscle movement intact.??Moist mucous membranes.?? Neck: Supple. Respiratory:Normal lung??sounds??bilaterally Cardiovascular: S1 S2 regular. Gastrointestinal: Abdomen soft, non-tender, non-distended. Normal bowel sounds. Genitourinary: No CVA tenderness. Extremities: No pitting??edema. No cyanosis or clubbing. Neurologic: Speech normal. No focal neurological deficits. Assessment/Plan Diagnoses 68-year-old with past medical history of??GERD, IBS, fibromyalgia, chronic migraines, RA, OA, HTN, paroxysmal SVT s/p SVT ablation 06/14, pulmonary hypertension, moderate to severe JESS on BiPAP presented to the emergency department with chest pain.??EKG showed no ischemic changes, flat troponin,??[facility] pain-free. ?? Chest pain (R07.9) ?Grouped with??Shortness of breath (R06.02) ? Presented with chest pain??associated with??sweating and shortness of breath EKG showed no ischemic changes Flat troponin Currently patient is chest pain-free Stress test done in April 2022 showed no ischemic changes She is due for another stress test in November?? Will??reach out to her rumper and see if they want to do??a??stress test??inpatient?? Currently does not sound like cardiac etiology Patient does have history of panic attacks, it could be??a panic attack ?? Plan: -Continue cardiac monitoring -Consult cardiology -Will obtain??lipid panel ?? Chronic medical conditions: JESS treated with BiPAP (G47.33):??Continue BiPAP Status post right foot surgery (Z98.890):??Continue Xarelto for postsurgical DVT prophylaxis Hypertension (I10):??Continue losartan 100 ?? Quality metrics: Code Status:??Full code ?Order Code Status:??Code Status Ordered VTE Prophylaxis:??On Xarelto ?VTE Prophylaxis Assessment:??VTE Prophylaxis Ordered Ongoing Medical Necessity:??Evaluation of chest pain Diet: Cardiac diet ?? Patient's care and plan discussed with attending, Dr. Hollingsworth. ?? Sergo Vincent MD Internal Medicine PGY-2 Available on [employer] ?? Histories Allergies Allergies ?(Active and Proposed Allergies Only) spironolactone? (Severity: Unknown severity, Onset: Unknown) ?Reactions: headache Vicodin? (Severity: Mild, Onset: Unknown) ?Reactions: rash, delusion vancomycin? (Severity: Mild, Onset: Unknown) ?Reactions: UNKNOWN, itching nortriptyline? (Severity: Mild, Onset: Unknown) ?Reactions: rash medtronidazole containing compounds? (Severity: Mild, Onset: Unknown) ?Reactions: rash Darvocet A500? (Severity: Mild, Onset: Unknown) ?Reactions: RASH cyclobenzaprine? (Severity: Severe, Onset: Unknown) ?Reactions: tongue swelling,constipation clarithromycin? (Severity: Unknown severity, Onset: Unknown) ?Reactions: rash Augmentin? (Severity: Mild, Onset: Unknown) ?Reactions: diarrhea NSAIDs? (Severity: Persistent Moderate, Onset: Unknown) ?Reactions: Rash, C/O: itching ? Past Medical History/Problem List Active Problems(14) Comorbid sleep-related hypoventilation Fibromyalgia GERD - Gastro-esophageal reflux disease Hypertension Left ventricular diastolic dysfunction Lumbar facet arthropathy Mastodynia, bilateral Mitral valve prolapse OA (osteoarthritis) of knee Obesity JESS (AHI 28.5, min SpO2 75%, possible hypoventilation) Positive PPD RA - Rheumatoid arthritis Severe obesity (BMI 35.0-39.9) with comorbidity ? Past Surgical History RIGHT Reverse total shoulder arthroplasty: 06/11/21 Colonoscopy, flexible; with removal of tumor(s), polyp(s), or other lesion(s) by snare technique: 01/29/21 Esophagogastroduodenoscopy: 12/26/18 Colonoscopy, flexible, proximal to splenic flexure; with removal of tumor(s), polyp(s), or other lesion(s) by snare technique: 11/04/16 Upper gastrointestinal endoscopy including esophagus, stomach, and either the duodenum and/or jejunum as appropriate; diagnostic, with or without collection of specimen(s) by brushing or washing (separate procedure): 05/17/16 Release for de Quervain tenosynovitis of hand: 02/09/15 Left first MTP fusion, 3rd FDL tenotomy, 4th hammertoe correction and removal of old hardware: 08/03/10 EGD/colonoscopy-2007: 11/09/07 R ankle surgery for ? swellin L shoulder Rotator Cuff repair: 1999 tonsillectomy: 1960 ? Social History Alcohol Details:??Use: Never. Employment/School Details:??Status: Disabled. ??Other: was on SSDI due to medical conditions. now on social security. Exercise Details:??Self assessment: Poor condition. ??Regular exercise: No. Home/Environment Details:??Living situation: Home/Independent. ??Lives with: Alone. Nutrition/Health Details:??Diet: Regular, Low sodium. ??Other: Denies caffeine.. Other Details:??Name: Trung is daughter tawnya lopez.. Substance Abuse Details:??Use: Never. Tobacco Details:??Never smoker, Tobacco user in household: No. ? Medications Home Medications Docusate (Docusate Sodium Capsule)?100?Milligram?1?capsule?By Mouth?2 times a day Duloxetine (duloxetine 60 mg oral enteric coated capsule)?1?capsule?By Mouth?Daily Furosemide (furosemide 40 mg oral tablet)?1?tablet?By Mouth?Daily Hydroxychloroquine (hydroxychloroquine 200 mg oral tablet)?200?Milligram?1?tablet?ByMouth?Daily in AM Losartan (losartan 100 mg oral tablet)?1?tab(s)?By Mouth?Daily rivaroxaban (Xarelto 10 mg oral tablet)?1?tab(s)?10?Milligram?By Mouth?Daily?for 30?Days ? Inpatient Medications Medications (14) Active SCHEDULED: (6) Duloxetine 60 mg Capsule (Duloxetine) ??60 mg, By Mouth, Daily Furosemide 40 mg Tablet (furosemide 40 mg oral tablet) ??40 mg, By Mouth, Daily Hydroxychloroquine 200 mg Tablet (hydroxychloroquine 200 mg oral tablet) ??200 mg, By Mouth, Daily in AM Losartan 50 mg Tablet (losartan 50 mg oral tablet) ??100 mg, By Mouth, Daily NaCl 0.9% Flush 3ml (NaCL 0.9% Flush) ??3 mL, IV Push, Every 8 hours Rivaroxaban 10 mg Tablet (Xarelto) ??10 mg 1 tablet, By Mouth, Daily CONTINUOUS: (0) PRN: (8) Acetaminophen 325 mg Tablet (Acetaminophen Tablet) ??650 mg, By Mouth, Every 4 hours Dextromethorphan-Guaifenesin 20 mg-200 mg/10 mL Liqu UD (Robitussin DM Liquid) ??10 mL, By Mouth, Every 4 hours Docusate Sodium 100 mg Capsule (Docusate Sodium Capsule) ??100 mg 1 capsule, By Mouth, 2 times a day Melatonin 3 mg Tablet (Melatonin Tablet) ??3 mg, By Mouth, Daily at bedtime NaCl 0.9% Flush 3ml (NaCL 0.9% Flush) ??3 mL, IV Push, Every 8 hours Polyethylene Glycol 17 Gm Powder (MiraLax Powder) ??17 Gm 1 pack/packet, By Mouth, Daily Senna Tablet ??8.6 mg 1 tablet, By Mouth, 2 times a day Simethicone 80 mg Chewable Tablet (Simethicone Tablet) ??80 mg, Chew, 3 times a day ? Results Recent Labs BLOOD COUNT & DIFF WBC 8.6 k/mm3 ()?? 10/21/2023 14:33 RBC 3.93 m/mm3 (Low)?? 10/21/2023 14:33 Hgb 10.2 Gm/dL (Low)?? 10/21/2023 14:33 Hct 32.8 % (Low)?? 10/21/2023 14:33 MCV 83.5 femtoliters ()?? 10/21/2023 14:33 MCH 26.0 pg (Low)?? 10/21/2023 14:33 MCHC 31.1 g/dL (Low)?? 10/21/2023 14:33 Platelet Count 254 k/mm3 ()?? 10/21/2023 14:33 RDW-SD 45.4 femtoliters ()?? 10/21/2023 14:33 MPV 10.2 femtoliters ()?? 10/21/2023 14:33 Nucleated RBC (Automated) 0.0 #/100 WBC'S ()?? 10/21/2023 14:33 Abs. NRBC 0.0 k/mm3 ()?? 10/21/2023 14:33 Abs. Neut 6.0 k/mm3 ()?? 10/21/2023 14:33 Abs. Lymph 1.9 k/mm3 ()?? 10/21/2023 14:33 Abs. Ida 0.6 k/mm3 ()?? 10/21/2023 14:33 Abs. Eo 0.1 k/mm3 ()?? 10/21/2023 14:33 Abs. Baso 0.0 k/mm3 ()?? 10/21/2023 14:33 Neut % 69.9 % ()?? 10/21/2023 14:33 Lymph % 22.4 % ()?? 10/21/2023 14:33 Ida % 6.5 % ()?? 10/21/2023 14:33 Eos % 0.7 % ()?? 10/21/2023 14:33 Baso % 0.2 % ()?? 10/21/2023 14:33 Imm Gran 0.3 % ()?? 10/21/2023 14:33 Abs. Imm Gran 0.0 k/mm3 ()?? 10/21/2023 14:33 ?? CARDIAC High Sensitivity Troponin (HSTnT) 10 ng/L ()?? 10/21/2023 18:23 ?? CHEM GENERAL Sodium 141 mmol/L ()?? 10/21/2023 14:33 Potassium 3.4 mmol/L (Low)?? 10/21/2023 14:33 Chloride 101 mmol/L ()?? 10/21/2023 14:33 Bicarbonate Level 27 mmol/L ()?? 10/21/2023 14:33 Anion Gap 13 ()?? 10/21/2023 14:33 Glucose Level 95 mg/dL ()?? 10/21/2023 14:33 BUN 14 mg/dL ()?? 10/21/2023 14:33 Creatinine-Blood 0.86 mg/dL ()?? 10/21/2023 14:33 Estimated GFR Creatinine 74 ML/MIN/1.73 M2 ()?? 10/21/2023 14:33 Calcium 9.3 mg/dL ()?? 10/21/2023 14:33 ?? COAG D-Dimer 0.77 mg/L FEU ()?? 10/21/2023 14:33 ?? HEME OTHER Hold Blue Top SPECIMEN DISCARDED AFTER 4 HOURS. ()?? 10/21/2023 14:33 ?? URINE OTHER Est Creatinine Clearance 61.57 mL/min ()?? 10/22/2023 03:47 ?? VIROLOGY COVID-19 by RT-PCR NEGATIVE ()?? 10/21/2023 16:30 ? * Xavi CADET, Rodolfo Bernabe: PERFORM Event Display: Admission Note Authored Date: I spent a total of 75 minutes today reviewing the chart/medical records, speaking with the patient,formulating and discussing the treatment plan with resident, as well as, documenting the findings and encounter. Agree with assessment and plan as stated in resident note. Patient seen and evaluated on October 21, 2023 at 10:45 PM EKG study * Event Display: ECG 12-Lead Authored Date: Please click on pdf link to open report * Event Display: ECG 12-Lead Authored Date: Ventricular Rate: 82 BPM Atrial Rate: 82 BPM P-R Interval: 160 ms QRS Duration: 80 ms Q-T Interval: 358 ms QTC Calculation(Bazett): 418 ms P [place]: 53 degrees R [place]: -2 degrees T [place]: 76 degrees Normal sinus rhythm Possible Left atrial enlargement Minimal voltage criteria for LVH, may be normal variant ( R in aVL ) Septal infarct , age undetermined Abnormal ECG Confirmed by DICK CEVALLOS ([id number]) on 10/21/2023 3:06:09 PM [place]: [facility] Progress note * Ellen Nguyen RN: VERIFY, PERFORM, SIGN Event Display: Progress Note Hospital Authored Date: Patient: THO CHO Age: 68 years Sex: Female : 1955 Associated Diagnoses: None Author: Ellen Nguyen RN Findings Problem Related to Alteration in Cardiac Function (new) : Alteration in Cardiac Function/new 10/22/2023 16:00 EDT Alteration in Cardiac Status Related to Chest pain Goals & Outcomes, Cardiac Status Pt will resume/maintain adequate cardiac output, Pt will resume/maintain adequate hemodynamic status, Pt will resume/maintain adequate respiratory function, Pt will resume/maintain intact neuro function, Pt will maintain adequate GI/ function appropriate for pt, Pt will maintain adequate nutrition status, Pt/caregiver will state understanding of diagnosis, Pt/caregiver will state strategies to reduce risk factors Cardiac Interventions Implemented Resolved problem; interventions no longer in effect Goals/Interventions, Cardiac Yes Cardiac, Problem Start 10/22/2023 3:05 Reviewed Plan with, Cardiac Status Patient Patient Progression, Cardiac Status Patient progressing according to plan . Evaluation Patient alert and oriented x4. No labored breathing, lung sounds clear on room air. Patient is nonweightbearing on right foot; wearing stabilizing boot on right foot. Patient's skin is intact, no edema noted. Patient using wheelchair with assistance in the room. Last bowel movement on 10/20. Patientreports 6/10 pain to right foot, acetaminophen administered with some reported relief. Patient to be discharged home with cardiology followup. Will continue to monitor.. * Lucrecia Ruby MD: PERFORM, MODIFY, MODIFY Event Display: Progress Note Hospital Authored Date: Patient: ??THO CHO ? Age:??68 Years?Sex:??Female?:??1955?? Objective Vital Signs?? Temperature: 98.1 DegF (10/22/23 12:16:00) Temperature Route: Oral (10/22/23 12:16:00) Pulse Rate: 69 bpm (10/22/23 12:16:00) Respiratory Rate: 18 br/min (10/22/23 12:16:00) Systolic Blood Pressure: 132 mm Hg (10/22/23 12:16:00) Diastolic Blood Pressure: 66 mm Hg (10/22/23 12:16:00) Blood pressure sites: Arm, left (10/22/23 12:16:00) Mean Arterial Pressure: 88 mm Hg (10/22/23 12:16:00) Pulse Pressure: 66 mm Hg (10/22/23 12:16:00) Oxygen Saturation: 100 % (10/22/23 12:16:00) Mode of Delivery (Oxygen): Room air (10/22/23 12:16:00) Early Warning Score: 0 (10/22/23 12:16:57) ? Physical Exam General:??alert, fatigued, but very pleasant and lucid MMM, no epistaxis, neck supple?? RRR no JVD HR 60s?? resp non labored, 100%??on RA,??w/o wheezing/rhonchi??or crackles?? ext warm; has RLE splint/boot in place; just got comfortable, so did not remove?? no new focal deficits; speech clear, no tremor noted? _ Subj: feeling ok today; she decided after lunch that she would like to go home and have outpatient followup I spoke to can line operator, who will send a message to office for followup ?? Assessment/Plan Assessment:??This is a very nice 68-year-old woman with past medical history including GERD, IBS, fibromyalgia, chronic migraines, RA, OA, HTN, paroxysmal SVT s/p SVT ablation 06/14, pulmonary hypertension, moderate to severe JESS on BiPAP, who presented to the emergency department after an episode of chest pain and palpitations that was relieved by nitroglycerin en route to hospital. EKG showed noischemic changes, flat troponin,??chest pain-free at this time. I d/w Cardiology and they will senda message to the office to schedule alex followup for her. I also advised her to seek emergency re-eval if the symptoms recurred. She was eager to go home today, and has been in close touch with the cardiology office. ?? Chest pain (R07.9):?Grouped with??Shortness of breath (R06.02) ? Presented with chest pain??associated with??sweating and shortness of breath EKG showed no ischemic changes or SVT she is on rivaroxiban,??and has no pleuritic pain or hypoxia to suggest PE?? Flat troponin Currently patient is chest pain-free Cardiology consult pending?? will trend labs and monitor on telemetry; repeat ECG for any CP or arrhythmia on tele ?? Chronic medical conditions: JESS treated with BiPAP (G47.33):??Continue BiPAP Status post right foot surgery (Z98.890):??Continue Xarelto for postsurgical DVT prophylaxis Hypertension (I10):??Continue losartan 100 ?? VTE Prophylaxis:??on rivaroxiban ?VTE Prophylaxis Assessment:??VTE Prophylaxis Ordered ?? Discharge Planning:??pending eval ?? Code Status:??Full ?Order Code Status:??Code Status Ordered ? * Rocío Almonte RN O: SIGN, VERIFY, PERFORM, MODIFY Event Display: Progress Note Hospital Authored Date: Patient: THO CHO [facility]: [id number] Age: 68 years Sex: Female : 1955 Associated Diagnoses: None Author: Rocío Almonte RN O Findings Problem Related to Alteration in Cardiac Function (new) : Alteration in Cardiac Function/new 10/22/2023 4:00 EDT Alteration in Cardiac Status Related to Chest pain Goals & Outcomes, Cardiac Status Pt will resume/maintain adequate cardiac output, Pt will resume/maintain adequate hemodynamic status, Pt will resume/maintain adequate respiratory function, Pt will resume/maintain intact neuro function, Pt will maintain adequate GI/ function appropriate for pt, Pt will maintain adequate nutrition status, Pt/caregiver will state understanding of diagnosis, Pt/caregiver will state strategies to reduce risk factors Cardiac Interventions Implemented Assess/monitor cardiac status, Assess/monitor neuro status, Assess/monitor respiratory status, Assess for tolerance of IV infusions; verify rate & dose, Teach/encourage deep breath & cough exercises, Teach/encourage use of incentive spirometer Goals/Interventions, Cardiac Yes Cardiac, Problem Start 10/22/2023 3:05 Reviewed Plan with, Cardiac Status Patient Patient Progression, Cardiac Status Patient progressing according to plan . Narrative/Incidental Patient arrived to S1400 via stretcher From ED. Patient safely ambulate with I assist from bed. admission skin assessment done by 2 nurse. patient is alret and oriented x 4. able to make needs known.patient denies pain, nausea/vomting, Chest pain ans sob. on tele with NSR. right leg boot due to piror surgery in august. on room air lungs clear. patient is on BiPAP at night. continent of bowel. abdomen soft and non tender. right arm IV access patent. bed in lowest position locked. side rails x 3. call scott within reach, hourly rounds maintained.. Note * Ellen Nguyen RN: PERFORM Event Display: Discharge/Transfer Note Hospital Authored Date: [id number] Nursing Discharge Note Entered On: 10/22/2023 17:10 EDT Performed On: 10/22/2023 17:08 EDT by Ellen Nguyen RN Nursing Discharge Note 2 Discharge Time : 10/22/2023 17:08 EDT Discharge Level of Care at Discharge : Home/Nursing Home/Foster Care Patient Left Unit Via : Wheelchair Patient Accompanied Off Unit with : Responsible adult DC Instructions Provided & Signed by Pt : Yes Patient Understands D/C Instructions : Yes Patient Instructions Discharge Signed : Yes Did Pt have Specialty Bed or Wound Vac : No Ellen Nguyen RN - 10/22/2023 17:09 EDT * Lucrecia Ruby MD: PERFORM, MODIFY, MODIFY, MODIFY, MODIFY, MODIFY Event Display: Discharge/Transfer Note Hospital Authored Date: [id number] Patient: ??THO CHO ? Age:??68 Years?Sex:??Female?:??1955?? Patient Information Discharge Location: S1 Primary Care Physician: Tarsha Saenz MD Admit Date/Time: 10/21/23 13:51 Discharge Disposition Discharge Disposition: home ?? Discharge Diagnosis JESS treated with BiPAP (G47.33) Status post right foot surgery (Z98.890) Hypertension (I10) Shortness of breath (R06.02) Chest pain (R07.9) _ Discharge Medications Docusate (Docusate Sodium Capsule)?100?Milligram?1?capsule?By Mouth?2 times a day Duloxetine (duloxetine 60 mg oral enteric coated capsule)?1?capsule?By Mouth?Daily Furosemide (furosemide 40 mg oral tablet)?1?tablet?By Mouth?Daily Hydroxychloroquine (hydroxychloroquine 200 mg oral tablet)?200?Milligram?1?tablet?ByMouth?Daily in AM Losartan (losartan 100 mg oral tablet)?1?tab(s)?By Mouth?Daily rivaroxaban (Xarelto 10 mg oral tablet)?1?tab(s)?10?Milligram?By Mouth?Daily?for 30?Days ? Allergies Allergies ?(Active and Proposed Allergies Only) spironolactone? (Severity: Unknown severity, Onset: Unknown) ?Reactions: headache Vicodin? (Severity: Mild, Onset: Unknown) ?Reactions: rash, delusion vancomycin? (Severity: Mild, Onset: Unknown) ?Reactions: UNKNOWN, itching nortriptyline? (Severity: Mild, Onset: Unknown) ?Reactions: rash medtronidazole containing compounds? (Severity: Mild, Onset: Unknown) ?Reactions: rash Darvocet A500? (Severity: Mild, Onset: Unknown) ?Reactions: RASH cyclobenzaprine? (Severity: Severe, Onset: Unknown) ?Reactions: tongue swelling,constipation clarithromycin? (Severity: Unknown severity, Onset: Unknown) ?Reactions: rash Augmentin? (Severity: Mild, Onset: Unknown) ?Reactions: diarrhea NSAIDs? (Severity: Persistent Moderate, Onset: Unknown) ?Reactions: Rash, C/O: itching ? PCP Follow-Up/Heads-Up ?? Close followup needed Please check CBC and BMP at followup ; she has anemia, which would need further evaluation and monitoring in the outpatient setting She will followup with cardiology as an outpatient (they will request an appt be scheduled, and quang # to call in case they don't call her) ?? She decided to go home on 10/21, understandably, since cardiac testing was not going to be possible on the long weekend and she was stable/feeling well. However, her morning labs for 10/22 were not able to be done, so she has not had a LIPID PROFILE.?? Due to her??numerous medication adverse??reactions and allergies, including NSAIDs, have not started aspirin at this time Objective Assessment and Plan Assessment:??This is a very nice 68-year-old woman with past medical history including GERD, IBS, fibromyalgia, chronic migraines, RA, OA, HTN, paroxysmal SVT s/p SVT ablation 06/14, pulmonary hypertension, moderate to severe JESS on BiPAP, who presented to the emergency department after an episode of chest pain and palpitations that was relieved by nitroglycerin en route to hospital. EKG in ambulance showed normal sinus rhythm without acute ischemic changes.??Unremarkable serial troponins 10-12 , without shortness of breath, and chest pain-free at this time. I d/w Cardiology and they will senda message to the office to schedule alex followup for her. I also advised her to seek emergency re-eval if the symptoms recurred. She was eager to go home today, and has been in close touch with the cardiology office. ?? Chest pain (R07.9):?Grouped with??Shortness of breath (R06.02) ? Presented with chest pain??associated with??sweating and shortness of breath, which had resolved by the time of admission?? she is on rivaroxiban,??and has no pleuritic pain or hypoxia to suggest PE?? troponin remained low on serial assessments?? Currently patient is chest pain-free I spoke to trigonometry teacher, who will send a message to the office to request followup visit? Chronic medical conditions: JESS treated with BiPAP (G47.33):??Continue BiPAP at home per usual?? Status post right foot surgery (Z98.890):??Continue Xarelto for postsurgical DVT prophylaxis Hypertension (I10):??Continue losartan 100 ?? She asked me for a list of counselors in her area, as her prior counselor does not see patients from [place]. I will provide that in d/c paperwork.? VTE Prophylaxis:??on rivaroxiban ?VTE Prophylaxis Assessment:??VTE Prophylaxis Ordered ?? Code Status:??Full ?Order Code Status:??Code Status Ordered ? Vital Signs?? Temperature: 98.1 DegF (10/22/23 12:16:00) Temperature Route: Oral (10/22/23 12:16:00) Pulse Rate: 69 bpm (10/22/23 12:16:00) Respiratory Rate: 18 br/min (10/22/23 12:16:00) Systolic Blood Pressure: 132 mm Hg (10/22/23 12:16:00) Diastolic Blood Pressure: 66 mm Hg (10/22/23 12:16:00) Blood pressure sites: Arm, left (10/22/23 12:16:00) Mean Arterial Pressure: 88 mm Hg (10/22/23 12:16:00) Pulse Pressure: 66 mm Hg (10/22/23 12:16:00) Oxygen Saturation: 100 % (10/22/23 12:16:00) Mode of Delivery (Oxygen): Room air (10/22/23 12:16:00) Early Warning Score: 0 (10/22/23 12:16:57) ? . Physical Exam see today's progress note Follow-Up Appointments Added Follow Up ?Time Frame ?Comments Isai Maza?3-5 day: call to discuss follow up visit?Call to discuss followup appointment Tarsha Saenz?1 week Do not take naprosyn, Aleve, Motrin, ibuprofen or other similar medications. OK to take Tylenol, aka acetaminophen. Please return if you have fever, chest pain, trouble breathing, neck pain, vision changes, or any other worrisome symptoms. Please followup with all of your usual doctors. Return if you have bleeding, fever, cannot eat/drink, or have any other worrisome symptoms Patient Instructions We are including info for a few different counseling centers, per your request:? [facility] (Outreach for elderly 65 and older) [address] [place] [address] Central Intake: ?? [facility] ([facility]) [facility] / [facility] [address] [place] [address] ?? [facility] ([facility]) [facility] [address] [place] [address] Telephone: [phone] ?? [facility] ([facility]) [address] [place] [address] ? [facility] [address] [place] [address] Central Intake: ?? Home Health Face to Face ^HomeHealthFTF Results Microbiology ?? COVID-19 (Novel Coronavirus), Rapid PCR?? Completed?? Source: Nasal Body Site: Nose Collected Dt/Tm: 10/21/2023 16:04 Last Updated Dt/Tm: 10/21/2023 18:27 ? Test Name Test Result Date/Time Sodium 142 mmol/L 10/22/2023 06:06 EDT Potassium 3.8 mmol/L 10/22/2023 06:06 EDT BUN 12 mg/dL 10/22/2023 06:06 EDT Creatinine-Blood 0.73 mg/dL 10/22/2023 06:06 EDT High Sensitivity Troponin (HSTnT) 10 ng/L 10/21/2023 18:23 EDT High Sensitivity Troponin (HSTnT) 12 ng/L 10/21/2023 14:33 EDT COVID-19 by RT-PCR NEGATIVE 10/21/2023 16:30 EDT ?? 38_ minutes spent on discharge * Wendy TSANG, Ellen: MODIFY, PERFORM, MODIFY Event Display: Patient Education/Instruction Authored Date: [id number] Inpatient Adult Discharge Instructions. [place] [id number] Name: THO CHO : 1955?? Visit: 10/21/2023 13:51?? Current Date: 10/22/2023 15:32 ?? Account: [id number]?? Inpatient Adult Discharge Instructions We would like [...] and their families. Surveys are administered by [employer] ?? If further treatment with your primary care physician or another doctor is recommended, it is important for you to keep the appointment. Call your primary care physician or return to the Emergency Department immediately if your condition worsens, fails to improve, or new symptoms develop. If you need to find a doctor, you can call [facility] Link for a referral at [phone] or toll free at [phone]) or log in to [email or web address].. ?? [facility], in keeping with [facility] guidance, no longer requires face masks [...] a health care hannah of your choosing. [employer] is a website that allows you to securely view your medical information including your hospital discharge summary, office visit summaries, medications and follow-up visits. You can also request appointments, renew medications, and request access to your medical information using a health care hannah of your choosing, or just ask a question. You can enroll at [email or web address] or register during your next office visit. You have been discharged from [facility], Patient Care Unit: S1??. If you have any questions regarding these instructions, including results of studies pending, afteryou leave, please call us and we will be happy to assist you 13/09. [facility] Your Care Team Attending Physician Lucrecia Ruby MD?? Consulting Providers Lucrecia Ruby MD?? Discharging Providers Lucrecia Ruby MD Reason for Your Visit From home, having CP since 0800 today, getting worse. ??Pt has h/o Mitral valve disease. ??EMS has concern for afib on 12 lead?? Your Diagnosis JESS treated with BiPAP Status post right foot surgery Hypertension Shortness of breath Tests Performed Below is a partial list of the tests performed during your hospitalization. You may have had other tests and procedures not included in this list. Please discuss all test results with your provider. Basic Metabolic Panel CBC w/ Differential COVID-19 (Novel Coronavirus), Rapid PCR D-DIMER High??Sensitivity??Troponin T Hold Blue Top Tube HOLD HUSSEIN TUBE HOLD GREEN TOP X2 XR Chest 2 Views Frontal and Lat Add On Lab Order?? Basic Metabolic Panel?? CBC w/ Differential?? COVID-19 (Novel Coronavirus), Rapid PCR?? D Dimer (D-DIMER)?? High??Sensitivity??Troponin T?? Hold Blue Top Tube?? Hold Hussein Top Tube (HOLD HUSSEIN TUBE)?? Hold Green Top Tube x2 (HOLD GREEN TOP X2)?? Chest 2 Views Frontal and Lat (XR Chest 2 Views Frontal and Lat)?? Primary Care Provider Tarsha Saenz MD? Advance Directive Health Care Proxy on File Yes - Health Care Proxy Discharge Vitals Temperature: 98.1 DegF Height: 170 cm Pulse Rate: 69 bpm Weight: 106.4 kg Respiratory Rate: 18 br/min Body Mass Index:??36.82 kg/m2??Critical Systolic Blood Pressure: 132 mm Hg Body surface area: 2.24 Diastolic Blood Pressure: 66 mm Hg ?? Oxygen Saturation: 100 % ?? Studies Pending All studies ordered during this hospital stay have been completed unless listed below. Please discuss all pending results with your provider listed above in these instructions. ?? Add On Lab Order?? What to do next Instructions From Your Doctor We are including info for a few different counseling centers, per your request. We did not find anything listed for Rafat L[facility].? [facility] (Outreach for elderly 65 and older) [address] [place] [address] Central Intake: ?? [facility] ([facility]) [facility] / [facility] [address] [place] [address] ?? [facility] ([facility]) [facility] [address] [place] [address] Telephone: ?? [facility] ([facility]) [address] [place] [phone] ? [facility] [address] [place] [address] Central Intake: ?? [facility] (Outreach but not for first appointment) [address], [address], [place] [address] ? Orders? 10/22/23 15:02:00 EDT?? Prescriptions??, ??10/22/23 15:02:00 EDT?? You Need to Schedule the Following Appointments Follow Up with??Isai Maza When:??Within 3-5 day: call to discuss follow up visit Why: Call to discuss followup appointment Where: [address] [facility] [address] [facility] [place] [address]- Business (1) Follow Up with??Tarsha Saenz When:??Within 1 week Where: [address] [place] [address]- Business (1) Follow Up with??Do not take naprosyn, Aleve, Motrin, ibuprofen or other similar medications. OK to take Tylenol, aka acetaminophen. Follow Up with??Please return if you have fever, chest pain, trouble breathing, neck pain, vision changes, or any other worrisome symptoms. Follow Up with??Please followup with all of your usual doctors. Return if you have bleeding, fever,cannot eat/drink, or have any other worrisome symptoms Discharge Medications THO CHO :1955 Visit Date:10/21/2023 Medications: Please continue your medications until treatment is completed or stopped by your provider. Medications not listed below should be discontinued. Discuss any questions related to medications with your provider. What How Much When Instructions Next Dose Unchanged Docusate (Docusate Sodium Capsule) 100 Milligram Oral Twice a day tonight 10/21 at 9pm Unchanged Duloxetine (duloxetine 60 mg oral enteric coated capsule) 1 capsule Oral Daily tomorrow 10/22 at 9am Unchanged Furosemide (furosemide 40 mg oral tablet) 1 tab(s) Oral Daily tomorrow 10/22 at 9am Unchanged Hydroxychloroquine (hydroxychloroquine 200 mg oral tablet) 1 tab(s) Oral Daily in the morning tomorrow 10/22 at 9am Unchanged Losartan (losartan 100 mg oral tablet) 1 tab(s) Oral Daily tomorrow 10/22 at 9am Unchanged rivaroxaban (Xarelto 10 mg oral tablet) 1 tab(s) Oral Daily Duration: 30 Days tomorrow 10/22 at 9am ?? What How Much When Comments Stop Taking Bisacodyl (bisacodyl 5 mg oral delayed release tablet) 10 Milligram Oral Daily as needed for Constipation Stop Taking Senna (senna 187 mg oral tablet) 2 tab(s) Oral Daily at Bedtime Stop Taking Spironolactone (spironolactone 25 mg oral tablet) 1 tab(s) Oral Daily Prescription Given During Visit No new medications prescribed at time of discharge.?? Laboratory Results Below is a partial list of the most recent Laboratory test results done prior to this discharge. You may have had other tests and procedures not included in this list. Please discuss all test resultswith your provider. Est Creatinine Clearance - 72.53 mL/min (10/22/2023) Basic Metabolic Panel (10/22/2023) ???Sodium - 142 mmol/L???Potassium - 3.8 mmol/L???Chloride - 105 mmol/L???Bicarbonate Level - 24 mmol/L???Anion Gap - 13???Glucose Level - 93 mg/dL???BUN - 12 mg/dL???Creatinine-Blood - 0.73 mg/dL???Estimated GFR Creatinine - 90 ML/MIN/1.73 M2???Calcium - 9.0 mg/dL CBC w/ Differential (10/21/2023) ???WBC - 8.6 k/mm3???RBC - 3.93 m/mm3???Hgb - 10.2 Gm/dL???Hct - 32.8 %???MCV - 83.5 femtoliters???MCH - 26.0 pg???MCHC - 31.1 g/dL???Platelet Count - 254 k/mm3???RDW-SD - 45.4 femtoliters???MPV - 10.2 femtoliters???Nucleated RBC (Automated) - 0.0 #/100 WBC'S???Abs. NRBC - 0.0 k/mm3???Abs. Neut - 6.0 k/mm3???Abs. Lymph - 1.9 k/mm3???Abs. Ida - 0.6 k/mm3???Abs. Eo - 0.1 k/mm3???Abs. Baso - 0.0 k/mm3???Neut % - 69.9 %???Lymph % - 22.4 %???Ida % - 6.5 %???Eos % - 0.7 %???Baso % - 0.2 %???Imm Gran - 0.3 %???Abs. Imm Gran - 0.0 k/mm3 COVID-19 (Novel Coronavirus), Rapid PCR (10/21/2023) ???COVID-19 by RT-PCR - NEGATIVE D-DIMER (10/21/2023) ???D-Dimer - 0.77 mg/L FEU High??Sensitivity??Troponin T (10/21/2023) ???High Sensitivity Troponin (HSTnT) - 10 ng/L Hold Blue Top Tube (10/21/2023) ???Hold Blue Top - SPECIMEN DISCARDED AFTER 4 HOURS. HOLD HUSSEIN TUBE (10/21/2023) ???Hold Hussein Top - SPECIMEN DISCARDED AFTER 1 WEEK HOLD GREEN TOP X2 (10/21/2023) ???Hold Green Top - SPECIMEN DISCARDED AFTER 1 WEEK???Hold Green Top 2 - SPECIMEN DISCARDED AFTER 1WEEK You will be contacted within 72 hours with your results. Allergies (NKA means No Known Allergies) cyclobenzaprine??(tongue [...] Educational Leaflet Providered with your Discharge Instructions. [employer] Patient Education - Uncertain Causes of Chest Pain?? Valuables and Belongings I fully understand and agree that [facility] accepts no responsibility for all my personal [...] to send valuables and belongings home. ?? Date for Pt to Sign Valuables/Belongings: 10/22/23 06:13:00 ?? Other Discharge Information ? Pulmonary Rehab Status?? Pulmonary Rehab Discharge Status?? Respiratory Rate: 18 br/min ? Common Emergency [...] are strongly encouraged to quit. Please call [facility] [employer] Link at [phone] or [phone] ([phone]) or log in to [email or web address] for referrals to smoking cessation programs. ?? 790 Suicide & Crisis Lifeline is available 13/09 if you or someone you know needs to find a reason to keep living. By calling 649 you'll be connected to a skilled, trained counselor at a crisis center in your area. INPATIENT DISCHARGE INSTRUCTIONS SIGNATURE PAGE THO CHO Location:[facility] Registration Date and Time:10/21/2023 13:51 EDT Primary Care Physician: Dany CADET, Tarsha Pakrs, Attending Physician: Tung CADET Lucrecia, I THO CHO, have received the above patient education materials/instructions and have verbalized understanding. If ambulance or transport services are being used I further acknowledge being given a choice of service. ?? If you need to contact me, please call me at this number: . Patient/Library Serials Assistant Name: Patient/Library Serials Assistant Signature: Relationship to Patient: Witness Name/Signature: Date: * Lucrecia Ruby MD: PERFORM, SIGN, VERIFY Event Display: Patient Education Handout Authored Date: [id number] * Ellen Nguyen RN: PERFORM Event Display: Patient Education Leaflets Authored Date: [id number] Uncertain Causes of Chest Pain ?? [id number] Uncertain Causes of Chest Pain Chest pain can happen for a number of reasons. Sometimes the cause can't be determined. If your??condition does not seem serious, and your pain does not appear to be coming from your heart, your healthcare provider may recommend watching it closely. Sometimes the signs of a serious problem take more time to appear. Many problems not related to your heart can cause chest pain. These include: ??? Musculoskeletal. Costochondritis is an inflammation of the tissues around the ribs that can occur from trauma or overuse injuries, or a strain of the muscles of the chest wall. ??? Respiratory. Pneumonia, collapsed lung (pneumothorax), or inflammation of the lining of the chest and lungs (pleurisy). ??? Gastrointestinal. Esophageal reflux, heartburn, ulcers, or gallbladder disease. ??? Anxiety and panic disorders ??? Nerve compression and inflammation ??? Rare problems such as aortic aneurysm or aortic dissection (a swelling of the large artery coming out of the heart or a tear in the wall of the artery), or pulmonary embolism (a blood clot in the lungs). Home care After your visit, follow these recommendations: ??? Rest today and avoid strenuous activity. ??? Take any prescribed medicine as directed. ??? Be aware of any recurrent chest pain and notice any changes ?? Follow-up care Follow up with your healthcare provider if you don't start to feel better within 24 hours, or as advised. ?? Call 911 Call 911 if any of these occur: ??? A change in the type of pain: if it feels different, becomes more severe, lasts longer, or begins to spread into your shoulder, arm, neck, jaw or back ??? Shortness of breath or increased pain with breathing ??? Weakness, dizziness, or fainting ??? Rapid heartbeat ??? Crushing sensation in your chest ??? Coughing up more than a small amount of blood. ?? When to seek medical advice Call your healthcare provider right away if any of the following occur: ??? Cough with dark coloredsputum (phlegm) or small amount of blood ??? Fever of 100.4??F??(38??C) or higher, or as directed by your healthcare provider ??? Swelling, pain or redness in one leg ?? Last Reviewed Date: 2021 ?? 2440-3654 [employer] All rights reserved. This information is not intended as a substitute for professional medical care. Always follow your healthcare professional's instructions. ?? * Wendy TSANG, Ellen: PERFORM Event Display: Patient Education Leaflets Authored Date: [id number] Uncertain Causes of Chest Pain ?? [id number] Uncertain Causes of Chest Pain Chest pain can happen for a number of reasons. Sometimes the cause can't be determined. If your??condition does not seem serious, and your pain does not appear to be coming from your heart, your healthcare provider may recommend watching it closely. Sometimes the signs of a serious problem take more time to appear. Many problems not related to your heart can cause chest pain. These include: ??? Musculoskeletal. Costochondritis is an inflammation of the tissues around the ribs that can occur from trauma or overuse injuries, or a strain of the muscles of the chest wall. ??? Respiratory. Pneumonia, collapsed lung (pneumothorax), or inflammation of the lining of the chest and lungs (pleurisy). ??? Gastrointestinal. Esophageal reflux, heartburn, ulcers, or gallbladder disease. ??? Anxiety and panic disorders ??? Nerve compression and inflammation ??? Rare problems such as aortic aneurysm or aortic dissection (a swelling of the large artery coming out of the heart or a tear in the wall of the artery), or pulmonary embolism (a blood clot in the lungs). Home care After your visit, follow these recommendations: ??? Rest today and avoid strenuous activity. ??? Take any prescribed medicine as directed. ??? Be aware of any recurrent chest pain and notice any changes ?? Follow-up care Follow up with your healthcare provider if you don't start to feel better within 24 hours, or as advised. ?? Call 911 Call 911 if any of these occur: ??? A change in the type of pain: if it feels different, becomes more severe, lasts longer, or begins to spread into your shoulder, arm, neck, jaw or back ??? Shortness of breath or increased pain with breathing ??? Weakness, dizziness, or fainting ??? Rapid heartbeat ??? Crushing sensation in your chest ??? Coughing up more than a small amount of blood. ?? When to seek medical advice Call your healthcare provider right away if any of the following occur: ??? Cough with dark coloredsputum (phlegm) or small amount of blood ??? Fever of 100.4??F??(38??C) or higher, or as directed by your healthcare provider ??? Swelling, pain or redness in one leg ?? Last Reviewed Date: 2021 ?? [id number] [employer] All rights reserved. This information is not intended as a substitute for professional medical care. Always follow your healthcare professional's instructions. ?? Patient Care team information Care Team Personnel Name: Rocío Almonte RN Position: [facility] RN Member Role: Primary Care Nurse Name: Niurka Mendosa RN Position: S RN Member Role: Primary Care Nurse Name: Oswaldo Valadez RN Position: S RN Member Role: Primary Care Nurse Name: Yoselyn Peters RN Position: S RN Member Role: Primary Care Nurse Name: Alva Gibbons RN Position: [facility] RN Member Role: Primary Care Nurse Name: Hilary Bell RN Position: S RN Member Role: Primary Care Nurse Name: Katie Govea RN Position: S RN Member Role: Primary Care Nurse Name: Nika Toledo RN Position: S RN Member Role: Primary Care Nurse Name: Tarsha Saenz MD Position: Reference Physician Member Role: PCP Address: Address: [address] [place] [address]- Care Team Related Persons Name: MARGARETTE LOPEZ Name: TAWNYA LOPEZ Address: [address] [address]
--- OUTSIDE RECORDS SUMMARY | 2023-12-17 09:37 | XMS_ITS | Continuity of Care Document ---
Author Organization [facility] Address Unknown Care Team Providers Care Station Chief Name Role Phone Keyla Mata MD Primary Care Physician [facility] Date(s): 12/31/20 - 01/30/21 [facility] Allergies, Adverse Reactions, Alerts Substance Reaction Severity [...] Given 1Result Comment: [12/16/2017] [facility] 23765-369-01 2Result Comment: [11/29/2016] [facility] 17957-817-08 3Result Comment: [11/25/2015] pt. tolerated inj. without complications...CO 4Result Comment: [11/30/2012] given w/o incident...AA 5Admin Note: FLULAVAL 6Admin Note: done @ work 7Admin Note: per pt 8Result Comment: Done at [facility] 9Result Comment: [id number] 10Result Comment: [12/16/2017] #1 11Admin Note: info [...] 1 Refills, Maintenance, 01/02/21 8:57:00 EST, Cream, [facility]/pharmacy #5946, Partial fill upon patient request if the [...] capsule, 1 Refills, Maintenance, 09/15/20 10:55:00 EDT, [facility]/pharmacy #0693, 171, cm, 09/12/20 9:46:00 EDT, Height, [...] DAYS, # 15 sprays, 0 Refills, Acute, [facility] ST[facility] 42765, 30, USE 2 SPRAYS IN EACH NOSTRIL 3 TIMES A DAY FOR 7 DAYS, 170, cm, 04/10/19 14:00:00 EST, Height, 104.5, kg, 09/15/18 9:05:00 EDT... Start Date: 05/04/19 Status: Ordered ipratropium nasal 42 mcg/inh spray 2 sprays, Nares, Both, 3 times a day, # 1 each, 0 Refills, Maintenance, 07/02/20 16:11:00 EDT, [facility]/pharmacy #0693, 2 sprays Nares, Both 3 times [...] 04/14/20 15:22:00 EST, Route to Pharmacy Electronically, [facility], Partial fill upon patient request,... Start [...] mL, 0 Refills, Maintenance, 12/23/20 13:10:00 EDT, [facility], Partial fill upon patient request [...] Severe, 01/27/21 11:54:00 EST, Route to [facility], Partial fill upon patient reque... Start Date: 01/27/21 Stop Date: 02/03/21 Status: Ordered tiZANidine 4 mg oral tablet 4 mg, 1, tablet, By Mouth, Every 8 hours, PRN, # 42 tablet, Refills 0, Tot. Refills 0, Maintenance,Spasm, 01/26/21 12:30:00 EST, Route to Pharmacy Electronically, [facility], [...]
--- OUTSIDE RECORDS SUMMARY | 2023-12-17 09:37 | XMS_ITS | Continuity of Care Document ---
Author Organization [facility] Address [address] [place] [address]- Care Team Providers Care Counselor Camp Name Role Phone Esperanza CADET, Keyla Parks Primary Care Physician [facility] Date[facility]s): 09/18/20 - 10/18/20 [facility] [address] [place], [place] [address] Allergies, Adverse Reactions, Alerts Substance [...] 14 08/02/07 Given 1Result Comment: Done at [facility] 2Result Comment: [id number] 3Result Comment: [12/16/2017] #1 4Result Comment: [12/16/2017] [facility] 20723-028-08 5Result Comment: [11/29/2016] [facility] 43154-658-56 6Result Comment: [11/25/2015] pt. tolerated inj. without [...] capsule, 1 Refills, Maintenance, 09/15/20 10:55:00 EDT, [facility]/pharmacy #0693, 171, cm, 09/12/20 9:46:00 EDT, [...] sprays, 0 Refills, Acute, [facility] STORE 26882, 30, USE 2 SPRAYS IN EACH NOSTRIL [...] EST, Route to Pharmacy Electronically, [facility]/pharmacy #0657, Partial fill upon patient request,... Start Date: [...]
--- OUTSIDE RECORDS SUMMARY | 2023-12-17 09:38 | XMS_ITS | Continuity of Care Document ---
Author Organization [facility] Address Unknown Care Team Providers Care Aircraft Instrument Mechanic Name Role Phone Esperanza CADET, Keyla Parks Primary Care Physician [facility] Date(s): 01/13/21 - 01/20/21 [facility] Thoracic Surgery Attending Physician: Jania Leung MD Referring Physician: Keyla Mata MD Allergies, [...] (oldterm) 14 08/02/07 Given 1Result Comment: [12/16/2017] [facility] [id number] 2Result Comment: [11/29/2016] [facility] 91874-438-11 3Result Comment: [11/25/2015] pt. tolerated inj. without complications...CO 4Result Comment: [11/30/2012] given w/o incident...AA 5Admin Note: FLULAVAL 6Admin Note: done @ work 7Admin Note: per pt 8Result Comment: Done at [facility] 9Result Comment: [id number] 10Result Comment: [12/16/2017] #1 11Admin Note: info [...] 1 Refills, Maintenance, 01/02/21 8:57:00 EST, Cream, [facility]/pharmacy #9494, Partial fill upon patient request if the [...] capsule, 1 Refills, Maintenance, 09/15/20 10:55:00 EDT, [facility]/pharmacy #0693, 171, cm, 09/12/20 9:46:00 EDT, [...] # 15 sprays, 0 Refills, Acute, [facility] STORE 26681, 30, USE 2 SPRAYS IN EACH NOSTRIL 3 TIMES A DAY FOR 7 DAYS, 170, cm, 04/10/19 14:00:00 EST, Height, 104.5, kg, 09/15/18 9:05:00 EDT... Start Date: 05/04/19 Status: Ordered ipratropium nasal 42 mcg/inh spray 2 sprays, Nares, Both, 3 times a day, # 1 each, 0 Refills, Maintenance, 07/02/20 16:11:00 EDT, [facility]/pharmacy #0693, 2 sprays Nares, Both 3 [...] 15:22:00 EST, Route to Pharmacy Electronically, [facility]/pharmacy #0693, Partial fill upon patient request,... [...] mL, 0 Refills, Maintenance, 12/23/20 13:10:00 EDT, [facility]/pharmacy #0693, Partial fill upon patient request [...] oldest [Reference Range]: 1 Height 171 cm (01/13/21 10:57 AM) Weight 108 kg (01/13/21 10:57 AM) Oxygen Saturation [94-100 %] 95 % (01/13/21 10:57 AM) Pulse Rate [55-90 bpm] 90 bpm (01/13/21 10:57 AM) Body Mass Index [18.5-24.99] 36.93 *>HHI* (01/13/21 10:57 AM) Blood Pressure [90-138/55-84 mm Hg] 136/ 82mm Hg (01/13/21 10:57 AM) Temperature [96.8-100.4 DegF] 97.3 DegF (01/13/21 10:57 AM) Mode of Delivery (Oxygen) Room air (01/13/21 10:57 AM) Blood pressure sites Arm, right (01/13/21 10:57 AM) Temperature Route Oral (01/13/21 10:57 AM) Weight Obtained Via Standing scale (01/13/21 10:57 AM) Social History Social History Type Response Smoking Status Never smoker; Tobacc o user in household: No entered on: 01/07/14 Sex
--- OUTSIDE RECORDS SUMMARY | 2023-12-17 09:38 | XMS_ITS | Continuity of Care Document ---
Author Organization [facility] Address [address] [place] [address]- Care Team Providers Care Master Ocean Name Role Phone Keyla Mata MD Primary Care Physician Encounter [facility] Date(s): 09/25/20 - 11/12/20 [facility] [address] [place] [address]- Attending Physician: Virgen Warren MD Admitting Physician: Virgen Warren MD Referring Physician: Keyla Mata MD Allergies, [...] Gi martir influenza virus vaccine, inactivated 5 10/9/17 Gi martir influenza virus vaccine, inactivated 6 [...] 14 08/02/07 Given 1Result Comment: Done at [facility] 2Result Comment: [id number] 3Result Comment: [12/16/2017] #1 4Result Comment: [12/16/2017] [facility] 37796-226-41 5Result Comment: [11/29/2016] [facility] 77560-434-56 6Result Comment: [11/25/2015] pt. tolerated inj. without [...] capsule, 1 Refills, Maintenance, 09/15/20 10:55:00 EDT, [facility]/pharmacy #0693, 171, cm, 09/12/20 9:46:00 EDT, [...] DAYS, # 15 sprays, 0 Refills, Acute, [facility] STORE 68023, 30, USE 2 SPRAYS IN EACH NOSTRIL 3 TIMES A DAY FOR 7 DAYS, 170, cm, 04/10/19 14:00:00 EST, Height, 104.5, kg, 09/15/18 9:05:00 EDT... Start Date: 05/04/19 Status: Ordered ipratropium nasal 42 mcg/inh spray 2 sprays, Nares, Both, 3 times a day, # 1 each, 0 Refills, Maintenance, 07/02/20 16:11:00 EDT, [facility]/pharmacy #0693, 2 sprays Nares, Both 3 [...] 04/14/20 15:22:00 EST, Route to Pharmacy Electronically, [facility]/pharmacy #1107, Partial fill upon patient request,... Start Date: [...]
--- OUTSIDE RECORDS SUMMARY | 2023-12-17 09:38 | XMS_ITS | Continuity of Care Document ---
Author Organization [facility] Address [address] [place] [address]- Care Team Providers Care Liquor Bridge Operator Helper Name Role Phone Esperanza CADET, Keyla Parks Primary Care Physician Encounter [facility] Date(s): 12/25/20 - 01/24/21 [facility] [address] [place], [place] [address] Attending Physician: Matthieu Kasper Admitting Physician: AdmMatthieu baliey Referring Physician: AdmtrMatthieu Allergies, Adverse Reactions, Alerts [...] 14 08/02/07 Given 1Result Comment: [12/16/2017] [facility] 32518-862-23 2Result Comment: [11/29/2016] [facility] 19398-063-99 3Result Comment: [11/25/2015] pt. tolerated inj. without complications...CO 4Result Comment: [11/30/2012] given w/o incident...AA 5Admin Note: FLULAVAL 6Admin Note: done @ work 7Admin Note: per pt 8Result Comment: Done at [facility] 9Result Comment: [id number] 10Result Comment: [12/16/2017] #1 11Admin Note: info [...] 1 Refills, Maintenance, 01/02/21 8:57:00 EST, Cream, [facility]/pharmacy #0693, Partial fill upon patient [...] capsule, 1 Refills, Maintenance, 09/15/20 10:55:00 EDT, [facility]/pharmacy #0693, 171, cm, 09/12/20 9:46:00 EDT, [...] DAYS, # 15 sprays, 0 Refills, Acute, [facility] STORE 75622, 30, USE 2 SPRAYS IN EACH NOSTRIL 3 TIMES A DAY FOR 7 DAYS, 170, cm, 04/10/19 14:00:00 EST, Height, 104.5, kg, 09/15/18 9:05:00 EDT... Start Date: 05/04/19 Status: Ordered ipratropium nasal 42 mcg/inh spray 2 sprays, Nares, Both, 3 times a day, # 1 each, 0 Refills, Maintenance, 07/02/20 16:11:00 EDT, [facility]/pharmacy #0693, 2 sprays Nares, Both [...] 04/14/20 15:22:00 EST, Route to Pharmacy Electronically, [facility]/pharmacy #0693, Partial fill upon patient [...] mL, 0 Refills, Maintenance, 12/23/20 13:10:00 EDT, [facility]/pharmacy #0693, Partial fill upon patient [...]
--- OUTSIDE RECORDS SUMMARY | 2023-12-17 09:38 | XMS_ITS | Continuity of Care Document ---
Author Organization [facility] Address [address] [place] [address]- Care Team Providers Care Creative Services Producer Name Role Phone Tarsha Saenz MD Primary Care Physician Encounter [facility] Date(s): 01/11/22 - 02/10/22 [facility] [address] [place], [place] [address] Attending Physician: Matthieu Kasper Admitting Physician: AdmMatthieu [...] given w/o incident 2Result Comment: [12/16/2017] [facility] 93894-935-04 3Result Comment: [11/29/2016] [facility] [id number] 4Result Comment: [11/25/2015] pt. tolerated inj. without complications...CO 5Result Comment: [11/30/2012] given w/o incident...AA 6Admin Note: FLULAVAL 7Admin Note: done @ work 8Admin Note: per pt 9Result Comment: [facility] 10Result Comment: [id number] 11Result Comment: [12/16/2017] #1 12Admin Note: per pt 13Admin Note: hep A #2 14Admin Note: hep A #1 Medications Aerochamber See Instructions, # 1 pack/packet, Maintenance, 1 units, 01/06/22 10:43:00 EST, to use with MDI, Supply, 170, cm, 11/16/22 10:31:00 EST, Height, 101.5, kg, 06/11/21 12:07:00 EDT, Dry Weight Start Date: 01/06/22 Status: Ordered Albuterol (Eqv-ProAir HFA) 90 mcg/inh inhalation aerosol See Instructions, 2 puffs Inhalation Every 6 hours, # 18 Gm, 0 Refills, Maintenance, 01/06/22 10:43:00 EST, [facility]/pharmacy #0693, Partial fill upon patient [...] Active RA - Rheumatoid arthritis Confirmed Active Procedures Procedure Date Related Diagnosis Body Site Status Left first MTP fusion, 3rd F DL tenotomy, 4th hammertoe correction and removal of old hardware 08/03/10 Complete d Social History Social History Type Response Smoking Status Never smoker; Tobacc o user in household: No entered on: 01/07/14 Sex Note * Event Display: Cardiology Office Note, Non-BH Authored Date: * Event Display: CT Scan Shoulder, Non- BH Authored Date: * Event Display: Cardiology Office Note, Non-BH Authored Date: * Event Display: [place] Nuclear Medicine, Non-BH Authored Date: * Event Display: Non BH Cardiovascular Results Authored Date: * Event Display: Ultrasound Lower Extremity, Non-BH Authored Date: * Event Display: MRI Knee, Non- BH Authored Date: * Event Display: Holter Report Authored Date: * Event Display: Cardiovascular Result Scanned Authored Date: * Event Display: NM Nuclear Medicine, Non-BH Authored Date: * Event Display: Non BH Lab Results Authored Date: * Event Display: Non BH Lab Results Authored Date: * Event Display: Non BH Radiology Results Authored Date: * Event Display: Non BH Radiology Results Authored Date: * Charlotte Gaytan: PERFORM Event Display: Radiology Results Scanned Authored Date: Cardiology Consult note * Event Display: Consult Note Cardiology Authored Date: XR Chest Views * Event Display: X-Ray Chest Authored Date: Patient Care team information Care Team Personnel Name: Niurka Mendosa RN Position: S RN Member Role: Primary Care Nurse Name: Oswaldo Valadez RN Position: S RN Member Role: Primary Care Nurse Name: Alva Gibbons RN Position: S RN Member Role: Primary Care Nurse Name: Milka Mendosa RN Position: [facility] RN Member Role: Primary Care Nurse Name: Joseph CADET, Jl Best Position: [facility] Physician (General Medicine) Member Role: Lifetime Consulting Physician Address: Address: [address] [place] [address]- [place] Name: Tarsha Saenz MD Position: Reference Physician Member Role: PCP Address: Address: [address] [place] [address]- Care Team Related Persons Name: MARGARETTE LOPEZ Name: TAWNYA LOPEZ Address: home [address] [place] [address]
--- OUTSIDE RECORDS SUMMARY | 2023-12-17 09:38 | XMS_ITS | Continuity of Care Document ---
Author Organization [facility] Address [address] [place] [address]- Care Team Providers Care Shorthand Teacher Name Role Phone Keyla Mata MD Primary Care Physician Encounter [facility] Date(s): 12/22/20 - 01/21/21 [facility] [address] [place] [address]- [place] Allergies, Adverse Reactions, Alerts Substance Reaction [...] (oldterm) 14 08/02/07 Given 1Result Comment: [12/16/2017] [facility] 23078-907-24 2Result Comment: [11/29/2016] [facility] 96046-419-23 3Result Comment: [11/25/2015] pt. tolerated inj. without complications...CO 4Result Comment: [11/30/2012] given w/o incident...AA 5Admin Note: FLULAVAL 6Admin Note: done @ work 7Admin Note: per pt 8Result Comment: Done at [facility] 9Result Comment: [id number] 10Result Comment: [12/16/2017] #1 11Admin Note: info [...] 1 Refills, Maintenance, 01/02/21 8:57:00 EST, Cream, [facility]/pharmacy #2058, Partial fill upon patient request if the [...] capsule, 1 Refills, Maintenance, 09/15/20 10:55:00 EDT, [facility]/pharmacy #0693, 171, cm, 09/12/20 9:46:00 [...] DAYS, # 15 sprays, 0 Refills, Acute, [facility] STORE 11793, 30, USE 2 SPRAYS IN EACH NOSTRIL 3 TIMES A DAY FOR 7 DAYS, 170, cm, 04/10/19 14:00:00 EST, Height, 104.5, kg, 09/15/18 9:05:00 EDT... Start Date: 05/04/19 Status: Ordered ipratropium nasal 42 mcg/inh spray 2 sprays, Nares, Both, 3 times a day, # 1 each, 0 Refills, Maintenance, 07/02/20 16:11:00 EDT, [facility]/pharmacy #0693, 2 sprays Nares, Both [...] 04/14/20 15:22:00 EST, Route to Pharmacy Electronically, [facility]/pharmacy #0693, Partial fill upon patient [...] mL, 0 Refills, Maintenance, 12/23/20 13:10:00 EDT, [facility]/pharmacy #0693, Partial fill upon patient [...]
--- OUTSIDE RECORDS SUMMARY | 2023-12-17 09:38 | XMS_ITS | Continuity of Care Document ---
Author Organization [facility] Address [address] [place] [address]- Care Team Providers Care Technical Photographer Name Role Phone Esperanza CADET, Keyla Parks Primary Care Physician [phone] [facility] Date(s): 09/30/20 - 10/30/20 [facility] [address] [place], [place] [address] Allergies, Adverse Reactions, Alerts Substance Reaction [...] 14 08/02/07 Given 1Result Comment: Done at [facility] 2Result Comment: [id number] 3Result Comment: [12/16/2017] #1 4Result Comment: [12/16/2017] [facility] 50696-291-09 5Result Comment: [11/29/2016] [facility] 07434-345-63 6Result Comment: [11/25/2015] pt. tolerated inj. without [...] capsule, 1 Refills, Maintenance, 09/15/20 10:55:00 EDT, [facility]/pharmacy #0693, 171, cm, 09/12/20 9:46:00 EDT, [...] Refills, Acute, [facility] STORE 27575, 30, USE 2 SPRAYS IN EACH NOSTRIL [...] to Pharmacy Electronically, [facility]/pharmacy #0690, Partial fill upon patient request,... Start Date: [...]
--- OUTSIDE RECORDS SUMMARY | 2023-12-17 09:38 | XMS_ITS | Continuity of Care Document ---
Author Organization [facility] Address [address] [place] [address]- Care Team Providers Care Pick Up Truck Driver Name Role Phone Dany CADET, Tarsha Parks Primary Care Physician [facility] Date(s): 05/27/22 - 06/26/22 [facility] [address] [place] [address]- [place] Allergies, Adverse Reactions, Alerts Substance Reaction [...] Comment: [12/16/2017] [facility] 59049-355-83 3Result Comment: [11/29/2016] [facility] 66064-191-21 4Result Comment: [11/25/2015] pt. tolerated inj. without complications...CO 5Result Comment: [11/30/2012] given w/o incident...AA 6Admin Note: FLULAVAL 7Admin Note: done @ work 8Admin Note: per pt 9Result Comment: [facility] 10Result Comment: [id number] 11Result Comment: [12/16/2017] #1 12Admin Note: per [...] 05/18/22 12:35:00 EDT, Route to Pharmacy Electronically, [facility]/pharmacy #0693, Partial fill upon patient requestif [...] Care Nurse Name: Oswaldo Valadez RN Position: [facility] RN Member Role: Primary Care Nurse Name: Alva Gibbons RN Position: [facility] RN Member Role: Primary Care Nurse Name: Milka Mendosa RN Position: [facility] RN Member Role: Primary Care Nurse Name: Jl Ruiz MD Position: [facility] Physician (General Medicine) Member Role: Lifetime Consulting Physician Address: Address: [address] [place], [place] [address] [place] [address]- [place] Name: Tarsha Saenz MD Position: Reference Physician Member Role: PCP Address: Address: [address] [place] [address]- Care Team Related Persons Name: MARGARETTE LOPEZ Name: TAWNYA LOPEZ Address: [address] [address]
--- OUTSIDE RECORDS SUMMARY | 2023-12-17 09:38 | XMS_ITS | Continuity of Care Document ---
Author Organization [facility] Address [address] [place] [address]- Care Team Providers Care Managed Services Sales Consultant Name Role Phone Esperanza CADET, Keyla Parks Primary Care Physician [facility] Date(s): 05/02/20 - 06/01/20 [facility] [address] [place], [place] [address] Allergies, Adverse Reactions, Alerts Substance [...] Comment: Done at [facility] 2Result Comment: [id number] 3Result Comment: [12/16/2017] #1 4Result Comment: [12/16/2017] [facility] [id number] 5Result Comment: [11/29/2016] [facility] [id number] 6Result Comment: [11/25/2015] pt. tolerated inj. without [...] sprays, 0 Refills, Acute, [facility] STORE 88123, 30, USE 2 SPRAYS IN EACH NOSTRIL [...] EST, Route to Pharmacy Electronically, [facility]/pharmacy #7982, Partial fill upon patient request,... Start Date: [...]
--- OUTSIDE RECORDS SUMMARY | 2023-12-17 09:38 | XMS_ITS | Continuity of Care Document ---
Author Organization [facility] Address [address] [place] [address]- Care Team Providers Care Thermo Cementing Folder Operator Name Role Phone Keyla Mata MD Primary Care Physician [facility] Date(s): 04/10/21 - 05/10/21 [facility] [address] [place] [address]- Attending Physician: aMtthieu Kasper Allergies, Adverse Reactions, Alerts Substance Reaction [...] influenza virus vaccine, inactivated 7 12/22/08 Gi mratir Influenza Virus Vaccine (oldterm) 8 11/23/19 Recor [...] (oldterm) 14 08/02/07 Given 1Result Comment: [12/16/2017] [facility] 54849-749-60 2Result Comment: [11/29/2016] [facility] 92130-605-56 3Result Comment: [11/25/2015] pt. tolerated inj. without complications...CO 4Result Comment: [11/30/2012] given w/o incident...AA 5Admin Note: FLULAVAL 6Admin Note: done @ work 7Admin Note: per pt 8Result Comment: Done at [facility] 9Result Comment: [id number] 10Result Comment: [12/16/2017] #1 11Admin Note: info [...] 0 Refills, Acute, [facility] STORE [address]5450, 30, USE 2 SPRAYS IN EACH NOSTRIL [...]
--- OUTSIDE RECORDS SUMMARY | 2023-12-17 09:38 | XMS_ITS | Continuity of Care Document ---
Author Organization [facility] Address [address] [place] [address]- Care Team Providers Care Elementary School Registrar Name Role Phone Keyla Mata MD Primary Care Physician [facility] Date(s): 04/08/21 - 05/08/21 [facility] [address] [place], [place] [address] Allergies, Adverse Reactions, Alerts Substance Reaction Severity Status Darvocet A500 RASH Active clarithromycin Active vancomycin [...] 14 08/02/07 Given 1Result Comment: [12/16/2017] [facility] 71033-692-33 2Result Comment: [11/29/2016] [facility] 22656-381-24 3Result Comment: [11/25/2015] pt. tolerated inj. without complications...CO 4Result Comment: [11/30/2012] given w/o incident...AA 5Admin Note: FLULAVAL 6Admin Note: done @ work 7Admin Note: per pt 8Result Comment: Done at [facility] 9Result Comment: [id number] 10Result Comment: [12/16/2017] #1 11Admin Note: info [...] 1 Refills, Maintenance, 01/02/21 8:57:00 EST, Cream, [facility]/pharmacy #0693, Partial fill upon patient [...] capsule, 1 Refills, Maintenance, 02/09/21 14:43:00 EST, [facility]/pharmacy #0693, 170, cm, 01/29/21 13:01:00 [...] DAYS, # 15 sprays, 0 Refills, Acute, [facility] STORE 17042, 30, USE 2 SPRAYS IN EACH NOSTRIL 3 TIMES A DAY FOR 7 DAYS, 170, cm, 04/10/19 14:00:00 EST, Height, 104.5, kg, 09/15/18 9:05:00 EDT... Start Date: 05/04/19 Status: Ordered ipratropium nasal 42 mcg/inh spray 2 sprays, Nares, Both, 3 times a day, # 1 each, 0 Refills, Maintenance, 07/02/20 16:11:00 EDT, [facility]/pharmacy #0693, 2 sprays Nares, Both 3 [...] 04/14/20 15:22:00 EST, Route to Pharmacy Electronically, [facility]/pharmacy #0693, Partial fill upon patient request,... [...] mL, 0 Refills, Maintenance, 12/23/20 13:10:00 EDT, [facility]/pharmacy #0693, Partial fill upon patient [...] 01/26/21 12:30:00 EST, Route to Pharmacy Electronically, [facility]/pharmacy #0694, Partial fill upon patient request if the [...]
--- OUTSIDE RECORDS SUMMARY | 2023-12-17 09:38 | XMS_ITS | Continuity of Care Document ---
Author Organization [facility] Address [address] [place] [address]- Care Team Providers Care Development Planner Name Role Phone Dany CADET, Tarsha Parks Primary Care Physician [phone] Encounter [facility] Date(s): 12/01/22 - 12/08/22 [facility] [address] [place] [address]- Attending Physician: Isai Maza MD Referring Physician: Tarsha Saenz MD Allergies, Adverse Reactions, Alerts Substance Reaction Severity Status clarithromycin rash Active medtronidazole containing compounds rash Mild Active vancomycin itching UNKNOWN Mild Active nortriptyline rash Mild Active cyclobenzaprine tongue swelling,constipation Severe Active Vicodin delusion rash Mild Active NSAIDs [...] given given w/o incident 2Result Comment: [12/16/2017] [facility] [id number] 3Result Comment: [11/29/2016] [facility] [id number] 4Result Comment: [11/25/2015] pt. tolerated inj. without complications...CO 5Result Comment: [11/30/2012] given w/o incident...AA 6Admin Note: FLULAVAL 7Admin Note: done @ work 8Admin Note: per pt [facility] Comment[facility] 10Result Comment: [id number] 11Result Comment: [12/16/2017] #1 12Admin Note: per [...] capsule, 3 Refills, Maintenance, 09/08/21 10:47:00 EDT, [facility]/pharmacy #[id number], 170, cm, 09/08/21 [...] By Mouth, 2 times a day, # 60 tablet, Refills 0, Tot. Refills 0, Maintenance, 11/28/22 16:38:00 EDT, [facility] to [facility]ically, [id number], Partial fill upon patient request if the prescription is for a schedule II opioid drug.,... Start Date: 11/28/22 Stop Date: 12/28/22 Status: Ordered spironolactone 25 mg oral tablet 25 mg, 1, tablet, By Mouth, Daily, # 30 tablet, Refills 5, Tot. Refills 5, Maintenance, 11/15/22 11:40:00 EDT, Route to Pharmacy Electronically, [facility]/pharmacy #[id number], Partial fill upon patient request if the [...] in household: No entered on: 01/07/14 Sex Hospital Progress note * Geoffrey CADET, Jenna Bermudez: PERFORM Event Display: Progress Note Hospital Authored Date: Patient: ??THO CHO ? Age:??67 Years?Sex:??Female?:??1955? To whom it may concern, ?? Ms. Cho has been??seen??and managed??at our cardiology clinic at [facility]??medical symptom.?? Please??excuse her absence??from work??due to medical illness and??she will be??able to return to work on 12/08/2022. ?? Regards ?Jenna Hale MD ?Cardiovascular Disease Fellow, PGY-4?Pager [phone]?? Cardiology Outpatient Note * Geoffrey CADET, Jenna Bermudez: PERFORM, MODIFY Event Display: Cardiology Note Office Authored Date: [id number] Patient: ??THO CHO ? Age:??67 Years?Sex:??Female?:??1955?? Patient Hx Cardiology Shared Clinical Summary Problem list: 1.?? Hypertension 2.?? Palpitations 3.?? Exertional dyspnea ?? Patient previously saw Dr. Rowe??from [place] History of Present Illness/Interval History Visit was done over the phone since patient still tested positive for COVID on 11/26/2022.?? She gotCOVID on 11/17 and patient is asymptomatic however according to policy patient has to test negative for COVID? This is a 67-year-old female with pertinent past medical history of hypertension, hyperlipidemia, GERD, JESS on CPAP and anxiety who presented to [place] [facility] to be evaluated??for??chest pain and SVT. ?? Patient was admitted to the hospital on 11/26/2022 after she presented with left- sided chest pain and shortness of breath and was found to have SVT.?? Patient was discharged from the hospital on 11/28/2022 and recommended follow-up with cardiology. ?? Patient said that she has recurrent left-sided chest pain feels like pressure associated with shortness of breath and dizziness and palpitation.?? She always get the pain and the symptoms with palpitation.?? Her symptoms improved with rest.?? And her previous admission.?? Her EKG was nonischemic.??On telemetry she had episodes of supraventricular tachycardia.?? She also had an EKG done on 11/27 SVT with heart rate 140 and at that time she was having symptoms of chest pain. ?? Echocardiogram 09/29/2022 showed normal EF 55 to 60% with no regional wall motion abnormality.?? Pulmonary artery systolic pressure 60-65 with biatrial enlargement.?? Patient underwent a nuclear stresstest April 2022 which was normal other than presumed breast attenuation artifact.?? No clear ischemia or infarction was identified.? No episodes of??palpitation or chest pain since discharge. ??She was discharged on metoprolol??25 twice daily Review of Systems Pertinent positives as per the HPI. All other systems were reviewed and were negative ? Physical Exam Vitals & Measurements Weight lb/oz: 227 lb 15 oz was not done as visit was over the phone Assessment/Plan ?? This is a 67-year-old female with pertinent past medical history of hypertension, hyperlipidemia, GERD, JESS on CPAP and anxiety who presented to [place] [facility] to be evaluated??for??chest pain and SVT. ??Her echocardiogram showed normal EF with no regional motion abnormality.?? She also has PA systolic pressure??60-65.?? She has history of JESS and on BiPAP.?? She had a stress test??in 04/2022 which was normal. ??Her symptoms??appears to be associated with palpitation only and??seems that SVT is causing her chest pain since no evidence of ischemia on??her previous cardiac work-up.?? Patient??so far is doing well with metoprolol which we will continue. ??She will follow-up with Dr. Maza??after a month ? Recommendations?? Continue metoprolol 25 mg twice daily Zio patch for 14 days Follow-up with Dr. Maza??after a month Patient will likely need to follow-up with pulmonary hypertension clinic in the future ? Patient discussed with attending physician ?Link Total Time Spent I personally spent a total of _ minutes, including both oyyn-ri-qwwj and pyk-qogz-qf-face time on the date of the encounter, addressing the above diagnoses. Activities performed in this time include chart review, obtaining / reviewing history, performing amedically necessary evaluation, documentation and Counseling including medical decision making of Moderate Complexity (30-39 minutes for established patient) Medical Decision Making MODERATE - chronic illness w/ exac, progression, or AE of Tx, 2+ stable chronic illnesses, 1 new prob w/ ? prognosis, 1 acute w/ systemic Sx or comp injury; 2 of (note / test / order / indep historian = 3), interpretation / discussion; MOD risk +SDOH Allergies cyclobenzaprine??(tongue swelling,constipation) Augmentin??(diarrhea) Darvocet A500??(RASH) Vicodin??(delusion, rash) medtronidazole containing compounds??(rash) nortriptyline??(rash) vancomycin??(itching, UNKNOWN) NSAIDs??(C/O: itching, Rash) clarithromycin??(rash) Home Medications CPAP Machine, CPAP 12 duloxetine 60 mg oral enteric coated capsule, 1 capsule, By Mouth, Daily, 3 refills hydroxychloroquine 200 mg oral tablet, 200 mg= 1 tablet, By Mouth, Daily Lasix 40 mg oral tablet, 40 mg= 1 tablet, By Mouth, Daily, 3 refills losartan 100 mg oral tablet, 100 mg= 1 tablet, By Mouth, Daily at bedtime, 3 refills metoprolol 25 mg oral tablet, 25 mg, By Mouth, 2 times a day spironolactone 25 mg oral tablet, 25 mg= 1 tablet, By Mouth, Daily, 5 refills Lab Results Cardiology Labs WBC: 10.2 k/mm3 (11/26/22) RBC: 4.66 m/mm3 (11/26/22) Hgb: 12.7 Gm/dL (11/26/22) Hct: 40.8 % (11/26/22) MCV: 87.6 femtoliters (11/26/22) MCH: 27.3 pg (11/26/22) MCHC:??31.1 g/dL??Low (11/26/22) Platelet Count: 225 k/mm3 (11/26/22) RDW-SD:??49.2 femtoliters??High (11/26/22) Nucleated RBC (Automated): 0 #/100 WBC'S (11/26/22) Abs. Neut:??7.1 k/mm3??High (11/26/22) Abs. Lymph: 2.2 k/mm3 (11/26/22) Abs. Glacier: 0.8 k/mm3 (11/26/22) Abs. Eo: 0 k/mm3 (11/26/22) Abs. Baso: 0 k/mm3 (11/26/22) Neut %: 70 % (11/26/22) [place] %: 7.7 % (11/26/22) Eos %: 0.4 % (11/26/22) Baso %: 0.2 % (11/26/22) Imm Gran: 0.5 % (11/26/22) Abs. Imm Gran: 0.1 k/mm3 (11/26/22) Sodium: 140 mmol/L (11/26/22) Potassium: 4.5 mmol/L (11/26/22) Chloride: 102 mmol/L (11/26/22) Bicarbonate Level: 25 mmol/L (11/26/22) Glucose Level: 75 mg/dL (11/26/22) BUN: 16 mg/dL (11/26/22) Creatinine-Blood: 1 mg/dL (11/26/22) Calcium: 9.3 mg/dL (11/26/22) Protein, Total: 6.2 Gm/dL (11/26/22) Albumin: 3.9 Gm/dL (11/26/22) Alkaline Phosphatase: 61 units/L (11/26/22) AST (SGOT): 28 units/L (11/26/22) ALT (SGPT): 17 units/L (11/26/22) Bilirubin, Total: 0.7 mg/dL (11/26/22) Nt-Probnp:??1923 pg/mL??High (07/30/22) Diagnostic Impression ECG ECG 12-Lead ?? 20:06:25 Please click on pdf link to open report ?? Signed By: Dilip Petit DO ?? ECG 12-Lead ?? 20:06:25 Ventricular Rate: 93 BPM Atrial Rate: 93 BPM P-R Interval: 154 ms QRS Duration: 80 ms Q-T Interval: 360 ms QTC Calculation(Bazett): 447 ms P Alleene: 42 degrees R Alleene: -29 degrees T Alleene: 86 degrees Normal sinus rhythm with sinus arrhythmia Biatrial enlargement Left ventricular hypertrophy with repolarization abnormality ( R in aVL , [place] product , Romhilt-Vigil ) Cannot rule out Septal infarct , age undetermined Abnormal ECG When compared with ECG of 11-OCT-2022 09:33, Vent. rate has increased BY 43 BPM Confirmed by DILIP PETIT MD ([id number]) on 11/27/2022 7:47:28 AM ?? [place]: DILIP PETIT MD ?? Signed By: Dilip Petit DO Stress Test NM Myocard Perf SPECT Multi ?? 12:40:00 Summary 1. There are no significant myocardial perfusion imaging defects after exercise stress test at fair (reduced) functional capacity. There is a small in size, mild intensity fixed perfusion defect in the basal to mid anterolateral wall with normal myocardial thickening and wall motion suggestive of breast attenuation. There are no reversible perfusion defects noted to suggest ischemia. ?? 2. LV function is normal with an E.F. of >70% at rest and with stress. ?? 3. EKG portion of the stress test is reported separately. ?? Signatures _ _ ?? Signed By: Thomas Coe MD Echo Echocardiogram - Complete ?? 12:58:19 Summary The left ventricular size is normal. There is mild concentric left ventricular hypertrophy. The left ventricular ejection fraction is 55-60 %. No obvious wall motion abnormalities seen on limited views. Indeterminate diastolic function. ?? The right ventricular size is at the upper limits of normal. Right ventricular systolic function appears preserved. ?? There is trace to mild aortic regurgitation. ?? There is moderate tricuspid valve regurgitation. ?? The pulmonary artery systolic pressure estimation is 60-65 mmHg. Biatrial enlargement. ?? Comparison Comparison is made to the study of February 10, 2010. Report unavailable. ?? Signature ?? Signed By: Bobby MD, Yenifer A Problem List/Past Medical History Ongoing Comorbid sleep-related hypoventilation Fibromyalgia GERD - Gastro-esophageal reflux disease Hypertension Left ventricular diastolic dysfunction Lumbar facet arthropathy Mastodynia, bilateral Mitral valve prolapse OA (osteoarthritis) of knee Obesity Obstructive sleep apnea Positive PPD RA - Rheumatoid arthritis Severe obesity (BMI 35.0-39.9) with comorbidity Procedure/Surgical History RIGHT Reverse total shoulder arthroplasty: 06/11/21 [...] shoulder Rotator Cuff repair: 1999 tonsillectomy: 1960 Social History Alcohol Use: Never. Employment/School Status: Disabled. Other: was on SSDI due to medical conditions. now on social security. Exercise Self assessment: Poor condition. Regular exercise: No. Home/Environment Living situation: Home/Independent. Lives with: Alone. Nutrition/Health Diet: Regular, Low sodium. Other: Denies caffeine.. Other Name: Trung is daughter tawnya lopez.. Substance Abuse Use: Never. Tobacco Never smoker, Tobacco user in household: No. Family History Mother (): CAD - Coronary artery disease; Hypertension; Stroke Father (): Alcoholism; COPD Other (maternal aunt): Cancer of ovary Sister (): CAD - Coronary artery disease; IBD - Inflammatory bowel disease * Link CADET, Isai Sampson: PERFORM Event Display: Cardiology Note Office Authored Date: [id number] Attending Attestation:??I was present during patient's phone visit along with??drywall carrier. ??I have discussed the case and its management with the fellow and agree with the findings and plan as documented in the fellow???s note.? Telehealth Time of direct telehealth encounter/medical discussion: 12 minutes The patient was located in a home setting in the during this??telephone??electronic televisit, and gave consent to conduct the visit via telehealth. Provider was located??in a [facility] office. Persons other than patient involved in televisit included:??none ?? Patient Care team information Care Team [...] Care Nurse Name: Hilary Bell RN Position: [facility] RN Member Role: Primary Care Nurse Name: Joseph CADET, Dilip Best Position: [facility] Physician (General Medicine) Member Role: Lifetime Consulting Physician Address: Address: [address] [place] [address]- Name: Saskia Houser RN Position: [facility] RN Member Role: Primary Care Nurse Name: Dany CADET, Tarsha Parks Position: Reference Physician Member Role: PCP Address: Address: [address] [place] [address]- Care Team Related Persons Name: MARGARETTE LOPEZ Name: TAWNYA LOPEZ Address: [address] [address]
--- OUTSIDE RECORDS SUMMARY | 2023-12-17 09:38 | XMS_ITS | Continuity of Care Document ---
Author Organization [facility] Address Unknown Care Team Providers Care Hogshead Stock Clerk Name Role Phone Keyla Mata MD Primary Care Physician Encounter [facility] Date(s): 01/13/21 - 02/12/21 [facility] Attending Physician: Matthieu Kasper Admitting Physician: AdmtrMatthieu [...] R ecorded Influenza Virus Vaccine (oldterm) 8 10/2/20 Recor ded Influenza Virus Vaccine (oldterm) 11/14/18 [...] 14 08/02/07 Given 1Result Comment: [12/16/2017] [facility] [id number] 2Result Comment: [11/29/2016] [facility] [id number] 3Result Comment: [11/25/2015] pt. tolerated inj. without complications...CO 4Result Comment: [11/30/2012] given w/o incident...AA 5Admin Note: FLULAVAL 6Admin Note: done @ work 7Admin Note: per pt 8Result Comment: Done at [facility] 9Result Comment: [id number] 10Result Comment: [12/16/2017] #1 11Admin Note: info [...] 1 Refills, Maintenance, 01/02/21 8:57:00 EST, Cream, [facility]/pharmacy #[id number], Partial fill upon [...] capsule, 1 Refills, Maintenance, 02/09/21 14:43:00 EST, [facility]/pharmacy #[id number], 170, cm, 01/29/21 13:01:00 EST, [...] DAYS, # 15 sprays, 0 Refills, Acute, [facility] STORE [id number], 30, USE 2 SPRAYS IN EACH NOSTRIL 3 TIMES A DAY FOR 7 DAYS, 170, cm, 04/10/19 14:00:00 EST, Height, 104.5, kg, 09/15/18 9:05:00 EDT... Start Date: 05/04/19 Status: Ordered ipratropium nasal 42 mcg/inh spray 2 sprays, Nares, Both, 3 times a day, # 1 each, 0 Refills, Maintenance, 07/02/20 16:11:00 EDT, [facility]/pharmacy #[id number], 2 sprays Nares, [...] 04/14/20 15:22:00 EST, Route to Pharmacy Electronically, [facility]/pharmacy #[id number], Partial fill upon [...] mL, 0 Refills, Maintenance, 12/23/20 13:10:00 EDT, [facility]/pharmacy #[id number], Partial fill upon patient request if the prescription is for a schedule II opioid drug., 4 liters By Mouth Once, 171, cm, 12/23/20... Start Date: 12/23/20 Status: Ordered tiZANidine 4 mg oral tablet 4 mg, 1, tablet, By Mouth, Every 8 hours, PRN, # 42 tablet, Refills 0, Tot. Refills 0, Maintenance,Spasm, 01/26/21 12:30:00 EST, Route to Pharmacy Electronically, [facility]/pharmacy #[id number], Partial fill upon [...]
--- OUTSIDE RECORDS SUMMARY | 2023-12-17 09:38 | XMS_ITS | Continuity of Care Document ---
Author Organization [facility] Address [address] [place] [address]- Care Team Providers Care Coach Professional Athletes Name Role Phone Tarsha Saenz MD Primary Care Physician Encounter [facility] Date(s): 03/14/23 - 04/13/23 [facility] [address] [place] [address]- [place] Allergies, Adverse Reactions, Alerts Substance Reaction Severity Status clarithromycin rash Active vancomycin itching UNKNOWN Mild Active nortriptyline rash Mild Active cyclobenzaprine tongue swelling,constipation Severe Active medtronidazole containing compounds rash Mild Active Augmentin diarrhea Mild Active Darvocet A500 [...] given given w/o incident 2Result Comment: [12/16/2017] [facility] 42001-206-44 3Result Comment: [11/29/2016] [facility] 74171-264-16 4Result Comment: [11/25/2015] pt. tolerated inj. without complications...CO 5Result Comment: [11/30/2012] given w/o incident...AA 6Admin Note: FLULAVAL 7Admin Note: done @ work 8Admin Note: per pt [facility] 10Result Comment: [id number] 11Result Comment: [12/16/2017] #1 12Admin Note: per [...] capsule, 3 Refills, Maintenance, 09/08/21 10:47:00 EDT, [facility]/pharmacy #[id number], 170, cm, 09/08/21 [...] 03/30/22 13:32:00 EST, Route to Pharmacy Electronically, [facility]/pharmacy #[id number], Partial fill upon [...] 12/27/22 12:00:00 EST, Route to Pharmacy Electronically, [facility]/pharmacy #[id number], Partial fill upon patient request ifthe prescription is for a schedule II opioid drug.,... Start Date: 12/27/22 Stop Date: 12/22/23 Status: Ordered NuLYTELY Lemon [place] oral powder for reconstitution See Instructions, use [...] Name: Niurka Mendosa RN Position: [facility] RN Member Role: Primary Care Nurse Name: Oswaldo Valadez RN Position: [facility] RN Member Role: Primary Care Nurse Name: Alva Gibbons RN Position: [facility] RN Member Role: Primary Care Nurse Name: Hilary Bell RN Position: [facility] RN Member Role: Primary Care Nurse Name: Tarsha Saenz MD Position: Reference Physician Member Role: PCP Address: Address: [address] [place] [address]- [place] Care Team Related Persons Name: MARGARETTE LOPEZ Name: TAWNYA LOPEZ Address: [address] [address]
--- OUTSIDE RECORDS SUMMARY | 2023-12-17 09:38 | XMS_ITS | Continuity of Care Document ---
Author Organization [facility] Address [address] [place] [address]- Care Team Providers Care Design Release Engineer Name Role Phone Esperanza CADET, Keyla Parks Primary Care Physician [facility] Date(s): 06/05/19 - 06/12/19 [facility] [address] [place] [address]- [facility] Encounter Diagnosis Migraine(Discharge Diagnosis) - 06/05/19 Cervicalgia(Discharge Diagnosis) - 06/05/19 Attending Physician: Keyla Mata MD Allergies, Adverse Reactions, Alerts Substance Reaction Severity Status clarithromycin Active vancomycin UNKNOWN Active nortriptyline Active Vicodin delusion rash Active NSAIDs C/O: itching Rash Persistent Moderate Active oxyCODONE nausea, dizziness, weakness, palpitations Active cyclobenzaprine tongue swelling,constipation Active medtronidazole containing [...] Vaccine (oldterm) 13 08/02/07 Given 1Result Comment: [id number] 2Result Comment: [12/16/2017] #1 3Result Comment: [12/16/2017] [facility] [id number] 4Result Comment: [11/29/2016] [facility] 35574-771-68 5Result Comment: [11/25/2015] pt. tolerated inj. without [...] 15 sprays, 0 Refills, Acute, [facility], 30, USE 2 SPRAYS IN EACH NOSTRIL [...] 12/04/19 11:36:00 EDT, 03/09/19 11:36:00 EST, Tablet, [facility]/pharmacy #[id number], 170, cm, 03/09/19 11:14:00 EST, [...] capsule, 5 Refills, Maintenance, 06/04/19 14:15:00 EDT, [facility]/pharmacy #[id number], 170, cm, 04/10/19 14:00:00 EST, [...] Diagnosis Diagnosis Type Effective Dates Health Status Clini hina Service Informant Migraine Discharge Diagnosis 06/05/19 Cervicalgia Discharge Diagnosis 06/05/19 Social History Social History Type Response Smoking Status Never smoker; Tobacc o user in household: No entered on: 01/07/14 Sex
--- OUTSIDE RECORDS SUMMARY | 2023-12-17 09:38 | XMS_ITS | Continuity of Care Document ---
Author Organization [facility] Address [address] [place] [address]- Care Team Providers Care Tap Dancer Name Role Phone Dany CADET, Tarsha Parks Primary Care Physician Encounter [facility] Date(s): 06/30/22 - 07/30/22 [facility] [address] [place] [address]- [place] Allergies, Adverse Reactions, Alerts Substance Reaction [...] given given w/o incident 2Result Comment: [12/16/2017] [facility] [id number] 3Result Comment: [11/29/2016] [facility] [id number] 4Result Comment: [11/25/2015] pt. tolerated inj. without complications...CO 5Result Comment: [11/30/2012] given w/o incident...AA 6Admin Note: FLULAVAL 7Admin Note: done @ work 8Admin Note: per pt 9[facility] Comment[facility] 10Result Comment: [id number] 11Result Comment: [12/16/2017] #1 12Admin Note: per [...] capsule, 3 Refills, Maintenance, 09/08/21 10:47:00 EDT, [facility]/pharmacy #[id number], 170, cm, 09/08/21 10:10:00 EDT, [...] 05/18/22 12:35:00 EDT, Route to Pharmacy Electronically, [facility]/pharmacy #[id number], Partial fill upon patient requestif [...] Team Personnel Name: Navya TSANG, Niurka Position: [facility] RN Member Role: Primary Care Nurse Name: Oswaldo Valadez RN Position: [facility] RN Member Role: Primary Care Nurse Name: Alva Gibbons RN Position: [facility] RN Member Role: Primary Care Nurse Name: Milka Mendosa RN Position: [facility] RN Member Role: Primary Care Nurse Name: Jl Ruiz MD Position: [facility] Physician (General Medicine) Member Role: Lifetime Consulting Physician Address: Address: [address] [place] [address] [address] [place] [address]- [place] Name: Tarsha Saenz MD Position: Reference Physician Member Role: PCP Address: Address: [address] [place] [address]- Care Team Related Persons Name: MARGARETTE LOPEZ Name: TAWNYA LOPEZ Address: [address] [address]
--- OUTSIDE RECORDS SUMMARY | 2023-12-17 09:38 | XMS_ITS | Continuity of Care Document ---
Author Organization [facility] Address [address] [place] [address]- Care Team Providers Care Production Superintendent Name Role Phone Dany CADET, Tarsha Parks Primary Care Physician Encounter [facility] Date(s): 09/05/23 - 10/05/23 [facility] [address] [place] [address]- Attending Physician: Matthieu Kasper Admitting Physician: Matthieu [...] given w/o incident 2Result Comment: [12/16/2017] [facility] 14356-159-20 3Result Comment: [11/29/2016] [facility] 55475-376-75 4Result Comment: [11/25/2015] pt. tolerated inj. without complications...CO 5Result Comment: [11/30/2012] given w/o incident...AA 6Admin Note: FLULAVAL 7Admin Note: done @ work 8Admin Note: per pt 9Result Comment: Done at [facility] 10Result Comment: [id number] 11Result Comment: [12/16/2017] #1 12Admin Note: per [...] capsule, 3 Refills, Maintenance, 09/08/21 10:47:00 EDT, [facility] #[id number], 170, cm, 09/08/21 10:10:00 EDT, Height, 101.5, kg, 06/11/21 12:07:00 EDT, Dry Weight Start Date: 09/08/21 Status: Ordered furosemide 40 mg oral tablet 1, tablet, By Mouth, Daily, # 90 tablet, Refills 0, Maintenance, 09/19/23 7:40:00 EDT, Route to Pharmacy Electronically, [id number], 170, cm, 08/29/23 9:28:00 EDT, Height, 112.3, [...] Refills, Maintenance, 05/19/23 8:02:00 EDT, [id number], 170, cm, 03/29/23 10:03:00 EST, Height, 108.7, [...] 04/25/23 10:38:00 EST, Route to Pharmacy Electronically, [facility]/pharmacy #[id number], Partial fill upon patient request if the prescription is for a schedule II opioid drug... Start Date: 04/25/23 Status: Ordered Xarelto 10 mg oral tablet 1 tablet = 10 mg, By Mouth, Daily, # 30 tablet, 0 Refills, Maintenance, 08/24/23 7:12:00 EDT, Tablet, [facility] #[id number], Partial fill upon patient request if [...] MRI Safety Implantable Status Assigning Authority Unknown [id number] Unknown Unknown 05/10/25 Unknown Unknown Active Unknown Procedure Provider Procedure Date Device Type Site Fusion Dianaometatarsal Dora Garcia MD 08/24/23 Unkn own Foot Right Device Identifier Serial Number Lot or Batch Number Manufacturing Date Expiration Date Distinct Identification Code MRI Safety Implantable Status Assigning Authority Unknown [id number] Unknown Unknown 12/02/24 Unknown Unknown Active Unknown Patient Care team information Care Team Personnel Name: Niurka Mendosa RN Position: [facility] RN Member Role: Primary Care Nurse Name: Oswaldo Valadez RN Position: [facility] RN Member Role: Primary Care Nurse Name: Yoselyn Peters RN Position: [facility] RN Member Role: Primary Care Nurse Name: Alva Gibbons RN Position: [facility] RN Member Role: Primary Care Nurse Name: Hilary Bell RN Position: [facility] RN Member Role: Primary Care Nurse Name: Katie Govea RN Position: [facility] RN Member Role: Primary Care Nurse Name: Tarsha Saenz MD Position: Reference Physician Member Role: PCP Address: Address: [address] [place] [id number]- Care Team Related Persons Name: MARGARETTE LOPEZ Name: TAWNYA LOPEZ Address: [address] [place] [address]
--- OUTSIDE RECORDS SUMMARY | 2023-12-17 09:39 | XMS_ITS | Continuity of Care Document ---
Author Organization [facility] ter Address [address] [place] [address]- Care Team Providers Care Patient Services Specialist Name Role Phone Dany CADET, Tarsha Parks Primary Care Physician Encounter [facility] [place] Date(s): 06/10/23 - 06/10/[address] [id number] Discharge Disposition: A-D/C Home Attending Physician: Vishal Oneal MD Admitting Physician: Vishal Oneal MD Referring Physician: Vishal Oneal MD Allergies, Adverse Reactions, Alerts Substance Reaction [...] Comment: [12/16/2017] [facility] [id number] 3Result Comment: [11/29/2016] [facility] [id number] 4Result Comment: [11/25/2015] pt. tolerated inj. without complications...CO 5Result Comment: [11/30/2012] given w/o incident...AA 6Admin Note: FLULAVAL 7Admin Note: done @ work 8Admin Note: per pt 9Result Comment: [facility] 10Result Comment: [id number] 11Result Comment: [12/16/2017] #1 12Admin Note: per [...] 3 Refills, Maintenance, 09/08/21 10:47:00 EDT, [facility]/pharmacy #[id number], 170, cm, 09/08/21 10:10:00 EDT, Height, [...] 13:32:00 EST, Route to Pharmacy Electronically, [facility]/pharmacy #[id number], Partial fill upon patient request if the prescription is for a schedule II opioid drug... Start Date: 03/30/22 Status: Ordered losartan 100 mg oral tablet 1 tablet, By Mouth, Daily, # 90 tablet, 3 Refills, Maintenance, 05/19/23 8:02:00 EDT, [id number], 170, cm, 03/29/23 10:03:00 EST, Height, 108.7, kg, 03/02/23 8:55:00 EST, Dry Weight Start Date: 05/19/23 Status: Ordered Magnesium Magnesium, By Mouth, Daily, 0 Refills, Maintenance, 03/03/23 14:48:00 EST Start Date: 03/03/23 Status: Ordered spironolactone 25 mg oral tablet 25 mg, 1, tablet, By Mouth, Daily, # 30 tablet, Refills 5, Tot. Refills 5, Maintenance, 04/25/23 10:38:00 EST, Route to Pharmacy Electronically, [facility]/pharmacy #[id number], Partial fill upon patient request if the [...] Range]: 1 2 3 Height 170 cm (06/10/23 9:03 AM) Weight 110.9 kg (06/10/23 9:03 AM) Oxygen Saturation [94-100 %] 96 % (06/10/23 3:45 PM) 98 % (06/10/23 3:15 PM) 97 % (06/10/23 3:05 PM) Body Mass Index [18.5-24.99 kg/m2] 38.37 kg/m2 *>HHI* (06/10/23 9:03 AM) Blood Pressure [90-138/55-84 mm Hg] 147/75mm Hg *H* (06/10/23 3:45 PM) 132/76mm Hg (06/10/23 3:15 PM) 105/89mm Hg (06/10/23 3:05 PM) Respiratory Rate [16-30 br/min] 16 br/min (06/10/23 3:45 PM) 16 br/min (06/10/23 3:15 PM) 21 br/min (06/10/23 3:05 PM) Temperature [96.8-100.4 DegF] 97.5 DegF (06/10/23 4:30 PM) 97.3 DegF (06/10/23 12:45 PM) 97.8 DegF (06/10/23 9:03 AM) Mode of Delivery (Oxygen) Room air (06/10/23 3:45 PM) Room air (06/10/23 3:15 PM) Room air (06/10/23 3:05 PM) Blood pressure sites Arm, right (06/10/23 12:45 PM) Arm, left (06/10/23 9:03 AM) Arm, right (06/10/23 8:45 AM) Temperature Route Temporal (06/10/23 4:30 PM) Temporal (06/10/23 12:45 PM) Temporal (06/10/23 9:03 AM) Weight Obtained Via Standing scale (06/10/23 9:03 AM) Social History Social History Type Response Smoking Status Never smoker; Tobacc o user in household: No entered on: 01/07/14 Sex Note * Event Display: Hemodynamic Procedure Report Authored Date: [id number] * Jazz Velásquez RN: PERFORM Event Display: Discharge/Transfer Note Hospital Authored Date: [id number] Nursing Discharge Note Entered On: 06/10/2023 16:44 EDT Performed On: 06/10/2023 16:43 EDT by Jazz Velásquez RN Nursing Discharge Note 2 Discharge Time : 06/10/2023 16:55 EDT Jazz Velásquez RN - 06/10/2023 17:22 EDT Discharge Level of Care at Discharge : Home/Intermediate/Foster Care Patient Left Unit Via : Wheelchair Patient Accompanied Off Unit with : Responsible adult DC Instructions Provided & Signed by Pt : Yes Patient Understands D/C Instructions : Yes Patient Instructions Discharge Signed : Yes Discharge Comments : Patient is a/o x 3, denies pain/discomfort. Bilateral groins stable, no ooze or hematoma. Tolerated walk throughout unit. No concerns. 100% teachback with all education. Did Pt have Specialty Bed or Wound Vac : No Jazz Velásuqez RN - 06/10/2023 16:43 EDT * Jazz Velásquez RN: PERFORM Event Display: Patient Education/Instruction Authored Date: Inpatient Adult Discharge Instructions. [address] [address] Name: THO CHO : 1955?? Visit: 06/10/2023 08:08?? Current Date: 06/10/2023 13:33 ?? Account: [id number]?? Inpatient Adult Discharge Instructions We would like [...] and their families. Surveys are administered by [employer] ?? If further treatment with your primary care physician or another doctor is recommended, it is important for you to keep the appointment. Call your primary care physician or return to the Emergency Department immediately if your condition worsens, fails to improve, or new symptoms develop. If you need to find a doctor, you can call [facility] for a referral at [phone] or toll free at [phone] ([phone]) or log in to [email or web address].. ?? [facility], in keeping with [facility] guidance, no longer requires face masks for [...] a health care hannah of your choosing. [employer] is a website that allows you to securely view your medical information including your hospital discharge summary, office visit summaries, medications and follow-up visits. You can also request appointments, renew medications, and request access to your medical information using a health care hannah of your choosing, or just ask a question. You can enroll at [email or web address] or register during your next office visit. You have been discharged from [facility], Patient Care Unit: CARE??. If you have any questions regarding these instructions, including results of studies pending, afteryou leave, please call us and we will be happy to assist you 13/09. [facility] Nursing Unit Direct Phone Number, for 13/09 contact and results of studies pending CARE [address] [place] [id number] Your Care Team Attending Physician Vishal Oneal MD?? Consulting Providers Vishal Oneal MD?? Discharging Providers Vishal Oneal MD Tests Performed Below is a partial list of the tests performed during your hospitalization. You may have had other tests and procedures not included in this list. Please discuss all test results with your provider. Type and Screen No tests performed during this visit.?? Primary Care Provider Dany CADET, Tarsha Parks? Advance Directive Health Care Proxy on File Yes - Health Care Proxy Discharge Vitals Temperature: 97.3 DegF Height: 170 cm Respiratory Rate:??12 br/min??Low Weight: 110.9 kg Systolic Blood Pressure:??170 mm Hg??High Body Mass Index:??38.37 kg/m2??Critical Diastolic Blood Pressure: 80 mm Hg Body surface area: 2.29 Oxygen Saturation: 100 % ?? Studies Pending All studies ordered during this hospital stay have been completed unless listed below. Please discuss all pending results with your provider listed above in these instructions. ?? No incomplete studies found?? What to do next Instructions From Your Doctor ?? Orders? 06/10/23 16:00:00 EDT?? Scheduled Follow-Up Appointments Tuesday 11:30 AM EDT ?? With: Maryellen CADET, Neel Ch Where: [facility] [address] [place] [address]- Status: Pending Tuesday 3:45 PM EDT ?? With: Link CADET, Isai Sampson Where: [facility] [address] [place] [address]- Status: Pending Tuesday 9:45 AM EDT ?? Where: [facility] [address] [place] [address]- Status: Pending Tuesday 10:30 AM EDT ?? With: Dora Allen NP Where: [facility] [address] [place] [address]- Status: Pending You Need to Schedule the Following Appointments Follow Up with??Follow up with cardiology as discussed Follow Up with??Tarsha Saenz Where: [address] [place] [address]- Business (1) Discharge Medications THO CHO :1955 Visit Date:06/10/2023 Medications: Please continue your medications until treatment is completed or stopped by your provider. Medications not listed below should be discontinued. Discuss any questions related to medications with your provider. What How Much When Instructions Next Dose Unchanged Duloxetine (duloxetine 60 mg oral enteric coated capsule) 1 capsule Oral Daily Resume Unchanged Flax (Flax Seed Oil oral capsule) Oral Daily Resume Unchanged Furosemide (Lasix 40 mg oral tablet) 1 tab(s) Oral Daily Resume Unchanged Hydroxychloroquine (hydroxychloroquine 200 mg oral tablet) 1 tab(s) Oral Daily Resume Unchanged Losartan (losartan 100 mg oral tablet) 1 tab(s) Oral Daily Resume Unchanged Miscellaneous Rx (Iron) Oral Daily Resume Unchanged Miscellaneous Rx (Magnesium) Oral Daily Resume Unchanged Multivitamin With Minerals (Centrum) Oral Daily Resume Unchanged [place]-3 Polyunsaturated Fatty Acids (Fish Oil) Oral Resume Unchanged Spironolactone (spironolactone 25 mg oral tablet) 1 tab(s) Oral Daily Resume ?? What How Much When Comments Stop Taking Metoprolol (metoprolol 25 mg oral tablet) 25 Milligram Oral Twice a day Duration: 90 Days Prescription Given During Visit No new medications prescribed at time of discharge.?? Laboratory Results Below is a partial list of the most recent Laboratory test results done prior to this discharge. You may have had other tests and procedures not included in this list. Please discuss all test resultswith your provider. Type and Screen (06/10/2023) ???Blood Type - B Positive???Antibody Screen - Negative Allergies (NKA means No Known Allergies) cyclobenzaprine??(tongue swelling,constipation) Augmentin??(diarrhea) Darvocet A500??(RASH) Vicodin??(delusion, rash) medtronidazole containing compounds??(rash) nortriptyline??(rash) vancomycin??(itching, UNKNOWN) NSAIDs??(C/O: itching, Rash) clarithromycin??(rash) Problems Active Problems??(14) Comorbid sleep-related hypoventilation?? Fibromyalgia?? [...] Belongings I fully understand and agree that [facility] accepts no responsibility for all my [...] ?? Date for Pt to Sign Valuables/Belongings: 06/10/23 09:03:00 ?? Valuables & Belongings ?? Clothes Electronic devices Jewelry Monetary Items Personal devices Miscellaneous Medications (Valuables) Valuables at Bedside Jacket, Pants, Shirt, Shoes, Undergarments Cell phone ? Valuables Sent Home ? Valuables Sent to Security ? Other Discharge Information ? Pulmonary Rehab Status?? Pulmonary Rehab Discharge Status?? Respiratory Rate:??12 br/min??Low ? Common Emergency Awareness Tips IS IT [...] are strongly encouraged to quit. Please call [facility] at [phone] or [phone] ([phone]) or log in to [email or web address] for referrals to smoking cessation programs. ?? 838 Suicide & Crisis Lifeline is available 13/09 if you or someone you know needs to find a reason to keep living. By calling 782 you'll be connected to a skilled, trained counselor at a crisis center in your area. INPATIENT DISCHARGE INSTRUCTIONS SIGNATURE THO FLORES Location:[facility] Registration Date and Time:06/10/2023 08:08 EDT Primary Care Physician: Tarsha Saenz MD, Attending Physician: Kimym CADET, Vishal Parker, I THO CHO, have received the above patient education materials/instructions and have verbalized understanding. If ambulance or transport services are being used I further acknowledge being given a choice of service. ?? If you need to contact me, please call me at this number: . Patient/Wound Care Rn Name: Patient/Wound Care Rn Signature: Relationship to Patient: Witness Name/Signature: Date: * Jazz Velásquez RN: PERFORM, SIGN, VERIFY Event Display: Patient Education Handout Authored Date: * Jazz Velásquez RN: PERFORM Event Display: Patient Education Leaflets Authored Date: M-Groin I Discharge Instructions ?? 179 Groin Discharge Instructions No heavy lifting over 10 pounds (for example: gallon of milk) 1 week following the procedure; gradually increase normal activity over the next 5 days. Avoid straining/pushing when moving bowels You may feel like resting more after your procedure. Slowly start to do more each day. Rest when you feel it is needed. Make sure to look at your procedure site every day until it is completely healed. You may see bruising at the puncture site and that is common after the procedure. You may shower the day after your procedure. Remove the band aid before showering. Wash the area gently with soap and water. Leave open to air. Do not take tub baths, hot tubs, soaking of the puncture site or swimming for 1 week. Do not put any creams, powders or lotions on your puncture site You may resume sexual activity the day after your procedure; avoid bending the hip on ?? the side of the groin puncture excessively and any strenuous positions for 1 week. Call your doctor if your procedure site develops any of the following: ??? New onset severe pain ??? New onset lump or swelling ??? Bleeding that does not stop with lightpressure ? * Jazz Velásquez RN: PERFORM Event Display: Patient Education Leaflets Authored Date: [id number] Procedural Sedation ?? [address] Procedural Sedation Procedural sedation is medicine to ease discomfort, pain, and anxiety during a procedure. The medicine is often given through an IV (intravenous) line in your arm or hand. In some cases, the medicinemay be taken by mouth or inhaled. While you are under sedation, you will likely be awake. But you may not remember it afterward. Why procedural sedation is used Sedation is used for many types of procedures. The goal is to reduce pain, anxiety, and stressful memories of a procedure. It can help your healthcare provider treat you. For example, having a brokenbone fixed may be easier if you feel relaxed. This type of sedation is used only for short, basic procedures. It's not used for complex surgery. Some procedures that use this type of sedation include: ??? Dental surgery ??? Breast biopsy, to take a sample of breast tissue ??? Endoscopy, to look at gastrointestinal problems ??? Bronchoscopy, tocheck for lung problems ??? Bone or joint realignment, to fix a broken bone or dislocated joint ???Minor foot or skin surgery ??? Electrical cardioversion, to restore a normal heart rhythm ??? Lumbar puncture, to check for neurological disease ?? Risks of procedural sedation Risks and possible side effects include: ??? Headache ??? Nausea and vomiting ??? Bad memories of the procedure ??? Slowed breathing ??? Changes in heart rate and blood pressure (rare) ??? Inhalation of stomach contents into your lungs (rare) Side effects will likely go away shortly after the procedure. Your healthcare team will watch your heart rate and breathing during and after your sedation. This is to help prevent problems. Your own risks may vary. They can be based on your age and your overall health. They also depend onthe type of sedation you are given. Talk with your healthcare provider about the risks that apply most to you. ?? Getting ready for procedural sedation Talk with your provider about how to get ready for your procedure. Tell them about all the medicines you take. This includes ihki-uwu-[id number] medicines, such as ibuprofen. It also includes vitamins, herbs, and other supplements. You may need to stop taking some medicines before the procedure, such as blood thinners and aspirin. If you smoke, you should stop. This is to lessen the chance of a lungproblem. Talk with your healthcare provider if you need help to stop smoking. Tell your provider if you: ??? Have had any problems in the past with sedation or anesthesia ??? Have had any recent changes in your health, such as an infection or fever ??? Are or think you could be Also: ??? Follow any directions you are given for not eating or drinking before procedure. ??? Ask a family member or friend to take you home after the procedure. You can???t drive on the day you have sedation. ??? Don't make any important decisions, such as financial or legal, on the day after youhave sedation. ??? Follow all other instructions from your provider. ?? During your procedural sedation You may have your procedure in a hospital or a clinic. Sedation is done by a trained healthcare provider. In general, you can expect the following: ??? You will be given medicine through an IV line in your arm or hand. Or you may get a shot or take it by mouth. Or you may inhale it through a mask. ??? If you have medicine through an IV, you may feel the effects very quickly. You will start to feel relaxed and drowsy. ??? During the procedure, your heart rate, breathing, and blood pressure will be closely watched. Your breathing and blood pressure may decrease a little. But you will likely notneed help with your breathing. You may get a little extra oxygen. This is done through a mask or some soft plastic prongs under your nose. ??? You will likely be awake the whole time. If you do fall asleep, you should be easy to wake up, if needed. You should feel little or no pain. ??? When your procedure is over, the sedative medicine will be stopped. ?? After your procedural sedation You will start to feel more awake and aware. But you will likely be drowsy for a while afterward. You will be closely watched as you become more alert. You may have a faint memory of the procedure. Or you may not remember it at all. You should be able to go home within 1 to 2 hours after your procedure. Plan to have someone stay with you for a few hours. Side effects, such as headache and nausea, may go away quickly. Tell your healthcare provider if they continue. Don???t drive, operate dangerous machines, or make any important business or personal decisions during the next 24 hours. Be sure to follow all after-care directions. ?? When to call your healthcare provider Have someone call your healthcare provider right away if any of the following occur: ??? Drowsinessthat gets worse ??? Weakness or dizziness that gets worse ??? Repeated vomiting ??? Severe or ongoing pain from the procedure, not relieved by the pain medicine ??? Fever of 100.4?? F (38??C) or higher, or as directed by your healthcare provider ??? New rash ?? Call 911 Have someone call 911 if any of the following occur: ??? Shortness of breath ??? Chest pain ??? Loss of consciousness or you can't be awakened ?? Last Reviewed Date: 2021 ?? [id number] [employer]. All rights reserved. This information is not intended as a substitute for professional medical care. Always follow your healthcare professional's instructions. ?? * Jazz Velásquez RN: PERFORM Event Display: Patient Education Leaflets Authored Date: [id number] Discharge Instructions for Catheter Ablation ?? [address] Discharge Instructions for Catheter Ablation You have had a procedure called catheter ablation. It was??used to treat an abnormal heartbeat (arrhythmia). This procedure destroyed (ablated) the cells in your heart that were causing your heart rhythm problem. During the procedure, the healthcare provider put a thin,??flexible??wire (catheter)??into a blood vessel in your groin. You may have also had a catheter placed through a vein in your neck. The provider then threaded the catheter to your heart and destroyed the cells causing the problem. Home care Here are recommendations for care at home:? Make arrangements for someone to drive you home after the procedure. This is you will be given medicine to relax you (sedation). Your healthcare provider may tell you not to??drive for 24 to 48 hours after the procedure. ??? Expect to be able to go back to your normal daily activities in the next 1 to 2 days. These??include walking, climbing stairs, and doing light closet organizer. ??? Don't do any heavy physical activity or excessive bending atthe waist for several days after the procedure. This will allow your body to heal. ??? Don't lift heavy objects for a period of time after your ablation. Talk with your healthcare provider about any specific limits you need to follow. Ask your provider when it is OK to lift heavy objects and returnto physical activity. ??? Ask your healthcare provider when you can??return to work. ??? Check the area where the catheter was inserted for signs of infection every day for a week. Keep the site dry for 1 to 2 days or as instructed. Signs of infection include redness, swelling, drainage, or warmth at the incision site.??Take your temperature if you feel you may have a fever. Let your provider know if you develop any symptoms of infection or see any discharge from your site. ??? Take your medicines exactly as directed. Don???t skip doses. You may need to make some changes in your medicines because of the ablation procedure. Be sure to go over your medicine instructions with your healthcare pr ovider before you are discharged. ??? Learn to take your own pulse. Keep a record of your results. Ask your healthcare provider which readings mean that you need medical attention. ?? Follow-up care Make a follow-up appointment as directed by your healthcare provider. Your provider will check how the catheter site is healing. In many cases, one ablation is enough to treat an arrhythmia. But sometimes the problem comes back or another problem is found. If this happens, you may need a second procedure. ?? When to call your healthcare provider Call your healthcare provider right away if you have any of the following: ??? Redness, pain, swelling, bleeding, or drainage from the area where the catheter was put in ??? Temperature of 100.4??F (38.0??C) or higher, or as directed by your healthcare provider? Suddencoldness, pain, or numbness in the leg or arm where the catheter was put in ??? Nausea or vomiting ??? Difficulty swallowing, excessive pain when swallowing, or vomiting blood ??? Heart rate that stays high Note: Ask your healthcare provider what to expect about your heartbeat. Sometimes the irregularity goes away right after the procedure. Other times it may take longer to go away. ?? Call 911 Call 911 right away if you notice: ??? Bleeding from the puncture site does not slow down when you press on it firmly ??? Chest pain, shortness of breath, or dizziness ??? Sudden numbness or weakness, especially on one side of the body, or difficulty speaking ??? Sudden loss of consciousness/responsiveness ?? Last Reviewed Date: 2021 ?? [id number] [employer]. All rights reserved. This information is not intended as a substitute for professional medical care. Always follow your healthcare professional's instructions. ?? EKG study * Event Display: ECG 12-Lead Authored Date: Please click on pdf link to open report * Event Display: ECG 12-Lead Authored Date: Ventricular Rate: 57 BPM Atrial Rate: 57 BPM P-R Interval: 156 ms QRS Duration: 86 ms Q-T Interval: 434 ms QTC Calculation(Bazett): 422 ms P Kinston: 54 degrees R Kinston: -15 degrees T Kinston: 24 degrees Sinus bradycardia Biatrial enlargement Left ventricular hypertrophy Nonspecific T wave abnormality Abnormal ECG When compared with ECG of 21-MAR-2023 13:32, Nonspecific T wave abnormality now evident in Inferior leads Confirmed by Oswaldo Solomon ([id number]) on 06/10/2023 8:45:18 AM Russell: Oswaldo Solomon Patient Care team information Care Team Personnel Name: Niurka Mendosa RN Position: [facility] RN Member Role: Primary Care Nurse Name: Oswaldo Valadez RN Position: S RN Member Role: Primary Care Nurse Name: Alva Gibbons RN Position: [facility] SN RN Member Role: Primary Care Nurse Name: Hilary Bell RN Position: [facility] RN Member Role: Primary Care Nurse Name: Tarsha Saenz MD Position: Reference Physician Member Role: PCP Address: Address: [address] [place] [address]- Care Team Related Persons Name: MARGARETTE LOPEZ Name: TAWNYA LOPEZ Address: [address] [address]
--- OUTSIDE RECORDS SUMMARY | 2023-12-17 09:39 | XMS_ITS | Continuity of Care Document ---
Author Organization [facility] Address [address] [place] [address]- Care Team Providers Care Material Reclaimer Name Role Phone Dany CADET, Tarsha Parks Primary Care Physician Encounter [facility] Date(s): 01/07/22 - 02/06/22 [facility] [address] [place] [address]- [place] Allergies, Adverse Reactions, Alerts Substance Reaction [...] given given w/o incident 2Result Comment: [12/16/2017] [facility][note 3] [id number] 3Result Comment: [11/29/2016] [facility][note 3] [id number] 4Result Comment: [11/25/2015] pt. tolerated inj. without complications...CO 5Result Comment: [11/30/2012] given w/o incident...AA 6Admin Note: FLULAVAL 7Admin Note: done @ work 8Admin Note: per pt [facility]Result Comment: [facility] 10Result Comment: [id number] 11Result Comment: [12/16/2017] #1 12Admin Note: per [...] Gm, 0 Refills, Maintenance, 01/06/22 10:43:00 EST, [facility]/pharmacy #[id number], Partial fill upon patient request [...] capsule, 3 Refills, Maintenance, 09/08/21 10:47:00 EDT, [facility]/pharmacy #[id number], 170, cm, 09/08/21 10:10:00 [...] List Condition Confirmation Course Effective Dates Status [facility] Informant Lumbar facet arthropathy Confirmed [...] Care Nurse Name: Oswaldo Valadez RN Position: [facility] RN Member Role: Primary Care Nurse Name: Alva Gibbons RN Position: [facility] RN Member Role: Primary Care Nurse Name: Milka Mendosa RN Position: [facility] RN Member Role: Primary Care Nurse Name: Jl Ruiz MD Position: [facility] Physician (General Medicine) Member Role: Lifetime Consulting Physician Address: Address: [address] [place], [place] [address] [place] [address]- [place] Name: Tarsah Saenz MD Position: Reference Physician Member Role: PCP Address: Address: [address] [place] [address]- Care Team Related Persons Name: MARGARETTE LOPEZ Name: TAWNYA LOPEZ Address: [address] [address]
--- OUTSIDE RECORDS SUMMARY | 2023-12-17 09:39 | XMS_ITS | Continuity of Care Document ---
Author Organization [facility] Address [address] [facility], [address] Floor, [address] [place] [address]- Care Team Providers Care Tax Adjuster Name Role Phone Esperanza CADET, Keyla Parks Primary Care Physician [phone] [place] [facility] [place]): 03/09/19 - 03/16/19 [facility] [address], [address] Floor, [address] [place] [address]- [facility] Attending Physician: Jacoby Kang NP Referring Physician: Keyla Mata MD Allergies, Adverse [...] Vaccine (oldterm) 13 08/02/07 Given 1Result Comment: [id number] 2Result Comment: [12/16/2017] #1 3Result Comment: [12/16/2017] [facility] [id number] 4Result Comment: [11/29/2016] [facility] 53998-223-96 5Result Comment: [11/25/2015] pt. tolerated inj. without [...] CR Capsule Start Date: 03/09/19 Status: Ordered Flonase 50 mcg/inh nasal spray 1 sprays, Nares, Both, 2 times a day, # 16 Gm, 0 Refills, Maintenance, 05/19/18 10:29:20 EDT, [place], 1 sprays Nares, Both 2 times a day,x14 days Start Date: 05/19/18 Stop Date: 06/02/18 Status: Ordered Folic Acid Daily, 0 Refills, [...] 12/04/19 11:36:00 EDT, 03/09/19 11:36:00 EST, Tablet, [facility]/pharmacy #[id number], 170, cm, 03/09/19 11:14:00 [...] 9:25:18 EDT Start Date: 12/15/18 Status: Ordered traZODone 100 mg oral tablet [...] oldest [Reference Range]: 1 Height 170 cm (03/09/19 11:14 AM) Weight 106.8 kg (03/09/19 11:14 AM) Body Mass Index [18.5-24.99] 36.96 *>HHI* (03/09/19 11:14 AM) Social History Social History Type Response Smoking Status Never smoker; Tobacc o user in household: No entered on: 01/07/14 Sex
--- OUTSIDE RECORDS SUMMARY | 2023-12-17 09:39 | XMS_ITS | Continuity of Care Document ---
Author Organization [facility] Address [address] [place] [address]- Care Team Providers Care Filterer Name Role Phone Tarsha Saenz MD Primary Care Physician [phone] Encounter [facility] Date(s): 10/11/22 - 11/10/22 [facility] [address] [place] [address]- Attending Physician: Matthieu Kasper Admitting Physician: Admtr, [...] incident 2Result Comment: [12/16/2017] [facility] [id number] 3Result Comment: [11/29/2016] [facility] [id number] 4Result Comment: [11/25/2015] pt. tolerated inj. without complications...CO 5Result Comment: [11/30/2012] given w/o incident...AA 6Admin Note: FLULAVAL 7Admin Note: done @ work 8Admin Note: per pt 9Result Comment[facility] 10Result Comment: [id number] 11Result Comment: [12/16/2017] #1 12Admin Note: per [...] capsule, 3 Refills, Maintenance, 09/08/21 10:47:00 EDT, [facility]/pharmacy #[id number], 170, cm, 09/08/21 10:10:00 EDT, [...] 03/30/22 13:32:00 EST, Route to Pharmacy Electronically, [facility]/pharmacy #[id number], Partial fill upon patient request [...] 0 Refills, Maintenance, 08/25/22 9:48:00 EDT, Film, [facility]/pharmacy #0693, Partial fi... Start Date: 08/25/22 Status: Ordered losartan 100 mg oral tablet 1 tablet = 100 mg, By Mouth, Daily, # 90 tablet, 3 Refills, Maintenance, 06/01/22 11:02:00 EDT, Tablet, [facility]/pharmacy #[id number], Partial fill upon patient request if the prescription is for a schedule II opioid drug., 170, cm, 05/14/22 9:21:00 EDT, Height,... Start Date: 06/01/22 Stop Date: 05/27/23 Status: Ordered metoprolol 100 mg oral tablet, extended release 100 mg, 1, tablet, By Mouth, Daily, # 90 tablet, Refills 3, Tot. Refills 3, Maintenance, 05/18/22 12:35:00 EDT, Route to Pharmacy Electronically, [facility]/pharmacy #[id number], Partial fill upon patient requestif [...] Team Personnel Name: Niurka Mendosa RN Position: [facility] RN Member Role: Primary Care Nurse Name: Oswaldo Valadez RN Position: [facility] RN Member Role: Primary Care Nurse Name: Alva Gibbons RN Position: [facility] RN Member Role: Primary Care Nurse Name: Milka Mendosa RN Position: [facility] RN Member Role: Primary Care Nurse Name: Jl Ruiz MD Position: [facility] Physician (General Medicine) Member Role: Lifetime Consulting Physician Address: Address: [address] [place] [address] [address] [place] [address]- Name: Tarsha Saenz MD Position: Reference Physician Member Role: PCP Address: Address: [address] [place] [address]- Care Team Related Persons Name: MARGARETTE LOPEZ Name: TAWNYA LOPEZ Address: home [address] [place] [address]
--- OUTSIDE RECORDS SUMMARY | 2023-12-17 09:39 | XMS_ITS | Continuity of Care Document ---
Author Organization [facility] Address [address] [place] [address]- Care Team Providers Care Video Game Animator Name Role Phone Dany CADET, Tarsha Parks Primary Care Physician [facility]counter [facility] Date(s): 05/18/22 - 06/17/22 [facility] [address] [place] [address]- [place] Allergies, Adverse Reactions, Alerts Substance Reaction [...] incident 2Result Comment: [12/16/2017] [facility] [id number] 3Result Comment: [11/29/2016] [facility] 84173-870-87 4Result Comment: [11/25/2015] pt. tolerated inj. without complications...CO 5Result Comment: [11/30/2012] given w/o incident...AA 6Admin Note: FLULAVAL 7Admin Note: done @ work 8Admin Note: per pt 9Result Comment[facility] 10Result Comment: [id number] 11Result Comment: [12/16/2017] #1 12Admin Note: per [...] prescription is for a schedule II opioid [place]... Start Date: 05/18/22 Stop Date: 05/13/23 Status: [...] household: No entered on: 01/07/14 Sex Cardiology Outpatient Note * Zaira Bernard RN: PERFORM, SIGN, VERIFY Event Display: Cardiology Note Office Authored Date: [id number] Patient: THO CHO Age: 67 years Sex: Female : 1955 Associated Diagnoses: None Author: Joana TSANG, Zaira To Whom It May Concern, Tho is under my cardiac care at [facility]. Due to her ongoing medical issues please excuse her from attending Jury Duty. Thank You Sincerely, Jania Davis NP Patient Care team information Care Team Personnel Name: Niurka Mendosa RN Position: [facility] RN Member Role: Primary Care Nurse Name: Oswaldo Valadez RN Position: [facility] RN Member Role: Primary Care Nurse Name: Alva Gibbons RN Position: [facility] RN Member Role: Primary Care Nurse Name: Milka Mendosa RN Position: [facility] RN Member Role: Primary Care Nurse Name: Jl Ruiz MD Position: [facility] Physician (General Medicine) Member Role: Lifetime Consulting Physician Address: Address: [address] [place] [address] [address] [place] [address]- Name: Tarsha Saenz MD Position: Reference Physician Member Role: PCP Address: Address: [address] [place] [address]- Care Team Related Persons Name: MARGARETTE LOPEZ Name: TAWNYA LOPEZ Address: [address] [facility] [address] [place] [address]
--- OUTSIDE RECORDS SUMMARY | 2023-12-17 09:39 | XMS_ITS | Continuity of Care Document ---
Author Organization [facility] Address [address] [address]- Care Team Providers Care Visual And Stock Associate Name Role Phone Dany CADET, Tarsha Parks Primary Care Physician [place] [facility] Date(s): 03/17/23 - 06/04/23 [facility] [address] [address]- Attending Physician: Luz Jimenez MD Admitting Physician: Luz Jimenez MD Allergies, Adverse Reactions, Alerts Substance Reaction [...] Comment: [12/16/2017] [facility] [id number] 3Result Comment: [11/29/2016] [facility] [phone] 4Result Comment: [11/25/2015] pt. tolerated inj. without complications...CO 5Result Comment: [11/30/2012] given w/o incident...AA 6Admin Note: FLULAVAL 7Admin Note: done @ work 8Admin Note: per pt 9Result Comment[facility] 10Result Comment: [id number] 11Result Comment: [12/16/2017] #1 12Admin Note: per pt 13Admin Note: hep A #2 14Admin Note: hep A #1 Medications Blood Pressure Monitor See Instructions, # 1 each, Maintenance, blood pressure cuff, 10/16/23 10:59:00 EDT, Supply, 170, cm, 11/28/22 12:16:00 [...] capsule, 3 Refills, Maintenance, 09/08/21 10:47:00 EDT, [facility]/pharmacy #[id number], 170, cm, 09/08/21 10:10:00 EDT, [...] 03/30/22 13:32:00 EST, Route to Pharmacy Electronically, [facility]/pharmacy #[id number], Partial fill upon patient request if the prescription is for a schedule II opioid drug... Start Date: 03/30/22 Status: Ordered losartan 100 mg oral tablet 1 tablet, By Mouth, Daily, # 90 tablet, 3 Refills, Maintenance, 05/19/23 8:02:00 EDT, [facility] STORE 22953, 170, cm, 03/29/23 10:03:00 EST, Height, 108.7, kg, 03/02/23 8:55:00 EST, Dry Weight Start Date: 05/19/23 Status: Ordered losartan 100 mg oral tablet 1 tablet = 100 mg, By Mouth, Daily at bedtime, # 90 tablet, 3 Refills, Maintenance, 06/01/22 11:02:00 EDT, Tablet, [facility]/pharmacy #[id number], Partial fill upon patient request [...] 12/27/22 12:00:00 EST, Route to Pharmacy Electronically, [facility]/pharmacy #[id number], Partial fill upon patient request ifthe prescription is for a schedule II opioid drug.,... Start Date: 12/27/22 Stop Date: 12/22/23 Status: Ordered NuLYTELY Lemon [place] oral powder for reconstitution See Instructions, use for colonoscopy prep per instructions, # 4,000 mL, 0 Refills, Maintenance, 03/18/23 14:26:00 EST, REC Powder, [facility]/pharmacy #[id number], Partial fill upon patient request if the prescription is for a schedule II opioid drug., 170, cm, 0... Start Date: 03/18/23 Status: Ordered spironolactone 25 mg oral tablet 25 mg, 1, tablet, By Mouth, Daily, # 30 tablet, Refills 5, Tot. Refills 5, Maintenance, 04/25/23 10:38:00 EST, Route to Pharmacy Electronically, [facility]/pharmacy #[id number], Partial fill upon patient request [...] Name: Alva Gibbons RN Position: [facility] RN Member Role: Primary Care Nurse Name: Hilary Bell RN Position: S RN Member Role: Primary Care Nurse Name: Tarsha Saenz MD Position: Reference Physician Member Role: PCP Address: Address: [address] [place] [address]- Care Team Related Persons Name: MARGARETTE LOPEZ Name: TAWNYA LOPEZ Address: home [address] [place] [address]
--- OUTSIDE RECORDS SUMMARY | 2023-12-17 09:39 | XMS_ITS | Continuity of Care Document ---
Author Organization [facility] Address [address] [facility], [address] [place] [address]- Care Team Providers Care Automation Engineering Technician Name Role Phone Keyla Mata MD Primary Care Physician [phone] [place] [facility] Date(s): 08/21/20 - 09/20/20 [facility] [address] [facility] [facility], 4th [place] [address]- Attending Physician: Matthieu Kasper Admitting Physician: Matthieu [...] 14 08/02/07 Given 1Result Comment: Done at [facility] 2Result Comment: [id number] 3Result Comment: [12/16/2017] #1 4Result Comment: [12/16/2017] [facility] [id number] 5Result Comment: [11/29/2016] [facility] 18262-552-70 6Result Comment: [11/25/2015] pt. tolerated inj. without [...] capsule, 1 Refills, Maintenance, 09/15/20 10:55:00 EDT, [facility]/pharmacy #[id number], 171, cm, 09/12/20 [...] DAYS, # 15 sprays, 0 Refills, Acute, [facility] STORE 38731, 30, USE 2 SPRAYS IN EACH NOSTRIL 3 TIMES A DAY FOR 7 DAYS, 170, cm, 04/10/19 14:00:00 EST, Height, 104.5, kg, 09/15/18 9:05:00 EDT... Start Date: 05/04/19 Status: Ordered ipratropium nasal 42 mcg/inh spray 2 sprays, Nares, Both, 3 times a day, # 1 each, 0 Refills, Maintenance, 07/02/20 16:11:00 EDT, [facility]/pharmacy #[id number], 2 sprays Nares, [...] 04/14/20 15:22:00 EST, [facility] Pharmacy Electronically, [facility] [...]
--- OUTSIDE RECORDS SUMMARY | 2023-12-17 09:39 | XMS_ITS | Continuity of Care Document ---
Author Organization [facility] Address [address] [place] [address]- Care Team Providers Care Snailer Name Role Phone Keyla Mata MD Primary Care Physician Encounter [facility] Date(s): 10/08/19 - 10/15/19 [facility] [address] [place] [address]- [facility] Encounter Diagnosis Right shoulder pain(Discharge Diagnosis) - 10/08/19 Attending Physician: Keyla Mata MD Allergies, Adverse [...] Vaccine (oldterm) 13 08/02/07 Given 1Result Comment: [id number] 2Result Comment: [12/16/2017] #1 3Result Comment: [12/16/2017] [facility] [id number] 4Result Comment: [11/29/2016] [facility] 47529-501-24 5Result Comment: [11/25/2015] pt. tolerated inj. without complications...CO 6Result Comment: [11/30/2012] given w/o incident...AA 7Admin Note: FLULAVAL 8Admin Note: done @ work 9Admin Note: per pt 10Admin Note: info sheet given given w/o incident 11Admin Note: per pt 12Admin Note: hep A #2 13Admin Note: hep A #1 Medications CPAP Machine AutoCPAP 14, Maintenance, 01/07/17 14:22:53, Compound Start Date: 01/07/17 [...] 15 sprays, 0 Refills, Acute, [facility], 30, USE 2 SPRAYS IN EACH NOSTRIL [...] 12/04/19 11:36:00 EDT, 03/09/19 11:36:00 EST, Tablet, [facility]/pharmacy #[id number], 170, cm, 03/09/19 11:14:00 EST, Height, [...] capsule, 5 Refills, Maintenance, 06/04/19 14:15:00 EDT, [facility]/pharmacy #[id number], 170, cm, 04/10/19 14:00:00 EST, Height, [...] Dates Health Status Cl inical Service Informant Right shoulder pain Discharge Diagnosis 10/08/19 Vital Signs Most recent to oldest [Reference Range]: 1 Height 170 cm (10/08/19 9:24 AM) Weight 104.4 kg (10/08/19 9:24 AM) Oxygen Saturation [94-100 %] 99 % (10/08/19 9:24 AM) Pulse Rate [55-90 bpm] 76 bpm (10/08/19 9:24 AM) Body Mass Index [18.5-24.99] 36.12 *>HHI* (10/08/19 9:24 AM) Blood Pressure [90-138/55-84 mm Hg] 136/ 78mm Hg (10/08/19 9:24 AM) Temperature [96.8-100.4 DegF] 96.8 DegF (10/08/19 9:24 AM) Blood pressure sites Arm, left (10/08/19 9:24 AM) Temperature Route Temporal (10/08/19 9:24 AM) Weight Obtained Via Standing scale (10/08/19 9:24 AM) Social History Social History Type Response Smoking Status Never smoker; Tobacc o user in household: No entered on: 01/07/14 Sex
--- OUTSIDE RECORDS SUMMARY | 2023-12-17 09:39 | XMS_ITS | Continuity of Care Document ---
Author Organization [facility] Address [address] [place] [address]- Care Team Providers Care Digital Technician Name Role Phone Keyla Mata MD Primary Care Physician Encounter [facility] Date(s): 04/22/20 - 05/22/20 [facility] [address] [address]- Attending Physician: Matthieu Kasper Admitting Physician: Matthieu [...] Saud rded influenza virus vaccine, inactivated 7 10/10/13 Gi martir influenza virus vaccine, inactivated 8 [...] [facility] 2Result Comment: [id number] 3Result Comment: [12/16/2017] #1 4Result Comment: [12/16/2017] [facility] [id number] 5Result Comment: [11/29/2016] [facility] [id number] 6Result Comment: [11/25/2015] pt. tolerated inj. without [...] [facility] STORE 41949, 30, USE 2 SPRAYS IN EACH NOSTRIL [...] Electronically, [facility]/pharmacy #0963, Partial fill upon patient request,... Start Date: [...]
--- OUTSIDE RECORDS SUMMARY | 2023-12-17 09:39 | XMS_ITS | Continuity of Care Document ---
Author Organization [facility] Address [address] [address]- Care Team Providers Care Route Process Administrator Name Role Phone Dany CADET, Tarsha Parks Primary Care Physician [phone] Encounter [facility] Date(s): 05/05/23 - 06/04/23 [facility] [address] [address] Attending Physician: Matthieu Kasper Admitting Physician: Matthieu [...] incident 2Result Comment: [12/16/2017] [facility] [id number] 3Result Comment: [11/29/2016] [facility] [id number] 4Result Comment: [11/25/2015] pt. tolerated inj. without complications...[place] 5Result Comment: [11/30/2012] given w/o incident...AA 6Admin Note: FLULAVAL 7Admin Note: done @ work 8Admin Note: per pt 9[facility] 10Result Comment: [id number] 11Result Comment: [12/16/2017] #1 12Admin Note: per [...] Refills, Maintenance, 05/19/23 8:02:00 EDT, [facility], 170, cm, 03/29/23 10:03:00 EST, Height, 108.7, [...] 12/27/22 12:00:00 EST, Route to Pharmacy Electronically, [facility]/pharmacy #[id number], Partial fill upon patient request ifthe prescription is for a schedule II opioid drug.,... Start Date: 12/27/22 Stop Date: 12/22/23 Status: Ordered NuLYTELY Lemon [place] oral powder for reconstitution See Instructions, use [...] 04/25/23 10:38:00 EST, Route to Pharmacy Electronically, [facility]/pharmacy #0667, Partial fill upon patient request if the [...] Team Personnel Name: Niurka Mendosa RN Position: [facility] RN Member Role: Primary Care Nurse Name: Oswaldo Valadez RN Position: S RN Member Role: Primary Care Nurse Name: Alva Gibbons RN Position: [facility] RN Member Role: Primary Care Nurse Name: Hilary Bell RN Position: [facility] RN Member Role: Primary Care Nurse Name: Tarsha Saenz MD Position: Reference Physician Member Role: PCP Address: Address: [address] [place] [address]- Care Team Related Persons Name: MARGARETTE LOPEZ Name: TAWNYA LOPEZ Address: [place] [address]
--- OUTSIDE RECORDS SUMMARY | 2023-12-17 09:39 | XMS_ITS | Continuity of Care Document ---
Author Organization [facility] Address [address] [place] [address]- Care Team Providers Care Credit Adjuster Name Role Phone Keyla Mata MD Primary Care Physician [phone] Encounter [facility] Date(s): 04/03/21 - 05/20/21 [facility] [address] [place], [place] [address] Attending Physician: Keyla Mata MD Allergies, [...] w/o incident 2Result Comment: [12/16/2017] [facility] [id number] 3Result Comment: [11/29/2016] [facility] 55448-887-92 4Result Comment: [11/25/2015] pt. tolerated inj. without complications...CO 5Result Comment: [11/30/2012] given w/o incident...AA 6Admin Note: FLULAVAL 7Admin Note: done @ work 8Admin Note: per pt 9Result Comment[facility] 10Result Comment: [id number] 11Result Comment: [12/16/2017] #1 12Admin Note: per [...] 1 Refills, Maintenance, 01/02/21 8:57:00 EST, Cream, [facility]/pharmacy #0693, Partial fill upon patient [...] capsule, 1 Refills, Maintenance, 02/09/21 14:43:00 EST, [facility]/pharmacy #0693, 170, cm, 01/29/21 13:01:00 [...] DAYS, # 15 sprays, 0 Refills, Acute, [facility] STORE 94027, 30, USE 2 SPRAYS IN EACH NOSTRIL 3 TIMES A DAY FOR 7 DAYS, 170, cm, 04/10/19 14:00:00 EST, Height, 104.5, kg, 09/15/18 9:05:00 EDT... Start Date: 05/04/19 Status: Ordered ipratropium nasal 42 mcg/inh spray 2 sprays, Nares, Both, 3 times a day, # 1 each, 0 Refills, Maintenance, 07/02/20 16:11:00 EDT, [facility]/pharmacy #0693, 2 sprays Nares, Both [...] 04/14/20 15:22:00 EST, Route to Pharmacy Electronically, [facility]/pharmacy #0693, Partial fill upon patient [...] mL, 0 Refills, Maintenance, 12/23/20 13:10:00 EDT, [facility]/pharmacy #0693, Partial fill upon patient [...] 01/26/21 12:30:00 EST, Route to Pharmacy Electronically, [facility]/pharmacy #7763, Partial fill upon patient request if the [...]
--- OUTSIDE RECORDS SUMMARY | 2023-12-17 09:39 | XMS_ITS | Continuity of Care Document ---
Author Organization [facility] Address [address] [place] [address]- Care Team Providers Care Sand Carrier Name Role Phone Tarsha Saenz MD Primary Care Physician [place] [facility] [place]23 - 04/17/23 [facility] [address] [place] [address]- Attending Physician: Admtr, Ar8 Allergies, Adverse Reactions, [...] given given w/o incident 2Result Comment: [12/16/2017] [facility] 70447-115-40 3Result Comment: [11/29/2016] [facility] [id number] 4Result Comment: [11/25/2015] pt. tolerated inj. without complications...CO 5Result Comment: [11/30/2012] given w/o incident...AA 6Admin Note: FLULAVAL 7Admin Note: done @ work 8Admin Note: per pt [facility]Result Comment: [facility] 10Result Comment: [id number] 11Result Comment: [12/16/2017] #1 12Admin Note: per [...] capsule, 3 Refills, Maintenance, 09/08/21 10:47:00 EDT, [facility]/pharmacy #[id number], 170, cm, 09/08/21 10:10:00 [...] 03/30/22 13:32:00 EST, Route to Pharmacy Electronically, [facility]/pharmacy #[id number], Partial fill upon patient [...] 12/27/22 12:00:00 EST, [id number], Partial fill upon patient request ifthe prescription is for a schedule II opioid drug.,... Start Date: 12/27/22 Stop Date: 12/22/23 Status: Ordered NuLYTELY Lemon [place] oral powder for reconstitution See Instructions, use [...] Team Personnel Name: Niurka Mendosa RN Position: [facility] RN Member Role: Primary Care Nurse Name: Oswaldo Valadez RN Position: [facility] RN Member Role: Primary Care Nurse Name: Alva Gibbons RN Position: [facility] RN Member Role: Primary Care Nurse Name: Hilary Bell RN Position: [facility] RN Member Role: Primary Care Nurse Name: Tarsha Saenz MD Position: Reference Physician Member Role: PCP Address: Address: [address] [place] [address]- Care Team Related Persons Name: MARGARETTE LOPEZ Name: TAWNYA LOPEZ Address: [address] [address]
--- OUTSIDE RECORDS SUMMARY | 2023-12-17 09:39 | XMS_ITS | Continuity of Care Document ---
Author Organization [facility] Address [address] [place] [address]- Care Team Providers Care Hotel Maid Name Role Phone Keyla Mata MD Primary Care Physician [phone] Encounter [facility] Date(s): 01/24/20 - 01/31/20 [facility] [address] [place] [address]- Encounter Diagnosis Hypertension(Discharge Diagnosis) - 01/24/20 Left ventricular diastolic dysfunction(Discharge Diagnosis) - 01/24/20 Attending Physician: Keyla Mata MD Allergies, Adverse [...] influenza virus vaccine, inactivated 6 11/25/15 Gi maritr influenza virus vaccine, inactivated 11/26/14 Saud rded [...] 14 08/02/07 Given 1Result Comment: Done at [facility] 2Result Comment: [id number] 3Result Comment: [12/16/2017] #1 4Result Comment: [12/16/2017] [facility] 15425-823-21 5Result Comment: [11/29/2016] [facility] 12320-557-63 6Result Comment: [11/25/2015] pt. tolerated inj. without [...] 0 Refills, Maintenance, 12/31/19 10:42:00 EST, ECCapsule, [facility]/pharmacy #[id number], 170, cm, 12/31/19 9:54:00 EST, Height, 106.8, kg, 08/27/19 11:58:00 EDT, Dry Weight Start Date: 12/31/19 Status: Ordered Folic Acid Daily, 0 Refills, Maintenance, 10/05/16 13:05:44 Start Date: 10/05/16 Status: Ordered ipratropium nasal 42 mcg/inh spray See Instructions, USE 2 SPRAYS IN EACH NOSTRIL 3 TIMES A DAY FOR 7 DAYS, # 15 sprays, 0 Refills, Acute, [facility]ORE [facility]77, 30, USE 2 SPRAYS IN EACH NOSTRIL [...] 01/15/20 15:22:00 EST, Route to Pharmacy Electronically, [facility]/pharmacy #[id number], Partial fill upon patient request,... Start Date: 01/15/20 Stop Date: 04/14/20 Status: Ordered Walker See Instructions, # 1 [...] Effective Dates Health Status Clinical Service Informant Hypertension Discharge Diagnosis 01/24/20 Left ventricular diastolic dysfunction Discharge Diagnosis 01/24/20 Vital Signs Most recent to oldest [Reference Range]: 1 Height 170 cm (01/24/20 12:48 PM) Weight 106.1 kg (01/24/20 12:48 PM) Oxygen Saturation [94-100 %] 95 % (01/24/20 12:48 PM) Pulse Rate [55-90 bpm] 63 bpm (01/24/20 12:48 PM) Body Mass Index [18.5-24.99] 36.71 *>HHI* (01/24/20 12:48 PM) Blood Pressure [90-138/55-84 mm Hg] 136/ 70mm Hg (01/24/20 12:48 PM) Temperature [96.8-100.4 DegF] 97.6 DegF (01/24/20 12:48 PM) Mode of Delivery (Oxygen) Room air (01/24/20 12:48 PM) Blood pressure sites Arm, left (01/24/20 12:48 PM) Temperature Route Temporal (01/24/20 12:48 PM) Weight Obtained Via Standing scale (01/24/20 12:48 PM) Social History Social History Type Response Smoking Status Never smoker; Tobacc o user in household: No entered on: 01/07/14 Sex
--- OUTSIDE RECORDS SUMMARY | 2023-12-17 09:39 | XMS_ITS | Continuity of Care Document ---
Author Organization [facility] Address [address] [place] [address]- Care Team Providers Care Injection Mold Technician Name Role Phone Keyla Mata MD Primary Care Physician [place] [facility] [place] 10[place]20 - 11/06/20 [facility] [address] [place] [address]- Attending Physician: Kumar Price MD Referring Physician: [...] 14 08/02/07 Given 1Result Comment: Done at [facility] 2Result Comment: [id number] 3Result Comment: [12/16/2017] #1 4Result Comment: [12/16/2017] [facility] 83406-741-29 5Result Comment: [11/29/2016] [facility] 73490-570-54 6Result Comment: [11/25/2015] pt. tolerated inj. without [...] 1 Refills, Maintenance, 09/15/20 10:55:00 EDT, [facility]/pharmacy #[id number], 171, cm, 09/12/20 9:46:00 EDT, Height, [...] # 15 sprays, 0 Refills, Acute, [facility] 13968, 30, USE 2 SPRAYS IN EACH NOSTRIL 3 TIMES A DAY FOR 7 DAYS, 170, cm, 04/10/19 14:00:00 EST, Height, 104.5, kg, 09/15/18 9:05:00 EDT... Start Date: 05/04/19 Status: Ordered ipratropium nasal 42 mcg/inh spray 2 sprays, Nares, Both, 3 times a day, # 1 each, 0 Refills, Maintenance, 07/02/20 16:11:00 EDT, [facility]/pharmacy #[id number], 2 sprays Nares, Both 3 times [...] 15:22:00 EST, Route to Pharmacy Electronically, [facility]/pharmacy #[id number], Partial fill upon patient request,... Start Date: [...] oldest [Reference Range]: 1 Height 171 cm (10/30/20 2:50 PM) Oxygen Saturation [94-100 %] 100 % (10/30/20 2:50 PM) Pulse Rate [55-90 bpm] 107 bpm *H* (10/30/20 2:50 PM) Blood Pressure [90-138/55-84 mm Hg] 159/ 73mm Hg *H* (10/30/20 2:50 PM) Respiratory Rate [16-30 br/min] 20 br/mi n (10/30/20 2:50 PM) Temperature [96.8-100.4 DegF] 97.9 DegF (10/30/20 2:50 PM) Mode of Delivery (Oxygen) Room air (10/30/20 2:50 PM) Blood pressure sites Arm, left (10/30/20 2:50 PM) Temperature Route Temporal (10/30/20 2:50 PM) Social History Social History Type Response Smoking Status Never smoker; Tobacc o user in household: No entered on: 01/07/14 Sex
--- OUTSIDE RECORDS SUMMARY | 2023-12-17 09:40 | XMS_ITS | Continuity of Care Document ---
Author Organization [facility] Address [address] [address]- Care Team Providers Care Fence Repairman Name Role Phone Dany CADET, Tarsha Parks Primary Care Physician Encounter [facility] Date(s): 07/12/23 - 09/15/23 [facility] [address] [address]- Attending Physician: Danny CADET, NENA,Luis SANTA Admitting Physician: NENA Delgado MD, MHA, Talal Referring Physician: Tarsha Saenz MD Allergies, Adverse [...] [12/16/2017] [facility] 31220-882-51 3Result Comment: [11/29/2016] [facility] 04222-007-50 4Result Comment: [11/25/2015] pt. tolerated inj. without complications...CO 5Result Comment: [11/30/2012] given w/o incident...AA 6Admin Note: FLULAVAL 7Admin Note: done @ work 8Admin Note: per pt 9Result Comment: [facility] 10Result Comment: [id number] 11Result Comment: [12/16/2017] #1 12Admin Note: per [...] capsule, 3 Refills, Maintenance, 09/08/21 10:47:00 EDT, [facility]/pharmacy #[id number], 170, cm, 09/08/21 10:10:00 EDT, Height, 101.5, kg, 06/11/21 12:07:00 EDT, Dry Weight Start Date: 09/08/21 Status: Ordered furosemide 40 mg oral tablet 1, tablet, By Mouth, Daily, # 90 tablet, Refills 0, Maintenance, 07/04/23 8:47:00 EDT, [facility] to [facility], 170, cm, 06/14/23 11:44:00 EDT, Height, 108.7, [...] Refills, Maintenance, 05/19/23 8:02:00 EDT, [facility], 170, cm, 03/29/23 10:03:00 EST, Height, 108.7, [...] 04/25/23 10:38:00 EST, Route to Pharmacy Electronically, [facility]/pharmacy #[id number], Partial fill upon patient request if the prescription is for a schedule II opioid drug... Start Date: 04/25/23 Status: Ordered Xarelto 10 mg oral tablet 1 tablet = 10 mg, By Mouth, Daily, # 30 tablet, 0 Refills, Maintenance, 08/24/23 7:12:00 EDT, Tablet, [facility]/pharmacy #0693, Partial fill upon patient request [...] MRI Safety Implantable Status Assigning Authority Unknown [id number] Unknown Unknown 05/10/25 Unknown Unknown Active Unknown Procedure Provider Procedure Date Device Type Site Fusion Tarsometatarsal Dora Garcia MD 08/24/23 Unkn own Foot Right Device Identifier Serial Number Lot or Batch Number Manufacturing Date Expiration Date Distinct Identification Code MRI Safety Implantable Status Assigning Authority Unknown [id number] Unknown Unknown 12/02/24 Unknown Unknown Active Unknown Patient Care team information Care Team Personnel Name: Niurka Mendosa RN Position: [facility] RN Member Role: Primary Care Nurse Name: sOwaldo Valadez RN Position: [facility] RN Member Role: Primary Care Nurse Name: Yoselyn Peters RN Position: [facility] RN Member Role: Primary Care Nurse Name: Alva Gibbons RN Position: [facility] RN Member Role: Primary Care Nurse Name: Hilary Bell RN Position: [facility] RN Member Role: Primary Care Nurse Name: Katie Govea RN Position: [facility] RN Member Role: Primary Care Nurse Name: Tarsha Saenz MD Position: Reference Physician Member Role: PCP Address: Address: [address] [place] [address]- Care Team Related Persons Name: MARGARETTE LOPEZ Name: TAWNYA LOPEZ Address: [address] [address]
--- OUTSIDE RECORDS SUMMARY | 2023-12-17 09:40 | XMS_ITS | Continuity of Care Document ---
Author Organization [facility] Address [address] [place] [address]- Care Team Providers Care Charge Hand Name Role Phone Keyla Mata MD Primary Care Physician [phone] Encounter [facility] Date(s): 01/02/21 - 01/09/21 [facility] [address] [place], [place] [address] Attending Physician: Shane Dumont MD Admitting Physician: [...] (oldterm) 14 08/02/07 Given 1Result Comment: [12/16/2017] [facility] [id number] 2Result Comment: [11/29/2016] [facility] 63110-475-10 3Result Comment: [11/25/2015] pt. tolerated inj. without complications...CO 4Result Comment: [11/30/2012] given w/o incident...AA 5Admin Note: FLULAVAL 6Admin Note: done @ work 7Admin Note: per pt 8Result Comment: Done at [facility] 9Result Comment: [id number] 10Result Comment: [12/16/2017] #1 11Admin Note: info [...] Maintenance, 01/02/21 8:57:00 EST, Cream, [facility]/pharmacy #0693, Partial fill upon patient request if the prescription is for a schedule II opioid drug., 1 application Topically 2 times a day,... Start Date: 01/02/21 Status: Ordered CPAP Machine CPAP 12, Maintenance, 01/07/17 14:22:53 EST, Compound Start Date: 01/07/17 Status: Ordered duloxetine 60 mg oral enteric coated capsule 1 capsule, By Mouth, Daily, # 90 capsule, 1 Refills, Maintenance, 09/15/20 10:55:00 EDT, [facility]/pharmacy #0693, 171, cm, 09/12/20 9:46:00 EDT, Height, [...] 15 sprays, 0 Refills, Acute, [facility] ST[facility] 60711, 30, USE 2 SPRAYS IN EACH NOSTRIL 3 TIMES A DAY FOR 7 DAYS, 170, cm, 04/10/19 14:00:00 EST, Height, 104.5, kg, 09/15/18 9:05:00 EDT... Start Date: 05/04/19 Status: Ordered ipratropium nasal 42 mcg/inh spray 2 sprays, Nares, Both, 3 times a day, # 1 each, 0 Refills, Maintenance, 07/02/20 16:11:00 EDT, [facility]/pharmacy #0693, 2 sprays Nares, Both 3 times [...] EST, Route to Pharmacy Electronically, [facility]/pharmacy #0693, Partial fill upon patient request,... Start [...] Refills, Maintenance, 12/23/20 13:10:00 EDT, [facility]/pharmacy #0693, Partial fill upon patient request if [...] oldest [Reference Range]: 1 Height 171 cm (01/02/21 8:38 AM) Weight 103.6 kg (01/02/21 8:38 AM) Oxygen Saturation [94-100 %] 97 % (01/02/21 8:38 AM) Pulse Rate [55-90 bpm] 59 bpm (01/02/21 8:38 AM) Body Mass Index [18.5-24.99] 35.43 *>HHI* (01/02/21 8:38 AM) Blood Pressure [90-138/55-84 mm Hg] 124/ 70mm Hg (01/02/21 8:38 AM) Mode of Delivery (Oxygen) Room air (01/02/21 8:38 AM) Blood pressure sites Arm, left (01/02/21 8:38 AM) Weight Obtained Via Patient/family state d (01/02/21 8:38 AM) Social History Social History Type Response Smoking Status Never smoker; Tobacc o user in household: No entered on: 01/07/14 Sex
--- OUTSIDE RECORDS SUMMARY | 2023-12-17 09:40 | XMS_ITS | Continuity of Care Document ---
Author Organization [facility] Address [address] [place] [address]- Care Team Providers Care Drip Box Tender Name Role Phone Keyla Mata MD Primary Care Physician [place] [facility] [place]12[place]20 [place] 09/19/20 [facility] [address] [place], [place] [address] Attending Physician: Sloan Puri MD Referring Physician: Keyla Mata MD Allergies, [...] 14 08/02/07 Given 1Result Comment: Done at [facility] 2Result Comment: [id number] 3Result Comment: [12/16/2017] #1 4Result Comment: [12/16/2017] [facility] [id number] 5Result Comment: [11/29/2016] [facility] [id number] 6Result Comment: [11/25/2015] pt. tolerated inj. without [...] capsule, 1 Refills, Maintenance, 09/15/20 10:55:00 EDT, [facility]/pharmacy #0693, 171, cm, 09/12/20 9:46:00 [...] DAYS, # 15 sprays, 0 Refills, Acute, [facility] STORE 90764, 30, USE 2 SPRAYS IN EACH NOSTRIL 3 TIMES A DAY FOR 7 DAYS, 170, cm, 04/10/19 14:00:00 EST, Height, 104.5, kg, 09/15/18 9:05:00 EDT... Start Date: 05/04/19 Status: Ordered ipratropium nasal 42 mcg/inh spray 2 sprays, Nares, Both, 3 times a day, # 1 each, 0 Refills, Maintenance, 07/02/20 16:11:00 EDT, [facility]/pharmacy #0693, 2 sprays Nares, Both [...] 04/14/20 15:22:00 EST, Route to Pharmacy Electronically, [facility]/pharmacy #[id number], Partial fill upon patient request,... Start Date: [...] oldest [Reference Range]: 1 Height 171 cm (09/12/20 9:46 AM) Weight 103.5 kg (09/12/20 9:46 AM) Oxygen Saturation [94-100 %] 99 % (09/12/20 9:46 AM) Pulse Rate [55-90 bpm] 64 bpm (09/12/20 9:46 AM) Body Mass Index [18.5-24.99] 35.4 *>HHI* (09/12/20 9:46 AM) Blood Pressure [90-138/55-84 mm Hg] 116/ 78mm Hg (09/12/20 9:46 AM) Blood pressure sites Arm, left (09/12/20 9:46 AM) Social History Social History Type Response Smoking Status Never smoker; Tobacc o user in household: No entered on: 01/07/14 Sex
--- OUTSIDE RECORDS SUMMARY | 2023-12-17 09:40 | XMS_ITS | Continuity of Care Document ---
Author Organization [facility] Address [address] [place] [address]- Care Team Providers Care Recreation Worker Name Role Phone Esperanza CADET, Keyla Parks Primary Care Physician Encounter [facility] Date(s): 02/09/21 - 03/11/21 [facility] [address] [place], [place] [address] Allergies, Adverse Reactions, Alerts Substance [...] 14 08/02/07 Given 1Result Comment: [12/16/2017] [facility] [id number] 2Result Comment: [11/29/2016] [facility] [id number] 3Result Comment: [11/25/2015] pt. tolerated inj. without complications...CO 4Result Comment: [11/30/2012] given w/o incident...AA 5Admin Note: FLULAVAL 6Admin Note: done @ work 7Admin Note: per pt 8Result Comment: Done at [facility] 9Result Comment: [id number] 10Result Comment: [12/16/2017] #1 11Admin Note: info [...] 1 Refills, Maintenance, 01/02/21 8:57:00 EST, Cream, [facility]/pharmacy #4923, Partial fill upon patient request if the [...] capsule, 1 Refills, Maintenance, 02/09/21 14:43:00 EST, [facility]/pharmacy #0693, 170, cm, 01/29/21 13:01:00 EST, [...] DAYS, # 15 sprays, 0 Refills, Acute, [facility] STORE 34290, 30, USE 2 SPRAYS IN EACH NOSTRIL 3 TIMES A DAY FOR 7 DAYS, 170, cm, 04/10/19 14:00:00 EST, Height, 104.5, kg, 09/15/18 9:05:00 EDT... Start Date: 05/04/19 Status: Ordered ipratropium nasal 42 mcg/inh spray 2 sprays, Nares, Both, 3 times a day, # 1 each, 0 Refills, Maintenance, 07/02/20 16:11:00 EDT, [facility]/pharmacy #0693, 2 sprays Nares, Both [...] 04/14/20 15:22:00 EST, Route to Pharmacy Electronically, [facility]/pharmacy #0693, Partial fill upon patient request,... [...] mL, 0 Refills, Maintenance, 12/23/20 13:10:00 EDT, [facility]/pharmacy #0693, Partial fill upon patient request if the prescription is for a schedule II opioid drug., 4 liters By Mouth Once, 171, cm, 12/23/20... Start Date: 12/23/20 Status: Ordered tiZANidine 4 mg oral tablet 4 mg, 1, tablet, By Mouth, Every 8 hours, PRN, # 42 tablet, Refills 0, Tot. Refills 0, Maintenance,Spasm, 01/26/21 12:30:00 EST, Route to Pharmacy Electronically, [facility]/pharmacy #0693, Partial fill upon patient request [...]
--- OUTSIDE RECORDS SUMMARY | 2023-12-17 09:40 | XMS_ITS | Continuity of Care Document ---
Author Organization [facility] Address [address] [address]- Care Team Providers Care Diagnostics Tech Name Role Phone Dany CADET, Tarsha Parks Primary Care Physician Encounter [facility] Date(s): 03/16/23 - 04/15/23 [facility] [address] [facility] [address] [place] [address]- Allergies, Adverse Reactions, Alerts Substance Reaction Severity [...] 2Result Comment: [12/16/2017] [facility] 40579-545-14 3Result Comment: [11/29/2016] [facility] 32199-033-92 4Result Comment: [11/25/2015] pt. tolerated inj. without complications...CO 5Result Comment: [11/30/2012] given w/o incident...AA 6Admin Note: FLULAVAL 7Admin Note: done @ work 8Admin Note: per pt [facility]Result Comment: [facility] 10Result Comment: [id number] 11Result Comment: [12/16/2017] #1 12Admin Note: per [...] 3 Refills, Maintenance, 09/08/21 10:47:00 EDT, [facility]/pharmacy #0693, 170, cm, 09/08/21 10:10:00 EDT, [...] 03/30/22 13:32:00 EST, Route to Pharmacy Electronically, [facility]/pharmacy #0693, Partial fill upon patient request if the prescription is for a schedule II opioid drug... Start Date: 03/30/22 Status: Ordered losartan 100 mg oral tablet 1 tablet = 100 mg, By Mouth, Daily at bedtime, # 90 tablet, 3 Refills, Maintenance, 06/01/22 11:02:00 EDT, Tablet, [facility]/pharmacy #0693, Partial fill upon patient request [...] 12:00:00 EST, Route to Pharmacy Electronically, [facility]/pharmacy #0693, Partial fill upon patient request ifthe prescription is for a schedule II opioid drug.,... Start Date: 12/27/22 Stop Date: 12/22/23 Status: Ordered NuLYTELY Lemon [place] oral powder for reconstitution See Instructions, use [...] Care Nurse Name: Hilary Bell RN Position: [facility] RN Member Role: Primary Care Nurse Name: Tarsha Saenz MD Position: Reference Physician Member Role: PCP Address: Address: [address] [place] [address]- Care Team Related Persons Name: MARGARETTE LOPEZ Name: TAWNYA LOPEZ Address: home [address] [place] [address]
--- OUTSIDE RECORDS SUMMARY | 2023-12-17 09:40 | XMS_ITS | Continuity of Care Document ---
Author Organization [facility] Address [address] [place] [address]- Care Team Providers Care Sales Representative Meats Name Role Phone Esperanza CADET, Keyla Parks Primary Care Physician [phone] Encounter [facility] Date(s): 01/30/20 - 02/29/20 [facility] [address] [place] [address]- Allergies, Adverse Reactions, Alerts Substance Reaction Severity [...] 14 08/02/07 Given 1Result Comment: Done at [facility] 2Result Comment: [id number] 3Result Comment: [12/16/2017] #1 4Result Comment: [12/16/2017] [facility] [id number] 5Result Comment: [11/29/2016] [facility] 05452-364-20 6Result Comment: [11/25/2015] pt. tolerated inj. without [...] 02/02/20 12:17:00 EST, Route to Pharmacy Electronically, [facility], Partial fill upon [...] 0 Refills, Maintenance, 12/31/19 10:42:00 EST, ECCapsule, [facility]/pharmacy #0693, 170, cm, 12/31/19 9:54:00 EST, Height, 106.8, kg, 08/27/19 11:58:00 EDT, Dry Weight Start Date: 12/31/19 Status: Ordered gabapentin 100 mg oral capsule 100 mg, 1, capsule, By Mouth, 3 times a day, # 42 capsule, Refills 0, Tot. Refills 0, Maintenance, 02/02/20 12:17:00 EST, Route to Pharmacy Electronically, [facility], Partial fill uponpatient request if the prescription is for a schedu... Start Date: 02/02/20 Stop Date: 02/16/20 Status: Ordered ipratropium nasal 42 mcg/inh spray See Instructions, USE 2 SPRAYS IN EACH NOSTRIL 3 TIMES A DAY FOR 7 DAYS, # 15 sprays, 0 Refills, Acute, [facility] STORE 96957, 30, USE 2 SPRAYS IN EACH NOSTRIL [...] 01/15/20 15:22:00 EST, Route to Pharmacy Electronically, [facility]/pharmacy #9530, Partial fill upon patient request,... Start Date: [...]
--- OUTSIDE RECORDS SUMMARY | 2023-12-17 09:40 | XMS_ITS | Continuity of Care Document ---
Author Organization [facility] Address [address] [place] [address]- Care Team Providers Care Batter Mixer Name Role Phone Keyla Mata MD Primary Care Physician [phone] Encounter [facility] Date(s): 01/19/21 - 01/26/21 [facility] [address] [place], [place] [address] Attending Physician: Keyla Mata [...] influenza virus vaccine, inactivated 3 11/25/15 Gi matrir influenza virus vaccine, inactivated 11/26/14 Saud rded [...] [12/16/2017] [facility] 07607-711-91 2Result Comment: [11/29/2016] [facility] 57879-690-04 3Result Comment: [11/25/2015] pt. tolerated inj. without complications...CO 4Result Comment: [11/30/2012] given w/o incident...AA 5Admin Note: FLULAVAL 6Admin Note: done @ work 7Admin Note: per pt 8Result Comment: Done at [facility] 9Result Comment: [id number] 10Result Comment: [12/16/2017] #1 11Admin Note: info [...] 1 Refills, Maintenance, 01/02/21 8:57:00 EST, Cream, [facility]/pharmacy #[id number], Partial fill upon patient request if the [...] Refills, Maintenance, 09/15/20 10:55:00 EDT, [facility]/pharmacy #[id number], 171, cm, 09/12/20 9:46:00 EDT, Height, [...] 15 sprays, 0 Refills, Acute, [facility] STORE 13879, 30, USE 2 SPRAYS IN EACH NOSTRIL 3 TIMES A DAY FOR 7 DAYS, 170, cm, 04/10/19 14:00:00 EST, Height, 104.5, kg, 09/15/18 9:05:00 EDT... Start Date: 05/04/19 Status: Ordered ipratropium nasal 42 mcg/inh spray 2 sprays, Nares, Both, 3 times a day, # 1 each, 0 Refills, Maintenance, 07/02/20 16:11:00 EDT, [facility]/pharmacy #[id number], 2 sprays Nares, Both 3 times [...] EST, Route to Pharmacy Electronically, [facility]/pharmacy #[id number], Partial fill upon patient request,... Start [...] mL, 0 Refills, Maintenance, 12/23/20 13:10:00 EDT, [facility]/pharmacy #[id number], Partial fill upon patient request if the prescription is for a schedule II opioid drug., 4 liters By Mouth Once, 171, cm, 12/23/20... Start Date: 12/23/20 Status: Ordered tiZANidine 4 mg oral tablet 4 mg, 1, tablet, By Mouth, Every 8 hours, PRN, # 42 tablet, Refills 0, Tot. Refills 0, Maintenance,Spasm, 01/26/21 12:30:00 EST, Route to Pharmacy Electronically, [facility]/pharmacy #[id number], Partial fill upon patient request if [...]
--- OUTSIDE RECORDS SUMMARY | 2023-12-17 09:40 | XMS_ITS | Continuity of Care Document ---
Author Organization [facility] Address [address] [place] [address]- Care Team Providers Care Pie Baker Name Role Phone Dany CADET, Tarsha Parks Primary Care Physician Encounter [facility] Date(s): 01/04/23 - 02/03/23 [facility] [address] [place] [address]- Attending Physician: Matthieu Kasper Admitting Physician: AdmMatthieu [...] given given w/o incident 2Result Comment: [12/16/2017] [facility] 62212-818-03 3Result Comment: [11/29/2016] [facility] 77333-903-42 4Result Comment: [11/25/2015] pt. tolerated inj. without complications...CO 5Result Comment: [11/30/2012] given w/o incident...AA 6Admin Note: FLULAVAL 7Admin Note: done @ work 8Admin Note: per pt 9Result Comment: [facility] 10Result Comment: [id number] 11Result Comment: [12/16/2017] #1 12Admin Note: per [...] capsule, 3 Refills, Maintenance, 09/08/21 10:47:00 EDT, [facility]/pharmacy #[id number], 170, cm, 09/08/21 10:10:00 [...] 03/30/22 13:32:00 EST, Route to Pharmacy Electronically, [facility]/pharmacy #[id number], Partial fill upon patient request if the prescription is for a schedule II opioid drug... Start Date: 03/30/22 Status: Ordered losartan 100 mg oral tablet 1 tablet = 100 mg, By Mouth, Daily at bedtime, # 90 tablet, 3 Refills, Maintenance, 06/01/22 11:02:00 EDT, Tablet, [facility]/pharmacy #[id number], Partial fill upon patient request if the prescription is for a schedule II opioid drug., 170, cm, 05/14/22 9:21:00 E... Start Date: 06/01/22 Stop Date: 05/27/23 Status: Ordered metoprolol 25 mg oral tablet 25 mg, By Mouth, 2 times a day, # 180 tablet, Refills 3, Tot. Refills 3, Maintenance, 12/27/22 12:00:00 EST, Route to Pharmacy Electronically, [facility]/pharmacy #[id number], Partial fill upon patient request ifthe prescription is for a schedule II opioid drug.,... Start Date: 12/27/22 Stop Date: 12/22/23 Status: Ordered spironolactone 25 mg oral tablet 25 mg, 1, tablet, By Mouth, Daily, # 30 tablet, Refills 5, Tot. Refills 5, Maintenance, 11/15/22 11:40:00 EDT, Route to Pharmacy Electronically, [facility]/pharmacy #[id number], Partial fill upon patient request if the [...] Radiology * Event Display: [place] [facility], Non-[facility] Authored Date: Patient Care team information Care Team Personnel Name: Niurka Mendosa RN Position: [facility] RN Member Role: Primary Care Nurse Name: Oswaldo Valadez RN Position: [facility] RN Member Role: Primary Care Nurse Name: Alva Gibbons RN Position: [facility] RN Member Role: Primary Care Nurse Name: Milka Mendosa RN Position: [facility] RN Member Role: Primary Care Nurse Name: Hilary Bell RN Position: [facility] RN Member Role: Primary Care Nurse Name: Jl Ruiz MD Position: [facility] Physician (General Medicine) Member Role: Lifetime Consulting Physician Address: Address: [address] [place] [address]- [place] Name: Mik TSANG, Saskia Position: [facility] RN Member Role: Primary Care Nurse Name: Dany CADET, Tarsha Parks Position: Reference Physician Member Role: PCP Address: Address: [address] [place] [address]- Care Team Related Persons Name: MARGARETTE LOPEZ Name: TAWNYA LOPEZ Address: [address] [place] [address]
--- OUTSIDE RECORDS SUMMARY | 2023-12-17 09:40 | XMS_ITS | Continuity of Care Document ---
Author Organization [facility] Address [address] [place] [address]- Care Team Providers Care Health Safety Manager Name Role Phone Esperanza CADET, Keyla Parks Primary Care Physician [phone] Encounter [facility] Date(s): 03/24/20 - 04/23/20 [facility] [address] [place], [place] [address] Allergies, Adverse Reactions, Alerts Substance Reaction Severity [...] 14 08/02/07 Given 1Result Comment: Done at [facility] 2Result Comment: [id number] 3Result Comment: [12/16/2017] #1 4Result Comment: [12/16/2017] [facility] 31687-977-30 5Result Comment: [11/29/2016] [facility] 29988-833-08 6Result Comment: [11/25/2015] pt. tolerated inj. without [...] 1 Refills, Maintenance, 03/24/20 10:21:00 EST, ECCapsule, [facility]/pharmacy #[id number], 171, cm, 02/04/20 [...] DAYS, # 15 sprays, 0 Refills, Acute, [facility] STORE 59138, 30, USE 2 SPRAYS IN EACH NOSTRIL [...] 04/14/20 15:22:00 EST, Route to Pharmacy Electronically, [facility]/pharmacy #[id number], Partial fill upon patient request,... Start Date: [...]
--- OUTSIDE RECORDS SUMMARY | 2023-12-17 09:40 | XMS_ITS | Continuity of Care Document ---
Author Organization [facility] Address [address] [place] [address]- Care Team Providers Care Senior Marketing Specialist Name Role Phone Esperanza CADET, Keyla Parks Primary Care Physician Encounter [facility] Date(s): 08/21/21 - 09/20/21 [facility] [address] [place] [address]- Attending Physician: Matthieu Kasper Admitting Physician: AdmtrMatthieu Referring Physician: Admtr, Ar8 Allergies, Adverse Reactions, Alerts Substance Reaction Severity Status cyclobenzaprine tongue swelling,constipation Active medtronidazole containing compounds rash Active clarithromycin rash Active vancomycin UNKNOWN Active nortriptyline rash Active Augmentin diarrhea Active Vicodin delusion [...] [12/16/2017] [facility] [id number] 3Result Comment: [11/29/2016] [facility] 74346-031-53 4Result Comment: [11/25/2015] pt. tolerated inj. without complications...CO 5Result Comment: [11/30/2012] given w/o incident...AA 6Admin Note: FLULAVAL 7Admin Note: done @ work 8Admin Note: per pt 9Result Comment: [facility] 10Result Comment: [id number] 11Result Comment: [12/16/2017] #1 12Admin Note: per [...]
--- OUTSIDE RECORDS SUMMARY | 2023-12-17 09:40 | XMS_ITS | Continuity of Care Document ---
Author Organization [facility] Address [address] [place] [address]- Care Team Providers Care Hall Cleaner Name Role Phone Esperanza CADET, Keyla Parks Primary Care Physician [phone] Encounter [facility] Date(s): 01/12/21 - 02/11/21 [facility] [address] [place] [address]- Attending Physician: Matthieu Kasper Admitting Physician: Matthieu [...] (oldterm) 14 08/02/07 Given 1Result Comment: [12/16/2017] [facility] [id number] 2Result Comment: [11/29/2016] [facility] [id number] 3Result Comment: [11/25/2015] pt. tolerated inj. without complications...CO 4Result Comment: [11/30/2012] given w/o incident...AA 5Admin Note: FLULAVAL 6Admin Note: done @ work 7Admin Note: per pt 8Result Comment: Done at [facility] 9Result Comment: [id number] 10Result Comment: [12/16/2017] #1 11Admin Note: info [...] 1 Refills, Maintenance, 01/02/21 8:57:00 EST, Cream, [facility]/pharmacy #[id number], Partial fill upon patient [...] capsule, 1 Refills, Maintenance, 02/09/21 14:43:00 EST, [facility]/pharmacy #[id number], 170, cm, 01/29/21 13:01:00 EST, [...] DAYS, # 15 sprays, 0 Refills, Acute, [facility] STORE 32563, 30, USE 2 SPRAYS IN EACH NOSTRIL 3 TIMES A DAY FOR 7 DAYS, 170, cm, 04/10/19 14:00:00 EST, Height, 104.5, kg, 09/15/18 9:05:00 EDT... Start Date: 05/04/19 Status: Ordered ipratropium nasal 42 mcg/inh spray 2 sprays, Nares, Both, 3 times a day, # 1 each, 0 Refills, Maintenance, 07/02/20 16:11:00 EDT, [facility]/pharmacy #0693, 2 sprays Nares, Both [...] 04/14/20 15:22:00 EST, Route to Pharmacy Electronically, [facility]/pharmacy #[id number], Partial fill upon patient [...] mL, 0 Refills, Maintenance, 12/23/20 13:10:00 EDT, [facility]/pharmacy #0693, Partial fill upon patient request if the prescription is for a schedule II opioid drug., 4 liters By Mouth Once, 171, cm, 12/23/20... Start Date: 12/23/20 Status: Ordered tiZANidine 4 mg oral tablet 4 mg, 1, tablet, By Mouth, Every 8 hours, PRN, # 42 tablet, Refills 0, Tot. Refills 0, Maintenance,Spasm, 01/26/21 12:30:00 EST, Route to Pharmacy Electronically, [facility]/pharmacy #[id number], Partial fill upon patient [...]
--- OUTSIDE RECORDS SUMMARY | 2023-12-17 09:40 | XMS_ITS | Continuity of Care Document ---
Author Organization [facility] Address [address] [place] [address]- Care Team Providers Care Loom Mechanic Name Role Phone Dany CADET, Tarsha Parks Primary Care Physician Encounter [facility] Date(s): 10/21/23 - 11/20/23 [facility] [address] [place] [address]- [place] Allergies, Adverse Reactions, Alerts Substance Reaction [...] system [facility] [id number] 3Result Comment: [11/29/2016] [facility] 75892-105-30 4Result Comment: [11/25/2015] pt. tolerated inj. without complications...CO 5Result Comment: [11/30/2012] given w/o incident...AA 6Admin Note: FLULAVAL 7Admin Note: done @ work 8Admin Note: per pt 9Result Comment: [facility] 10Result Comment: [id number] 11Result Comment: [12/16/2017] #1 12Admin Note: per [...] EDT, Route to Pharmacy Electronically, [facility], 170, cm, 08/29/23 9:28:00 EDT, Height, 112.3, [...] Refills, Maintenance, 05/19/23 8:02:00 EDT, [facility], 170, cm, 03/29/23 10:03:00 EST, Height, 108.7, [...] MRI Safety Implantable Status Assigning Authority Unknown [id number] Unknown Unknown 05/10/25 Unknown Unknown Active Unknown Procedure Provider Procedure Date Device Type Site Fusion Tarsometatarsal Dora Garcia MD 08/24/23 Unkn own Foot Right Device Identifier Serial Number Lot or Batch Number Manufacturing Date Expiration Date Distinct Identification Code MRI Safety Implantable Status Assigning Authority Unknown [id number] Unknown Unknown 12/02/24 Unknown Unknown Active Unknown Patient Care team information Care Team Personnel Name: Rocío Almonte RN Position: [facility] RN Member Role: Primary Care Nurse Name: Niurka Mendosa RN Position: [facility] RN Member Role: Primary Care Nurse Name: Oswaldo Valadez RN Position: S RN Member Role: Primary Care Nurse Name: Yoselyn Peters RN Position: [facility] RN Member Role: Primary Care Nurse Name: Alva Gibbons RN Position: [facility] RN Member Role: Primary Care Nurse Name: Hilary Bell RN Position: S RN Member Role: Primary Care Nurse Name: Katie Govea RN Position: S RN Member Role: Primary Care Nurse Name: Nika Toledo RN Position: [facility] RN Member Role: Primary Care Nurse Name: Tarsha Saenz MD Position: Reference Physician Member Role: PCP Address: Address: [address] [place] [address] Care Team Related Persons Name: MARGARETTE LOPEZ Name: TAWNYA LOPEZ Address: [address] [place] [address]
--- OUTSIDE RECORDS SUMMARY | 2023-12-17 09:40 | XMS_ITS | Continuity of Care Document ---
Author Organization [facility] Address [address] [place] [id number]- Care Team Providers Care Warehouse Handler Name Role Phone Dany CADET, Tarsha Parks Primary Care Physician [phone] Encounter [facility] Date(s): 11/27/22 - 11/28/[address] [address]- Encounter Diagnosis 2019 novel coronavirus disease (COVID-19)(Final) - 11/26/22 Pleuritic chest pain(Final) - 11/26/22 Discharge Disposition: A-D/C Home Attending Physician: Scar Norman MD Admitting Physician: Ramy Saenz MD Referring Physician: Not on Staff, Referring MD Allergies, Adverse Reactions, Alerts Substance Reaction Severity Status cyclobenzaprine tongue swelling,constipation Severe Active medtronidazole containing compounds rash Mild Active Augmentin diarrhea Mild Active clarithromycin rash Active vancomycin itching UNKNOWN Mild Active nortriptyline rash Mild Active Vicodin delusion rash Mild [...] incident 2Result Comment: [12/16/2017] [facility] [id number] 3Result Comment: [11/29/2016] [facility] [id number] 4Result Comment: [11/25/2015] pt. tolerated inj. without complications...CO 5Result Comment: [11/30/2012] given w/o incident...AA 6Admin Note: FLULAVAL 7Admin Note: done @ work 8Admin Note: per pt 9Result Comment: Done at [facility] 10Result Comment: [id number] 11Result Comment: [12/16/2017] #1 12Admin Note: per pt 13Admin Note: hep A #2 14Admin Note: hep A #1 Medications CPAP Machine CPAP 12, Maintenance, 01/07/17 14:22:53 EST, Compound Start Date: 01/07/17 Status: Ordered duloxetine 60 mg oral enteric coated capsule 1 capsule, By Mouth, Daily, # 90 capsule, 3 Refills, Maintenance, 09/08/21 10:47:00 EDT, [facility]/pharmacy #[id number], 170, cm, 09/08/21 [...] Date: 11/28/22 Stop Date: 12/28/22 Status: Ordered metoprolol 25 mg oral tablet, extended release 25 mg, XL Tablet, By Mouth, 11/28/22 9:00:00 EDT Start Date: 11/28/22 Stop Date: 11/28/22 Status: Completed spironolactone 25 mg oral tablet 25 mg, 1, tablet, By Mouth, Daily, # 30 tablet, Refills 5, Tot. Refills 5, Maintenance, 11/15/22 11:40:00 EDT, Route to Pharmacy Electronically, [facility]/pharmacy #[id number], Partial fill upon patient request if the [...] Exam Date Time Procedure Performing Provider Status 11/26/22 11:[address] Angio Chest Bethany Santillan; Auth (Ve rified) Notes: (CT Angio Chest) Reason For Exam: PE Suspected, Intermediate Prob, Positive D-Dimer;Other: RESULT: CT Angio Chest EXAMINATION: CT Angio Chest INDICATION: Hx of Present Illness: patient was brought in by EMS for evaluation of chest heaviness and SOB that started 1 hr ago,patient denies any chest pain now,but still feels SOB; Reason: Other:;PE Suspected, Intermediate Prob, Positive D-Dimer; Clinical Question(s): Pulmonary Embolism; Order Comment: TECHNIQUE: Spiral CTA of the chest was performed after rapid IV contrast administration without cardiac gating, triggered by an FERNANDO on the main pulmonary artery. Images are formatted in multiple planes using 2-D multiplanar and 3-D maximum intensity projection. 100 cc of Omnipaque 300 was administered intravenously. Weight-based protocol using automatic tube modulation was used to optimize exposure parameters. CTDIvol Body: 12.53 mGy, DLP Body: 637 mGy*cm. COMPARISONS: None. ANGIOGRAPHIC FINDINGS: No pulmonary embolism to the subsegmental level. Normal caliber pulmonary arteries. No acute aortic abnormality seen on this study performed without cardiac gating. 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 Trachea and Airways: Patent without evidence of tracheal or endobronchial lesion. Lungs and Pleura: Clear lungs. No effusion or pneumothorax. Mediastinum and felicia: No mass or hematoma. No mediastinal or hilar lymphadenopathy. No esophageal abnormality. Heart: Heart is normal in size. No pericardial effusion. Chest Wall Soft Tissues: Normal. Diaphragm and upper abdomen: Stable likely benign liver lesions. Bones: No acute abnormality. IMPRESSION: No evidence of pulmonary embolism. No other acute pulmonary abnormality identified. WSN: [id number] Ordering Physician: Clint Nicholas Dictated By: Bertram Orozco MD Dictated Date/Time: 11/26/22 11:16 p Reviewed By: Bertram Orozco MD Signed By: Bertram Orozco MD Signed Date/Time: 11/26/22 11:16 pm Transcribed By: CHRISTA Transcribed Date/Time: 11/26/22 11:12 pm * Exam Date Time Procedure Performing Provider Status 11/26/22 5:31 PM Chest 2 Views Frontal and Lat Shanika Callaway; Auth (Verified) Notes: (Chest 2 Views Frontal and Lat) Reason For Exam: Shortness of Breath, Fever;Other: RESULT: Chest 2 Views Frontal and Lat Chest 2 Views Frontal and Lat Hx of Present Illness: patient was brought in by EMS for evaluation of chest heaviness and SOB thatstarted 1 hr ago,patient denies any chest pain now,but still feels SOB; Reason: Other:; Shortness of Breath, Fever; Clinical Question(s): Pneumonia COMPARISON: Multiple prior chest radiographs with the most recent dated 11/19/2021. FINDINGS: LINES AND TUBES: None. LUNGS AND PLEURA: Clear lungs. Normal pulmonary vascularity. No pleural effusion. No pneumothorax. HEART, MEDIASTINUM AND FELICIA: Mild cardiomegaly unchanged. Normal mediastinal and hilar contour. BONES AND SOFT TISSUES: No acute abnormality. Reverse right shoulder arthroplasty. IMPRESSION: Mild cardiomegaly. No acute abnormality. WSN: [id number] Ordering Physician: Jacque Hadley Dictated By: Ramon Villalta MD, V Dictated Date/Time: 11/26/22 5:37 pm Reviewed By: Ramon Villalta MD, V Signed By: Ramon Villalta MD, V Signed Date/Time: 11/26/22 5:37 pm Transcribed By: CHRISTA Transcribed Date/Time: 11/26/22 5:35 pm Vital Signs Most recent to oldest [Reference Range]: 1 2 3 Height 170 cm (11/28/22 12:16 PM) 170 cm (11/28/22 7:44 AM) 170 cm (11/28/22 4:16 AM) Weight 103.4 kg (11/27/22 3:46 AM) Oxygen Saturation [94-100 %] 100 % (11/28/22 12:16 PM) 96 % (11/28/22 7:44 AM) 100 % (11/28/22 4:16 AM) Pulse Rate [55-90 bpm] 62 bpm (11/28/22 12:16 PM) 60 bpm (11/28/22 9:52 AM) 60 bpm (11/28/22 7:44 AM) Body Mass Index [18.5-24.99 kg/m2] 35.78 kg/m2 *>HHI* (11/27/22 3:46 AM) Blood Pressure [90-138/55-84 mm Hg] 132/73mm Hg (11/28/22 12:16 PM) 126/66mm Hg (11/28/22 9:52 AM) 126/66mm Hg (11/28/22 7:44 AM) Respiratory Rate [16-30 br/min] 18 br/min (11/28/22 12:16 PM) 18 br/min (11/28/22 7:44 AM) 20 br/min (11/28/22 4:16 AM) Temperature [96.8-100.4 DegF] 98.4 DegF (11/28/22 12:16 PM) 98.0 DegF (11/28/22 7:44 AM) 98.1 DegF (11/28/22 4:16 AM) Liters per Minute 2 L/min (11/26/22 2:32 PM) Mode of Delivery (Oxygen) Room air (11/28/22 12:16 PM) Room air (11/28/22 7:44 AM) CPAP (11/28/22 4:16 AM) Blood pressure sites Arm, right (11/28/22 12:16 PM) Arm, right (11/28/22 7:44 AM) Arm, left (11/28/22 4:16 AM) Temperature Route Oral (11/28/22 12:16 PM) Oral (11/28/22 7:44 AM) Oral (11/28/22 4:16 AM) Dry Weight 110.6 kg (11/27/22 3:46 AM) Social History Social History Type Response Smoking Status Never smoker; Tobacc o user in household: No entered on: 01/07/14 Sex Female History and physical note * Ester CADET, Scar: PERFORM, MODIFY Event Display: History and Physical Hospital Authored Date: [id number] Patient: ??THO CHO ? Age:??67 Years?Sex:??Female?:??1955?? Chief Complaint/Reason for Consultation coming from home,chest pain for 1 hr,radiating left arm, dizziness,SOB was clammy when EMS got to the scene History of Present Illness 67 y/f with History of Hypertension, JESS on BiPAP, rheumatoid arthritis, obesity, GERD, anxiety came to ED with complaints of chest pain and shortness of breath. Patient states she was diagnosed with COVID 19 infection 11 days ago and her symptoms resolved. Patient says yesterday she went outside to get her car repaired then she went to her daughter's house where she had to take 1 flight of stairs, once she was at daughter's house she developed shortness of breath and left-sided chest pain that was radiating to left arm so daughter called 911, EMS gave 325 mg aspirin and her symptoms got better. Patient states in the ED they were about to ??discharge her home but she developed another episode of chest pain with high blood pressure so they admitted her. She states she had similar symptoms in the past this year and had a stress test which was negative ?? Her EKG showed LVH but trops were mildly elevated at this time. At this time she states she does not have chest pain but very scared about recurrence of her symptoms ?? She claims To be compliant with her blood pressure medications Review of Systems General: No fever, chills or rigors HEENT: No headache, no blurred vision, no sorethroat Cardiac: chest pain , SOB Respiratory: denies any cough but feels congested. no sputum Abdomen: No diarrhea or constipation,no nausea or abdominal pain Nervous system: No headache, blurred vision, tingling or numbness or any weakness Genito urinary: No Urinary frequency, urgency or dysuria Objective Vital Signs?? Temperature: 98.1 DegF (11/27/22:25:00) Temperature Route: Oral (11/27/22:25:00) Pulse Rate: 78 bpm (11/27/22:37:00) Respiratory Rate: 18 br/min (11/27/22:25:00) Systolic Blood Pressure: 133 mm Hg (11/27/22:37:00) Diastolic Blood Pressure: 60 mm Hg (11/27/22:37:00) Blood pressure sites: Arm, left (11/27/22:25:00) Mean Arterial Pressure: 84 mm Hg (11/27/22:25:00) Pulse Pressure: 73 mm Hg (11/27/22:25:00) Oxygen Saturation: 100 % (11/27/22:25:00) Mode of Delivery (Oxygen): Room air (11/27/22:25:00) Early Warning Score: 0 (11/27/22 11:37:47) ? Physical Exam ?? Neck: soft, supple, no lymphadenopathy, no carotid Bruit, No JVP Lungs: Clear to auscultation, no wheezes, rales or rhonchi Heart:?? murmurs present Abdomen: Soft, non tender, normal Bowel sounds INSTITUTION LIBRARIAN: Alert awake and oriented X 3 . No cranial nerve deficits appreciated Musculoskeletal: No joint swellings or effusions noted Extremities: Pulse 2+, No edema noted. Skin: no new rash or skin breakdown noted Assessment/Plan Diagnoses 2019 novel coronavirus disease (COVID-19) ??(U07.1) ACS (acute coronary syndrome) ??(I24.9) Anxiety ??(F41.9) HTN (hypertension) ??(I10) JESS treated with BiPAP ??(G47.33) Pleuritic chest pain ??(R07.81) ?67 y/f with History of Hypertension, JESS on BiPAP, rheumatoid arthritis, obesity, GERD, anxiety came to ED with complaints of chest pain and shortness of breath And now admitted to rule out ACS and possible hypertensive urgency. ?? 1.chest pain. Hypertensive urgency. Patient admitted with typical symptoms of self ACS and now 6 chest pain resolved. Troponin is slightly elevated. She had 1 more episode of tachycardia today which seems to be SVT and cardiology reviewed the EKG. Cardiology advised to do stress echocardiogram. Last echo showed increased right-sided pressures but the EF was normal. She had stress test this year and it was normal ?? Continue blood pressure medications including spironolactone losartan Lasix and metoprolol. We will change losartan to nightly. ?? 2.Rheumatoid arthritis continue hydroxychloroquine. ?? 3.anxiety. Continue Cymbalta. ?? 4. Recent COVID. She was COVID-positive on November 17. Now she is does not have any more complaints. She actually went to work 3 days ago. Will discontinue isolation ?? 5. JESS on BIPAP 12/01 with PS of 6- sleep study results reviewed. ?? 5. DVT prophylaxis: OLLIE score is low so will keep pneumoboots ?? 6. CODE:??FULL CODE: confirmed with her ?? OMN:??chest pain needing stress echo ?? Histories ?? Past Medical History Fibromyalgia GERD - Gastro-esophageal reflux disease Hypertension Left ventricular diastolic dysfunction Mitral valve prolapse OA (osteoarthritis) of knee Obesity Obstructive sleep apnea on Auto BIPAP 12/01?? with pressure support of 6 RA - Rheumatoid arthritis ? Past Surgical History RIGHT Reverse total [...] correction and removal of old hardware: 08/03/10 EGD/colonoscopy-2008: 11/09/07 R ankle surgery for ? swellin L shoulder Rotator Cuff repair: 1999 tonsillectomy: 1960 ? 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 Family History Mother (): CAD - Coronary artery disease; Hypertension; Stroke Father (): Alcoholism; COPD Other (maternal aunt): Cancer of ovary Sister (): CAD - Coronary artery disease; IBD - Inflammatory bowel disease ?? Medications Home Medications : confirmed from patient Duloxetine (duloxetine 60 mg oral enteric coated capsule)?1?capsule?By Mouth?Daily Durable Medical Equipment : Auto BIPAP 12/01 with PS of 6 Furosemide (Lasix 40 mg oral tablet)?40?Milligr am?1?tablet?By Mouth?Daily Hydroxychloroquine (hydroxychloroquine 200 mg oral tablet)?200?Milligram?1?tablet?ByMouth?Daily Losartan (losartan 100 mg oral tablet)?1?tab(s)?100?Milligram?By Mouth?Daily?for 90?Days Metoprolol (metoprolol 25 mg oral tablet, extended release)?25?Milligram?1?tablet?ByMouth?Daily Spironolactone (spironolactone 25 mg oral tablet)?25?Milligram?1?tablet?By Mouth?Daily ? Results Recent Labs BLOOD COUNT & DIFF WBC 10.2 k/mm3 ()?? 11/26/2022 16:37 RBC 4.66 m/mm3 ()?? 11/26/2022 16:37 Hgb 12.7 Gm/dL ()?? 11/26/2022 16:37 Hct 40.8 % ()?? 11/26/2022 16:37 MCV 87.6 femtoliters ()?? 11/26/2022 16:37 MCH 27.3 pg ()?? 11/26/2022 16:37 MCHC 31.1 g/dL (Low)?? 11/26/2022 16:37 Platelet Count 225 k/mm3 ()?? 11/26/2022 16:37 RDW-SD 49.2 femtoliters (High)?? 11/26/2022 16:37 MPV 10.1 femtoliters ()?? 11/26/2022 16:37 Nucleated RBC (Automated) 0.0 #/100 WBC'S ()?? 11/26/2022 16:37 Abs. NRBC 0.0 k/mm3 ()?? 11/26/2022 16:37 Abs. Neut 7.1 k/mm3 (High)?? 11/26/2022 16:37 Abs. Lymph 2.2 k/mm3 ()?? 11/26/2022 16:37 Abs. Bates 0.8 k/mm3 ()?? 11/26/2022 16:37 Abs. Eo 0.0 k/mm3 ()?? 11/26/2022 16:37 Abs. Baso 0.0 k/mm3 ()?? 11/26/2022 16:37 Neut % 70.0 % ()?? 11/26/2022 16:37 Lymph % 21.2 % ()?? 11/26/2022 16:37 Bates % 7.7 % ()?? 11/26/2022 16:37 Eos % 0.4 % ()?? 11/26/2022 16:37 Baso % 0.2 % ()?? 11/26/2022 16:37 Imm Gran 0.5 % ()?? 11/26/2022 16:37 Abs. Imm Gran 0.1 k/mm3 ()?? 11/26/2022 16:37 ?? CARDIAC High Sensitivity Troponin (HSTnT) 62 ng/L (Critical)?? 11/27/2022 06:21 ?? CHEM GENERAL Sodium 140 mmol/L ()?? 11/26/2022 16:37 Potassium 4.5 mmol/L ()?? 11/26/2022 16:37 Chloride 102 mmol/L ()?? 11/26/2022 16:37 Bicarbonate Level 25 mmol/L ()?? 11/26/2022 16:37 Anion Gap 13 ()?? 11/26/2022 16:37 Glucose Level 75 mg/dL ()?? 11/26/2022 16:37 BUN 16 mg/dL ()?? 11/26/2022 16:37 Creatinine-Blood 1.0 mg/dL ()?? 11/26/2022 16:37 Estimated GFR Creatinine 62 ML/MIN/1.73 M2 ()?? 11/26/2022 16:37 Calcium 9.3 mg/dL ()?? 11/26/2022 16:37 Calcium, Ionized pH Corrected MEASURED IONIZED CALCIUM IS 1.01 MMOL/L mmol/L ()?? 11/26/2022 16:37 Magnesium 2.4 mg/dL (High)?? 11/26/2022 16:37 Protein, Total 6.2 Gm/dL ()?? 11/26/2022 16:37 Albumin 3.9 Gm/dL ()?? 11/26/2022 16:37 AG Ratio 1.7 ()?? 11/26/2022 16:37 Alkaline Phosphatase 61 units/L ()?? 11/26/2022 16:37 Lipase 19 units/L ()?? 11/26/2022 16:37 AST (SGOT) 28 units/L ()?? 11/26/2022 16:37 ALT (SGPT) 17 units/L ()?? 11/26/2022 16:37 Bilirubin, Total 0.7 mg/dL ()?? 11/26/2022 16:37 ?? COAG D-Dimer 4.22 mg/L FEU (High)?? 11/26/2022 16:37 ?? HEME OTHER Hold Lavender Top SPECIMEN DISCARDED AFTER 24 HOURS. ()?? 11/27/2022 04:19 Hold Blue Top SPECIMEN DISCARDED AFTER 4 HOURS. ()?? 11/27/2022 04:19 ?? MISC. CHEMISTRY Hold Gel Top SPECIMEN DISCARDED AFTER 1 WEEK ()?? 11/27/2022 04:19 Hold Hussein Top SPECIMEN DISCARDED AFTER 1 WEEK ()?? 11/27/2022 04:14 ?? URINE OTHER Est Creatinine Clearance 53.67 mL/min ()?? 11/27/2022 03:51 ?? VIROLOGY COVID-19 PCR Specimen Source NASAL ()?? 11/26/2022 17:50 COVID-19 PCR Result POSITIVE (Abnormal)?? 11/26/2022 17:50 ? EKG study * Event Display: EKG Authored Date: * Event Display: ECG 12-Lead Authored Date: Please click on pdf link to open report * Event Display: ECG 12-Lead Authored Date: Ventricular Rate: 93 BPM Atrial Rate: 93 BPM P-R Interval: 154 ms QRS Duration: 80 ms Q-T Interval: 360 ms QTC Calculation(Bazett): 447 ms P [place]: 42 degrees R [place]: -29 degrees T [place]: 86 degrees Normal sinus rhythm with sinus arrhythmia Biatrial enlargement Left ventricular hypertrophy with repolarization abnormality ( R in aVL , Kuldeep product , Romhilt-Vigil ) Cannot rule out Septal infarct , age undetermined Abnormal ECG When compared with ECG of 11-OCT-2022 09:33, Vent. rate has increased BY 43 BPM Confirmed by JOSE CADET [facility] ([id number]) on 11/27/2022 7:47:28 AM Holliday: [facility] * Scar Norman MD: PERFORM, SIGN, VERIFY Event Display: [facility] Authored Date: Patient: THO CHO Age: 67 years Sex: Female : 1955 Associated Diagnoses: None Author: Scar Norman MD 11/28/2022 Work/School Status Other Instructions To Whom so ever It May Concern This is to inform you that , Ms.Lewis Jones with :1955 was admitted to [facility] on 11/26/22 for a medical condition and is getting discharged on 11/28/22. If you have any questions , please call us at [phone] Thank you MD Blanca * Zahra TSANG, Mikhail: PERFORM, MODIFY, MODIFY, SIGN, VERIFY Event Display: Progress Note Hospital Authored Date: [id number] Patient: TOH CHO Age: 67 years Sex: Female : 1955 Associated Diagnoses: None Author: Zahra TSANG, Mikhail Findings Nursing Data Vital Signs : VITAL SIGNS SECTION 11/27/2022 22:32 EDT Temperature 98.2 DegF Temperature Route Oral Pulse Rate 70 bpm Respiratory Rate 20 br/min Systolic Blood Pressure 110 mm Hg Diastolic Blood Pressure 66 mm Hg Blood pressure sites Arm, right Mean Arterial Pressure 81 mm Hg Pulse Pressure 44 mm Hg Oxygen Saturation 100 % Mode of Delivery (Oxygen) Room air 11/27/2022 21:44 EDT Early Warning Score 0.00 11/27/2022 21:44 EDT Early Warning Score 0.00 11/27/2022 21:40 EDT Pulse Rate 83 bpm Systolic Blood Pressure 132 mm Hg Diastolic Blood Pressure 57 mm Hg . Evaluation Pt is A/O x4, VSS, afebrile. She denies any CP at the moment. No c/o palpitations or light headedness. SR noted on telemetry. No SOB or n/v/d. Safety/comfort maintained. Please see CIS for further assessments. . * Mayte Cruz RN: PERFORM, SIGN, VERIFY Event Display: Progress Note Hospital Authored Date: [id number] Patient: THO CHO Age: 67 years Sex: Female : 1955 Associated Diagnoses: None Author: Mayte Cruz RN Findings Problem Related to Alteration in Cardiac Function (new) : Alteration in Cardiac Function/new 11/27/2022 5:00 EDT Alteration in Cardiac Status Related to ACS Goals & Outcomes, Cardiac Status Pt will resume/maintain adequate cardiac output, Pt will resume/maintain adequate hemodynamic status, Pt will resume/maintain adequate respiratory function, Pt will resume/maintain intact neuro function, Pt will maintain adequate GI/ function appropriate for pt, Pt will maintain adequate nutrition status Cardiac Interventions Implemented Assess/monitor cardiac status, Assess/monitor neuro status, Assess/monitor respiratory status, Assess for tolerance of IV infusions; verify rate & dose, Call/Report variances in ECG to provider, Document & Monitor O2 Sats; Administer O2 as ordered, Ensure adequate caloric intake, If no bowel movement in 3 days activate bowel regime, Monitor & document daily weight BH Goals/Interventions, Cardiac No Cardiac, Problem Start 11/27/2022 5:31 Reviewed Plan with, Cardiac Status Patient Patient Progression, Cardiac Status Plan Initiation . Nursing Data Cardiac Data. : Cardiac Data. 11/27/2022 5:28 EDT Cardiovascular Symptoms None Skin Temperature Upper Extremities Warm, Dry Skin Temperature Lower Extremities Warm, Dry Heart Rhythm Regular Cardiac Rhythm Normal sinus rhythm Capillary Refill < 3 seconds Radial Pulse, Left Normal Radial Pulse, Right Normal Dorsalis Pedis Pulse, Left Normal Dorsalis Pedis Pulse, Right Normal Edema None equipment monitor phototypesetting Yes Cardiovascular WNL except . Gastrointestinal Data. : Gastrointestinal Data. 11/27/2022 5:28 EDT Last Bowel Movement 11/26/2022 GI WNL . Genitourinary Data. : Genitourinary Data. 11/27/2022 5:28 EDT WNL . HEENT Data. : HEENT Assessment 11/27/2022 5:28 EDT HEENT, Adult WNL . Integumentary Data. : Integumentary Data. 11/27/2022 5:28 EDT Integumentary WNL . Musculoskeletal Data. : Musculoskeletal Data. 11/27/2022 5:28 EDT Musculoskeletal WNL . Neurological Data. : Neurological Data. 11/27/2022 5:28 EDT Neuro WNL . Respiratory/Pulmonary Data. 11/27/2022 5:28 EDT Respiratory Symptoms None Respiratory effort Unlabored Chest expansion Symmetrical Cough Non-productive Respiratory pattern Regular Left Upper Lobe Breath Sounds Clear Right Upper Lobe Breath Sounds Clear Right Middle Lobe Breath Sounds Clear Left Lower Lobe Breath Sounds Diminished Right Lower Lobe Breath Sounds Diminished Respiratory distress None Respiratory WNL except . Vital Signs : VITAL SIGNS SECTION 11/27/2022 3:46 EDT Temperature 97.7 DegF Temperature Route Oral Pulse Rate 70 bpm Respiratory Rate 20 br/min Systolic Blood Pressure 159 mm Hg H Diastolic Blood Pressure 86 mm Hg H Blood pressure sites Arm, right Mean Arterial Pressure 110 mm Hg Pulse Pressure 73 mm Hg Oxygen Saturation 100 % Mode of Delivery (Oxygen) Room air . Narrative/Incidental pt up from ED oriented to room, call scott within reach fall precautions initiated admitted with ACS r/o, pt A/OX4, denies any chest pain/ pressure, sob SR 80's on tele, crit trop 76, covering PA Apodacia notified COVID+, on ERP, see cis and flowsheets for complete assessment.... Consult note * Tommy CADET, Uneza: PERFORM, MODIFY, MODIFY, MODIFY, MODIFY Event Display: Consultation Note Authored Date: Patient: ??THO CHO ? Age:??67 Years?Sex:??Female?:??1955?? Indication for Consult coming from home,chest pain for 1 hr,radiating left arm, dizziness,SOB was clammy when EMS got to the scene History of Present Illness/Interval History ? 67-year-old female with pertinent past medical history of hypertension, hyperlipidemia, GERD, JESS on CPAP and anxiety who presents with left-sided chest pain and shortness of breath.?? Patient had sudden onset left- sided pressure-like chest pain radiating to her arm associated with dyspnea and dizziness.?? She contacted EMS and received aspirin 324 in route to the emergency department.?? She was also tested positive for COVID 11 days ago and has been having ongoing productive cough.??Her chest pain occurred only once and resolved.?? She does not have recurrent episodes of chest pain. ??She reports significant anxiety and palpitations. ?? Patient follows with??cardiology outpatient for hypertension, hyperlipidemia. ??Her echocardiogram revealed??elevated??PA systolic pressure to 65 indicating??pulmonary hypertension. ?? On presentation,Vitals are normal physiologic limits.?? Pertinent drugs revealed normal chemistry and CBC. High-sensitivity troponin 39, 76, 62. EKG with normal sinus rhythm, biatrial enlargement, LVH. ?? Patient has been admitted for further work-up.?? Cardiology has been consulted for elevated troponin ?? Echocardiogram September 2022 Summary ??The left ventricular size is normal. ??There is mild concentric left ventricular hypertrophy. ??The left ventricular ejection fraction is 55-60 %. ??No obvious wall motion abnormalities seen on limited views. ??Indeterminate diastolic function. ?The right ventricular size is at the upper limits of normal. ??Right ventricular systolic function appears preserved. ?There is trace to mild aortic regurgitation. ?There is moderate tricuspid valve regurgitation. ?The pulmonary artery systolic pressure estimation is 60-65 mmHg. Biatrial ??enlargement. ?? Review of cardiac telemetry revealing??episodes of sinus??tachycardia/supraventricular tachycardia. Review of Systems Negative except above Physical Exam Vitals & Measurements T:??98.1?F?? HR:??78??(Peripheral)?? RR:??18?? BP:??133/60?? SpO2:??100%?? HT:??170??cm?? WT:??103.4??kg?? BMI:??35.78?? Weight lb/oz: 227 lb 15 oz Constitutional: Alert, in no distress. Mental Status: Oriented to person, place and time. Head: Normocephalic. Eyes: Pupils are equal, round and reactive to light. Extraocular muscles intact. Ear, Nose and Throat: Oropharynx clear, mucous membranes moist. Ears and nose without masses, lesions or deformities. Trachea midline. Neck: Supple, Full range of motion. Respiratory: Clear to auscultation. No wheezing, rales or rhonchi. Cardiovascular: S1 S2 regular. No murmurs, rubs or gallops. Assessment/Plan In summary, very pleasant 67-year-old female with pertinent past medical history of hypertension, hyperlipidemia, pulmonary hypertension, GERD??and anxiety??who presented??with??sharp??sudden onset left-sided chest pain??and dyspnea.?? Patient had elevated troponin on presentation??36, 76, 62.?? EKG??with??evidence of LVH.?? Her??telemetry shows??episodes of nonsustained ventricular tachycardia. ??Her symptoms??of nonsustained VT??correlate with the??onset??of her chest pain.?? Her chest pain might also be in the setting of NSVT. ?? CT angio chest showed no evidence of pulmonary embolism. ?? We reviewed the CTA of the chest for any coronary artery calcification.?? Not an accurate/ideal study, however patient does not seem to have a lot of coronary artery calcification. ?? We will Recommend getting a stress echocardiogram. ??Based on the results of stress echocardiogram,??will??make??further decision based on invasive cardiac testing. Please start the patient on metoprolol??25 mg twice daily??for NSVT. ?? Courtney Sanders MD Cardiovascular Disease Fellow, PGY-[address], [place] [address] Allergies cyclobenzaprine??(tongue swelling,constipation) Augmentin??(diarrhea) Darvocet A500??(RASH) Vicodin??(delusion, rash) medtronidazole containing compounds??(rash) nortriptyline??(rash) vancomycin??(itching, UNKNOWN) NSAIDs??(C/O: itching, Rash) clarithromycin??(rash) Home Medications Duloxetine: 1 capsule, By Mouth, Daily Durable Medical Equipment: CPAP 12 Flax Furosemide: 40 mg = 1 tablet, By Mouth, Daily Hydroxychloroquine: 200 mg = 1 tablet, By Mouth, Daily Losartan: 100 mg = 1 tablet, By Mouth, Daily Metoprolol: 25 mg = 1 tablet, By Mouth, Daily Multivitamin With Minerals: By Mouth, Daily [place]-3 Polyunsaturated Fatty Acids: By Mouth Spironolactone: 25 mg = 1 tablet, By Mouth, Daily Hospital Medications Medications (14) Active SCHEDULED: (8) Duloxetine 60 mg Capsule (Duloxetine) ??60 mg, By Mouth, Daily Furosemide 40 mg Tablet (Lasix 40 mg oral tablet) ??40 mg, By Mouth, Daily Hydroxychloroquine 200 mg Tablet (hydroxychloroquine 200 mg oral tablet) ??200 mg, By Mouth, Daily Losartan 50 mg Tablet (losartan 50 mg oral tablet) ??100 mg, By Mouth, Daily at bedtime Metoprolol 25 mg XL Tablet (metoprolol 25 mg oral tablet, extended release) ??25 mg, By Mouth, Daily Multivitamin Therapeutic / Minerals Tablet (Multivit Therapeutic/Minerals Tablet) ??1 tablet, By Mouth, Daily NaCl 0.9% Flush 3ml (NaCL 0.9% Flush) ??3 mL, IV Push, Every 8 hours Spironolactone 25 mg Tablet (spironolactone 25 mg oral tablet) ??25 mg, By Mouth, Daily CONTINUOUS: (0) PRN: (6) Acetaminophen 325 mg Tablet (Acetaminophen Tablet) ??650 mg, By Mouth, Every 4 hours Dextromethorphan-Guaifenesin 20 mg-200 mg/10 mL Liqu UD (Robitussin DM Liquid) ??10 mL, By Mouth, Every 4 hours Melatonin 3 mg Tablet (Melatonin Tablet) ??3 mg, By Mouth, Daily at bedtime NaCl 0.9% Flush 3ml (NaCL 0.9% Flush) ??3 mL, IV Push, Every 8 hours Nitroglycerin 0.4 mg Sublingual Tablet (Nitroglycerin 0.4mg Sublingual Tablet) ??0.4 mg, Sublingual, Every 5 minutes Senna Tablet ??8.6 mg 1 tablet, By Mouth, 2 times a day Lab Results Cardiology Labs WBC: 10.2 k/mm3 (11/26/22) RBC: 4.66 m/mm3 (11/26/22) Hgb: 12.7 Gm/dL (11/26/22) Hct: 40.8 % (11/26/22) MCV: 87.6 femtoliters (11/26/22) MCH: 27.3 pg (11/26/22) MCHC:??31.1 g/dL??Low (11/26/22) Platelet Count: 225 k/mm3 (11/26/22) RDW-SD:??49.2 femtoliters??High (11/26/22) Nucleated RBC (Automated): 0 #/100 WBC'S (11/26/22) Abs. Neut:??7.1 k/mm3??High (11/26/22) Abs. Lymph: 2.2 k/mm3 (11/26/22) Abs. Bates: 0.8 k/mm3 (11/26/22) Abs. Eo: 0 k/mm3 (11/26/22) Abs. Baso: 0 k/mm3 (11/26/22) Neut %: 70 % (11/26/22) Bates %: 7.7 % (11/26/22) Eos %: 0.4 [...] 360 ms QTC Calculation(Bazett): 447 ms P [place]: 42 degrees R [place]: -29 degrees T [place]: 86 degrees Normal sinus rhythm with sinus arrhythmia Biatrial enlargement Left ventricular hypertrophy with repolarization abnormality ( R in aVL , [place] product , Romhilt-Vigil ) Cannot rule out Septal infarct , age undetermined Abnormal ECG When compared with ECG of 11-OCT-2022 09:33, Vent. rate has increased BY 43 BPM Confirmed by DILIP PETIT MD ([id number]) on 11/27/2022 7:47:28 AM ?? Holliday: DILIP PETIT MD ?? Signed By: Dilip [...] Report unavailable. ?? Signature ?? Signed By: Yenifer Rosales MD Problem List/Past Medical History Ongoing Comorbid sleep-related [...] disease; IBD - Inflammatory bowel disease * Yenifer Rosales MD: PERFORM Event Display: Consultation Note Authored Date: I have seen examined the patient, reviewed the chart, reviewed the data,??discussed with consult follow??and suggest the following:??This patient underwent??a nuclear stress test April 2022??which was normal other than??presumed breast attenuation artifact.?? No clear ischemia or infarction was identified.?? No regional wall motion abnormality on echo.?? Her symptoms began??clearly with palpitations??followed by??chest discomfort and shortness of breath as described.?? She had an exact episode today??identical to the??episodes that brought her to the hospital.?? Telemetry during the episode showed a run of SVT??ranging from 130 to 150 bpm which were clearly associated with her symptoms.?? Agree with initiating beta-chaya??as above and following telemetry.?? I suspect she may not need a stress echocardiogram at this time. ??She may need an outpatient ZIO??and she would like to follow-up with Dr. Maza as an outpatient.?? We will??reassess tomorrow. Note * Ester CADET, [facility]: PERFORM, MODIFY Event Display: Discharge/Transfer Note Hospital Authored Date: Patient: ??TOH CHO ? Age:??67 Years?Sex:??Female?:??1955?? Patient Information Discharge Location: Primary Care Physician: Tarsha Saenz MD Admit Date/Time: 11/27/22 00:29 Discharge Disposition Discharge Disposition: Home: No Services Discharge Diagnosis Hypertensive urgency SVT TYPE II NSTEMI /DEMAND ISCHEMIA Anxiety (F41.9) HTN (hypertension) (I10) JESS treated with BiPAP (G47.33) Pleuritic chest pain (R07.81) ?? _ Discharge Medications Duloxetine (duloxetine 60 mg oral enteric coated capsule)?1?capsule?By Mouth?Daily Durable Medical Equipment (CPAP ??Machine)?CPAP 12 Furosemide (Lasix 40 mg oral tablet)?40?Milligram?1?tablet?By Mouth?Daily Hydroxychloroquine (hydroxychloroquine 200 mg oral tablet)?200?Milligram?1?tablet?ByMouth?Daily Losartan (losartan 100 mg oral tablet)?1?tab(s)?100?Milligram?By Mouth?Daily at bedtime?for 90?Days Metoprolol (metoprolol 25 mg oral tablet)?25?Milligram?By Mouth?2 times a day?for 30?Days Spironolactone (spironolactone 25 mg oral tablet)?25?Milligram?1?tablet?By Mouth?Daily ? Medications Started none Medications Discontinued none metoprolol 25mg XL?changed to Metoprolol IR ??25mg BID Future Appointments 2023 10:00 AM EST ?? Where: [facility] Radiology [facility] [address], [address] [place] [address]- Status: Pending Objective Assessment and Plan ?67 y/f with History of Hypertension, JESS on BiPAP, rheumatoid arthritis, obesity, GERD, anxiety came to ED with complaints of chest pain and shortness of breath And now admitted to rule out ACS andpossible hypertensive urgency. ?? 1.chest pain. Hypertensive urgency. Type II NSTEMI- DEMAND ISCHEMIA Patient admitted with typical symptoms of self ACS and now 6 chest pain resolved. Troponin is slightly elevated. She had 1 more episode of tachycardia??in the hospital ??which seems to be SVT cardiology advised symptoms could be due to SVT and advised to change metoprolol to 25m g BID Continue blood pressure medications including spironolactone losartan Lasix and metoprolol. We will change losartan to nightly. ?? 2.Rheumatoid arthritis continue hydroxychloroquine. ?? 3.anxiety. Continue Cymbalta. ?? 4. Recent COVID. She was COVID-positive on November 17. Now she is does not have any more complaints. She actually went to work 3 days ago. ?? 5. JESS on BIPAP 12/01 with PS of 6- . Physical Exam Patient ??seen and examined today feels well and would like to go home d/w cardio-she can be discharged. advised to f/u with chest: b/l cta, heart:s1s2+, abdomen:s oft, bs+, non tender, neuro: aaox3, extremities: no edema ?? Consultants Bobby CADET, Yenifer Sellers Cardiology Follow-Up Appointments Added Follow Up ?Time Frame ?Comments Isai Maza?3 to 4 weeks Tarsha Saenz?2 weeks Home Health Face to Face ^HomeHealthFTF 32 minutes spent on discharge * Rama Penn: PERFORM Event Display: Patient Education/Instruction Authored Date: [id number] Inpatient Adult Discharge Instructions [place] [id number] Name: THO CHO : 1955 Visit: 11/27/2022 00:29:00 Current Date: 11/28/2022 17:03 Account: [id number] Inpatient Adult Discharge Instructions We would like [...] and their families. Surveys are administered by [employer] ?? If further treatment with your primary care physician or another doctor is recommended, it is important for you to keep the appointment. Call your primary care physician or return to the Emergency Department immediately if your condition worsens, fails to improve, or new symptoms develop. If you need to find a doctor, you can call [facility] Link for a referral at [phone] or toll free at [phone]) or log in to [email or web address].. ?? [facility], in keeping with [facility] guidance, no longer requires face masks for [...] a health care hannah of your choosing. [employer] is a website that allows you to securely view your medical information including your hospital discharge summary, office visit summaries, medications and follow-up visits. You can also request appointments, renew medications, and request access to your medical information using a health care hannah of your choosing, or just ask a question. You can enroll at [email or web address] or register during your next office visit. You have been discharged from [facility], Patient Care Unit: M6. If you have any questions regarding these instructions after you leave, please call us and we will be happy to assist you. [facility] Your Care Team Attending Physician Scar Norman MD Consulting Providers Yenifer Rosales MD Discharging Providers Ester CADET, Scar Reason for Admission coming from home,chest pain for 1 hr,radiating left arm, dizziness,SOB was clammy when EMS got to the scene Your Diagnosis 2019 novel coronavirus disease (COVID-19) ACS (acute coronary syndrome) Pleuritic chest pain HTN (hypertension) JESS treated with BiPAP Anxiety Tests Performed Below is a partial list of the tests performed during your hospitalization. You may have had other tests and procedures not included in this list. Please discuss all test results with your provider. Calcium Ionized CBC w/ Differential Comprehensive Metabolic Panel COVID-19 (2019 Novel Coronavirus) PCR D Dimer High??Sensitivity??Troponin T HOLD BLUE TUBE HOLD GEL TUBE HOLD HUSSEIN TUBE HOLD LAVENDER TUBE Lipase Magnesium Level Troponin T, High Sensitivity CT Angio Chest XR Chest 2 Views Frontal and Lat Primary Care Provider Tarsha Saenz MD Advance Directive Health Care Proxy on File Yes - Health Care Proxy Discharge Vitals Temperature: 98.4 DegF Height: 170 cm Pulse Rate: 62 bpm Weight: 103.4 kg Respiratory Rate: 18 br/min Body Mass Index:??35.78 kg/m2??Critical Systolic Blood Pressure: 132 mm Hg Body surface area: 2.21 Diastolic Blood Pressure: 73 mm Hg ?? Oxygen Saturation: 100 % ?? Studies Pending All tests and labs ordered during this hospital stay have been completed unless listed below. Please discuss all pending results with your provider listed above in these instructions. ?? High??Sensitivity??Troponin T (Troponin T, High Sensitivity) Hold Lavender Tube (BB) Lipid Panel What to do next Instructions From Your Doctor Discharge Orders Scheduled Follow-Up Appointments 2023 10:00 AM EST ?? Where: [facility] Radiology [facility] [address], [address] [place] [address]- Status: Pending You Need to Schedule the Following Appointments Follow Up with??Isai Maza Why: 3 to 4 weeks Where: [address] [facility] [place] [address]- Business (1) Follow Up with??Tarsha Saenz Why: 2 weeks Where: [address] [place] [address]- Business (1) Discharge Medications THO CHO :1955 Visit Date:11/27/2022 Medications: Please continue your medications until treatment is completed or stopped by your provider. Medications not listed below should be discontinued. Discuss any questions related to medications with your provider. What How Much When Instructions Next Dose Changed Durable Medical Equipment (CPAP Machine) CPAP 12 she is on Auto BIPAP with PS of 6 as per last sleep study ?? As ordered Changed Losartan (losartan 100 mg oral tablet) 1 tab(s) Oral Daily at Bedtime Duration: 90 Days 11/28 @ 9 PM Changed Metoprolol (metoprolol 25 mg oral tablet) 25 Milligram Oral Twice a day Duration: 30 Days Pickup at [facility]/pharmacy #[id number] 11/28 @ PM Unchanged Duloxetine (duloxetine 60 mg oral enteric coated capsule) 1 capsule Oral Daily 11/29 @ 9 AM Unchanged Furosemide (Lasix 40 mg oral tablet) 1 tab(s) Oral Daily 11/29 @ 9 AM Unchanged Hydroxychloroquine (hydroxychloroquine 200 mg oral tablet) 1 tab(s) Oral Daily 11/29 @ AM Unchanged Spironolactone (spironolactone 25 mg oral tablet) 1 tab(s) Oral Daily 11/29 @ 9 AM Pharmacy Information [facility]/pharmacy #[id number]: [address] [place] [phone] ?? What How Much When Comments Stop Taking Lidocaine Topical (lidocaine 5% topical film) See instructions apply patche Topically to painful area once a day, as needed . Leave on for up to 12h, then remove and leave off for 12h, As needed for Pain , Mild ?? Test Results Below is a partial list of the most recent Laboratory test results done prior to this discharge. You may have had other tests and procedures not included in this list. Please discuss all test resultswith your provider. Est Creatinine Clearance - 53.67 mL/min (11/27/2022) Calcium Ionized (11/26/2022) ???Calcium, Ionized pH Corrected - MEASURED IONIZED CALCIUM IS 1.01 MMOL/L CBC w/ Differential (11/26/2022) ???WBC - 10.2 k/mm3???RBC - 4.66 m/mm3???Hgb - 12.7 Gm/dL???Hct - 40.8 %???MCV - 87.6 femtoliters???MCH - 27.3 pg???MCHC - 31.1 g/dL???Platelet Count - 225 k/mm3???RDW-SD - 49.2 femtoliters???MPV - 10.1 femtoliters???Nucleated RBC (Automated) - 0.0 #/100 WBC'S???Abs. NRBC - 0.0 k/mm3???Abs. Neut - 7.1 k/mm3???Abs. Lymph - 2.2 k/mm3???Abs. Bates - 0.8 k/mm3???Abs. Eo - 0.0 k/mm3???Abs. Baso - 0.0 k/mm3???Neut % - 70.0 %???Lymph % - 21.2 %???Bates % - 7.7 %???Eos % - 0.4 %???Baso % - 0.2 %???Imm Gran - 0.5 %???Abs. Imm Gran - 0.1 k/mm3 Comprehensive Metabolic Panel (11/26/2022) ???Sodium - 140 mmol/L???Potassium - 4.5 mmol/L???Chloride - 102 mmol/L???Bicarbonate Level - 25 mmol/L???Anion Gap - 13???Glucose Level - 75 mg/dL???BUN - 16 mg/dL???Creatinine-Blood - 1.0 mg/dL???Estimated GFR Creatinine - 62 ML/MIN/1.73 M2???Calcium - 9.3 mg/dL???Protein, Total - 6.2 Gm/dL???Albumin - 3.9 Gm/dL???AG Ratio - 1.7???Alkaline Phosphatase - 61 units/L???AST (SGOT) - 28 units/L???ALT (SGPT) - 17 units/L???Bilirubin, Total - 0.7 mg/dL COVID-19 (2019 Novel Coronavirus) PCR (11/26/2022) ???COVID-19 PCR Specimen Source - NASAL???COVID-19 PCR Result - POSITIVE D Dimer (11/26/2022) ???D-Dimer - 4.22 mg/L FEU High??Sensitivity??Troponin T (11/26/2022) ???High Sensitivity Troponin (HSTnT) - 39 ng/L HOLD BLUE TUBE (11/27/2022) ???Hold Blue Top - SPECIMEN DISCARDED AFTER 4 HOURS. HOLD GEL TUBE (11/27/2022) ???Hold Gel Top - SPECIMEN DISCARDED AFTER 1 WEEK HOLD HUSSEIN TUBE (11/27/2022) ???Hold Hussein Top - SPECIMEN DISCARDED AFTER 1 WEEK HOLD LAVENDER TUBE (11/27/2022) ???Hold Lavender Top - SPECIMEN DISCARDED AFTER 24 HOURS. Lipase (11/26/2022) ???Lipase - 19 units/L Magnesium Level (11/26/2022) ???Magnesium - 2.4 mg/dL Troponin T, High Sensitivity (11/27/2022) ???High Sensitivity Troponin (HSTnT) - 62 ng/L Allergies (NKA means No Known Allergies) cyclobenzaprine??(tongue swelling,constipation) Augmentin??(diarrhea) Darvocet A500??(RASH) Vicodin??(delusion, rash) medtronidazole containing compounds??(rash) nortriptyline??(rash) vancomycin??(itching, UNKNOWN) NSAIDs??(C/O: itching, Rash) clarithromycin??(rash) Problems Active Problems??(14) Comorbid sleep-related hypoventilation?? Fibromyalgia?? GERD - Gastro-esophageal reflux disease?? Hypertension?? Left ventricular diastolic dysfunction?? Lumbar facet arthropathy?? Mastodynia, bilateral?? Mitral valve prolapse?? OA (osteoarthritis) of knee?? Obesity?? Obstructive sleep apnea?? Positive PPD?? RA - Rheumatoid arthritis?? Severe obesity (BMI 35.0-39.9) with comorbidity?? Education Materials Below is the list of Educational Leaflet Providered with your Discharge Instructions. Valuables and Belongings I fully understand and agree that [facility] accepts no responsibility for all my [...] ?? Date for Pt to Sign Valuables/Belongings: 11/27/22 01:49:00 ?? Other Discharge Information ? Pulmonary Rehab Status?? Pulmonary Rehab Discharge Status?? CPAP/BiPAP Mask Type: Full CPAP/BiPAP Mask Size: Large Respiratory Rate: 18 br/min ? Common Emergency [...] are strongly encouraged to quit. Please call [facility] Link at [phone] or [phone]-[facility] ([phone]) or log in to [email or web address] for referrals to smoking cessation programs. ?? 915 Suicide & Crisis Lifeline is available 13/09 if you or someone you know needs to find a reason to keep living. By calling 035 you'll be connected to a skilled, trained counselor at a crisis center in your area. INPATIENT DISCHARGE INSTRUCTIONS SIGNATURE PAGE TAMMIE THO Location:[facility] Registration Date and Time:11/27/2022 00:29 EDT Primary Care Physician: Dany CADET, Tarsha Parks, Attending Physician: Ester CADET, [facility], I TAMMIE, ROSAMAY, have received the above patient education materials/instructions and have verbalized understanding. If ambulance or transport services are being used I further acknowledge being given a choice of service. ?? If you need to contact me, please call me at this number: . Patient/Community Manager Name: Patient/Community Manager Signature: Relationship to Patient: Witness Name/Signature: Date: * Ester CADET, Scar: PERFORM, SIGN, VERIFY Event Display: Patient Education Handout Authored Date: [id number] Patient Care team information Care Team Personnel Name: Niurka Mendosa RN Position: S RN Member Role: Primary Care Nurse Name: Oswaldo Valadez RN Position: S RN Member Role: Primary Care Nurse Name: Alva Gibbons RN Position: S RN Member Role: Primary Care Nurse Name: Milka Mendosa RN Position: S RN Member Role: Primary Care Nurse Name: Hilary Bell RN Position: [facility] RN Member Role: Primary Care Nurse Name: Joseph CADET, Dilip Best Position: [facility] Physician (General Medicine) Member Role: Lifetime Consulting Physician Address: Address: [address] [place] [address] [address] [place] [address]- [place] Name: Saskia Houser RN Position: [facility] RN Member Role: Primary Care Nurse Name: Dany CADET, Tarsha Parks Position: Reference Physician Member Role: PCP Address: Address: [address] [place] [address]- Name: Angelic [place] Attending Position: [facility] ED Medicine MD Name: Nancy RNMayte Position: [facility] RN Member Role: Patient Care Provider Name: Courtney Temple Position: [facility] ED TA [facility] Name: Abi Epps LPN Position: [facility] ED RN W/OE and Tasks Member Role: Patient Care Provider Care Team Related Persons Name: MARGARETTE LOPEZ Name: TAWNYA LOPEZ Address: [address] [address]
--- OUTSIDE RECORDS SUMMARY | 2023-12-17 09:40 | XMS_ITS | Continuity of Care Document ---
Author Organization [facility] Address [address] [place] [address]- Care Team Providers Care Certification Engineer Name Role Phone Esperanza CADET, Keyal Parks Primary Care Physician Encounter [facility] Date(s): 06/05/19 - 06/15/19 [facility] [address] [place] [address]- [facility] Attending Physician: Matthieu Kasper Admitting Physician: [...] Vaccine (oldterm) 13 08/02/07 Given 1Result Comment: [id number] 2Result Comment: [12/16/2017] #1 3Result Comment: [12/16/2017] [facility] [id number] 4Result Comment: [11/29/2016] [facility] [id number] 5Result Comment: [11/25/2015] pt. tolerated inj. without [...] 15 sprays, 0 Refills, Acute, [id number], 30, USE 2 SPRAYS IN EACH NOSTRIL [...] EDT, 03/09/19 11:36:00 EST, Tablet, [facility]/pharmacy #[id number], 170, cm, 03/09/19 11:14:00 [...] Refills, Maintenance, 06/04/19 14:15:00 EDT, [facility]/pharmacy #[id number], 170, cm, 04/10/19 14:00:00 [...]
--- OUTSIDE RECORDS SUMMARY | 2023-12-17 09:41 | XMS_ITS | Continuity of Care Document ---
Author Organization [facility] Address [address] [place] [address]- Care Team Providers Care Key Account Representative Name Role Phone Dany CADET, Tarsha S Primary Care Physician Encounter [facility] Date(s): 07/21/23 - 08/20/23 [facility] [address] [place] [address]- Allergies, Adverse Reactions, Alerts Substance Reaction Severity [...] 2Result Comment: [12/16/2017] [facility] [id number] 3Result Comment: [11/29/2016] [facility] [id number] 4Result Comment: [11/25/2015] pt. tolerated inj. without complications...[place] 5Result Comment: [11/30/2012] given w/o incident...AA 6Admin Note: FLULAVAL 7Admin Note: done @ work 8Admin Note: per pt 9Result Comment: [facility] 10Result Comment: [id number] 11Result Comment: [12/16/2017] #1 12Admin Note: per pt 13Admin Note: hep A #2 14Admin Note: hep A #1 Medications Centrum 1 tablet, By Mouth, Daily, 0 Refills, Maintenance, 03/03/23 14:50:00 EST, Partial fill upon patientrequest if the prescription is for a schedule [...] 07/04/23 8:47:00 EDT, Route to Pharmacy Electronically, [id number], 170, cm, 06/14/23 11:44:00 EDT, Height, 108.7, [...] tablet, 3 Refills, Maintenance, 05/19/23 8:02:00 EDT, [facility], 170, cm, 03/29/23 10:03:00 EST, Height, 108.7, kg, 03/02/23 8:55:00 EST, Dry Weight Start Date: 05/19/23 Status: Ordered Magnesium Magnesium, By Mouth, Daily, 0 Refills, Maintenance, 03/03/23 14:48:00 EST Start Date: 03/03/23 Status: Ordered spironolactone 25 mg oral tablet 25 mg, 1, tablet, By Mouth, Daily, # 30 tablet, Refills 5, Tot. Refills 5, Maintenance, 04/25/23 10:38:00 EST, Route to Pharmacy Electronically, [facility]/pharmacy #[id number], Partial fill upon patient request if [...] Reference Physician Member Role: PCP Address: Address: [address] [place] [address]- Care Team Related Persons Name: MARGARETTE LOPEZ Name: TAWNYA LOPEZ Address: home [address] [place] [id number]
--- OUTSIDE RECORDS SUMMARY | 2023-12-17 09:41 | XMS_ITS | Continuity of Care Document ---
Author Organization [facility] Address [address] [place] [address]- Care Team Providers Care Social Services Assistant Name Role Phone Keyla Mata MD Primary Care Physician [phone] Encounter [place] Date(s): 05/21/21 - 05/28/21 [facility] [address] [place], [place] [address] Attending Physician: Keyla Mata MD Allergies, [...] given w/o incident 2Result Comment: [12/16/2017] [facility] [id number] 3Result Comment: [11/29/2016] [facility] [id number] 4Result Comment: [11/25/2015] pt. tolerated inj. without complications...CO 5Result Comment: [11/30/2012] given w/o incident...AA 6Admin Note: FLULAVAL 7Admin Note: done @ work 8Admin Note: per pt [facility]Result Comment[facility] 10Result Comment: [id number] 11Result Comment: [12/16/2017] #1 12Admin Note: per [...] 1 Refills, Maintenance, 01/02/21 8:57:00 EST, Cream, [facility]/pharmacy #[id number], Partial fill upon patient request [...] capsule, 1 Refills, Maintenance, 02/09/21 14:43:00 EST, [facility]/pharmacy #[id number], 170, cm, 01/29/21 13:01:00 EST, Height, [...] DAYS, # 15 sprays, 0 Refills, Acute, [facility] STORE [id number], 30, USE 2 SPRAYS IN EACH NOSTRIL 3 TIMES A DAY FOR 7 DAYS, 170, cm, 04/10/19 14:00:00 EST, Height, 104.5, kg, 09/15/18 9:05:00 EDT... Start Date: 05/04/19 Status: Ordered ipratropium nasal 42 mcg/inh spray 2 sprays, Nares, Both, 3 times a day, # 1 each, 0 Refills, Maintenance, 07/02/20 16:11:00 EDT, [facility]/pharmacy #[id number], 2 sprays Nares, Both 3 [...] 04/14/20 15:22:00 EST, Route to Pharmacy Electronically, [facility]/pharmacy #[id number], Partial fill upon patient request,... [...] mL, 0 Refills, Maintenance, 12/23/20 13:10:00 EDT, [facility]/pharmacy #[id number], Partial fill upon patient request [...] 01/26/21 12:30:00 EST, Route to Pharmacy Electronically, [facility]/pharmacy #[id number], Partial fill upon patient request if the [...] oldest [Reference Range]: 1 Height 170 cm (05/21/21 11:44 AM) Weight 102.3 kg (05/21/21 11:44 AM) Oxygen Saturation [94-100 %] 99 % (05/21/21 11:44 AM) Pulse Rate [55-90 bpm] 63 bpm (05/21/21 11:44 AM) Body Mass Index [18.5-24.99] 35.4 *>HHI* (05/21/21 11:44 AM) Blood Pressure [90-138/55-84 mm Hg] 142/ 76mm Hg *H* (05/21/21 11:44 AM) Mode of Delivery (Oxygen) Room air (05/21/21 11:44 AM) Blood pressure sites Arm, left (05/21/21 11:44 AM) Weight Obtained Via Standing scale (05/21/21 11:44 AM) Social History Social History Type Response Smoking Status Never smoker; Tobacc o user in household: No entered on: 01/07/14 Sex
--- OUTSIDE RECORDS SUMMARY | 2023-12-17 09:41 | XMS_ITS | Continuity of Care Document ---
Author Organization [facility] Address [address] [place] [address]- Care Team Providers Care Station Gateman Name Role Phone Dany CADET, Tarsha Parks Primary Care Physician Encounter [facility] Date(s): 11/15/23 - 11/22/23 [facility] [address] [place] [address]- Attending Physician: Lindsay [employer]STRUCTION POLICE OFFICER, Albertina Allergies, Adverse Reactions, Alerts Substance Reaction Severity [...] given w/o incident 2Result Comment: [12/16/2017] [facility] [id number] 3Result Comment: [11/29/2016] [facility] [id number] 4Result Comment: [11/25/2015] pt. tolerated inj. without complications...CO 5Result Comment: [11/30/2012] given w/o incident...AA 6Admin Note: FLULAVAL 7Admin Note: done @ work 8Admin Note: per pt 9[facility] Comment[facility] 10Result Comment: [id number] 11Result Comment: [12/16/2017] #1 12Admin Note: per [...] EDT, Route to [facility]ically[facility], 170, cm, 08/29/23 9:28:00 EDT, Height, 112.3, [...] Refills, Maintenance, 05/19/23 8:02:00 EDT, [facility], 170, cm, 03/29/23 10:03:00 EST, Height, 108.7, [...] [Reference Range]: 1 2 Height 170 cm (11/16/23 9:57 AM) 170 cm (11/15/23 12:52 PM) Weight 105.1 kg (11/16/23 9:57 AM) 105.1 kg (11/15/23 12:52 PM) Pulse Rate [55-90 bpm] 68 bpm (11/15/23 12:52 PM) Body Mass Index [18.5-24.99 kg/m2] 36.37 kg/m2 *>HHI* (11/15/23 12:52 PM) Blood Pressure [90-138/55-84 mm Hg] 140/ 63mm Hg *H* (11/15/23 12:52 PM) Blood pressure sites Arm, left (11/15/23 12:52 PM) Social History Social History Type Response Smoking Status Never smoker; Tobacc o user in household: No entered on: 01/07/14 Sex Implantable Device List Procedure Provider Procedure Date Device Type Site Fusion Tarsometatarsal Dora Garcia MD 08/24/23 Unkn own Ankle Right Device Identifier Serial Number Lot or Batch Number Manufacturing Date Expiration Date Distinct Identification Code MRI Safety Implantable Status Assigning Authority Unknown [id number] Unknown Unknown 05/10/25 Unknown Unknown Active Unknown Procedure Provider Procedure Date Device Type Site Fusion Tarsometatarsal Dora Garcia MD 08/24/23 Unkn own Foot Right Device Identifier Serial Number Lot or Batch Number Manufacturing Date Expiration Date Distinct Identification Code MRI Safety Implantable Status Assigning Authority Unknown [id number] Unknown Unknown 12/02/24 Unknown Unknown Active Unknown EKG study * Event Display: ECG 12-Lead Authored Date: [id number] Please click on pdf link to open report * Event Display: ECG 12-Lead Authored Date: Ventricular Rate: 65 BPM Atrial Rate: 65 BPM P-R Interval: 158 ms QRS Duration: 88 ms Q-T Interval: 386 ms QTC Calculation(Bazett): 401 ms P Claypool: 14 degrees R Claypool: -21 degrees T Claypool: 54 degrees Normal sinus rhythm Voltage criteria for left ventricular hypertrophy Abnormal ECG When compared with ECG of 21-OCT-2023 14:03, Minimal criteria for Septal infarct are no longer Present Confirmed by Oswaldo Solomon ([id number]) on 11/15/2023 1:17:29 PM Marana: Oswaldo Solomon Cardiology Outpatient Note * Lindsay MACARIO, Albertina: PERFORM, MODIFY, MODIFY Event Display: Cardiology Note Office Authored Date: Patient: ??THO CHO ? Age:??68 Years?Sex:??Female?:??1955?? Patient Hx Cardiology Shared Clinical Summary 1.?? Hypertension 2.?? Palpitations 3.?Paroxysmal SVT, diagnosed 11/2022. ??Status post SVT ablation 05/2023 4.?? Pulmonary hypertension 5.?Moderate to severe JESS, on BiPAP Indication for Consult follow up care History of Present Illness/Interval History Tho is a 68-year-old woman with past medical history including GERD, IBS, fibromyalgia, chronicmigraines, RA, OA, HTN, paroxysmal SVT s/p SVT ablation 06/14, pulmonary hypertension, moderate to severe JESS on BiPAP, who was seen in the ED a month ago after an episode of??chest pain and palpitations that was relieved by nitroglycerin en route to hospital. ECG without ischemic changes, trop 12-02. She did not want to wait through the weekend for any further testing??and presents today for follow up.?She endorses doing okay.?? She continues to have some shortness of breath,??every day??mostly in the mornings. ??She feels like her symptoms are similar to when she had??her SVT episodes prev iously but not as strong.?? She has had no further chest tightness.?? She is using her CPAP nightly??and notes she??has been waking up congested the last couple of weeks, coughing up white sputum. Review of Systems pertinent positives per HPI Physical Exam Vitals & Measurements HR:??68??(Peripheral)?? BP:??140/63?? HT:??170??cm?? WT:??105.1??kg?? BMI:??36.37?? Weight lb/oz: 231 lb 11 oz General: Alert, sitting in chair comfortably, in NAD.??Ambulated independently,??steady??gait. Mental: Oriented x3. Appropriate affect. Converses easily HEENT: Normocephalic. Pupils round, equal. Mucous membranes moist. Neck: Full ROM Respiratory:??CTA. Nonlabored. Cardiovascular:??RRR. S1/S2. No M/R/G. No edema. No JVD. Gastrointestinal: Abdomen soft, non-tender, non-distended. Active bowel sounds. Neuro: Grossly intact. Moves all extremities spontaneously. Skin: Vanoss, warm. CDI. Assessment/Plan SOB (shortness of breath) 1.??Hypertension 2.??Paroxysmal SVT (supraventricular tachycardia) 3.??Pulmonary hypertension ?? Patient presents today for inpatient follow-up. ??She endorses doing okay.?? She has not had any further chest tightness but does have some shortness of breath.?? In further discussion, patient notesthat it feels similar to when she had her SVT episodes previously just not as bad.?? She does notice her heart beating,??notes she does not feel that it is fast. ?? Plan ZioXT x1 week has echo scheduled next month follow up after testing Allergies cyclobenzaprine??(tongue swelling,constipation) Augmentin??(diarrhea) Darvocet A500??(RASH) Vicodin??(delusion, rash) medtronidazole containing compounds??(rash) nortriptyline??(rash) vancomycin??(itching, UNKNOWN) NSAIDs??(C/O: itching, Rash) clarithromycin??(rash) spironolactone??(headache) Home Medications Docusate Sodium Capsule, 100 mg= 1 capsule, By Mouth, 2 times a day duloxetine 60 mg oral enteric coated capsule, 1 capsule, By Mouth, Daily, 3 refills furosemide 40 mg oral tablet, 1 tablet, By Mouth, Daily hydroxychloroquine 200 mg oral tablet, 200 mg= 1 tablet, By Mouth, Daily in AM losartan 100 mg oral tablet, 1 tablet, By Mouth, Daily Xarelto 10 mg oral tablet, 10 mg= 1 tablet, By Mouth, Daily Lab Results Cardiology Labs WBC: 8.6 k/mm3 (10/21/23) RBC:??3.93 m/mm3??Low (10/21/23) Hgb:??10.2 Gm/dL??Low (10/21/23) Hct:??32.8 %??Low (10/21/23) MCV: 83.5 femtoliters (10/21/23) MCH:??26 pg??Low (10/21/23) MCHC:??31.1 g/dL??Low (10/21/23) Platelet Count: 254 k/mm3 (10/21/23) RDW-SD: 45.4 femtoliters (10/21/23) Nucleated RBC (Automated): 0 #/100 WBC'S (10/21/23) Abs. Neut: 6 k/mm3 (10/21/23) Abs. Lymph: 1.9 k/mm3 (10/21/23) Abs. [place]: 0.6 k/mm3 (10/21/23) Abs. Eo: 0.1 k/mm3 (10/21/23) Abs. Baso: 0 k/mm3 (10/21/23) Neut %: 69.9 % (10/21/23) [place] %: 6.5 % (10/21/23) Eos %: 0.7 % (10/21/23) Baso %: 0.2 % (10/21/23) Imm Gran: 0.3 % (10/21/23) Abs. Imm Gran: 0 k/mm3 (10/21/23) Sodium: 142 mmol/L (10/22/23) Potassium: 3.8 mmol/L (10/22/23) Chloride: 105 mmol/L (10/22/23) Bicarbonate Level: 24 mmol/L (10/22/23) Glucose Level: 93 mg/dL (10/22/23) BUN: 12 mg/dL (10/22/23) Creatinine-Blood: 0.73 mg/dL (10/22/23) Calcium: 9 mg/dL (10/22/23) Protein, Total: 6.2 Gm/dL (11/26/22) Albumin: 3.9 Gm/dL (11/26/22) Alkaline Phosphatase: 61 units/L (11/26/22) AST (SGOT): 21 units/L (02/08/23) ALT (SGPT): 14 units/L (02/08/23) Bilirubin, Total: 0.7 mg/dL (11/26/22) Nt-Probnp:??767 pg/mL??High (12/27/22) Diagnostic Impression ECG ECG 12-Lead ?? 12:57:41 Please click on pdf link to open report ?? Signed By: Oswaldo Solomon MD ?? ECG 12-Lead ?? 12:57:41 Ventricular Rate: 65 BPM Atrial Rate: 65 BPM P-R Interval: 158 ms QRS Duration: 88 ms Q-T Interval: 386 ms QTC Calculation(Bazett): 401 ms P Claypool: 14 degrees R Claypool: -21 degrees T Claypool: 54 degrees Normal sinus rhythm Voltage criteria for left ventricular hypertrophy Abnormal ECG When compared with ECG of 21-OCT-2023 14:03, Minimal criteria for Septal infarct are no longer Present Confirmed by Oswaldo Solomon ([id number]) on 11/15/2023 1:17:29 PM ?? Marana: Oswaldo Solomon ?? Signed By: Oswaldo Solomon MD Stress Test NM Myocard Perf SPECT Multi [...] L shoulder Rotator Cuff repair: 1999 tonsillectomy: 1959 Social History Alcohol Use: Never. Employment/School Status: [...] artery disease; IBD - Inflammatory bowel disease Note * Patricia Parham: PERFORM Event Display: Patient Education/Instruction Authored Date: [id number] Ambulatory Adult Visit Summary [facility] [address] [place] [address] Name: THO TAMMIE : 1955?? Visit: 11/15/2023 12:16?? Ambulatory Visit Instructions ?? Your Care Team Primary Care Provider Tarsha Saenz MD? This Visit Provider Lindsay MACARIO, Albertina Your Diagnosis SOB (shortness of breath) Vitals Signs Pulse Rate: 68 bpm Height: 170 cm Systolic Blood Pressure:??140 mm Hg??High Weight: 105.1 kg Diastolic Blood Pressure: 63 mm Hg Body Mass Index:??36.37 kg/m2??Critical ?? Body surface area: 2.23 What to do next Scheduled Follow-Up Appointments Tuesday 1:15 PM EDT ?? Where: [facility] [address] [facility], [address] [address]- Status: Pending Tuesday 1:30 PM EDT ?? With: Dora Allen NP Where: [facility] [address] [place] [address]- Status: Pending Medications The list below reflects the information in our records and provided by you today along with any changes made during this visit. Please continue your medications until treatment is completed or stopped by your provider. If this is different from the information you have or there are other questions,please contact the prescribing provider. What How Much When Instructions Unchanged Docusate (Docusate Sodium Capsule) 100 Milligram Oral Twice a day Unchanged Duloxetine (duloxetine 60 mg oral enteric coated capsule) 1 capsule Oral Daily Unchanged Furosemide (furosemide 40 mg oral tablet) 1 tab(s) Oral Daily Unchanged Hydroxychloroquine (hydroxychloroquine 200 mg oral tablet) 1 tab(s) Oral Daily in the morning Unchanged Losartan (losartan 100 mg oral tablet) 1 tab(s) Oral Daily Unchanged rivaroxaban (Xarelto 10 mg oral tablet) 1 tab(s) Oral Daily Duration: 30 Days Medications and Immunizations Administered Medications Given During Visit No medications given during this visit.?? Allergies (NKA means No Known Allergies) cyclobenzaprine??(tongue swelling,constipation) Augmentin??(diarrhea) Darvocet A500??(RASH) Vicodin??(delusion, rash) medtronidazole containing compounds??(rash) nortriptyline??(rash) vancomycin??(itching, UNKNOWN) NSAIDs??(C/O: itching, Rash) clarithromycin??(rash) spironolactone??(headache) Common Emergency Awareness Tips IS IT A [...] are strongly encouraged to quit. Please call [facility] at [phone] or [phone] ([phone]) or log in to [email or web address] for referrals to smoking cessation programs. ?? The National Suicide Prevention Hotline is available 13/09 if you or someone you know needs to find a reason to keep living. By calling 1-782-936-[facility] (7738) you'll be connected to a skilled, trained counselor at a crisis center in your area. [facility] Portal You can view and manage your care through the patient portal or by using a health care hannah of your choosing. Played is a website that allows you to securely view your medical information including your hospital discharge summary, office visit summaries, medications and follow-up visits. You can also request appointments, renew medications, and request access to your medical information using a health care hannah of your choosing, or just ask a question. You can enroll at [email or web address] or register during your next office visit. [facility], in keeping with [facility] guidance, no longer requires face [...] medical provider or home test kit. ?? Disclaimer: The information provided is of a general nature and is intended to be used in conjunction with the recommendations and advice of your health care practitioner. Every effort has been made to ensure that the information provided is accurate and complete at the time it is provided to you however, as your needs change, or, as new information becomes available, different or additional instructions may be required. ?? If you have questions, please consult with your primary care provider or pharmacist, as appropriate. This information is not intended to serve as substitution for assessment and evaluation by a qualified health care provider. If you do not have a primary care provider, you may find a [facility] provider by calling [facility] at [phone]. Patient Care team information Care Team Personnel Name: Rocío Almonte RN Position: S RN Member Role: Primary Care Nurse Name: Niurka Mendoas RN Position: S RN Member Role: Primary Care Nurse Name: Oswaldo Valadez RN Position: S RN Member Role: Primary Care Nurse Name: Yoselyn Peters RN Position: S RN Member Role: Primary Care Nurse Name: Alva Gibbons RN Position: [facility] SN RN Member Role: Primary Care Nurse Name: Hilary Bell RN Position: [facility] ED RN W/OE and Tasks Member Role: Primary Care Nurse Name: Katie Govea RN Position: S RN Member Role: Primary Care Nurse Name: Nika Toledo RN Position: S RN Member Role: Primary Care Nurse Name: Tarsha Saenz MD Position: Reference Physician Member Role: PCP Address: Address: [address] [place] [address]- Care Team Related Persons Name: MARGARETTE LOPEZ Name: TAWNYA LOPEZ Address: home [address] [place] [address]
--- OUTSIDE RECORDS SUMMARY | 2023-12-17 09:41 | XMS_ITS | Continuity of Care Document ---
Author Organization [facility] Address [address] [place] [address]- Care Team Providers Care Windrower Operator Name Role Phone Dany CADET, Tarsha Parks Primary Care Physician [phone] Encounter [facility] Date(s): 07/13/23 - 11/10/[address] [address]- Attending Physician: Maryellen CADET, Neel Ch Admitting Physician: Neel Bojorquez MD Referring Physician: Tarsha Saenz MD Allergies, [...] Saud rded influenza virus vaccine, inactivated 2 10/26/18 Gi martir influenza virus vaccine, inactivated 12/10/17 [...] given given w/o incident 2Result Comment: [12/16/2017] [facility] 87125-990-82 3Result Comment: [11/29/2016] [facility] [id number] 4Result Comment: [11/25/2015] pt. tolerated inj. without complications...CO 5Result Comment: [11/30/2012] given w/o incident...AA 6Admin Note: FLULAVAL 7Admin Note: done @ work 8Admin Note: per pt [facility] 10Result Comment: [id number] 11Result Comment: [12/16/2017] #1 12Admin Note: per [...] capsule, 3 Refills, Maintenance, 09/08/21 10:47:00 EDT, [facility]/pharmacy #[id number], 170, cm, 09/08/21 10:10:00 EDT, Height, 101.5, kg, 06/11/21 12:07:00 EDT, Dry Weight Start Date: 09/08/21 Status: Ordered furosemide 40 mg oral tablet 1, tablet, By Mouth, Daily, # 90 tablet, Refills 0, Maintenance, 09/19/23 7:40:00 EDT, [facility] to [facility]ically[facility], 170, cm, 08/29/23 9:28:00 EDT, Height, 112.3, [...] Refills, Maintenance, 05/19/23 8:02:00 EDT, [facility], 170, cm, 03/29/23 10:03:00 EST, Height, 108.7, [...] MRI Safety Implantable Status Assigning Authority Unknown [id number] Unknown Unknown 05/10/25 Unknown Unknown Active Unknown Procedure Provider Procedure Date Device Type Site Fusion Dianaometatarsal Dora Garcia MD 08/24/23 Unkn own Foot Right Device Identifier Serial Number Lot or Batch Number Manufacturing Date Expiration Date Distinct Identification Code MRI Safety Implantable Status Assigning Authority Unknown [id number] Unknown Unknown 12/02/24 Unknown Unknown Active Unknown Patient Care team information Care Team Personnel Name: Rocío Almonte RN Position: [facility] RN Member Role: Primary Care Nurse Name: Niurka Mendosa RN Position: [facility] RN Member Role: Primary Care Nurse Name: Oswaldo Valadez RN Position: [facility] RN Member Role: Primary Care Nurse Name: Yoselyn Peters RN Position: [facility] RN Member Role: Primary Care Nurse Name: Alva Gibbons RN Position: [facility] RN Member Role: Primary Care Nurse Name: Hilary Bell RN Position: [facility] RN Member Role: Primary Care Nurse Name: Katie Govea RN Position: [facility] RN Member Role: Primary Care Nurse Name: Nika Toledo RN Position: [facility] RN Member Role: Primary Care Nurse Name: Dany CADET, Tarsha Parks Position: Reference Physician Member Role: PCP Address: Address: [address] [place] [address]- Care Team Related Persons Name: MARGARETTE LOPEZ Name: TAWNYA LOPEZ Address: [address] [address]
--- OUTSIDE RECORDS SUMMARY | 2023-12-17 09:41 | XMS_ITS | Continuity of Care Document ---
Author Organization [facility] Address [address] [place] [address]- Care Team Providers Care Chemistry Specialist Name Role Phone Esperanza CADET, Keyla Parks Primary Care Physician Encounter [facility] Date(s): 01/21/21 - 02/20/21 [facility] [address] [place], [place] [address] Allergies, Adverse Reactions, Alerts [...] 14 08/02/07 Given 1Result Comment: [12/16/2017] [facility] [id number] 2Result Comment: [11/29/2016] [facility] [id number] 3Result Comment: [11/25/2015] pt. tolerated inj. without complications...CO 4Result Comment: [11/30/2012] given w/o incident...AA 5Admin Note: FLULAVAL 6Admin Note: done @ work 7Admin Note: per pt 8Result Comment: Done at [facility] 9Result Comment: [id number] 10Result Comment: [12/16/2017] #1 11Admin Note: info [...] 1 Refills, Maintenance, 01/02/21 8:57:00 EST, Cream, [facility]/pharmacy #2402, Partial fill upon patient request if the [...] capsule, 1 Refills, Maintenance, 02/09/21 14:43:00 EST, [facility]/pharmacy #0693, 170, cm, 01/29/21 13:01:00 EST, [...] DAYS, # 15 sprays, 0 Refills, Acute, [facility] STORE 91196, 30, USE 2 SPRAYS IN EACH NOSTRIL 3 TIMES A DAY FOR 7 DAYS, 170, cm, 04/10/19 14:00:00 EST, Height, 104.5, kg, 09/15/18 9:05:00 EDT... Start Date: 05/04/19 Status: Ordered ipratropium nasal 42 mcg/inh spray 2 sprays, Nares, Both, 3 times a day, # 1 each, 0 Refills, Maintenance, 07/02/20 16:11:00 EDT, [facility]/pharmacy #0693, 2 sprays Nares, Both 3 [...] 04/14/20 15:22:00 EST, Route to Pharmacy Electronically, [facility]/pharmacy #[id number], Partial fill upon patient request,... [...] mL, 0 Refills, Maintenance, 12/23/20 13:10:00 EDT, [facility]/pharmacy #0693, Partial fill [...] 01/26/21 12:30:00 EST, Route to Pharmacy Electronically, [facility] [...]
--- OUTSIDE RECORDS SUMMARY | 2023-12-17 09:41 | XMS_ITS | Continuity of Care Document ---
Author Organization [facility] Address [address] [place] [address]- Care Team Providers Care Athletic Training Internship Name Role Phone Dany CADET, Tarsha [place] Primary Care Physician [phone] Encounter [facility] Date(s): 07/29/22 - 08/28/22 [facility] [address] [place] [address]- [place] Allergies, Adverse Reactions, Alerts Substance Reaction [...] given given w/o incident 2Result Comment: [12/16/2017] [facility] [id number] 3Result Comment: [11/29/2016] [facility] [id number] 4Result Comment: [11/25/2015] pt. tolerated inj. without complications...CO 5Result Comment: [11/30/2012] given w/o incident...AA 6Admin Note: FLULAVAL 7Admin Note: done @ work 8Admin Note: per pt 9Result Comment: [facility] 10Result Comment: [id number] 11Result Comment: [12/16/2017] #1 12Admin Note: per [...] 3 Refills, Maintenance, 09/08/21 10:47:00 EDT, [facility]/pharmacy #[id number], 170, cm, 09/08/21 10:10:00 [...] 03/30/22 13:32:00 EST, [facility] 0 Refills, Maintenance, 08/25/22 9:48:00 EDT, Film, [facility]/pharmacy #[id number], Partial fi... Start Date: 08/25/22 Status: Ordered losartan 100 mg oral tablet 1 tablet = 100 mg, By Mouth, Daily, # 90 tablet, 3 Refills, Maintenance, 06/01/22 11:02:00 EDT, Tablet, [facility]/pharmacy #[id number], Partial [...] 12:35:00 EDT, Route to Pharmacy Electronically, [facility]/pharmacy #[id number], Partial fill upon patient requestif the prescription is for a schedule II opioid antwno... Start Date: 05/18/22 Stop Date: 05/13/23 Status: [...] Name: Niurka Mendosa RN Position: [facility] RN Member Role: Primary Care Nurse Name: Oswaldo Valadez RN Position: [facility] RN Member Role: Primary Care Nurse Name: Alva Gibbons RN Position: [facility] RN Member Role: Primary Care Nurse Name: Milka Mendosa RN Position: [facility] RN Member Role: Primary Care Nurse Name: Jl Ruiz MD Position: [facility] Physician (General Medicine) Member Role: Lifetime Consulting Physician Address: Address: [address] [place] [address] [address] [place] [address]- Name: Dany CADET, Tarsha [place] Position: Reference Physician Member Role: PCP Address: Address: [address] [place] [address]- Care Team Related Persons Name: MARGARETTE LOPEZ Name: TAWNYA LOPEZ Address: [address] [place] [address]
--- OUTSIDE RECORDS SUMMARY | 2023-12-17 09:41 | XMS_ITS | Continuity of Care Document ---
Author Organization [facility] Address [address] [place] [address]- Care Team Providers Care Bin Tripper Operator Name Role Phone Keyla Mata MD Primary Care Physician Encounter [facility] Date(s): 04/06/21 - 05/21/21 [facility] [address] [place] [address]- Attending Physician: Cora Clifford MD Admitting Physician: [...] 2Result Comment: [12/16/2017] [facility] [id number] 3Result Comment: [11/29/2016] [facility] [phone] 4Result Comment: [11/25/2015] pt. tolerated inj. without complications...CO 5Result Comment: [11/30/2012] given w/o incident...AA 6Admin Note: FLULAVAL 7Admin Note: done @ work 8Admin Note: per pt 9Result Comment: [facility] 10Result Comment: [id number] 11Result Comment: [12/16/2017] #1 12Admin Note: per pt 13Admin Note: hep A #2 14Admin Note: hep A #1 Medications aspirin 81 mg oral delayed release tablet 81 mg, 1, tablet, By Mouth, Daily, # 30 tablet, Refills 0, Maintenance, 09/20/21 16:07:00 EDT, Partial fill upon patient request [...] 1 Refills, Maintenance, 01/02/21 8:57:00 EST, Cream, [facility]/pharmacy #[id number], Partial fill upon [...] capsule, 1 Refills, Maintenance, 02/09/21 14:43:00 EST, [facility]/pharmacy #[id number], 170, cm, 01/29/21 13:01:00 EST, [...] DAYS, # 15 sprays, 0 Refills, Acute, [facility]ORE [id number], 30, USE 2 SPRAYS IN EACH NOSTRIL 3 TIMES A DAY FOR 7 DAYS, 170, cm, 04/10/19 14:00:00 EST, Height, 104.5, kg, 09/15/18 9:05:00 EDT... Start Date: 05/04/19 Status: Ordered ipratropium nasal 42 mcg/inh spray 2 sprays, Nares, Both, 3 times a day, # 1 each, 0 Refills, Maintenance, 07/02/20 16:11:00 EDT, [facility]/pharmacy #[id number], 2 sprays Nares, Both 3 [...] 04/14/20 15:22:00 EST, Route to Pharmacy Electronically, [facility]/pharmacy #[id number], Partial fill upon patient request,... [...] mL, 0 Refills, Maintenance, 12/23/20 13:10:00 EDT, [facility]/pharmacy #[id number], Partial fill upon [...] 01/26/21 12:30:00 EST, Route to Pharmacy Electronically, [facility]/pharmacy #0677, Partial fill upon patient request if the [...]
--- OUTSIDE RECORDS SUMMARY | 2023-12-17 09:41 | XMS_ITS | Continuity of Care Document ---
Author Organization [facility] ter Address [address] [place] [address]- Care Team Providers Care Register Repairer Name Role Phone Esperanza CADET, Keyla [place] Primary Care Physician Encounter [facility] Date(s): 06/22/18 - 07/27/[address] [address]- [facility] Attending Physician: Madalyn Martinez NP Admitting Physician: Madalyn Martinez NP Referring Physician: Madalyn Martinez NP Allergies, Adverse Reactions, Alerts Substance Reaction [...] Vaccine (oldterm) 13 08/02/07 Given 1Result Comment: [id number] 2Result Comment: [12/16/2017] #1 3Result Comment: [12/16/2017] [facility] [id number] 4Result Comment: [11/29/2016] [facility] [id number] 5Result Comment: [11/25/2015] pt. tolerated inj. without [...] 15 sprays, 0 Refills, Acute, [facility], 30, USE 2 SPRAYS IN EACH NOSTRIL [...] EDT, 03/09/19 11:36:00 EST, Tablet, [facility]/pharmacy #[id number], 170, cm, 03/09/19 11:14:00 EST, [...] Refills, Maintenance, 06/04/19 14:15:00 EDT, [facility]/pharmacy #[id number], 170, cm, 04/10/19 14:00:00 EST, [...]
[2023-12-17 09:43] LABS: Alanine Aminotransferase 13 U/L (0-31); Albumin Level 3.9 g/dL (3.5-5.0); Alkaline Phosphatase 76 U/L (39-117); Anion Gap 12 (12-20); Aspartate Amino Transferase 24 U/L (5-31); Bilirubin Total 0.5 mg/dL (0.0-1.0); Blood Urea Nitrogen 12 mg/dL (9-16); Calcium 9.4 mg/dL (8.4-10.2); Carbon Dioxide 27 mmol/L (22-29); Chloride 107 mmol/L (96-108); Creatinine Clr Calc Pharmacy 78.9; Estimated Glomerular Filt Rate > 60; Glucose Random 107 mg/dL (60-115); Potassium 3.7 mmol/L (3.3-5.1); Sodium 142 mmol/L (135-145); Total Protein 7.3 g/dL (6.5-8.0)
[2023-12-17 09:50] LABS: Troponin-I High Sensitivity 4.9 ng/L (<3.5-17.0)
[2023-12-17 10:55] VITALS: BP 156/81; PULSE 70; RESP 16; O2SAT 100
[2023-12-17 11:30] VITALS: BP 172/90; PULSE 71; RESP 16; TEMP 36.4; O2SAT 100
[2023-12-17] MEDS: Metoprolol Succinate ER 25 MG TAB.ER.24H PO (11:30)
[2023-12-17] MEDS: Acetaminophen 325 MG TABLET 975 MG PO (11:31)
[2023-12-17 11:41] LABS: C Reactive Protein 0.78 mg/dL (< or = 0.50)
[2023-12-17 12:21] LABS: Erythrocyte Sedimentation Rate 20 MM/HR (0-20)
[2023-12-17 14:14] VITALS: BP 168/82; PULSE 68; RESP 15; TEMP 36.3; O2SAT 97
[2023-12-17 14:23] VITALS: BP 168/82; PULSE 68; RESP 15; TEMP 36.3; O2SAT 97
== END 2023-12-17 15:17 | disposition home or self-care (01) ==
PROVIDERS: Emergency Provider Emergency Medicine Emergency Medical Services
DX: I10 Essential (primary) hypertension (principal); R51.9 Headache, unspecified; I48.91 Unspecified atrial fibrillation; Z79.899 Other long term (current) drug therapy
CPT/HCPCS: 36415; 70450; 80053; 84484; 85025; 85652; 86140; 93005; 99284

== ENCOUNTER → 2023-12-17 09:08 | Outpatient (BNV) | payer OTHER, MEDICAID, SELFPAY | PROVIDERS: Emergency Provider Emergency Medicine Emergency Medical Services; Visit Provider Internal Medicine Cardiovascular Disease | DX: R94.31 Abnormal electrocardiogram [ECG] [EKG] (principal) | CPT/HCPCS: 93010 ==

== ENCOUNTER 2024-01-19 09:13 | Emergency (ER) | payer OTHER, SELFPAY ==
--- NOTE | ~2024-01-19 | XR_ITS ---
EXAMINATION: XR ABDOMEN KUB CLINICAL INDICATION: Constipation. COMPARISON: None available. TECHNIQUE: AP views of the abdomen. FINDINGS: Moderate stool burden, consistent with a degree of constipation. Nonobstructive bowel gas pattern. No abnormal soft tissue calcification. No acute osseous normality. The lung bases are clear. XR/XR KUB IMPRESSION: Moderate stool burden, consistent with a degree of constipation. Electronically signed by: Toney Kaur MD 01/19/2024 10:48 AM [facility]
--- NOTE | ~2024-01-19 | CT_ITS ---
EXAMINATION: CT ABDOMEN AND PELVIS WITH CONTRAST CLINICAL INFORMATION: Epigastric and left-sided abdominal pain. Constipation. COMPARISON: KUB 01/19/2024 TECHNIQUE: Multidetector volumetric images were obtained from the superior aspect of the liver through the pubic symphysis following administration 99 mL of Omnipaque 350 intravenous contrast. Sagittal and coronal reformatted images were obtained on the technologist's workstation. Oral contrast: No Arms at sides results in artifact. This CT examination was performed using dose optimization techniques as appropriate, variously including the following: *Automated exposure control *Adjustment of mA and/or kV according to patient size (this includes techniques or standardized protocols for targeted exams where dose is matched to indication/reason for exam; i.e. extremities or head) *Use of iterative reconstruction technique DLP: 1100 mGy-cm FINDINGS: LUNG BASES: Minor scarring and dependent atelectasis LIVER, GALLBLADDER, AND BILIARY TREE: Multiple fluid attenuation liver lesions consistent with cysts. Subcentimeter lesions too small to characterize further. Normal appendix contour and size. Hepatic vessels enhance normally. Layering small stones. No inflammation. Normal caliber bile ducts. PANCREAS: Uniform enhancement. No inflammation, mass or ductal dilation. Possible pancreas disease and, an anatomic variant. SPLEEN: Normal in size. ADRENAL GLANDS: No mass. KIDNEYS AND URETERS: Symmetric function without mass, calculus or hydronephrosis. Subcentimeter renal parenchymal hypodensities too small to characterize further BLADDER: Largely empty. GASTROINTESTINAL TRACT: Redundant sigmoid colon. No volvulus. A few scattered diverticula. No diverticulitis. Moderate colonic stool burden in the transverse and descending colon. Moderate colonic stool burden in the cecum which is medially directed a variant. No evidence of acute colitis. No evidence of acute appendicitis. Normal terminal ileum. No small bowel obstruction. High density material within the gastric lumen appears ingested. Small hiatal hernia or epiphrenic diverticulum. No free air or free fluid. ABDOMINAL WALL: Tiny fat-containing umbilical hernia. Minor fat stranding over the flanks of uncertain chronicity or etiology. LYMPH NODES: Normal. VASCULAR: Minor atherosclerotic disease. PELVIC VISCERA: Uterus and adnexa are within normal limits for technique. No pelvic free fluid or adenopathy. OSSEOUS STRUCTURES: Degenerative changes in the spine and sacroiliac joints. Grade 1 L1-L2 retrolisthesis. CT/CT abdomen pelvis w IV con IMPRESSION: 1. No acute peritoneal process identified. 2. Mild left predominant diverticulosis without definite diverticulitis. 3. Redundant cecum and sigmoid colon. No volvulus. Moderate colonic stool burden in the ascending and transverse colon. 4. Small hiatal hernia or epiphrenic diverticulum. Fleischner guidelines were followed. Electronically signed by: Ulysses Lundy MD 01/19/2024 02:21 PM [facility]
[2024-01-19 09:21] VITALS: BP 145/62; PULSE 66; RESP 16; TEMP 36.8; O2SAT 100; BMI 36.3
[2024-01-19 09:42] LABS: MANUAL DIFF FLAG NO
[2024-01-19 09:56] LABS: Basophils Percent Auto 0.2 % (0-2); Eosinophils Absolute Auto 0.1 X10*3/uL (0.0-0.4); Hematocrit 36.7 % (37.0-47.0); Hemoglobin 11.4 g/dl (12.0-16.0); Imm Gran Abs Auto 0.02 X10*3/uL (0.00-0.03); Imm Gran Pct Auto 0.3 % (0.0-0.4); Lymphocytes Absolute Auto 1.5 X10*3/uL (1.2-4.9); Lymphocytes Percent Auto 26.3 % (20-40); Mean Corpuscular HGB Conc 31.1 g/dl (31.0-35.0); Mean Corpuscular Hemoglobin 25.3 pg (27.0-33.0); Mean Corpuscular Volume 81.6 fL (80.0-98.0); Mean Platelet Volume 10.2 fL (9.4-12.3); Monocytes Absolute Auto 0.4 X10*3/uL (0.1-1.2); Monocytes Percent Auto 6.9 % (2-11); Neutrophils Absolute Auto 3.8 x10*3/uL (2.0-8.3); Neutrophils Percent Auto 65.3 % (45-73); Platelet Count 181 X10*3/uL (160-400); White Blood Count 5.8 X10*3/uL (4.8-10.8)
--- OUTSIDE RECORDS SUMMARY | 2024-01-19 10:08 | XMS_ITS | Continuity of Care Document ---
Author Organization [facility] Address [address] [place] [address]- Care Team Providers Care Light Rail Vehicle Operator Name Role Phone Not on Staff, PCP Primary Care Physician Unavail able Encounter [facility] Date(s): 12/19/23 - 01/18/24 [facility] [address] [place] [address] Encounter Type: Triage Allergies, Adverse Reactions, Alerts Substance Criticality Severity Reaction Reaction Severity Status Augmentin Low criticality Mild diarrhea Acti ve clarithromycin rash Activ e vancomycin Low criticality Mild itching UNKNOWN Active nortriptyline Low criticality Mild rash Active spironolactone headache Activ e cyclobenzaprine High criticality Severe tongue swelling,cons tipation Active medtronidazole containing compounds Low criticality Mild rash Acti ve NSAIDs Unable to assess criticality Persistent Moderate C/O: itching Rash Active Vicodin Low criticality Mild delusion rash Active Darvocet A500 Low criticality Mild RASH Active Immunizations Given and Recorded Vaccine [...] incident 2Result Comment: [12/16/2017] [facility] [id number] 3Result Comment: [11/29/2016] [facility] [phone] 4Result Comment: [11/25/2015] pt. tolerated inj. without complications...CO 5Result Comment: [11/30/2012] given w/o incident...AA 6Admin Note: FLULAVAL 7Admin Note: done @ work 8Admin Note: per pt 9Result Comment: Done at [facility] 10Result Comment: [id number] 11Result Comment: [12/16/2017] #1 12Admin Note: per pt 13Admin Note: hep A #2 14Admin Note: hep A #1 Medications Docusate Sodium Capsule 100 mg, 1, capsule, By Mouth, 2 times a day, Refills 0, Maintenance, 08/29/23 7:14:00 AM EDT, Partialfill upon patient request if the prescription is for a schedule II opioid drug. Start Date: 08/29/23 Status: Ordered Repeat number: 1 duloxetine 60 mg oral enteric coated capsule 1 capsule, By Mouth, Daily, # 90 capsule, 3 Refills, Maintenance, 09/08/21 10:47:00 AM EDT, [facility]/pharmacy #[id number], 170, cm, 09/08/21 10:10:00 EDT, Height, 101.5, kg, 06/11/21 12:07:00 EDT, Dry Weight Start Date: 09/08/21 Status: Ordered Quantity: 90.0 Unit: capsule Repeat number: 4 furosemide 40 mg oral tablet 1, tablet, By Mouth, Daily, # 90 tablet, Refills 3, Tot. Refills 3, Maintenance, 12/16/23 7:29:00 AM EDT, Route to Pharmacy Electronically, [facility]/pharmacy #[id number], 170, cm, 11/22/23 13:35:00 EDT, Height,106.4, kg, 10/22/23 3:45:00 EDT, Dry Weight Start Date: 12/16/23 Status: Ordered Quantity: 90.0 Unit: tablet Repeat number: 4 hydroxychloroquine 200 mg oral tablet 200 mg, 1, tablet, By Mouth, Daily in AM, Refills 0, Maintenance, 11/27/22 3:54:00 AM EDT, Partial fill upon patient request if the prescription is for a schedule II opioid drug. Start Date: 11/27/22 Status: Ordered Repeat number: 1 losartan 100 mg oral tablet 1 tablet, By Mouth, Daily, # 90 tablet, 3 Refills, Maintenance, 05/19/23 8:02:00 AM EDT, [facility], 170, cm, 03/29/23 10:03:00 EST, Height, 108.7, kg, 03/02/23 8:55:00 EST, Dry Weight Start Date: 05/19/23 Status: Ordered Quantity: 90.0 Unit: tablet Repeat number: 1 metoprolol 25 mg oral tablet, extended release 25 mg, 1, tablet, By Mouth, Daily, Refills 0, Maintenance, 12/27/23 1:26:00 PM EST, Partial fill upon patient request if the prescription is for a schedule II opioid drug. Start Date: 12/27/23 Status: Ordered Repeat number: 1 Xarelto 10 mg oral tablet 1 tablet = 10 mg, By Mouth, Daily, # 30 tablet, 0 Refills, Maintenance, 08/24/23 7:12:00 AM EDT, Tablet, [id number], Partial fill upon patient request if the prescription is for a schedule II opioid drug., 170, cm, 08/24/23 6:40:00 EDT, Height, 112.3, kg, 08/24/23 6:40:00 EDT, Dry Weight Start Date: 08/24/23 Stop Date: 09/23/23 Status: Ordered Quantity: 30.0 Unit: tablet Repeat number: 1 Problem List Condition Confirmation Course Effective Dates [...] in household: No entered on: 01/07/14 Sex Sex Representation Female (finding) Implantable Device List Procedure Provider Procedure Date Device Type Site Fusion Tarsometatarsal Dora Garcia MD 08/24/23 Unkn own Ankle Right Device Identifier Serial Number Lot or Batch Number Manufacturing Date Expiration Date Distinct Identification Code MRI Safety Implantable Status Assigning Authority Unknown [id number] Unknown Unknown 05/10/25 Unknown Unknown Active Unknown Procedure Provider Procedure Date Device Type Site Fusion Tarsometatarsal Dora Garcia MD 08/24/23 Unkn own Foot Right Device Identifier Serial Number Lot or Batch Number Manufacturing Date Expiration Date Distinct Identification Code MRI Safety Implantable Status Assigning Authority Unknown [id number] Unknown Unknown 12/02/24 Unknown Unknown Active Unknown Patient Care team information Care Team Personnel Name: Rocío Almonte RN Position: [facility] RN Member Role: Primary Care Nurse Name: Niurka Mendosa RN Position: [facility] RN Member Role: Primary Care Nurse Name: Oswaldo Valadez RN Position: [facility] RN Member Role: Primary Care Nurse Name: Yoselyn Peters RN Position: [facility] RN Member Role: Primary Care Nurse Name: Alva Gibbons RN Position: [facility] SN RN Member Role: Primary Care Nurse Name: Hilary Bell RN Position: [facility] ED RN W/OE and Tasks Member Role: Primary Care Nurse Name: Katie Govea RN Position: [facility] RN Member Role: Primary Care Nurse Name: Not on Staff, PCP Position: [facility] Physician (General Medicine) Member Role: PCP Name: Nika Toledo RN Position: [facility] RN Member Role: Primary Care Nurse Care Team Related Persons Name: MARGARETTE [place] Name: TAWNYA LOPEZ Insurance Providers Guarantor name: THO [employer] Health Plan Information #: 1 Payer: [facility] AD[facility] PPO Member Number: NA Policy Number: NA Group Number: NA Health Plan Information #: 2 Payer: [facility] Member Number: NA Policy Number: NA Group Number: NA
[2024-01-19 10:10] LABS: Alanine Aminotransferase 13 U/L (0-31); Alkaline Phosphatase 80 U/L (39-117); Anion Gap 14 (12-20); Aspartate Amino Transferase 23 U/L (5-31); Bilirubin Total 0.6 mg/dL (0.0-1.0); Blood Urea Nitrogen 13 mg/dL (9-16); Calcium 9.3 mg/dL (8.4-10.2); Carbon Dioxide 27 mmol/L (22-29); Chloride 105 mmol/L (96-108); Creatinine Clr Calc Pharmacy 73.2; Estimated Glomerular Filt Rate > 60; Glucose Random 90 mg/dL (60-115); Potassium 3.9 mmol/L (3.3-5.1); Sodium 142 mmol/L (135-145); Total Protein 7.2 g/dL (6.5-8.0)
--- NOTE | 2024-01-19 11:20 | ED.GENADULT ---
HPI - General Adult General Chief complaint: General Medical Stated complaint: abd rad to back Time Seen by Provider: 01/19/24 11:20 Source: patient Mode of arrival: ambulatory Limitations: no limitations History of Present Illness ED Provider: Dr. Luke Ellison HPI narrative: 68-year-old female with a history of hypertension, atrial fibrillation status post ablation, who presents emergency department for evaluation Abdominal pain since 11/2023. She states that the pain is a constant, pressure-like pain which is present most days but occasionally she gets a break from the pain. She runs her hand across her upper abdomen into her left flank when asked to localize the pain. She states that the pain has gotten worse since Tuesday and she has been constipated. She states that she did have a bowel movement on Tuesday but has not had a bowel movement over the last 3 days. She states that she was also had reflux taste in the back her mouth with loss of appetite over the past week. She states that she has lost 7 lb ( 238 lb down to 231 lb). Patient states she did see her PCP and her PCP ordered an ultrasound on the patient which she was not gotten yet. She denied fever, chills, chest pain, shortness of breath. She denied vomiting but did have nausea. She denied frequency, urgency or dysuria. Related Data Home Medications ?Medication ?Instructions ?Recorded ?Confirmed duloxetine 60 mg capsule,delayed 60 mg PO DAILY 12/16/23 release furosemide 40 mg tablet 40 mg PO DAILY 12/16/23 hydroxychloroquine 200 mg tablet 200 mg PO BID 12/16/23 losartan 100 mg tablet 100 mg PO DAILY 12/16/23 Previous Rx's ?Medication ?Instructions ?Recorded metoprolol succinate 25 mg 25 mg PO DAILY 90 days #90 tabs 12/17/23 tablet,extended release 24 hr docusate sodium 100 mg capsule 100 mg PO BID 30 days #60 caps 01/19/24 (Colace) sennosides 17.2 mg tablet (Senokot 17.2 mg PO BID PRN constipation 01/19/24 Extra Strength) #30 tabs Allergies Allergy/AdvReac Type Severity Reaction Status Date / Time acetaminophen [From Vicodin] AdvReac Intermediate Rash Verified 01/19/24 09:25 amoxicillin [From Augmentin] AdvReac Intermediate Hallucinati Verified 01/19/24 09:25 ons clavulanic acid AdvReac Intermediate Hallucinati Verified 01/19/24 09:25 [From Augmentin] ons cyclobenzaprine AdvReac Intermediate Hallucinati Verified 01/19/24 09:25 ons hydrocodone [From Vicodin] AdvReac Intermediate Rash Verified 01/19/24 09:25 metronidazole AdvReac Intermediate hallucinati Verified 01/19/24 09:25 ons NSAIDS (Non-Steroidal AdvReac Intermediate rash Verified 01/19/24 09:25 Anti-Inflamma vancomycin AdvReac Intermediate Hallucinati Verified 01/19/24 09:25 ons spironolactone AdvReac Mild headaches Verified 01/19/24 09:25 Review of Systems Review of Systems: Yes all other systems are reviewed and are negative COUNT INCLUDES THE [facility] Past Medical History COUNT INCLUDES THE [facility] Narrative: Social history: She denies tobacco, alcohol and drug use Social History Social History Patient Tobacco Use Status: Never used Tobacco Smoked in Last 30 Days: No Use of substances other than those prescribed or required for medical reasons: No Advance Directives: Yes Advance Directives Information Provided: No Advance Directives on File: No Do you have a plan to hurt others: No Plan Physical Exam ED Vital Signs: Vital Signs - 24 hr 01/19/24 09:21 01/19/24 11:45 01/19/24 15:36 Temperature 98.3 F 97.5 F 98.2 F Pulse Rate 66 56 58 Respiratory Rate 16 16 18 Blood Pressure 145/62 H 156/61 H 168/67 H Pulse Oximetry 100 99 99 Oxygen Delivery Method Room Air Room Air Room Air BMI result Body Mass Index 36.3 vital signs revealed an elevated blood pressure of 145/62 otherwise unremarkable Exam: General: Awake, alert in no distress, weight 105.2 kg, elevated BMI 36.3 kg per m2 Head: Normocephalic, atraumatic EENT: PERRL, Lids normal, sclera normal, conjunctiva normal, nose normal , ears normal, throat without erythema or exudates Neck: Supple, no adenopathy Lung: breath sounds symmetric, no wheezing, rales or rhonchi Chest: symmetric movement, nontender Heart: regular rate and rhythm, normal S1, S2 no murmurs or rubs Abdomen: obese, mild to moderate epigastric tenderness, moderate left upper and left lower quadrant tenderness, normoactive bowel sounds, no rebound Back: no vertebral tenderness, mild to moderate left CVA tenderness Extremities: no deformities, moves all extremities symmetrically Neuro: Awake, alert, oriented, normal speech, cranial nerves intact, moves all extremities symmetrically Psych: Pleasant, cooperative Medications Administered Discontinued Medications Generic Name Dose Route Start Last Admin Trade Name Rubens PRN Reason Stop Dose Admin Sodium Chloride 1,000 mls @ 999 mls/hr 01/19/24 11:38 01/19/24 15:37 Ns IV 01/19/24 12:38 Infused .Q1H1M STA Infusion Iohexol 99 ml 01/19/24 13:40 01/19/24 13:40 Iohexol 350 Mg/Ml 100 Ml Infus..Btl IV 01/19/24 13:41 99 ml ONCE ONE Administration Ketorolac Tromethamine 15 mg 01/19/24 11:38 01/19/24 12:42 Ketorolac Tromethamine 15 Mg/Ml Vial IVPUSH 01/19/24 11:39 15 mg ONCE STA Administration Ondansetron HCl 4 mg 01/19/24 11:38 01/19/24 12:42 Ondansetron Hcl 4 Mg/2 Ml Vial IVPUSH 01/19/24 11:39 4 mg ONCE ONE Administration Medical Decision Making Medical Decision Making MDM Narrative: 68-year-old female with a history of hypertension, atrial fibrillation status post ablation, who presents emergency department for evaluation constant, pressure-like pain located across the top of her abdomen radiating to the left flank since 11/2023, constipation x4 days with increased abdominal pain. patient has had a decreased appetite with a 7 lb weight loss over the last week. She has had associated nausea but no vomiting. She has been evaluated by her PCP who ordered an outpatient ultrasound with the patient states that her pain got worse today so she came to the emergency department for evaluation. Differential diagnosis: Includes but is not limited to Pancreatitis, gastritis, GERD, biliary disease, renal colic, GI malignancy Following evaluation was ordered: CBC, CMP, urinalysis, lipase, KUB, CT scan abdomen pelvis with IV contrast Patient was initially treated with the following: normal saline IV x1 L, Toradol 15 mg IV and Zofran 4 mg IV Course: 15:18 My interpretation patient's laboratory evaluation is as follows: CBC was normal. CMP was normal. Lipase was normal. Urinalysis was negative for urinary tract infection CT scan of the abdomen and pelvis with IV contrast had multiple incidental findings including tiny layering gallstones, small hiatal hernia, small umbilical hernia containing fat, redundant colon with a large stool burden. At this time I do not have a clear cause for your pain but it may be secondary to her significant constipation and I did discuss this with her. She told me that she had black stools within the year and had a negative colonoscopy. The patient will be treated for constipation with Metamucil b.i.d. for 2 weeks then once a day for 1 week, Colace 100 mg twice a day for 1 month and extra-strength Senokot 1 pill twice a day for 4 days then as needed for constipation weekly. I did advise her to follow up with her PCP and also her manager of [employer] for further evaluation. She was given printed and verbal instructions and discharged home. Admission/Observation Consideration of admission/observation: Escalation of care including admission/observation considered ( Yes) Lab Data 01/19/24 09:38 01/19/24 09:38 Labs: Lab Results 01/19/24 01/19/24 Range/Units 09:38 11:51 WBC 5.8 (4.8-10.8) X10*3/uL RBC 4.50 (4.20-5.50) X10*6/uL Hgb 11.4 L (12.0-16.0) g/dl Hct 36.7 L (37.0-47.0) % MCV 81.6 (80.0-98.0) fL MCH 25.3 L (27.0-33.0) pg MCHC 31.1 (31.0-35.0) g/dl RDW 17.0 H (11.0-16.0) % Plt Count 181 (160-400) X10*3/uL MPV 10.2 (9.4-12.3) fL Immature Gran % (Auto) 0.3 (0.0-0.4) % Neut % (Auto) 65.3 (45-73) % Lymph % (Auto) 26.3 (20-40) % [place] % (Auto) 6.9 (2-11) % Eos % (Auto) 1.0 (0-4) % Baso % (Auto) 0.2 (0-2) % Lymph # (Auto) 1.5 (1.2-4.9) X10*3/uL [place] # (Auto) 0.4 (0.1-1.2) X10*3/uL Eos # (Auto) 0.1 (0.0-0.4) X10*3/uL Baso # (Auto) 0.0 (0.0-0.2) X10*3/uL Abs Immat Gran (auto) 0.02 (0.00-0.03) X10*3/uL Absolute Neuts (auto) 3.8 (2.0-8.3) x10*3/uL Absolute Nucleated RBC 0.000 (0.0-0.012) X10*3/uL Nucleated RBC % (auto) 0.0 (0.0-0.2) /100WBC Sodium 142 (135-145) mmol/L Potassium 3.9 (3.3-5.1) mmol/L Chloride 105 (96-108) mmol/L Carbon Dioxide 27 (22-29) mmol/L Anion Gap 14 (12-20) BUN 13 (9-16) mg/dL Creatinine 0.93 (0.5-1.4) mg/dL Estim Creat Clear Calc 73.2 Estimated GFR > 60 Random Glucose 90 (60-115) mg/dL Calcium 9.3 (8.4-10.2) mg/dL Total Bilirubin 0.6 (0.0-1.0) mg/dL AST 23 (5-31) U/L ALT 13 (0-31) U/L Alkaline Phosphatase 80 (39-117) U/L Total Protein 7.2 (6.5-8.0) g/dL Albumin 4.0 (3.5-5.0) g/dL Lipase 13 (8-78) U/L Urine Color Dark Yellow Urine Appearance Clear Urine pH 7.0 (5.0-9.0) Ur Specific [place] 1.025 (1.005-1.025) Urine Protein 30 (1+) H (Neg-Trace) mg/dL Urine Glucose (UA) Negative (Negative) mg/dL Urine Ketones Trace (Negative) mg/dL Urine Blood Negative (Negative) Urine Nitrite Negative (Negative) Ur Leukocyte Esterase Trace H (Negative) Urine RBC 0-2 (0-2) /HPF Urine WBC 0-5 (0-5) /HPF Ur Squamous Epith Cells 0-2 (0-2) /HPF Urine Bacteria None Seen (None Seen) Hyaline Casts 0-2 (0-2) /LPF Radiology Impression Discussion of test interpretation with radiology: I have reviewed the radiologist's reading. Radiologist Impression: EXAMINATION: CT ABDOMEN AND PELVIS WITH CONTRAST CLINICAL INFORMATION: Epigastric and left-sided abdominal pain. Constipation. COMPARISON: KUB 01/19/2024 FINDINGS: LUNG BASES: Minor scarring and dependent atelectasis LIVER, GALLBLADDER, AND BILIARY TREE: Multiple fluid attenuation liver lesions consistent with cysts. Subcentimeter lesions too small to characterize further. Normal appendix contour and size. Hepatic vessels enhance normally. Layering small stones. No inflammation. Normal caliber bile ducts. PANCREAS: Uniform enhancement. No inflammation, mass or ductal dilation. Possible pancreas disease and, an anatomic variant. SPLEEN: Normal in size. ADRENAL GLANDS: No mass. KIDNEYS AND URETERS: Symmetric function without mass, calculus or hydronephrosis. Subcentimeter renal parenchymal hypodensities too small to characterize further BLADDER: Largely empty. GASTROINTESTINAL TRACT: Redundant sigmoid colon. No volvulus. A few scattered diverticula. No diverticulitis. Moderate colonic stool burden in the transverse and descending colon. Moderate colonic stool burden in the cecum which is medially directed a variant. No evidence of acute colitis. No evidence of acute appendicitis. Normal terminal ileum. No small bowel obstruction. High density material within the gastric lumen appears ingested. Small hiatal hernia or epiphrenic diverticulum. No free air or free fluid. ABDOMINAL WALL: Tiny fat-containing umbilical hernia. Minor fat stranding over the flanks of uncertain chronicity or etiology. LYMPH NODES: Normal. VASCULAR: Minor atherosclerotic disease. PELVIC VISCERA: Uterus and adnexa are within normal limits for technique. No pelvic free fluid or adenopathy. OSSEOUS STRUCTURES: Degenerative changes in the spine and sacroiliac joints. Grade 1 L1-L2 retrolisthesis. IMPRESSION: 1. No acute peritoneal process identified. 2. Mild left predominant diverticulosis without definite diverticulitis. 3. Redundant cecum and sigmoid colon. No volvulus. Moderate colonic stool burden in the ascending and transverse colon. 4. Small hiatal hernia or epiphrenic diverticulum. Fleischner guidelines were followed. Electronically signed by: Ulysses Lundy MD 01/19/2024 02:21 PM EST Prescription Management I considered prescription management with: Other (Anti constipation medications) Discharge Plan Discharge Clinical Impression: Constipation Patient Disposition: Home, Self-Care Instructions: Constipation (ED) Additional Instructions: Your blood work was unremarkable, your liver tests were normal and your lipase was normal (marker of pancreatitis). The CT scan had multiple incidental findings including small gallbladder stones, small hiatal hernia, small umbilical hernia containing fat only and a large amount of stool in your colon. At this time I do not have a clear cause for your pain but I suspect that it may be due to constipation. Take Metamucil 1 tsp in 8 oz of water twice a day for 2 weeks then take Metamucil 1 tsp in 8 oz of water daily Take Colace 100 mg twice a day for 1 month, this is a stool softener. Take extra-strength Senokot 1 pill twice a day for 4 days. You can repeat this 1 week later if you do not have good bowel movements. Increase your fluid intake to help prevent constipation. If you continue to have pain then you should follow-up with your manager of [employer] for re-evaluation. Follow-up with your doctor in 2 days. Please return to the emergency department if your symptoms get worse or if you develop any symptoms that are concerning to you. EXAMINATION: CT ABDOMEN AND PELVIS WITH CONTRAST CLINICAL INFORMATION: Epigastric and left-sided abdominal pain. Constipation. COMPARISON: KUB 01/19/2024 FINDINGS: LUNG BASES: Minor scarring and dependent atelectasis LIVER, GALLBLADDER, AND BILIARY TREE: Multiple fluid attenuation liver lesions consistent with cysts. Subcentimeter lesions too small to characterize further. Normal appendix contour and size. Hepatic vessels enhance normally. Layering small stones. No inflammation. Normal caliber bile ducts. PANCREAS: Uniform enhancement. No inflammation, mass or ductal dilation. Possible pancreas disease and, an anatomic variant. SPLEEN: Normal in size. ADRENAL GLANDS: No mass. KIDNEYS AND URETERS: Symmetric function without mass, calculus or hydronephrosis. Subcentimeter renal parenchymal hypodensities too small to characterize further BLADDER: Largely empty. GASTROINTESTINAL TRACT: Redundant sigmoid colon. No volvulus. A few scattered diverticula. No diverticulitis. Moderate colonic stool burden in the transverse and descending colon. Moderate colonic stool burden in the cecum which is medially directed a variant. No evidence of acute colitis. No evidence of acute appendicitis. Normal terminal ileum. No small bowel obstruction. High density material within the gastric lumen appears ingested. Small hiatal hernia or epiphrenic diverticulum. No free air or free fluid. ABDOMINAL WALL: Tiny fat-containing umbilical hernia. Minor fat stranding over the flanks of uncertain chronicity or etiology. LYMPH NODES: Normal. VASCULAR: Minor atherosclerotic disease. PELVIC VISCERA: Uterus and adnexa are within normal limits for technique. No pelvic free fluid or adenopathy. OSSEOUS STRUCTURES: Degenerative changes in the spine and sacroiliac joints. Grade 1 L1-L2 retrolisthesis. IMPRESSION: 1. No acute peritoneal process identified. 2. Mild left predominant diverticulosis without definite diverticulitis. 3. Redundant cecum and sigmoid colon. No volvulus. Moderate colonic stool burden in the ascending and transverse colon. 4. Small hiatal hernia or epiphrenic diverticulum. Fleischner guidelines were followed. Electronically signed by: Ulysses Lundy MD 01/19/2024 02:21 PM EST Prescriptions: New docusate sodium [Colace] 100 mg capsule 100 mg PO BID 30 Days Qty: 60 0RF Senokot Extra Strength 17.2 mg tablet 17.2 mg PO BID PRN (Reason: constipation) Qty: 30 0RF No Action metoprolol succinate 25 mg tablet extended release 24 hr 25 mg PO DAILY 90 Days Qty: 90 0RF furosemide 40 mg tablet 40 mg PO DAILY duloxetine 60 mg capsule,delayed release(DR/EC) 60 mg PO DAILY losartan 100 mg tablet 100 mg PO DAILY hydroxychloroquine 200 mg tablet 200 mg PO BID Interventions: ED Discharge Assessment Last Done: 01/19/24 15:36 Discharge Date/Time: 01/19/24 15:39 Print Language: [place]
[2024-01-19 11:45] VITALS: BP 156/61; PULSE 56; RESP 16; TEMP 36.4; O2SAT 99
[2024-01-19 11:57] LABS: Appearance Urine Clear; Color Urine Dark Yellow; Glucose Urine UA Negative (Negative); Leukocyte Esterase Urine Trace (Negative); Nitrite Urine Negative (Negative); Specific Gravity - Urine 1.025 (1.005-1.025); UMIC TRIGGER UACC YES; Urine Blood Negative (Negative); Urine Ketones Trace mg/dL (Negative); Urine Protein 30 (1+) mg/dL (Neg-Trace)
[2024-01-19 12:01] LABS: Lipase 13 U/L (8-78)
[2024-01-19 12:08] LABS: Bacteria Urine None Seen (None Seen); Hyaline Casts Urine 0-2 /LPF (0-2); RBC Urine 0-2 /HPF (0-2); Squamous Epithelial Cell Urine 0-2 /HPF (0-2); WBC Urine 0-5 /HPF (0-5)
[2024-01-19] MEDS: Ketorolac Tromethamine 15 MG/ML VIAL IVPUSH (12:42)
[2024-01-19] MEDS: ondansetron HCL 4 MG/2 ML VIAL IVPUSH (12:42)
[2024-01-19] MEDS: 0.9 % Sodium Chloride 1,000 ML 999 ML IV (12:42)
[2024-01-19] MEDS: iohexoL 350 MG/ML 100 ML INFUS..BTL 99 ML IV (13:40)
[2024-01-19 15:36] VITALS: BP 168/67; PULSE 58; RESP 18; TEMP 36.8; O2SAT 99
== END 2024-01-19 15:39 | disposition home or self-care (01) ==
PROVIDERS: Emergency Provider Emergency Medicine Emergency Medical Services; PCP Physician Assistant
DX: K59.00 Constipation, unspecified (principal); R10.13 Epigastric pain; I10 Essential (primary) hypertension; Z79.899 Other long term (current) drug therapy
CPT/HCPCS: 36415; 74018; 74177; 80053; 81001; 83690; 85025; 96361; 96374; 96375; 99285; J1885; J2405; Q9967

== ENCOUNTER 2024-07-06 10:00 | Outpatient (AMB) | payer MEDICARE, MEDICAID, SELFPAY ==
--- NOTE | 2024-07-06 10:06 | A.SPINEOV_ITS ---
Vital Signs 07/06/24 10:10 Height 5 ft 7 in Weight 231 lb BMI 36.2 Intake Visit Reasons: low back pain radiating to both legs Intake Note: Ms. Ayon is here today c/o low back pain that radiates down to both legs/difficulty with walking. Roll Dough Divider Required: No Allergies acetaminophen [From Vicodin] Adverse Reaction (Intermediate, Verified 07/06/24 10:10) Rash amoxicillin [From Augmentin] Adverse Reaction (Intermediate, Verified 07/06/24 10:10) Hallucinations clavulanic acid [From Augmentin] Adverse Reaction (Intermediate, Verified 07/06/24 10:10) Hallucinations cyclobenzaprine Adverse Reaction (Intermediate, Verified 07/06/24 10:10) Hallucinations hydrocodone [From Vicodin] Adverse Reaction (Intermediate, Verified 07/06/24 10:10) Rash metronidazole Adverse Reaction (Intermediate, Verified 07/06/24 10:10) hallucinations NSAIDS (Non-Steroidal Anti-Inflamma Adverse Reaction (Intermediate, Verified 07/06/24 10:10) rash vancomycin Adverse Reaction (Intermediate, Verified 07/06/24 10:10) Hallucinations spironolactone Adverse Reaction (Mild, Verified 07/06/24 10:10) headaches Physical Exam Vital Signs: BMI result Body Mass Index 36.2 Assessment & Plan Assessment & Plan (1) Lumbar degenerative disc disease: Code(s): M51.369 - Other intervertebral disc degeneration, lumbar region without mention of lumbar back pain or lower extremity pain Category: Medical Plan This is a very nice 69-year-old female who self-referred today for evaluation of chronic low back pain and bilateral lower extremity pain with standing and walking, better when she sits down. She has a history of rheumatoid arthritis. She has been managed on prednisone and hydroxychloroquine for years. She tells me that for probably 10 years or more she has had progressive symptoms in her low back radiating down her legs. At 1st it was manageable but now it has gotten to the point where she does not want to pursue even basic activities with her friends and family's because it hurts too much to stand and walk. The pain radiates from her bilateral paraspinal region all the way down into her thighs, calves and feet. There is also a feeling of tingling as well. She has been through conservative management after she was seen at [facility] and had physical therapy. She went for a number of visits but it just was making things worse so she stopped it. She went back to see them and she did not feel like they really had a plan in place for her issues. She saw an advertisement for us and came to see us. She did have injections remotely in the past with some modest success but nothing significant. She has an MRI done at [place] showing diffuse arthritis throughout her lumbar spine with moderate stenosis at L4-5. She can not take anti-inflammatories because of gastritis issues, but does take tramadol daily. She does not feel like it really does much. PMH: She has a history of hypertension, chronic constipation, rheumatoid arthritis, managed on hydroxychloroquine and prednisone alf. She has history of a cardiac ablation last year, it sounds like she had some kind of SVT phenomenon. She is followed by Dr. Maza. This has been stable since she had the ablation. History of knee surgery, shoulder surgery and ankle surgery. Denies any history of heart attack, stroke, liver disease, renal issues, bleeding disorders, blood clots, major abdominal surgeries, cancer etc.. Social hx: She does not smoke, drink use any recreational drugs Medications: Amlodipine, hydroxychloroquine, Lasix, losartan, metoprolol, prednisone Allergies: Please see the [facility] list Physical exam: She is awake alert oriented no acute distress, very slow to stand up, strength is normal and reflexes are diminished if not absent in the lower extremities. Imaging review: Lumbar MRI done at [place] in 2024 reveals diffuse spondylosis throughout the lumbar spine, primarily at L3-4, L4-5 and L5-S1. There are Modic endplate changes at each of these levels. There is moderate to severe stenosis at L4-5. There is an MRI from 2017 which I do not have access to look at the images but the report from this current MRI compares the 2 images and it sounds like the stenosis has progressed. Impression: 69-year-old female history of rheumatoid arthritis, self-referred to the office today for evaluation of chronic low back pain and bilateral lower extremity pain which has been getting steadily worse. Her quality of life is suffering significantly. She is tearful at times talking about how she can barely get out of the house, and avoid activities with friends and family at times simply because of the amount of pain she is in. As above she has tried some basic conservative treatment. I sat down with her and reviewed her imaging with her. I explained to her that she has diffuse arthritic and spondylotic changes throughout her lumbar spine, with stenosis at L4-5. Typically this is something if the pain was bad enough Dr. Olvera might offer lumbar fusion from L3-S1 to treat the back pain and leg pain. However, I am a little concerned about her bone quality given she has been on long-term prednisone. Also, given the history of rheumatoid arthritis we know that it is unlikely that she will be free from back pain after surgery. However, it is getting to the point where she is having a hard time simply doing basic activities around the house. As a secondary issue with the stenosis and the leg pain, often times just a simple decompression in the area of L4-5 might offer enough pain relief with the leg pain that she can be more mobile, and this would be a much less invasive option. I told her that she should just think about what we talked about and in the interim I will show Dr. Olvera her imaging and see what his thoughts are on the situation. That way I can have a final plan in place when she comes back to see me. We also talked about potential other nonsurgical options including injections. This is certainly an option, but obviously is not going to change the underlying problem but may give her some pain relief in the interim. Thank you for allowing us to care for your patient. The total time spent with this visit with this patient was 45 minutes reviewing history, physical exam, lumbar imaging review, and implementation of treatment plan or further diagnostic testing Brandon Olvera MD,PhD [facility] Coding Level of Care Code New Pt Level 4 (39326) Diagnoses Lumbar degenerative disc disease M51.369
[2024-07-06 10:10] VITALS: BMI 36.2
--- OUTSIDE RECORDS SUMMARY | 2024-07-06 10:22 | XMS_ITS | Clinical Summary ---
Author Organization [facility] Address [address] [place] [address] Phone Care Team Providers Care Integration Aide Name Role Phone Jonah Grande Primary Care Provider [phone] Allergies Active Allergy Reactions Criticality Noted Date Comments Acetaminophen Hives High 03/08/2022 Amoxicillin Hives High 03/08/2022 Patient states she has been taking this since 2019 with no issues Amoxicillin-Pot Clavulanate Diarrhea Low 11/21/2023 Other Reaction(s): diarrhea Clarithromycin Hives,Rash High 03/08/2022 Other Reaction(s): rash Clavulanic Acid Hives High 03/08/2022 Cyclobenzaprine High 11/21/2023 Other Reaction(s): tongue swelling,constipat ion Hydrocodone Rash High 03/08/2022 Hydrocodone-Acetaminophen Rash Low 05/20/2010 Other Reaction(s): delusion Ibuprofen 02/04/2022 Metronidazole Hives,Rash High 03/08/2022 Nortriptyline Hives,Rash High 03/08/2022 Other Reaction(s): rash Nsaids (Non-Steroidal Anti-Inflammatory Drug) Rash Low 11/21/2023 Other Reaction(s): C/O: itching Propoxyphene Hives High 03/08/2022 Propoxyphene N-Acetaminophen Rash Low 11/21/2023 Other Reaction(s): RASH Spironolactone Headache 11/21/2023 Vancomycin Hives,Itching,Unkno wn High 03/08/2022 Medications furosemide (LASIX) 40 mg tablet Take 1 tablet (40 mg total) by mouth. 4 Active loratadine (CLARITIN) 10 mg tablet Take 1 tablet (10 mg total) by mouth once daily as needed. 4 Active hydroxychloroqu ine (PLAQUENIL) 200 mg tablet Take 1 tablet (200 mg total) by mouth 2 times daily. 3 Active losartan (COZAAR) 100 mg tablet Take 1 tablet (100 mg total) by mouth daily. 1 Active spironolactone (ALDACTONE) 25 mg tablet Take 1 tablet (25 mg total) by mouth daily. 4 Active sulfaSALAzine (AZULFIDINE) 500 mg tablet 4 (four) times a day. Active carvediloL (COREG) 6.25 mg tablet Take by mouth 2 (two) times a day with meals. Active pantoprazole (PROTONIX) 40 mg EC tablet Take 1 tablet (40 mg total) by mouth 1 (one) time each day. Take in am on empty stomach, wait 30 mins and then eat to activate the medication 30 each 4 Active Additional Information Patient not taking.Reported on 05/30/2024 polyethylene glycol (MIRALAX) 17 gram packet Take 17 g by mouth 1 (one) time each day. 510 g 02/17/20 25 Active senna-docusate (PERICOLACE) 8.6-50 mg per tablet Take 1 tablet by mouth 1 (one) time each day. 30 each 02/17/20 25 Active phenyleph-min oil-petrolatum (Preparation H) 0.25-14-74.9 % ointment Apply 1 Dose topically 3 (three) times a day if needed (painful hemorrhoids). 60 g 4 Active Additional Information Patient not taking.Reported on 05/30/2024 aluminum-magnes ium hydroxide-simet hicone (MAALOX) 200-200-20 mg/5 mL suspension Take 30 mL by mouth 4 (four) times a day (before meals and nightly). 769 mL 4 Active polyethylene glycol (MIRALAX) 17 gram packet Take 17 g by mouth 1 (one) time each day. 510 g 11 5 03/27/19 26 Active plecanatide (Trulance) 3 mg tablet Take 1 tablet (3 mg total) by mouth 1 (one) time each day. 30 tablet 11 5 Active Additional Information Patient not taking.Reported on 05/30/2024 amLODIPine (NORVASC) 5 mg tablet Take 1 tablet (5 mg total) by mouth 1 (one) time each day. Active metoprolol succinate (TOPROL-XL) 25 mg 24 hr tablet Take 1 tablet (25 mg total) by mouth. 5 04/14/19 26 Active Botox 100 unit recon soln injection 5 Active predniSONE (DELTASONE) 2.5 mg tablet Take 1 tablet (2.5 mg total) by mouth 1 (one) time each day. 5 Active traMADoL (ULTRAM) 50 mg tablet take 1 tablet by mouth every 6 hours as needed for 7 days 5 Active linaCLOtide (LINZESS) 145 mcg capsule Take 1 capsule (145 mcg total) by mouth 1 (one) time each day before breakfast. 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 Comorbid sleep-related hypoventilation 4 Left ventricular diastolic dysfunction 4 Severe obesity (CMS/HCC V24, CMS/HCC V28) 2023 Obesity 11/21/2023 Mitral valve prolapse 11/21/2023 Chronic congestive heart failure (CMS/[facility] V24, [facility] V28) 09/20/2023 History of non-ST elevation myocardial infarctio n (NSTEMI) 12/15/2022 LVH (left ventricular hypertrophy) 12/15/2022 Positive self-administered antigen test for COVI D-19 12/15/2022 Chronic diastolic CHF (conge stive heart failure) ([facility] V24, [facility] V28) 11/04/2022 Diverticulosis 07/07/2022 Prediabetes 07/07/2022 History of total knee arthroplasty, left 021 Overview (12/12/2023): 01/2020 Benign essential hypertension 01/23/2020 SOB (shortness of breath) 01/23/2020 Pure hypercholesterolemia 01/23/2020 Palpitations 01/23/2020 Primary osteoarthritis of right ankle 01/25/2019 Obstructive sleep apnea syndrome 09/20/2012 Obstructive sleep apnea syndrome 09/20/2012 Overview (12/12/2023): On CPAP OA (osteoarthritis) of knee 11/30/2011 Overview (12/12/2023): L.R L TKR 02/09 DJD (degenerative joint disease), lumbar 012 Lumbar radiculitis 11/25/2011 Positive PPD 12/16/2010 Overview (12/12/2023): Per patient report - ~ 2004? Breast pain 12/02/2010 Breast pain 12/02/2010 Chronic inflammatory arthritis 06/09/2010 Overview (12/12/2023): Onset spring 2006 with R ankle synovitis. RF,CCP neg. LALY 1:100, Neg antiDNA, anti Sm, Sjogren's Ab Ankle synovitis on MRI 2006. Synovial bx showed prolif synovitis Feb 2802/28-MTX rx begun, seemed to help but caused diarrhea-patient stopped in late 20082009 leflunomide - hair loss. 06/01: sulfasalazine started. Change to methotrexate 09/06 Cervical osteoarthritis 05/20/2010 Overview (12/12/2023): xrays at [facility] Heart murmur 05/20/2010 Gastroesophageal reflux disease 05/20/2010 Hypertension 05/20/2010 Encounters Date Type Department Care Team Description 06/06/2024 2:45 PM EDT Anesthesia Event [facility] Endoscopy [address] [place] [address] Elmer Burnham MD 06/06/2024 1:08 PM EDT - 06/06/2024 11:59 PM EDT Hospital Encounter [facility] [address] [place] [address] Louis Vogel MD Abrokwah, Foster Myles G, CRNA Chang, Daniel J, MD Gastroesophageal reflux disease, unspecified whether esophagitis present; Esophageal dysphagia; History of diverticulitis; Dysphagia, unspecified type; Constipation, unspecified constipation type; Decreased appetite; Heartburn Discharge Disposition: Home or Self Care 05/30/2024 10:20 AM EDT Office Visit Gastroenterology - [place] [facility] [address] [id number] Louis Vogel MD Diverticulosis (Primary Dx); Gastroesophageal reflux disease, unspecified whether esophagitis present; Esophageal dysphagia; Other constipation 04/12/2024 7:17 AM EST - 04/12/2024 11:59 PM EST Hospital Encounter [facility] Xray [address] [place] [address] Discharge Disposition: Home or Self Care from Last 3 Months Immunizations Name Administration Dates Next Due Hep A, Unspecified 02/06/2008,08/02/2007 Influenza Whole 11/23/2019,11/14/2018 Influenza trivalent, 0.5mL ( Fluad) 65yo and older 11/13/2021 Influenza trivalent, 0.5mL, preservative free (Fluarix; FluLaval; Fluzone) ages 6mo and older (Afluria) 3 years and older 11/13/2022,11/07/2018,11/26/2014 Influenza trivalent, with pr eservative (Fluzone; Afluria) 6mo and older 12/04/2020,12/16/2017,12/10/2017,11/29,11/25/2016,11/25/2015,11/26/2014 ,11/12/2013,11/02/2013,11/30/2012,10/22,11/09/2011,11/03/2010, 0,12/22/2008 Moderna SARS-CoV-2 COVID-19, mRNA, LNP-S, preservative free 12/01/2022 Pneumococcal conjugate 13 va lent (Prevnar 13, PCV13) 2mo and older 11/13/2021 Pneumococcal polysaccharide 23 valent (Pneumovax 23) 2yo and older 05/04/2021,09/01/2010 Tdap Tetanus diptheria acell ular pertussis (Boostrix; Adacel) 7yo and older 11/13/2021,12/15/2018,06/24/2009 Zoster recombinant (Shingrix ) 19yo and older 02/01/2018,01/31/2018,12/10/2017,11/25,12/28/2006 Surgical History Surgery Date Site/Laterality Comments ANKLE SURGERY 2007 PROCEDURE: HISTORICAL ANKLE SURGERY; COMMENT: right ankle - ? proceedure ROTATOR CUFF REPAIR 1999 PROCEDURE: HISTORICAL ROTATOR CUFF REPAIR; COMMENT: left OTHER SURGICAL HISTORY PROCEDURE: NC CORRECTION HAMMERTOE; COMMENT: left - bunion surgery as well OTHER SURGICAL HISTORY 02/04 PROCEDURE: NC OPPONENSPLASTY OTHER METHODS; COMMENT: left for DeQuervain's ANKLE SURGERY 10/06 PROCEDURE: HISTORICAL ANKLE SURGERY; COMMENT: left ankle for instability Medical History Medical History Date Comments Gastroesophageal reflux disease 05/20/2010 DX:Gastroesophageal reflux disease Hypertension 05/20/2010 DX:Hypertension Heart murmur 05/20/2010 DX:Heart murmur Cervical osteoarthritis 05/20/2010 DX:Cervi hina osteoarthritis Fracture cervical vertebra-c losed ([facility] V24, [facility] V28) DX:Fracture cervical verteb ra-closed ([facility]) Sleep apnea syndrome 11/26/2014 DX:Sleep ap dayne syndrome History of total knee arthro plasty, left 05/08/2020 DX:History of total knee arthroplasty, left; COMMENT: 01/2020 Abdominal pain DX:Abdominal michaela n Abdominal cramping DX:Abdominal cramping DJD (degenerative joint dise ase), lumbar DX:DJD (degenerative joint d isease), lumbar Liver cyst DX:Liver cyst GERD (gastroesophageal reflux disease) DX:GERD (gastroesophageal reflux disease) Family History Medical History Relation Name Comments Emphysema Father Arthritis Mother knees Other: Heart Failure Mother Stroke Mother Arthritis Paternal Grandmother Relation Name Status Comments Father Mother Paternal Grandmother Social History Tobacco Use Types Packs/Day Years Used Date Smoking Tobacco: Never Smokeless Tobacco: Never Alcohol Use Standard Drinks/Week Comments Never 0 (1 standard drink = 0.6 oz pur e alcohol) Interpersonal Safety Answer Date Record ed Physical Abuse 06/06/2024 Verbal Abuse 06/06/2024 Comments Unknown Sex and Gender Information Value Date Recorded Sex Assigned at Not on file Legal Sex Female 10:30 PM EST Gender Identity Not on file Sexual Orientation Straight 03/06/2024 8: 44 AM EST Obstetrics History Last Filed Vital Signs Vital Sign Reading Time Taken Comments Blood Pressure 153/76 06/06/2024 3:19 PM EDT Pulse 70 06/06/2024 3:19 PM EDT Temperature 36.2 ??C (97.1 ??F) 06/06/2024 2:24 PM ED T Respiratory Rate 17 06/06/2024 3:19 PM EDT Oxygen Saturation 98% 06/06/2024 3:19 PM EDT Inhaled Oxygen Concentration - - Weight 108 kg (237 lb) 06/06/2024 2:24 PM EDT Height 170.2 cm (5' 7 ) 06/06/2024 2:24 PM EDT Body Mass Index 37.12 06/06/2024 2:24 PM EDT Plan of Treatment Health Maintenance Due Date Last Done Comments Breast Cancer Screening 1955 Social Influencers of Health Screening 01/30/2022 Medicare Annual Wellness Visit 09/08/2022 09/08/2021 COVID-19 Vaccine (9 - Moderna risk season) 2024 11/11/2023, 12/01/2022, 11/20/2021, Additional history exists Depression Screening 11/20/2024 11/21/2023 Hypertension/CHF/CAD Annual BMP Blood Test 02/16/2025 02/17/2024, 11/29/2023, 08/09/2023 Falls Risk Assessment 06/06/2025 06/06/2024 Cholesterol Screening (Lipid Panel) 11/28/2028 11/29/2023, 11/29/2023 DTaP,Tdap,and Td Vaccines (4 - Td or Tdap) 11/14/2031 11/13/2021, 12/15/2018, 06/24/2009 Osteoporosis Screening (Bone Density Screening) 10/29/2032 10/29/2022 Colorectal Cancer Screening: Colonoscopy 03/29/2033 03/29/2023 Hepatitis A Vaccines Aged Out 02/06/2008, 08/02/19 08 No longer eligible based on patient's age to complete this topic Zoster Vaccines Completed 02/01/2018, 01/21, 12/10/2017, Additional history exists RSV Immunization Adult Patients Completed 01/03/2023 Pneumococcal Vaccine: 50+ Years Completed 02/25/2023, 11/13/2021, 05/04/2021, Additional history exists Influenza Vaccine Completed 11/11/2023, , 11/13/2021, Additional history exists Hepatitis C Screening Completed 11/29/2023 MMR Vaccines Aged Out 05/03/2024 No longer eligi ble based on patient's age to complete this topic HIB Vaccines Aged Out No longer eligi ble based on patient's age to complete this topic HPV Vaccines Aged Out No longer eligi ble based on patient's age to complete this topic Hepatitis B Vaccines Aged Out No long er eligible based on patient's age to complete this topic IPV Vaccines Aged Out No longer eligi ble based on patient's age to complete this topic Meningococcal ACWY Vaccine Aged Out N o longer eligible based on patient's age to complete this topic Meningococcal B Vaccine Aged Out No l onger eligible based on patient's age to complete this topic RSV Immunization Patients Under 20 months Aged Out No longer eligible based on patient's age to complete this topic Varicella Vaccines Aged Out No longer eligible based on patient's age to complete this topic Procedures Procedure Name Priority Date/Time Associated Diagnosis Comments EGD Routine 06/06/2024 2:58 PM EDT Gastroesophageal reflux disease, unspecified whether esophagitis present Esophageal dysphagia History of diverticulitis Dysphagia, unspecified type Constipation, unspecified constipation type Decreased appetite Heartburn XR ESOPHAGRAM Routine 04/12/2024 8:10 AM EST Diverticulosis History of diverticulitis Dysphagia, unspecified type Heartburn Decreased appetite Constipation, unspecified constipation type Hemorrhoids, unspecified hemorrhoid type COMPREHENSIVE METABOLIC PANEL Routine 02/17/2024 11:47 AM EST Diverticulosis History of diverticulitis Dysphagia, unspecified type Heartburn Decreased appetite Constipation, unspecified constipation type Hemorrhoids, unspecified hemorrhoid type DXA BONE DENSITY STUDY 1+ SITS AXIAL SKEL Routine 10/29/2022 11:11 AM EDT Encounter for general adult medical examination without abnormal findings from Last 3 Months or Most Recently Relevant to Health Maintenance Results * EGD Anesthesia - MAC; [facility] ENDOSCOPY (06/06/2024 2:58 PM EDT) Anatomical Region Laterality Modality Other 06/06/2024 2:41 PM EDT Impressions 06/06/2024 2:56 PM EDT - Small hiatal hernia. ? - No specimens collected. Recommendation: ?- Observe patient's clinical course. Narrative 06/06/2024 2:56 PM EDT [facility] GI Patient Name: Robert Ayon Procedure Date: 06/06/2024 2:41 PM Date of : 1955 Age: 69 Gender: Female Note Status: Finalized Attending MD: Louis Vogel MD, Procedure Date No Time: 06/06/2024 Procedure: ? Upper GI endoscopy Indications: ? Dysphagia Providers: ? Louis Vogel MD Referring MD: ?Louis Vogel MD Medicines: ? Propofol per Anesthesia Complications: ? No immediate complications. Estimated Blood Loss: ? Estimated blood loss: none. Procedure: ? Pre-Anesthesia Assessment: ? - ASA Grade Assessment: III - A patient with severe ? systemic disease. ? After obtaining informed consent, the endoscope was ? passed under direct vision. Throughout the procedure, ? the patient's blood pressure, pulse, and oxygen ? saturations were monitored continuously.The Olympus ? Gastroscope was introduced through the mouth, and ? advanced to the second part of duodenum. The upper GI ? endoscopy was accomplished without difficulty. The ? patient tolerated the procedure well. Findings: ?A small hiatal hernia was present. Procedure Code(s): ? --- Professional --- ? 42179, Esophagogastroduodenoscopy, flexible, ? transoral; diagnostic, including collection of ? specimen(s) by brushing or washing, when performed ? (separate procedure) Diagnosis Code(s): ? --- Professional --- ? K44.9, Diaphragmatic hernia without obstruction or ? gangrene ? R13.10, Dysphagia, unspecified CPT copyright 2020 [employer]. All rights reserved. The codes documented in this report are preliminary and upon testing consultant review may be revised to meet current compliance requirements. Louis Vogel MD 06/06/2024 2:56:33 PM This report has been signed electronically.Louis Vogel MD Number of Addenda: 0 Note Initiated On: 06/06/2024 2:41 PM Scope In: Scope Out: ? Endoscopy Department at [facility] - [address] [place] [address], ? [place] [address] Procedure Note Louis Vogel MD - 06/06/2024 [facility] GI Patient Name: Robert Ayon Procedure Date: 06/06/2024 2:41 PM Date of : 1955 Age: 69 Gender: Female Note Status: Finalized Attending MD: Louis Vogel MD, Procedure Date No Time: 06/06/2024 Procedure: Upper GI endoscopy Indications: Dysphagia Providers: Louis Vogel MD Referring MD: Louis Vogel MD Medicines: Propofol per Anesthesia Complications: No immediate complications. Estimated Blood Loss: Estimated blood loss: none. Procedure: Pre-Anesthesia Assessment: - ASA Grade Assessment: III - A patient with severe systemic disease. After obtaining informed consent, the endoscope was passed under direct vision. Throughout theprocedure, the patient's blood pressure, pulse, and oxygen saturations were monitored continuously.The Olympus Gastroscope was introduced through the mouth, and advanced to the second part of duodenum. The upperGI endoscopy was accomplished without difficulty. The patient tolerated the procedure well. Findings: A small hiatal hernia was present. Procedure Code(s): --- Professional --- 02498, Esophagogastroduodenoscopy, flexible, transoral; diagnostic, including collection of specimen(s) by brushing or washing, when performed (separate procedure) Diagnosis Code(s): --- Professional --- K44.9, Diaphragmatic hernia without obstruction or gangrene R13.10, Dysphagia, unspecified CPT copyright 2020 [employer]. All rights reserved. The codes documented in this report are preliminary and upon testing consultant reviewmay be revised to meet current compliance requirements. Louis Vogel MD 06/06/2024 2:56:33 PM This report has been signed electronically.Louis Vogel MD Number of Addenda: 0 Note Initiated On: 06/06/2024 2:41 PM Scope In: Scope Out: Endoscopy Department at [facility] - [address] [place] [id number] IMPRESSION: - Small hiatal hernia. - No specimens collected. Recommendation: - Observe patient's clinical course. us Louis Vogel MD GI~PROCEDURE ORDERABLES Final Re sult * XR Esophagram (04/12/2024 8:10 AM EST) Anatomical Region Laterality Modality Head and Neck Radiographic Azalia ging 04/12/2024 10:1 1 AM EST Impressions 04/12/2024 12:12 PM EST 1. Very small amount of flash laryngeal penetration without aspiration noted on rapid sequence swallowing of thin barium. 2. Mild esophageal dysmotility. -------- FINAL REPORT -------- Dictated By: Salma Cooper Dictated Date: 04/12/2024 10:11 ET Assigned Physician: Jacoby Chenye Reviewed and Electronically Signed By: Jacoby Cheney Signed Date: 04/12/2024 12:12 ET Workstation ID: [id number] Transcribed By: Self Edit Transcribed Date: 04/12/2024 10:26 ET Resident/PA/DIRECTOR OF STUDENT FINANCIAL AID: Salma Cooper Narrative 04/12/2024 12:12 PM EST FINDINGS: Double contrast esophagram performed. COMPARISON: Barium swallow January 10, 2023 HISTORY: Patient is a 68 yo F with history of dysphagia, GERD. Bottom Scrubber radiographs: 1 view chest radiograph demonstrates mildly enlarged cardiac silhouette. Mediastinal contours within normal limits. Lungs are clear bilaterally. Patient has undergone previous total right shoulder replacement. 1 view lateral soft tissue neck demonstrates no prevertebral soft tissue masses. Airway is widely patent. Cervical spine is incompletely visualized. There is significant anterior osteophyte formation visualized along C3-6, and degenerative disc disease at the C3-4, C4- 5, C5-6, and C6-7 levels. Effervescent crystals were administered orally. Thick and thin barium were administered orally under fluoroscopic control. Pharyngoesophagram: Rapid sequence imaging of the hypopharynx during swallowing demonstrates prompt initiation of swallowing. There is normal soft palate elevation. There is a very small amount of flash laryngeal penetration without jesus aspiration. There is no residual in the vallecula nor in the piriform sinuses. Thoracic esophagus: There is mild esophageal dysmotility as demonstrated by tertiary contractions visualized. Normal distensibility and mucosal pattern without evidence of ulceration, stricture or mass formation. Hiatal hernia: None Reflux: Unable to elicit 13mm Barium pill: Swallowed without difficulty. Prompt passage of pill from the esophagus into the stomach. DAP: 1744.2 Gycm^2 Procedure Note Jacoby Cheney MD - 04/12/2024 FINDINGS: Double contrast esophagram performed. COMPARISON: Barium swallow January 10, 2023 HISTORY: Patient is a 68 yo F with history of dysphagia, GERD. Bottom Scrubber radiographs: 1 view chest radiograph demonstrates mildly enlargedcardiac silhouette. Mediastinal contours within normal limits. Lungs areclear bilaterally. Patient has undergone previous total right shoulderreplacement. 1 view lateral soft tissue neck demonstrates no prevertebralsoft tissue masses. Airway is widely patent. Cervical spine isincompletely visualized. There is significant anterior osteophyteformation visualized along C3-6, and degenerative disc disease at theC3-4, C4-5, C5-6, and C6-7 levels. Effervescent crystals were administered orally. Thick and thin barium wereadministered orally under fluoroscopic control. Pharyngoesophagram: Rapid sequence imaging of the hypopharynx duringswallowing demonstrates prompt initiation of swallowing. There is normalsoft palate elevation. There is a very small amount of flash laryngealpenetration without jesus aspiration. There is no residual in thevallecula nor in the piriform sinuses. Thoracic esophagus: There is mild esophageal dysmotility as demonstratedby tertiary contractions visualized. Normal distensibility and mucosalpattern without evidence of ulceration, stricture or mass formation. Hiatal hernia: None Reflux: Unable to elicit 13mm Barium pill: Swallowed without difficulty. Prompt passage of pillfrom the esophagus into the stomach. DAP: 1744.2 Gycm^2 IMPRESSION: 1. Very small amount of flash laryngeal penetration without aspirationnoted on rapid sequence swallowing of thin barium. 2. Mild esophageal dysmotility. -------- FINAL REPORT -------- Dictated By: Salma Cooper Dictated Date: 04/12/2024 10:11 ET Assigned Physician: Jacoby Cheney Reviewed and Electronically Signed By: Jacoby Cheney Signed Date: 04/12/2024 12:12 ET Workstation ID: [id number] Transcribed By: Self Edit Transcribed Date: 04/12/2024 10:26 ET Resident/PA/DIRECTOR OF STUDENT FINANCIAL AID: Salma Cooper [facility] FLUOROSCOPY PROCEDURES Renae l Result * Comprehensive metabolic panel (02/17/2024 11:47 AM EST) Sodium 139 133 - 145 mmol/L LAB CHEMISTRY METHOD 02/17/2024 2:38 PM [facility] Potassium 3.7 3.5 - 5.5 mmol/L LAB CHEMISTRY METHOD 02/17/2024 2:38 PM [facility] Chloride 105 96 - 110 mmol/L LAB CHEMISTRY METHOD 02/17/2024 2:38 PM [facility] CO2 29 21 - 32 mmol/L LAB CHEMISTRY METHOD 02/17/2024 2:38 PM [facility] Anion Gap 5 3 - 11 LAB CHEMISTRY METHOD 02/17/2024 2:38 PM [facility] Glucose 82 70 - 100 mg/dL LAB CHEMISTRY METHOD 02/17/2024 2:38 PM [facility] BUN 13 5 - 25 mg/dL LAB CHEMISTRY METHOD 02/17/2024 2:38 PM [facility] Creatinine 0.84 0.50 - 1.10 mg/dL LAB CHEMISTRY METHOD 02/17/2024 2:38 PM [facility] eGFR 76 >=60 mL/min/1. 73m2 LAB CHEMISTRY METHOD 02/17/2024 2:38 PM [facility] Comment:Calculation based on the??Chronic Kidney Disease Epidemiology Collaboration (CKD-EPI) equation refit??without adjustment for race. BUN/Creatinine Ratio 15.5 LAB CHEMISTRY METHOD 02/17/2024 2:38 PM [facility] Calcium 9.5 8.5 - 10.5 mg/dL LAB CHEMISTRY METHOD 02/17/2024 2:38 PM [facility] AST (SGOT) 15 10 - 42 unit/L LAB CHEMISTRY METHOD 02/17/2024 2:38 PM [facility] ALT (SGPT) 16 10 - 60 unit/L LAB CHEMISTRY METHOD 02/17/2024 2:38 PM [facility] Alkaline Phosphatase 82 42 - 121 unit/L LAB CHEMISTRY METHOD 02/17/2024 2:38 PM [facility] Total Protein 7.1 6.0 - 8.0 g/dL LAB CHEMISTRY METHOD 02/17/2024 2:38 PM [facility] Albumin 3.8 3.2 - 5.0 g/dL LAB CHEMISTRY METHOD 02/17/2024 2:38 PM [facility] Total Bilirubin 0.7 0.0 - 1.4 mg/dL LAB CHEMISTRY METHOD 02/17/2024 2:38 PM [facility] Blood Venous blood specimen / Unknown Venipuncture / Unknown 02/17/2024 11:47 AM EST 02/17/2024 11:47 AM EST us Isai [facility] LAB BLOOD ORDERABLES Final Resu lt [facility] [address] [place] [address], [place] [phone] * DXA BONE DENSITY STUDY 1+ SITS AXIAL SKEL (10/29/2022 11:11 AM EDT) Anatomical Region Laterality Modality Bone Densitometr y 07/07/2022 9:42 AM EDT Narrative 10/29/2022 4:01 PM EDT BONE DENSITY ? Lumbar Spine T-score is +1.4 ?? (SD relative to 20-29 y/o adult) Z-score is +3.3 ??(SD relative to age matched peers) This is normal by criteria defined by the WHO. Left Hip T-score is -0.7 Z-score is +0.9 This is normal by criteria defined by the WHO. Impression: Based on the World Health Organization criteria, Robert Ayon should be classified as having normal bone density. The [facility] Department of Internal Medicine recommends using National Osteoporosis Foundation (NOF) guidelines in treatment decisions related to osteoporosis. NOF guidelines suggest considering treatment for postmenopausal women and men aged 50 or older presenting with the following: History of hip or vertebral fracture. T-score less than or equal to -2.5 (DXA) at the femoral neck, total hip, or spine, after appropriate evaluation to exclude secondary causes. Low bone mass (T-score between -1.0 and -2.5 at the femoral neck or spine) AND a 10-year probability of a hip fracture greater than or equal to 3% OR a 10-year probability of a major osteoporosis-related fracture greater than or equal to 20% based on the [place]-adapted WHO algorithm Please note that all treatment decisions require clinical judgment and consideration of individual patient factors, including patient preferences, co-morbidities, previous drug use, risk factors not captured in the FRAX model (e.g., frailty, falls, vitamin D deficiency, increased bone turnover, interval significant decline in bone density) and possible under- or over-estimation of fracture risk by FRAX. Procedure Note Lynn Acosta MD - 03/29/2023 BONE DENSITY Lumbar Spine T-score is +1.4 (SD relative to 20-29 y/o adult) Z-score is +3.3 (SD relative to age matched peers) This is normal by criteria defined by the WHO. Left Hip T-score is -0.7 Z-score is +0.9 This is normal by criteria defined by the WHO. Impression: Based on the World Health Organization criteria, Robert Ayon should beclassified as having normal bone density. The [facility] Department of Internal Medicine recommendsusing National Osteoporosis Foundation (NOF) guidelines in treatmentdecisions related to osteoporosis. NOF guidelines suggest consideringtreatment for postmenopausal women and men aged 50 or older presentingwith the following: History of hip or vertebral fracture. T-score less than or equal to -2.5 (DXA) at the femoral neck, total hip,or spine, after appropriate evaluation to exclude secondary causes. Low bone mass (T-score between -1.0 and -2.5 at the femoral neck or spine)AND a 10-year probability of a hip fracture greater than or equal to 3% ORa 10-year probability of a major osteoporosis-related fracture greaterthan or equal to 20% based on the [place]-adapted WHO algorithm Please note that all treatment decisions require clinical judgment andconsideration of individual patient factors, including patientpreferences, co-morbidities, previous drug use, risk factors not capturedin the FRAX model (e.g., frailty, falls, vitamin D deficiency, increasedbone turnover, interval significant decline in bone density) and possibleunder- or over-estimation of fracture risk by FRAX. Tarsha Saenz MD [facility] DXA PROCEDURES Final Re sult from Last 3 Months or Most Recently Relevant to Health Maintenance Insurance [place] Care Teams Integration Aide Relationship Specialty Start Date End Date Jonah Grande PA [address] [place] [address] PCP - General Physician Clothing Designer 01/02/24
--- OUTSIDE RECORDS SUMMARY | 2024-07-06 10:22 | XMS_ITS | Clinical Summary ---
Author Organization [facility] Address [address] [place] [address] Care Team Providers Care Hospice Massage Therapist Name Role Phone Jonah Grande Primary Care Provider [phone] Source Comments PLEASE NOTE, if this patient is a minor, it may be UNLAWFUL to discuss sensitive information that is contained in these records (such as FAMILY PLANNING, MENTAL HEALTH or SUBSTANCE ABUSE) with the minor patient's parent or other person without the patient's specific authorization.[facility] Allergies Active Allergy Reactions Criticality Noted Date Comments Acetaminophen Hives High 03/08/2022 Amoxicillin Hives High 03/08/2022 Amoxicillin-Pot Clavulanate Diarrhea Low 11/21/2023 Other Reaction(s): diarrhea Clarithromycin Hives,Rash High 03/08/2022 Other Reaction(s): rash Clavulanic Acid Hives High 03/08/2022 Cyclobenzaprine High 11/21/2023 Other Reaction(s): tongue swelling,constipat ion Hydrocodone Rash High 03/08/2022 Hydrocodone-Acetaminophen Rash Low 11/21/2023 Other Reaction(s): delusion Ibuprofen 02/04/2022 Metronidazole Rash,Hives High 03/08/2022 Nortriptyline Hives,Rash High 03/08/2022 Other Reaction(s): rash Nsaids (Non-Steroidal Anti-Inflammatory Drug) Rash Low 11/21/2023 Other Reaction(s): C/O: itching Propoxyphene Hives High 03/08/2022 Propoxyphene N-Acetaminophen Rash Low 11/21/2023 Other Reaction(s): RASH Spironolactone Headache 11/21/2023 Vancomycin Itching,Unknown,Hiv es High 03/08/2022 Other Reaction(s): Unknown Medications losartan (COZAAR) 100 mg tablet Take 100 mg by mouth once daily Active hydroxychloroqu ine (PLAQUENIL) 200 mg tablet Take 200 mg by mouth 2 (two) times daily Active furosemide (LASIX) 40 mg tablet Take 1 Tablet by mouth 4 Active carvediloL (COREG) 6.25 mg tablet Take 6.25 mg by mouth 2 (two) times daily with a meal 4 Active esomeprazole (NEXIUM) [address] capsuleIndicati ons:Generalized abdominal pain Take 1 Capsule by mouth every morning before breakfast 90 Capsule 5 Active psyllium husk (METAMUCIL) 0.52 gram capsuleIndicati ons:Generalized abdominal pain Take 1 Capsule by mouth 2 (two) times daily 180 Capsule 3 5 Active Active Problems Problem Noted Date Diagnosed Date RA (rheumatoid arthritis) ([facility]) 11/21/2023 Overview (12/21/2023): 12/14/2023 - [facility] - Dx: Rheumatoid arthritis & osteoarthritis - Hydroxychloroquine & Sulfasalazine 500 mg once a day F/u 3 months Comorbid sleep-related hypoventilation 4 Gastroesophageal reflux disease 11/21/2023 Hypertension 11/21/2023 Left ventricular diastolic dysfunction 4 Mitral valve prolapse 11/21/2023 Obesity 11/21/2023 Severe obesity ([facility]) 11/21/2023 History of non-ST elevation myocardial infarctio n (NSTEMI) 12/15/2022 LVH (left ventricular hypertrophy) 12/15/2022 Positive self-administered antigen test for COVI D-19 12/15/2022 Chronic diastolic congestive heart failure ([facility]) 11/04/2022 Diverticulosis 07/07/2022 Prediabetes 07/07/2022 History of total knee arthroplasty, left 021 Overview (01/24/2024): 01/2020 Benign essential hypertension 01/23/2020 Palpitations 01/23/2020 Pure hypercholesterolemia 01/23/2020 SOB (shortness of breath) 01/23/2020 Primary osteoarthritis of right ankle 01/25/2019 Obstructive sleep apnea syndrome 09/20/2012 Overview (01/24/2024): On CPAP OA (osteoarthritis) of knee 11/30/2011 Overview (01/24/2024): 12/14/2023 - [facility] - Dx: Rheumatoid arthritis & osteoarthritis - Hydroxychloroquine & Sulfasalazine 500 mg once a day F/u 3 months L.R L TKR 02/09 Lumbar radiculitis 11/25/2011 Positive PPD 12/16/2010 Overview (01/24/2024): Per patient report - ~ 2004? Breast pain 12/02/2010 Chronic inflammatory arthritis 06/09/2010 Overview (01/24/2024): Onset spring 2006 with R ankle synovitis. RF,CCP neg. LALY 1:100, Neg antiDNA, anti Sm, Sjogren's Ab Ankle synovitis on MRI 2006. Synovial bx showed prolif synovitis Feb 2802/28-MTX rx begun, seemed to help but caused diarrhea-patient stopped in late 20082009 leflunomide - hair loss. 06/01: sulfasalazine started. Change to methotrexate 09/06 DJD (degenerative joint disease), lumbar 011 Overview (01/24/2024): xrays at [facility] Heart murmur 05/20/2010 Immunizations Immunization Administration Dates Next Due Flu, Adjuvant, 65y+ (Fluad) 11/13/2022 Flu, Preservative Free 12/22/2008 HEP A, UNSPECIFIED 02/06/2008,08/02/2007 INFLUENZA, SEASONAL, INJECTABLE 12/05/19 21,12/16/2017,12/10/2017,11/29,11/25/2016,11/25/2015,11/26/2014 ,11/12/2013,11/02/2013,11/30/2012,10/22,11/09/2011,11/03/2010, 0,12/22/2008 INFLUENZA, SEASONAL, INJECTA BLE, PRESERVATIVE FREE 11/07/2018 Influenza (FLUZONE), high-do se, trivalent, PF 11/11/2023,11/13/2021 Influenza, Whole 11/23/2019,11/14/2018 PNEUMOCOCCAL CONJUGATE PCV 13 11/13/2021 PNEUMOCOCCAL CONJUGATE PCV 2 0 (Prevnar) 02/25/2023 PNEUMOCOCCAL POLYSACCHARIDE PPV23 (Pneumovax 23) 05/04/2021,09/01/2010 RSV (Arexvy), Recombinant, P rotein Subunit Rsvpref, Adjuvant Reconstituted, 0.5 Ml, Pf 01/03/2023 TDAP 11/13/2021,12/15/2018,06/24/2009 ZOSTER VACCINE, RECOMBINANT (SHINGRIX) 8,12/28/2006 ZOSTER, UNSPECIFIED 02/01/2018,01/31/2018 Zoster, Live Vaccine (Zostavax) 02/01/2018,01/31,12/10/2017 Social History Tobacco Use Types Packs/Day Years Used Date Smoking Tobacco: Never Smokeless Tobacco: Never Tobacco Cessation:Counseling Given: Not Answered Alcohol Use Standard Drinks/Week Comments Yes 0 (1 standard drink = 0.6 oz pur e alcohol) social Social Connections Answer Date Recorded Connectedness 1 11/21/2023 Financial Resource Strain Answer Date R ecorded Financial Resource Strain 1 2023 Stress Answer Date Recorded Stress 1 11/21/2023 Physical Activity Answer Date Recorded Physical Activity 0 08/23/2023 Food Insecurity Answer Date Recorded Food 1 11/21/2023 Transportation Needs Answer Date Record ed Transportation 1 11/21/2023 Housing Stability Answer Date Recorded Housing 1 11/21/2023 Safety and Environment Answer Date Saud rded Safety 0 08/23/2023 Utilities Answer Date Recorded Utilities 1 11/21/2023 Employment Answer Date Recorded Stress 0 11/07/2023 Comments No Sex and Gender Information Value Date Recorded Sex Assigned at Female 11/21/2023 8:33 AM PDT Legal Sex Female 11:02 AM PDT Gender Identity Female 11/21/2023 8:33 AM PDT Sexual Orientation Straight 11/21/2023 8: 33 AM PDT Last Filed Vital Signs Vital Sign Reading Time Taken Comments Blood Pressure 146/86 03/02/2024 4:04 PM EST Pulse 71 03/02/2024 4:04 PM EST Temperature 37.1 ??C (98.7 ??F) 03/02/2024 4:04 PM ES T Respiratory Rate 16 03/02/2024 4:04 PM EST Oxygen Saturation 93% 01/24/2024 10:00 AM EST Inhaled Oxygen Concentration - - Weight 105.2 kg (232 lb) 03/02/2024 4:04 PM EST Height 170.2 cm (5' 7 ) 01/24/2024 10:00 AM EST Body Mass Index 36.34 01/24/2024 10:00 AM EST Plan of Treatment Health Maintenance Due Date Last Done Comments Breast Cancer Screening (Mammogram) 1996 CT Colonography 2001 Colonoscopy 2001 Colorectal Cancer Screening 2001 FIT/gFOBT 2001 Fecal DNA 2001 Flexible Sigmoidoscopy 2001 Bone Density Screening 2021 Falls Prevention 2021 Alcohol and Drug Screen 02/22/2024 11/21/2023 Depression Annual Screen 02/22/2024 11/21/2023 [id number] ( season) 2024 11/11/2023, 12/01/2022, 11/20/2021, Additional history exists Annual Preventive Care Visit 11/20/2024 11/21/2023 Tobacco Screening 11/20/2024 11/21/2023 Diabetes Screening 02/16/2025 02/17/2024, 1 , 11/29/2023 Lipid Screening 11/28/2026 11/29/2023 Imm-DTaP/Tdap/Td (4 - Td or Tdap) 11/14/2031 11/13/2021, 12/15/2018, 06/24/2009 Imm-Zoster, Recombinant Completed 02/02/20 18, 02/01/2018, 01/31/2018, Additional history exists Imm-Pneumococcal 65+ Completed 02/25/2023, 11/13/2021, 05/04/2021, Additional history exists Imm-Influenza Completed 11/11/2023, 10/23, 11/13/2021, Additional history exists Hepatitis C Screening Completed 11/29/2023 Procedures Procedure Name Priority Date/Time Associated Diagnosis Comments UPPER GI ENDOSCOPY (EGD) SCANNED DOCUMENT 06/06/2024 3:00 AM EDT REFERRAL SCANNED DOCUMENT 06/04/2024 3:00 AM EDT REFERRAL SCANNED DOCUMENT 04/16/2024 3:00 AM EST IMAGING SCANNED DOCUMENT 04/12/2024 3:00 AM EST HEPATITIS C AB W/RFLX HCV RNA, QT, RT PCR Routine 11/29/2023 1:38 PM EDT Rheumatoid arthritis of other site, unspecified whether rheumatoid factor present (HCC-CMS) Routine adult health maintenance Primary hypertension Severe obesity (HCC-CMS) Abnormal findings on diagnostic imaging of other parts of digestive tract COMPREHENSIVE METABOLIC PANEL Routine 11/29/2023 1:38 PM EDT Rheumatoid arthritis of other site, unspecified whether rheumatoid factor present (HCC-CMS) Routine adult health maintenance Primary hypertension Severe obesity (HCC-CMS) Abnormal findings on diagnostic imaging of other parts of digestive tract LIPID PANEL Routine 11/29/2023 1:38 PM EDT Rheumatoid arthritis of other site, unspecified whether rheumatoid factor present (HCC-CMS) Routine adult health maintenance Primary hypertension Severe obesity (HCC-CMS) Abnormal findings on diagnostic imaging of other parts of digestive tract from Last 3 Months or Most Recently Relevant to Health Maintenance Results * UPPER GI ENDOSCOPY (EGD) SCANNED DOCUMENT (06/06/2024 3:00 AM EDT) 06/06/2024 3:00 AM EDT us Jonah [facility]ILL SCAN PROCEDURES Final Result * REFERRAL SCANNED DOCUMENT (06/04/2024 3:00 AM EDT) Only the most recent of2 resultswithin the time period is included. 06/04/2024 3:00 AM EDT us Jonah HILL SCAN REFERRAL Final Result * IMAGING SCANNED DOCUMENT (04/12/2024 3:00 AM EST) 04/12/2024 3:00 AM EST us Joynerian Christiane [facility] SCAN IMAGING Final Result * HEPATITIS C AB W/RFLX HCV RNA, QT, RT PCR (11/29/2023 1:38 PM EDT) Pathologist [facility] HEPATITIS C ANTIBODY NON-REACT JASEN NON-REACT JASEN [facility] Comment: HCV antibody was non-reactive. There is no laboratory evidence of HCV infection. In most cases, no further action is required. However, if recent HCV exposure is suspected, a test for HCV RNA (test code 67304) is suggested. For additional information please refer to http://education.[employer]/faq/VBN87x3 (This link is being provided for informational/ educational purposes only.) Blood Blood / Unknown 11/29/2023 1 :38 PM EDT 11/29/2023 1:39 PM EDT us Jonah [facility] - BLOOD DRAW Final Result [facility] [address] [address], [facility] [address] [phone] * LIPID PANEL (11/29/2023 1:38 PM EDT) Pathologist [facility] CHOLESTEROL, TOTAL 177 <200 mg/dL [facility] HDL CHOLESTEROL 65 > OR = 50 mg/dL [facility] TRIGLYCERIDES 65 <150 mg/dL [facility] LDL-CHOLESTEROL 97 99 mg/dL (calc) [facility] Comment: Reference range: <100 Desirable range <100 mg/dL for primary prevention; ?? <70 mg/dL for patients with CHD or diabetic patients with > or = 2 CHD risk factors. LDL-C is now calculated using the Eduardo-Tyler calculation, which is a validated novel method providing better accuracy than the Friedewald equation in the estimation of LDL-C. Eduardo SS et al. DENNISE. 2013;310(19): 9876-9438 (http://education.[employer]/faq/GNU341) CHOL/HDLC RATIO 2.7 <5.0 (calc) [facility] NON-HDL CHOLESTEROL 112 <130 mg/dL (calc) [facility] Comment: For patients with diabetes plus 1 major ASCVD risk factor, treating to a non-HDL-C goal of <100 mg/dL (LDL-C of <70 mg/dL) is considered a therapeutic option. Blood Blood / Unknown 11/29/2023 1 :38 PM EDT 11/29/2023 1:39 PM EDT [facility] - BLOOD DRAW Final Result [facility] [address] [place] [id number], [facility] [address] [place] [phone] * COMPREHENSIVE METABOLIC PANEL (11/29/2023 1:38 PM EDT) [facility] GLUCOSE 90 65 - 99 mg/dL [facility] Comment: ?Fasting reference interval UREA NITROGEN (BUN) 17 7 - 25 mg/dL [facility] CREATININE (blood) 0.90 0.50 - 1.05 mg/dL [facility] EGFR 70 > OR = 60 mL/min/1. 73m2 [facility] BUN/CREATININE RATIO SEE NOTE: [facility] Comment: ?? Not Reported: BUN and Creatinine are within ?? reference range. ? SODIUM 140 135 - 146 mmol/L [facility] POTASSIUM 4.6 3.5 - 5.3 mmol/L [facility] CHLORIDE 104 98 - 110 mmol/L [facility] CARBON DIOXIDE 30 20 - 32 mmol/L [facility] CALCIUM 9.5 8.6 - 10.4 mg/dL [facility] PROTEIN, TOTAL 7.2 6.1 - 8.1 g/dL [facility] ALBUMIN 4.1 3.6 - 5.1 g/dL [facility] GLOBULIN 3.1 1.9 - 3.7 g/dL (calc) [facility] ALBUMIN/GLOBULI N RATIO 1.3 1.0 - 2.5 (calc) [facility] BILIRUBIN, TOTAL 0.7 0.2 - 1.2 mg/dL [facility] ALKALINE PHOSPHATASE 72 37 - 153 U/L [facility] AST 19 10 - 35 U/L [facility] ALT 10 6 - 29 U/L [place] Blood Blood / Unknown 11/29/2023 1 :38 PM EDT 11/29/2023 1:39 PM EDT [facility] - BLOOD DRAW Edited Result - Final [facility] [address] [address], [facility] [address] [phone] from Last 3 Months or Most Recently Relevant to Health Maintenance Insurance [employer] Member Subscriber Plan / Payer (Ef fective 2024-Present) Name:Robert Ayon Relation to Subscriber:Self Name:Robert Ayon Payer ID:[id number] Group ID:Not on file Type:Indemnity Address: [facility] [address] [place] [address] [place] MEDICA[place] Care Teams Hospice Massage Therapist Relationship Specialty Start Date End Date Jonah Grande PA [address] [place] [address] PCP - General FAMILY MEDICINE, [place] 12/19/23
== END 2024-07-06 10:57 | disposition home or self-care (01) ==
LOC: HO.HNS 10:01
PROVIDERS: PCP Physician Assistant; Visit Provider Physician Assistant
DX: M51.369 Other intervertebral disc degeneration, lumbar region without mention of lumbar back pain or lower extremity pain (principal)
CPT/HCPCS: 99204

== ENCOUNTER → 2024-07-06 10:00 | Outpatient (BNVA) | payer MEDICARE, MEDICAID, SELFPAY | PROVIDERS: PCP Physician Assistant; Visit Provider Physician Assistant | DX: M51.369 Other intervertebral disc degeneration, lumbar region without mention of lumbar back pain or lower extremity pain (principal) | CPT/HCPCS: 99202 ==

== ENCOUNTER 2024-08-13 11:41 | Outpatient (AMB) | payer MEDICARE, MEDICAID, SELFPAY ==
--- NOTE | 2024-08-13 11:44 | HO.SPINEOV ---
Intake Visit Reasons: 6 wk f/u Intake Note: Ms. Ayon is here today for her 6 wk f/u. Human Resources Benefits Manager Required: No Allergies acetaminophen (From Vicodin) Adverse Reaction (Intermediate, Verified 07/06/24 10:10) Rash amoxicillin (From Augmentin) Adverse Reaction (Intermediate, Verified 07/06/24 10:10) Hallucinations clavulanic acid (From Augmentin) Adverse Reaction (Intermediate, Verified 07/06/24 10:10) Hallucinations cyclobenzaprine Adverse Reaction (Intermediate, Verified 07/06/24 10:10) Hallucinations hydrocodone (From Vicodin) Adverse Reaction (Intermediate, Verified 07/06/24 10:10) Rash metronidazole Adverse Reaction (Intermediate, Verified 07/06/24 10:10) hallucinations NSAIDS (Non-Steroidal Anti-Inflamma Adverse Reaction (Intermediate, Verified 07/06/24 10:10) rash vancomycin Adverse Reaction (Intermediate, Verified 07/06/24 10:10) Hallucinations spironolactone Adverse Reaction (Mild, Verified 07/06/24 10:10) headaches Assessment & Plan Assessment & Plan (1) Lumbar degenerative disc disease: Code(s): M51.369 - Other intervertebral disc degeneration, lumbar region without mention of lumbar back pain or lower extremity pain Category: Medical Plan Dear Ronald and DR Liz Jones came back to see me again in follow-up. She has back pain and bilateral lower extremity pain in the setting of severe degenerative disc disease from L3-S1 and stenosis at L4-5 amongst other changes seen on her MRI. Dr. Olvera reviewed her imaging after my last visit and felt she would not be a candidate for lumbar fusion because her bone quality is too poor from chronic prednisone. Therefore the only thing he can offer her would be a simple L4-5 decompression but that would obviously not address the back pain. She is due for an upcoming injection at your office, so I told her to see how it goes with those and if the pain is manageable afterwards than just to continue to follow-up with you guys as long as she can so we can avoid surgery if at all possible. If the injections fail, maybe she would be a candidate for Intracept as an alternative option. I told her to give me a call at some point and let me know how things are going. Right now she is not all that interested in surgery, but I think at some point her options are going to be limited. Total amount of time spent in this visit was 20 minutes in discussion of symptoms, lumbar imaging results and subsequent plan of care Brandon Olvera MD,PhD [facility] Coding Level of Care Code Est Pt Level 3 (18304) Diagnoses Lumbar degenerative disc disease M51.369
--- OUTSIDE RECORDS SUMMARY | 2024-08-13 13:18 | XMS_ITS | Data Portability ---
Author Organization [employer] [facility], [employer] [facility] Address [address] [place] [address] Care Team Providers Care Dealer Card Room Name Role Phone MARY CHAPIN Primary Care Provider [phone] HIM PAULINE OTHER Assessment Encounter Date Assessment Date Assessment LastModified by Organization Details LastModified Time 10/17/2023 10/17/2023 I provided real -time medical direction via phone for this encounter and was available for additional phone-based assistance as needed. I have reviewed and agree with the Assessment and Plan as documented by the Dining Service Inspector. Patient given the opportunity to ask questions. Our service contacted for an assessment of: Palpitations As per above, patient with history of ablation and possible NSTEMI in the past followed by PCP and Cardiology. Calls with palpitations which has been an ongoing issue for the past several months. Denies any specific chest pain, shortness of breath, dyspnea on exertion. Does drink tea in the morning but otherwise limiting caffeine. No new medications. Undefined stress. Per leather sorter on the scene, vital signs are stable patient is afebrile. EKG reassuring, however limited study. Impression: Palpitations and history of cardiac disease Plan: Recommend follow-up with PCP and Cardiology and would suggest longer-term monitoring Allergies: Reviewed PCP f/u: Patient would benefit from follow-up with Cardiology for an event monitor for palpitations. We discussed the diagnostic uncertainty of home visits and the risk associated with this. In this case, the patient and I felt this to be an acceptable and reasonable amount of risk given the benefit of avoiding an ED visit. We discussed the need to seek care urgently/emerge ntly in the setting of any new or worsening serious symptoms, particularly fever chills [email or web address] Not available 10/18/2023 06:48:53 Plan of Treatment Reminders Order Date Submit Date Provider Last Modified By Organization Details Last Modified Time Details Appointments None recorded. Lab None recorded. Referral None recorded. Procedures None recorded. Surgeries None recorded. Imaging electrocard iogram 2023 024 [email or web address] [facility], [address] [place] [address], [phone] 14:26:38 Medication Orders None recorded. Patient TargetsNo targets recorded. Patient InstructionsNo instructions recorded. Reason for Referral None Reported. Results Created Date Observation Date Name Description Value Unit Range Abnormal Flag Note LastModifiedBy Organization Detail LastModifiedTime 10/18/19 24 10/18/2023 rupesh holbrook am No observ ation record ed. [email or web address] [address], [phone] 10/18/2023 08:05:01 Result Notes None recorded. Medical Equipment None Reported. Allergies No known drug allergies Medications Name Sig Start Date Stop Date Status Note LastModified by Organization Details LastModified Time amoxicillin 500 mg capsule TAKE 4 CAPSULES BY MOUTH 1 HOUR PRIOR TO DENTAL PROCEDURE DIRECTED active Not Available Not Available Not Available furosemide 40 mg tablet TAKE 1 TABLET BY MOUTH EVERY DAY active Not Available Not Available No t Available metoprolol succinate ER 50 mg tablet,exten ded release 24 hr TAKE 1 TABLET BY MOUTH EVERY DAY active Not Available Not Available No t Available ondansetron HCl 4 mg tablet TAKE 1 TABLET BY MOUTH EVERY 8 HOURS NEEDED FOR NAUSEA/VOMI TING FOR 7 DAYS. active Not Available Not Available No t Available metoprolol succinate ER 100 mg tablet,exten ded release 24 hr TAKE 1 TABLET BY MOUTH EVERY DAY active Not Available Not Available No t Available peg-electrol yte solution 420 gram oral solution USE FOR COLONOSCOPY PREP PER INSTRUCTION S active Not Available Not Available No t Available tramadol 50 mg tablet TAKE 1 TABLET BY MOUTH EVERY 6 HOURS NEEDED active Not Available Not Available No t Available spironolacto ne 25 mg tablet TAKE 1 TABLET BY MOUTH EVERY DAY active Not Available Not Available No t Available benzonatate 100 mg capsule TAKE 1 CAPSULE BY MOUTH 3 TIMES DAILY NEEDED FOR COUGH FOR UP TO 21 DOSES. NOT COVERED active Not Available Not Available No t Available cephalexin 500 mg capsule TAKE 1 CAPSULE BY MOUTH 4 TIMES A DAY FOR 10 DAYS active Not Available Not Available Not Available metoprolol succinate ER 25 mg tablet,exten ded release 24 hr TAKE 1 TABLET BY MOUTH EVERY DAY active Not Available Not Available No t Available hydroxychlor oquine 200 mg tablet TAKE 1 TABLET BY MOUTH TWICE A DAY active Not Available Not Available No t Available losartan 100 mg tablet TAKE 1 TABLET BY MOUTH EVERY DAY active Not Available Not Available No t Available oxycodone 5 mg tablet TAKE 1 TABLET EVERY 8 HOURS BY ORAL ROUTE NEEDED FOR 3 DAYS, FOR PAIN. active Not Available Not Available No t Available cyclobenzapr ine 5 mg tablet TAKE 1 TABLET BY MOUTH 3 TIMES DAILY NEEDED FOR MUSCLE SPASMS (RIGHT LEG PAIN). active Not Available Not Available No t Available metoprolol tartrate 25 mg tablet TAKE 1 TABLET BY MOUTH TWICE DAILY. active Not Available Not Available No t Available duloxetine 60 mg capsule,deepika yed release TAKE 1 CAPSULE BY MOUTH EVERY DAY active Not Available Not Available No t Available Xarelto 10 mg tablet TAKE 1 TABLET BY MOUTH EVERY DAY active Not Available Not Available No t Available Paxlovid 300 mg (150 mg x 2)-100 mg tablets in a dose pack TAKE 2 NIRMATRELVI R TABLETS WITH 1 RITONAVIR TABLET BY MOUTH TWICE DAILY FOR 5 DAYS. active Not Available Not Available No t Available Vitals Date Recorded Heart rate Body height Body weight Heart rate Body temperature Respiratory rate Oxygen saturation Oxygen saturation in Arterial blood by Pulse oximetry Systolic blood pressure Diastolic blood pressure Systolic blood pressure Diastolic blood pressure Provider Name and Address Organization Details Last Updated DateTime 4 78 /min 170.18 cm 914244. 528 g 74 /min 98.7 [degF] 16 /min 100 % 100 % 138 mm[Hg] 80 mm[Hg] 148 mm[Hg] 73 mm[Hg] Not Available [facility] - production 4 06:44:58 Social History None recorded. Functional Status None recorded. Mental Status None recorded. Family History Nothing Reported. Medical History No medical history recorded. Gynecological HistoryNo gynecological history recorded. Obstetrics History GPAL:G 0 P 0 0 0 0 Past Encounters Encounter ID Performer Location Encounter Start Date Encounter Closed Date Diagnosis/Indication Diagnosis SNOMED-CT Code Diagnosis ICD10 Code Diagnosis Note [id number] Laura Galindo MD [facility] [address] [place] [phone] 10/18/2023 06:44:43 10/18/2023 14:02:51 Intermittent palpitations 324148716 R00.2 Health Concerns Section Related Observation LastModified by Organization Detai ls LastModified Time None Recorded Concern Status LastModified by Organization Details LastModified Time None Recorded Advance Directives Directive None Recorded Payers Insurance Date Sequence Insurance Name Policy Number Policy Shell Covered Member ID Shell Member ID Guarantor Name 10/17/2023 1 [facility] - DOS ON OR AFTER 2022 - MEDICARE ADVANTAGE [place]MED[place]ARE REPLACEMENT/ADV ANTAGE - PPO) Robert Ayon [id number] Robert Ayon Notes Date Note Type Note Provider Name and Address Organization Details Recorded Time 10/17/2023 text/html [facility] Nurse Triage Notes (Spike Parrish): Reason For Request: Fever, dizzy, and has chest pain, hx surgery on right foot. Chief Complaints: Tachycardia/Palpit ations, Syncope/Dizziness/ Lightheadedness, Shortness of Breath/Dyspnea, Chest Pain Allergies: Unknown Comments: Master Pilot verified the member's name//address and phone number. Mbr calling in with multiple complaints. Mbr c/o dizziness, SOB, chest pressure & feeling feverish. Mbr reports palpitations as well. Mbr reports recent surgery on R foot. Mbr speaking in full, complete sentences at time of call. Advised mbr to go to the ER or call 911 d/t symptoms reported but mbr declines at this time, requesting in home visit instead. Education provided on the response time and the member was advised to monitor reported s/s and seek emergency treatment if needed -Luz Parrish RN .................. .................. .................. .................. .................. .................. .................. ............... Dining Service Inspector Note From Oswaldo Ayon: [facility] visit for female pt. Pt presents complaining of some episodes of palpitations. Pt has cardiac history with ablation last year in addition to possible NSTEMI. Pt has been having palpitations on and off for several months. Episodes seem to come and go without clear cause. V/S taken as listed. Orthostatic vital signs completed which were virtually unchanged. Pt afebrile. Lung sounds clear. 12 lead EKG completed showing normal sinus rhythm. 12 lead tracing sent to [facility] [place]. Pt not having palpitations at this time. Consulted with [facility] [place]. Galindo who advised pt to follow up with PCP or cardiology to see about possible halter monitor. Reviewed red flags for ED. Pt education provided. .................. .................. .................. .................. .................. .................. .................. ............... Disposition: Fulfilled Laura Galindo MD [address] [facility],[address], [place], [phone], [employer] 10/18/2023 06:49:17 OBGyn Episode No OBEpisode recorded.
== END 2024-08-13 12:02 | disposition home or self-care (01) ==
LOC: HO.HNS 11:41
PROVIDERS: PCP Physician Assistant; Visit Provider Physician Assistant
DX: M51.369 Other intervertebral disc degeneration, lumbar region without mention of lumbar back pain or lower extremity pain (principal)
CPT/HCPCS: 99213

== ENCOUNTER → 2024-08-13 11:41 | Outpatient (BNVA) | payer MEDICARE, MEDICAID, SELFPAY | PROVIDERS: PCP Physician Assistant; Visit Provider Physician Assistant | DX: M51.369 Other intervertebral disc degeneration, lumbar region without mention of lumbar back pain or lower extremity pain (principal) | CPT/HCPCS: 99212 ==